=== PATIENT | male | born 1960 | race Caucasian/White ===

== ENCOUNTER 2023-12-24 13:41 | Emergency (ER) | payer OTHER, MEDICAID, SELFPAY ==
[2023-12-24 13:51] VITALS: BP 130/74
--- NOTE | 2023-12-24 15:46 | ED.GENMED ---
History of Present Illness
General
Chief Complaint: Head Injury
Time Seen by Provider: 12/24/23 14:41
Travel History
Have you had any contact with someone who has COVID-19?: No
Do you have any symptoms of coronavirus? Fever > 100 degrees, chills, cough, shortness of breath, sore throat, loss of taste or smell, muscle aches, or headache?: No
History of Present Illness
History of Present Illness:
63-year-old male with history of seizure disorder presents to the emergency department for evaluation of a minor head injury, states he bent forward to pick something up while at the grocery store today and fell backward striking his head on the
ground. Denies loss of conscious. Currently reports mild head pain but denies any other vision changes, neck pain, or extremity paresthesias. No nausea or vomiting.
Past History
Past History
ED Past Medical History: Seizures, Psychiatric (Depression), Other (gall stones, traumatic brain injury, migraine), Other (Hemorrhoids) and Other
ED Past Surgical History: None
Social History
Tobacco: Non-smoker
Alcohol: None
Drug: None
Personal: Single
Living: alone
Employment: Disabled
Family History
Family History: Other (Lost a brother and a sister to Alzheimer's.)
Review of Systems
Review of Systems
Allergies reviewed?: Yes
All Other Systems: ROS reviewed and negative except as documented in HPI and ROS
Phy Exam
Physical Exam
Physical Exam:
GEN: Well appearing, NAD, WDWN
HEENT: Oral mucosa moist, no scleral icterus, no nasal congestion
Cardiac: Regular rate
Lung: No respiratory distress, no tachypnea
MSK: No gross deformity or injuries
Skin: Good color, no pallor or jaundice, no rashes
Neuro: AO x3; CN II-XII grossly intact. BUE strength 5/5 in all young, sensation intact and symmetric. BLE strength 5/5 in all young, sensation intact and symmetric. Shuffling gait, baseline for the patient
Psych: Calm, cooperative
Course
Orders/Labs/Results
Orders:
Orders
12/24/23 15:07
CT Head W/o Iv Contrast Urgent
Comment:
Reason For Exam: fall, posterior head injury
Vital Signs
Initial and Last Documented VS:
Initial Vital Signs
Temp Pulse Resp BP Pulse Ox
98.3 F 77 16 130/74 98
12/24/23 13:51 12/24/23 13:51 12/24/23 13:51 12/24/23 13:51 12/24/23 13:51
Last Documented Vital Signs
Temp Pulse Resp BP Pulse Ox
98.3 F 77 16 130/74 98
12/24/23 13:51 12/24/23 13:51 12/24/23 13:51 12/24/23 13:51 12/24/23 13:51
MDM/Problems Addressed
MDM/Problems Addressed:
53-year-old male presents after minor fall. CT of the head is unremarkable for acute traumatic injury. Patient is at his neurologic baseline, discharged in stable condition
*Critical Care Note
Total Time (30-74mins, 75-104mins- exclusive of procedures): Not Applicable
ED Attending Note
-
Portions of this chart may have been created with voice recognition software.� Occasional wrong word or��sound alike� substitutions may have occurred due to the inherent limitations of voice recognition software.
Discharge Plan
Departure
Patient Disposition: Home (Routine Discharge)
Date of Disposition: 12/24/23
Time of Disposition: 16:11
Patient with high blood pressure during this ER visit?: No
Discharge Problem:
Closed head injury
Instructions: Head Injury in Adults (DC)
Prescriptions:
No Action
famotidine 20 MG tablet
20 mg PO DAILY
topiramate [Topamax] 200 MG tablet
300 mg PO BID
Patient Comments:
07/12/2022: TAKEN W/ 50MG = 250MG
Rx Instructions:
1 and a half tablets
folic acid 0.4 MG tablet
0.4 mg PO DAILY
pregabalin [Lyrica] 300 MG capsule
300 mg PO BID
Patient Comments:
07/12/2022: last filled 06/23/22, 56 tabs for 28 days from [place]
cyanocobalamin (vitamin B-12) 1,000 MCG tablet
1,000 mcg PO DAILY Qty: 0 0RF
levetiracetam 500 mg Tablet
500 mg PO BID
escitalopram oxalate 20 mg Tablet
20 mg PO DAILY
fexofenadine 180 mg Tablet
180 mg PO DAILY
meloxicam 7.5 mg Tablet
7.5 mg PO DAILY
cholecalciferol (vitamin D3) [Vitamin D3] 25 mcg (1,000 unit) Tablet
25 mcg PO DAILY
Aptiom 400 mg Tablet
1,200 mg PO DAILY
Referrals:
NONE,* [Active] -
Interventions
Interventions:
*Risk Screen - Suicide Last Done: 12/24/23 13:51
*General Assessment Last Done: 12/24/23 13:51
*Neglect/Abuse Screening Last Done: 12/24/23 13:51
*Nursing Disposition Last Done: 12/24/23 16:54
ED- Neurological Assessment Last Done: 12/24/23 14:21
ED-Skin Assessment Last Done: 12/24/23 14:21
Discharge Date and Time
Discharge Date/Time: 12/24/23 16:54
== END 2023-12-24 16:54 | disposition home or self-care (01) ==
LOC: EMR 13:41
PROVIDERS: EMERGENCY PHYSICIAN Emergency Medicine
DX: S09.90XA Unspecified injury of head, initial encounter (principal); W18.39XA Other fall on same level, initial encounter; G40.909 Epilepsy, unspecified, not intractable, without status epilepticus; F32.A Depression, unspecified; Z87.19 Personal history of other diseases of the digestive system
CPT/HCPCS: 99284; 70450

== ENCOUNTER 2023-12-31 18:28 | Emergency (ER) | payer OTHER, MEDICAID, SELFPAY ==
[2023-12-31] VITALS (8 sets, daily range): BP systolic 108–138; BP diastolic 58–107; BMI 28.7
[2023-12-31 18:51] LABS: % Basophils 1.5 % (0-2); % Eosinophils 3.3 % (0-6); % Immature Granulocytes 0.8 % (0-0.5); % Monocytes 7.5 % (1.7-9.3); % Neutrophils 72.9 % (42.2-75.2); Absolute Basophils 0.1 10^3/uL (0-0.2); Absolute Eosinophils 0.1 10^3/uL (0-0.7); Absolute Lymphocytes 0.6 10^3/uL (1.2-3.4); Absolute Monocytes 0.3 10^3/uL (0.1-0.6); Absolute Neutrophils 2.9 10^3/uL (1.4-6.5); Hematocrit 33.8 % (39.0-52.0); Hemoglobin 11.9 g/dL (13.0-18.0); Mean Corp Hgb Conc. 35.2 g/dL (33.0-37.0); Mean Corpuscular Hgb 28.8 pg (27.0-31.0); Mean Corpuscular Volume 81.8 fL (80.0-94.0); Nucleated Red Blood Cells % 0 % (-); Platelet Count 152 10^3/uL (130-400); Red Blood Cell Count 4.13 10^6/uL (4.70-6.10); Red Cell Dist. Width 14.6 % (11.5-14.5)
[2023-12-31 19:02] LABS: ALT (SGPT) < 10 U/L (0-50); AST (SGOT) 15 U/L (17-59); Albumin 3.6 g/dl (3.5-5.0); Alkaline Phosphatase 83 U/L (38-126); Blood Urea Nitrogen 20 mg/dl (9-20); Calcium 8.8 mg/dl (8.4-10.2); Carbon Dioxide 24 mmol/L (22-30); Chloride 99 mmol/L (98-107); Glucose 110 mg/dl (70-99); Potassium 3.7 mmol/L (3.5-5.1); Sodium 132 mmol/L (135-145); Total Bilirubin 0.7 mg/dl (0.2-1.3); Total Protein 6.7 g/dl (6.3-8.2); eGFR > 60.00
--- NOTE | 2023-12-31 19:24 | ED.GENMED ---
History of Present Illness
General
Chief Complaint: Seizure
Source: patient
Exam Limitations: none
Time Seen by Provider: 12/31/23 18:41
Nursing documentation reviewed up to this point in time: agreed with
Travel History
Have you had any contact with someone who has COVID-19?: No
Do you have any symptoms of coronavirus? Fever > 100 degrees, chills, cough, shortness of breath, sore throat, loss of taste or smell, muscle aches, or headache?: No
History of Present Illness
History of Present Illness:
Patient with history of seizure disorder, presents to ED secondary to witnessed seizure episode shortly prior to arrival. Upon arrival, patient is alert and awake, but confused. Patient unable to provide any further information at this time.
Past History
Past History
ED Past Medical History: Seizures, Psychiatric (Depression), Other (gall stones, traumatic brain injury, migraine), Other (Hemorrhoids) and Other
ED Past Surgical History: None
Social History
Tobacco: Non-smoker
Alcohol: None
Drug: None
Personal: Single
Living: alone
Employment: Disabled
Family History
Family History: Other (Lost a brother and a sister to Alzheimer's.)
Review of Systems
Review of Systems
Allergies reviewed?: Yes
Unable to obtain full review of systems at this time due to: due to acuity
All Other Systems: Not applicable
Phy Exam
Physical Exam
Physical Exam:
Physical Exam
General: no apparent distress, not acutely ill. afebrile
Head: nc/at. eomi
Neck: supple. normal range of motion.
Heart: s1/s2 regular rate and rhythm, no murmur. equal radial pulses.
Lungs: no acute respiratory distress. clear bilaterally
Abdomen: normal bowel sounds. not tender
Neuro: alert and awake, but confused. no focal neurological deficits
Skin: no rash
Extremities: no edema. no calf tenderness.
Course
Orders/Labs/Results
Orders:
Orders
12/31/23 18:36
EKG [Electrocardiogram (*1)] Urgent
Reason for Study: Syncope
EKG- Treatment ONCE
12/31/23 18:42
Complete Blood Count/With Diff Urgent
Comprehensive Metabolic Panel Urgent
Magnesium Urgent
12/31/23 19:10
CT Cervical Spine W/o Iv Contr Urgent
Comment:
Reason For Exam: seizure with trauma and neck pain
CT Head W/o Iv Contrast Urgent
Comment:
Reason For Exam: seizure
12/31/23 19:46
Add On- LAB Urgent
Tests Added?: magnesium
Abnormal Lab Results
12/31/23
18:42
WBC 4.0 L 10^3/uL
(4.8-10.8)
RBC 4.13 L 10^6/uL
(4.70-6.10)
Hgb 11.9 L g/dL
(13.0-18.0)
Hct 33.8 L %
(39.0-52.0)
RDW 14.6 H %
(11.5-14.5)
Absolute Lymphs (auto) 0.6 L 10^3/uL
(1.2-3.4)
Immature Gran % 0.8 H %
(0-0.5)
Lymphocytes % 14.0 L %
(20.5-51.1)
Sodium 132 L mmol/L
(135-145)
Glucose 110 H mg/dl
(70-99)
AST 15 L U/L
(17-59)
12/31/23 18:42
12/31/23 18:42
Vital Signs
Initial and Last Documented VS:
Initial Vital Signs
Temp Pulse Resp BP Pulse Ox
98.4 F 92 18 124/93 98
12/31/23 18:30 12/31/23 18:30 12/31/23 18:30 12/31/23 18:30 12/31/23 18:30
Last Documented Vital Signs
Temp Pulse Resp BP Pulse Ox
98.4 F 100 17 169/87 98
12/31/23 18:30 01/01/24 01:00 01/01/24 01:00 01/01/24 01:00 01/01/24 01:00
MDM/Problems Addressed
MDM/Problems Addressed:
CT head/C-spine: NAD.
Patient with latter-day of normal, baseline mental status during observation in ED. Patient states that he does not remember the names of medications that he takes for seizures, but states that he has been taking them and has them at home
currently. Advised patient to take his seizure medications upon arrival at home when discharge, along with neurology follow-up as an outpatient. Patient is alert, awake, and oriented, and expresses understanding at time of discharge.
*Critical Care Note
Total Time (30-74mins, 75-104mins- exclusive of procedures): Not Applicable
ED Attending Note
-
Portions of this chart may have been created with voice recognition software.� Occasional wrong word or��sound alike� substitutions may have occurred due to the inherent limitations of voice recognition software.
Discharge Plan
Departure
Patient Disposition: Home (Routine Discharge)
Date of Disposition: 12/31/23
Time of Disposition: 23:02
Patient with high blood pressure during this ER visit?: Yes
Condition: Good
Discharge Problem:
Seizure
Instructions: Seizures, Adult (DC)
Prescriptions:
No Action
famotidine 20 MG tablet
20 mg PO DAILY
topiramate [Topamax] 200 MG tablet
300 mg PO BID
Patient Comments:
07/12/2022: TAKEN W/ 50MG = 250MG
Rx Instructions:
1 and a half tablets
folic acid 0.4 MG tablet
0.4 mg PO DAILY
pregabalin [Lyrica] 300 MG capsule
300 mg PO BID
Patient Comments:
07/12/2022: last filled 06/23/22, 56 tabs for 28 days from [place]
cyanocobalamin (vitamin B-12) 1,000 MCG tablet
1,000 mcg PO DAILY Qty: 0 0RF
levetiracetam 500 mg Tablet
500 mg PO BID
escitalopram oxalate 20 mg Tablet
20 mg PO DAILY
fexofenadine 180 mg Tablet
180 mg PO DAILY
meloxicam 7.5 mg Tablet
7.5 mg PO DAILY
cholecalciferol (vitamin D3) [Vitamin D3] 25 mcg (1,000 unit) Tablet
25 mcg PO DAILY
Aptiom 400 mg Tablet
1,200 mg PO DAILY
Referrals:
UNKNOWN - PT DOES,NOT KNOW [Family Provider] -
Activity Restrictions/Additional Instructions:
As discussed, please continue to take your seizure medications as prescribed, along with close follow-up with your neurologist.
Interventions
Interventions:
*Risk Screen - Suicide Last Done: 12/31/23 18:30
*General Assessment Last Done: 12/31/23 18:30
*Neglect/Abuse Screening Last Done: 12/31/23 19:10
ED- Fall Risk Assessment Last Done: 12/31/23 23:09
*ED COVID-19 Vaccine History Last Done: 12/31/23 23:10
*Nursing Disposition Last Done: 01/01/24 01:00
ED- Cardiac Assessment Last Done: 12/31/23 19:44
ED- Neurological Assessment Last Done: 12/31/23 19:44
ED- Pulmonary Assessment Last Done: 12/31/23 19:44
Discharge Date and Time
Discharge Date/Time: 01/01/24 01:00
[2024-01-01] VITALS: BP 119/87
[2024-01-01 01:00] VITALS: BP 169/87
== END 2024-01-01 01:00 | disposition home or self-care (01) ==
LOC: EMR 18:28
PROVIDERS: EMERGENCY PHYSICIAN Emergency Medicine
DX: G40.909 Epilepsy, unspecified, not intractable, without status epilepticus (principal); R03.0 Elevated blood-pressure reading, without diagnosis of hypertension
CPT/HCPCS: 99285; 70450; 72125; 80053; 83735; 85025; 93005

== ENCOUNTER 2024-02-12 01:13 | Inpatient (IN) | payer OTHER, MEDICAID, SELFPAY ==
[2024-02-11 18:30] VITALS: BMI 26.5
[2024-02-11 18:37] VITALS: BP 103/70
[2024-02-11 18:40] VITALS: BP 103/70
[2024-02-11 19:00] VITALS: BP 106/69
[2024-02-11 20:00] VITALS: BP 113/72
[2024-02-11 20:10] LABS: % Basophils 0.7 % (0-2); % Eosinophils 0.6 % (0-6); % Immature Granulocytes 0.4 % (0-0.5); % Lymphocytes 4.5 % (20.5-51.1); % Monocytes 4.1 % (1.7-9.3); % Neutrophils 89.7 % (42.2-75.2); Absolute Basophils 0.1 10^3/uL (0-0.2); Absolute Lymphocytes 0.3 10^3/uL (1.2-3.4); Absolute Monocytes 0.3 10^3/uL (0.1-0.6); Absolute Neutrophils 6.4 10^3/uL (1.4-6.5); Hematocrit 33.3 % (39.0-52.0); Hemoglobin 11.6 g/dL (13.0-18.0); Mean Corp Hgb Conc. 34.8 g/dL (33.0-37.0); Mean Corpuscular Volume 80.4 fL (80.0-94.0); Mean Platelet Volume 9.8 fL (7.4-10.4); Nucleated Red Blood Cells % 0 % (-); Platelet Count 137 10^3/uL (130-400); Red Blood Cell Count 4.14 10^6/uL (4.70-6.10); Red Cell Dist. Width 14.7 % (11.5-14.5); White Blood Cell Count 7.1 10^3/uL (4.8-10.8)
[2024-02-11 20:21] LABS: Lactic Acid 1.2 mmol/L (0.7-2.0)
[2024-02-11 20:25] LABS: ALT (SGPT) < 10 U/L (0-50); AST (SGOT) 19 U/L (17-59); Albumin 3.7 g/dl (3.5-5.0); Alkaline Phosphatase 87 U/L (38-126); Blood Urea Nitrogen 27 mg/dl (9-20); Calcium 8.4 mg/dl (8.4-10.2); Carbon Dioxide 18 mmol/L (22-30); Chloride 106 mmol/L (98-107); Estimated Creatinine Clearance 66 ml/min; Glucose 109 mg/dl (70-99); Potassium 3.8 mmol/L (3.5-5.1); Sodium 130 mmol/L (135-145); Total Bilirubin 0.9 mg/dl (0.2-1.3); Total Protein 6.7 g/dl (6.3-8.2); eGFR > 60.00
[2024-02-11 20:26] LABS: COVID-19 Antigen Negative (Negative)
[2024-02-11 21:00] VITALS: BP 119/87
[2024-02-11 21:59] LABS: Urine Albumin Trace (Neg - Trace); Urine Bilirubin Negative (Negative); Urine Character Clear (Clear); Urine Color Yellow; Urine Glucose Negative (Negative); Urine Ketone Trace (Negative); Urine Leukocyte Trace (Negative); Urine Nitrite Negative (Negative); Urine Occult Blood Negative (Negative); Urine Specific Gravity 1.015 (<1.030); Urine Urobilinogen Negative (Neg - 1+)
[2024-02-11 22:04] LABS: Urine Bacteria Few (Negative); Urine Red Blood Cell 0-2 /HPF (0-2); Urine White Cell 0-2 /HPF (0-5)
--- NOTE | 2024-02-11 22:25 | ED.GENMED ---
History of Present Illness
General
Chief Complaint: Change in Mental Status
Source: patient
Exam Limitations: none
Time Seen by Provider: 02/11/24 18:33
Nursing documentation reviewed up to this point in time: agreed with
Travel History
Have you had any contact with someone who has COVID-19?: No
Do you have any symptoms of coronavirus? Fever > 100 degrees, chills, cough, shortness of breath, sore throat, loss of taste or smell, muscle aches, or headache?: Unable to Answer
History of Present Illness
History of Present Illness:
63-year-old male with a past medical history as documented presents to the emergency room from [facility] via EMS for evaluation after fall of bed. Patient says that he was trying out of bed and slid down onto his bottom. He says that he did not
hit his head and did not sustain any serious injuries. Apparently there was concern about a potential change in mental status after the fall and so he was sent to the emergency room. On arrival here patient is awake and alert slightly confused
about the year but answering questions and was able to recount the events of today. He says he has been feeling little bit weak. He denies any headache. Denies any neck pain. Denies any back pain. He denies any chest or abdominal pain. He says
he has had a runny nose but no sore throat. No cough. No shortness of breath. He has not had a subjective fever although he was found have a low-grade fever here. He denies any other complaints today. Review of his medication list shows no
blood thinners.
Past History
Past History
ED Past Medical History: Seizures, Psychiatric (Depression), Other (gall stones, traumatic brain injury, migraine), Other (Hemorrhoids) and Other
ED Past Surgical History: None
Social History
Tobacco: Non-smoker
Alcohol: None
Drug: None
Personal: Single
Living: alone
Employment: Disabled
Family History
Family History: Other (Lost a brother and a sister to Alzheimer's.)
Review of Systems
Review of Systems
All Other Systems: ROS reviewed and negative except as documented in HPI and ROS
Constitutional: Reports fever and fatigue; Denies chills
EENT: Reports runny nose; Denies sore throat
Respiratory: Denies cough or trouble breathing
Cardiac: Denies chest pain, diaphoresis, palpitations or syncope
ABD/GI: Denies abdominal pain, nausea, vomiting or diarrhea
: Denies flank pain
Musculoskeletal: Denies neck pain or back pain
Neurological: Denies dizzy, headache, weakness or numbness
Phy Exam
Physical Exam
Physical Exam:
General: Laying in bed awake and alert oriented to person and place was slightly confused about the year
Head: Normocephalic, atraumatic
Eyes: Conjunctiva normal, EOMI, pupils equal round and reactive to light bilateral
Throat: Airway intact, handling secretions
Neck: Trachea midline, supple without meningismus, no cervical spine tenderness
Back: No signs of trauma to the back or flank and no tenderness in the thoracic or lumbar spine
Lungs: Clear to auscultation bilaterally, no wheezing, rales, rhonchi
Heart: Tachycardia with regular rhythm, no murmurs, gallops, or rubs; no chest wall tenderness
Abd: Soft, non distended, nontender
Neuro: Cranial nerves intact 2 through 12, speech fluid, no motor or sensory deficits
Skin: no rash
Extremities: Atraumatic, no edema in extremities, equal pulses in all extremities
Scores
Heart Failure Risk
Heart Failure Risk Score: Not Applicable
Heart Score for Chest Pain Patients
STEMI patient?: Not applicable
Withdrawal Assessment of Alcohol
Withdrawal Assessment Completed?: Not applicable
Course
Orders/Labs/Results
Orders:
Orders
02/11/24 19:34
CT Head W/o Iv Contrast Urgent
Comment:
Reason For Exam: fall, ?head strike, confused
02/11/24 19:44
CR Chest Portable - 1 View Urgent
Comment:
Reason For Exam: fever
Reason Study Needs to be Portable: Unable to Transport
02/11/24 20:02
COVID-19 Antigen Urgent
Source: Nasal Swab
Complete Blood Count/With Diff Urgent
Comprehensive Metabolic Panel Urgent
Lactate Level [Lactic Acid] Urgent
Blood Culture Q30M
ROSANNA Source: Blood/Venous
Specimen Description:
Blood Culture Q30M
ROSANNA Source: Blood/Venous
Specimen Description:
Influenza A+B Rapid Molecular Urgent
ROSANNA Source: Nasal Swab
Specimen Description:
02/11/24 21:52
Urinalysis Reflex To Culture Urgent
Date Specimen was Collected: 02/11/24
Time Specimen was Collected: 21:52
Urine Microscopic Reflex Cult Urgent
02/11/24 22:39
Electrocardiogram (*1) Urgent
Reason for Study: Syncope
EKG- Treatment ONCE
02/11/24 22:54
Basic Metabolic Panel Urgent
Abnormal Lab Results
02/11/24 02/11/24 02/11/24
20:02 21:52 22:54
RBC 4.14 L 10^6/uL
(4.70-6.10)
Hgb 11.6 L g/dL
(13.0-18.0)
Hct 33.3 L %
(39.0-52.0)
RDW 14.7 H %
(11.5-14.5)
Absolute Lymphs (auto) 0.3 L 10^3/uL
(1.2-3.4)
Neutrophils % 89.7 H %
(42.2-75.2)
Lymphocytes % 4.5 L %
(20.5-51.1)
Sodium 130 L mmol/L 129 L mmol/L
(135-145) (135-145)
Carbon Dioxide 18 L mmol/L 20 L mmol/L
(22-30) (22-30)
BUN 27 H mg/dl 27 H mg/dl
(9-20) (9-20)
Glucose 109 H mg/dl 109 H mg/dl
(70-99) (70-99)
Calcium 8.2 L mg/dl
(8.4-10.2)
Urine Ketones Trace A
(Negative)
Leukocyte Esterase Rfl Trace A
(Negative)
Urine Bacteria (Reflex) Few A
(Negative)
02/11/24 20:02
02/11/24 22:54
Vital Signs
Initial and Last Documented VS:
Initial Vital Signs
Temp Pulse Resp BP Pulse Ox
38.0 C H 101 21 103/70 94
02/11/24 18:37 02/11/24 18:37 02/11/24 18:37 02/11/24 18:37 02/11/24 18:37
Last Documented Vital Signs
Temp Pulse Resp BP Pulse Ox
36.9 C 82 13 157/105 94
02/11/24 22:49 02/11/24 23:30 02/11/24 23:30 02/11/24 23:00 02/11/24 18:37
MDM/Problems Addressed
Differential Diagnosis Includes:
Fall: Must rule out intracranial hemorrhage given reported change in mentation; differential would also include concussion; consider seizure with postictal period as well which may have led to fall and confusion
Fever/confusion: Infection including URI, COVID, flu, pneumonia, UTI
MDM/Problems Addressed:
63-year-old male with history as documented presents for evaluation after a fall he says mechanical slide out of bed apparently was found confused. He arrived was tachycardic with a low-grade fever. Vital signs otherwise normal. Exam as above.
He is awake and alert here was slightly confused about the year�I called his sister and she says that this is baseline, apparently he has some good days and bad days as far as his mentation and what we are seeing here sounds like his baseline.
Fortunately does not appear to have serious injuries. Will plan to place an IV will check labs including a CBC and a CMP will check lactate and blood cultures. Will check urinalysis. Check a chest x-ray. Send viral swabs. Will send for CT head.
Will monitor closely reassess after the above.
Labs reviewed: CBC shows marginal anemia similar to prior. CMP shows mild metabolic acidosis with a CO2 of 18, mild hyponatremia with a sodium of 130. Creatinine is 1.3 which is baseline. Urinalysis negative for infection. Viral swabs negative.
Chest x-ray no clear pneumonia on my review. CT head no acute pathology chronic findings as above. With his mild metabolic acidosis and wonder if he may have had a seizure that led to postictal period and confusion. Reassessment here in ER heart
rate improved, fever improved with Tylenol. Repeat BMP pending.
Repeat BMP patient with improving acidosis, still has hyponatremia with a sodium of 129, doubt low enough to cause symptoms. Radiology report reviewed for chest x-ray�left lower lung opacity felt to favor pneumonia in the setting of fever. Will
plan to treat with antibiotics. CURB-65 score 3 puts patient in high risk category. Will admit for continued treatment. Discussed with hospitalist.
*Radiology
Radiology exam reviewed: preliminary read by ED provider and radiology read reviewed
*Pulse Oximetry
Patient hypoxic: no
*EKG
Interpreted by ED Provider?: Yes
Heart Rate: 79
Rate: normal
Rhythm: sinus
[place]: normal axis
Interval: first degree heart block
QRS Pattern: normal QRS
Ischemia: no ischemia
*Critical Care Note
Total Time (30-74mins, 75-104mins- exclusive of procedures): Not Applicable
Data Reviewed
Review of Other/Old Records Reveals: Labs and Records
Source: patient, records, family (Sister) and ambulance crew
Patient Management
Social determinants of health affecting care: Living situation and Strong social support
ED Attending Note
-
Portions of this chart may have been created with voice recognition software.� Occasional wrong word or��sound alike� substitutions may have occurred due to the inherent limitations of voice recognition software.
Discharge Plan
Departure
Patient Disposition: Admit
Date of Disposition: 02/11/24
Time of Disposition: 23:19
Admit to doctor: Marly
Presentation/result/management discussed w/ accepting MD/DO: Hospitalist
Patient with high blood pressure during this ER visit?: No
Discharge Problem:
Pneumonia, Hyponatremia
Prescriptions:
No Action
famotidine 20 MG tablet
20 mg PO DAILY
topiramate [Topamax] 200 MG tablet
300 mg PO BID
Patient Comments:
07/12/2022: TAKEN W/ 50MG = 250MG
Rx Instructions:
1 and a half tablets
folic acid 0.4 MG tablet
0.4 mg PO DAILY
pregabalin [Lyrica] 300 MG capsule
300 mg PO BID
Patient Comments:
07/12/2022: last filled 06/23/22, 56 tabs for 28 days from [place]
cyanocobalamin (vitamin B-12) 1,000 MCG tablet
1,000 mcg PO DAILY Qty: 0 0RF
escitalopram oxalate 20 mg Tablet
20 mg PO DAILY
fexofenadine 180 mg Tablet
180 mg PO DAILY
meloxicam 7.5 mg Tablet
7.5 mg PO DAILY
cholecalciferol (vitamin D3) [Vitamin D3] 25 mcg (1,000 unit) Tablet
25 mcg PO DAILY
Aptiom 400 mg Tablet
1,200 mg PO DAILY
levetiracetam 250 mg Tablet
250 mg PO BID@0800,1800
Referrals:
UNKNOWN - PT DOES,NOT KNOW [Family Provider] -
Interventions
Interventions:
*Risk Screen - Suicide Last Done: 02/11/24 21:19
*General Assessment Last Done: 02/11/24 21:19
*Neglect/Abuse Screening Last Done: 02/11/24 21:19
ED- Fall Risk Assessment Last Done: 02/11/24 19:03
*ED COVID-19 Vaccine History Last Done: 02/11/24 21:19
ED- Pulmonary Assessment Last Done: 02/11/24 19:03
ED- Neurological Assessment Last Done: 02/11/24 19:03
ED- Cardiac Assessment Last Done: 02/11/24 19:03
ED Swallowing Screen Last Done: 02/11/24 23:10
[2024-02-11 23:00] VITALS: BP 157/105
[2024-02-11 23:12] LABS: Blood Urea Nitrogen 27 mg/dl (9-20); Calcium 8.2 mg/dl (8.4-10.2); Carbon Dioxide 20 mmol/L (22-30); Chloride 106 mmol/L (98-107); Estimated Creatinine Clearance 71 ml/min; Glucose 109 mg/dl (70-99); Potassium 3.7 mmol/L (3.5-5.1); Sodium 129 mmol/L (135-145); eGFR > 60.00
[2024-02-12] VITALS (32 sets, daily range): BP systolic 77–128; BP diastolic 41–85; PULSE 70–71; O2SAT 98; BMI 26.5; BMI 26.7
--- NOTE | 2024-02-12 00:16 | HPS.HSE ---
Family Physician
-
Family Physician: NOT KNOW UNKNOWN - PT DOES
Chief Complaint
-
AMS, fall
History of Present Illness
63M Res of [facility], HX Sz, benign essential tremor, PNA BiB EMS for evalaution of fall. Denied head strike.
Per record at [facility] concern for AMS s/p fall then sent ER for eval.
@ ER T 100.4 otherwise HD stable.
Medical History
Past Medical History
Past Medical History: Reports Other
Additional Past Medical History:
Seizures
Depression
Traumatic brain injury
PTSD
Seizure disorder
Migraine headaches
Past Surgical History: Reports None
Social History
Tobacco: Non-smoker
Alcohol: None
Drug: None
Living: Jail
Family History
Family History: Not pertinent
Allergies / Home Medications
Allergies reflects when Allergies were last updated in [employer].
Home Medications with original date entered in [employer]
Allergy/Medication List:
Allergies
Allergy/AdvReac Type Severity Reaction Status Date / Time
iodine [Iodine] Allergy Rash Verified 02/11/24 18:46
valproic acid Allergy Unknown Verified 02/11/24 18:46
Home Medications
famotidine 20 mg tablet 20 mg PO DAILY Gastrointestinal issue 09/04/19
topiramate 200 mg tablet (Topamax) 300 mg PO BID Seizures 07/26/21
folic acid 400 mcg tablet 0.4 mg PO DAILY Supplement 02/10/22
pregabalin 300 mg capsule (Lyrica) 300 mg PO BID Pain 02/10/22
cyanocobalamin (vitamin B-12) 1,000 mcg tablet 1,000 mcg PO DAILY Supplement ##0 04/05/22
escitalopram oxalate 20 mg tablet 20 mg PO DAILY 07/12/22
cholecalciferol (vitamin D3) 25 mcg (1,000 unit) tablet (Vitamin D3) 25 mcg PO DAILY 09/11/23
eslicarbazepine 400 mg tablet (Aptiom) 1,200 mg PO DAILY 09/11/23
fexofenadine 180 mg tablet 180 mg PO DAILY 09/11/23
meloxicam 7.5 mg tablet 7.5 mg PO DAILY 09/11/23
levetiracetam 250 mg tablet 250 mg PO BID@0800,1800 02/11/24
Review of Systems
-
Constitutional: Reports Fever
EENT: Reports No Symptoms
Respiratory: Reports No Symptoms
Cardiac: Reports No Symptoms
Abdomen/GI: Reports No Symptoms
: Reports No Symptoms
Musculoskeletal: Reports No Symptoms
Skin: Reports No Symptoms
Neurological: Reports Other (confused )
Endocrine: Reports No Symptoms
Hematologic/Lymphatic: Reports No Symptoms
Psych: Reports No Symptoms
Physical Exam
Vital Signs
Vital Signs
Temp Pulse Resp BP Pulse Ox
98.5 F 82 13 157/105 94
02/11/24 22:49 02/11/24 23:30 02/11/24 23:30 02/11/24 23:00 02/11/24 18:37
Physical Exam
General: No Apparent Distress
HEENT: NormoCephalic and Atraumatic
Respiratory: Clear; No Wheezes, Rales or Rhonchi
Cardiac: S1/S2 and Regular Rhythm
Breast: Deferred by me
GI: Soft, Non Tender, Non Distended and Normal Bowel Sounds
Rectal: Deferred by Provider
Genito-urinary: Deferred by me
Musculoskeletal: No Edema
Skin: Warm
Neuro: Awake; No Oriented (confused with year )
Psych: Calm
Laboratory Results
-
02/11/24 20:02
02/11/24 22:54
Laboratory Results
Lactic Acid 1.2 mmol/L (0.7-2.0) 02/11/24 20:02
Total Bilirubin 0.9 mg/dl (0.2-1.3) 02/11/24 20:02
AST 19 U/L (17-59) 02/11/24 20:02
ALT < 10 U/L (0-50) 02/11/24 20:02
Alkaline Phosphatase 87 U/L (38-126) 02/11/24 20:02
Data Reviewed
-
Diagnostic Radiology: Report Reviewed by me
Lab Data: Labs Reviewed by me
Old Records: Reviewed
Impression/Plan
-
Reviewed VS: T 100.4 RR mid 10s POx low 90s HD stable
Data
WCC 7
Hgb 11.6
Na 129 - prior Na low 130s
CO2 20
Cr 1.2 eGFR > 60
Pending PCT
NEG Covid
BCx sent
EKG
SINUS RHYTHM WITH 1ST DEGREE A-V BLOCK
OTHERWISE NORMAL ECG
WHEN COMPARED WITH ECG OF 31-DEC-2023 18:37,
NO SIGNIFICANT CHANGE WAS FOUND
CXR:
1. Moderate asymmetric opacity in the left lower lobe suspicious for left lower lobe pneumonia in the setting of fever.
Mild subsegmental atelectasis or scarring is an alternative diagnostic possibility.
2. Mild amount of scarring in the right lower lobe.
3. Large bilateral pericardial fat pads.
HCT
1. No CT evidence for acute intracranial hemorrhage, calvarial fracture, or scalp soft tissue hematoma.
2. Mild diffuse cerebral volume loss.
3. Moderate cerebellar volume loss.
4. 7.9 cm arachnoid cyst in the posterior aspect of the posterior fossa causing mass effect on the posterior cerebellar vermis and left cerebellar hemisphere which appears unchanged.
Last hospitalist admission: 04/01/22- 04/05/22
DC DX: Klebsiella UTI, Seizure,
ASSESSMENT & PLAN
Fall without apparent injury
Improved AMS - infective vs unwitnessed sz
- fall precaution
- Observe MS
Fever likely due to LLL PNA - presumed HAP
Prior HX bibasilar PNA complicated by sepsis
- check PCT
- IV Zosyn in place of CFTZ/ Azithromycin
- f/u BCx
- f/u T and WCC
Euvolemic Hyponatremia ? due to SSRI , Topamax
Prior HX mild hyponatremia
- Pending Ur Na and Ur Osm
- Gentle NS 500 then FR 1.2
- Trend Na in AM
HX Sz stable on Topamax and Lyrica
HX benign essential tremor stable on propranolol
HX depression stable on Ecitalopram
DVT Px: LMWH
Code: Full code
IP MS
[2024-02-12] MEDS: ROCEPHIN 1000 MG IV (00:39)
[2024-02-12] MEDS: ZITHROMAX INFUSION 250 IV (00:40)
[2024-02-12] MEDS: NSS 500 IV ×2 (01:46→12:19)
[2024-02-12] MEDS: ZOSYN 50 IV ×4 (02:26→20:09)
[2024-02-12 02:39] LABS: Procalcitonin 0.71 ng/ml (0.0-0.25)
[2024-02-12 03:15] LABS: Osmolality Urine 667 mOsm/kg (300-900)
[2024-02-12 03:16] LABS: Urine Sodium 121 mmol/L (30-90)
--- NOTE | 2024-02-12 07:59 | W.PN.HOSP.TC ---
Today's Communication/Plan
-
see A/P
Assessment / Plan
Assessment / Plan
HPI: 63 M resident of [facility], [facility] Seizure, benign essential tremor, PNA; p/w fall. Denied head strike.
Per record at [place], there was concern for AMS which resulted in his fall.
He was noted to have fever in the ED.
CXR:
1. Moderate asymmetric opacity in the left lower lobe suspicious for left lower lobe pneumonia in the setting of fever. Mild subsegmental atelectasis or scarring is an alternative diagnostic possibility.
2. Mild amount of scarring in the right lower lobe.
3. Large bilateral pericardial fat pads.
HCT
1. � No CT evidence for acute intracranial hemorrhage, calvarial fracture, or scalp soft tissue hematoma.
2. � Mild diffuse cerebral volume loss.
3. � Moderate cerebellar volume loss.
4. � 7.9 cm arachnoid cyst in the posterior aspect of the posterior fossa causing mass effect on the posterior cerebellar vermis and left cerebellar hemisphere which appears unchanged.
A/P:
# acute metabolic encephalopathy with weakness/fall, likely due to sepsis POA from community-acquired pneumonia
Improved MS, he is AOX2, cont to monitor MS
PT OT eval for fall
CXR with LLL pneumonia, Procal elevated at 0.71
Flu/COVID negative, follow blood Cx, check MRSA screen
s/p ceftriaxone/azithromycin, was switched to Zosyn
Monitor temp /WBC
# Euvolemic acute on chronic Hyponatremia, likely SIADH related to CAP
cont fluid restriction 40 oz per day
follow sodium level
# h/o seizure disorder
cont [employer] Topamax and Lyrica
# benign essential tremor
stable on propranolol
# depression
mood stable on Escitalopram
DVT Px: LMWH
Code: Full code
Anticipated Discharge: 24 - 48 hours
Subjective/Interval History
-
Date of Service: February 12, 2024
Objective Data
-
Labs:
Laboratory Results
02/11/24 02/11/24
20:02 22:54
WBC 7.1
Hgb 11.6 L
Hct 33.3 L
Plt Count 137
Sodium 130 L 129 L
Potassium 3.8 3.7
Chloride 106 106
Carbon Dioxide 18 L 20 L
BUN 27 H 27 H
Creatinine 1.3 1.2
Glucose 109 H 109 H
Calcium 8.4 8.2 L
Total Bilirubin 0.9
AST 19
ALT < 10
Alkaline Phosphatase 87
Vital Signs:
Vital Signs
Temp Pulse Resp BP Pulse Ox
36.9 C 68 14 99/68 94
02/11/24 22:49 02/12/24 05:15 02/12/24 05:15 02/12/24 05:00 02/11/24 18:37
Review of Systems
-
All other systems: Reviewed and negative
Constitutional: Reports Fever
Respiratory: Denies Cough
Physical Exam
-
General: Well Developed, Well Nourished, No Apparent Distress, Comfortable and Conversant; Negative Respiratory Distress
HEENT: Normocephalic, Atraumatic, Nose Appears Normal and Ears Appear Normal; Negative Oxygen
Respiratory: Clear to Auscultation and Non Labored Respirations; Negative Accessory Resp Muscle Use
Cardiac: Regular Rhythm and S1/S2
GI: Soft, Nontender, Nondistended and Normal Bowel Sounds
Skin: Warm and Dry
Neuro: Awake and Alert
Psych: Calm
Data Reviewed
-
Diagnostic Radiology: Report Reviewed by me
Labs: Labs Reviewed by me
[2024-02-12] MEDS: MOBIC 7.5 MG PO (08:46)
[2024-02-12] MEDS: TOPAMAX 300 MG PO ×2 (08:46→20:09)
[2024-02-12] MEDS: KEPPRA 250 MG PO ×2 (08:47→20:09)
[2024-02-12] MEDS: LEXAPRO 20 MG PO (08:47)
[2024-02-12] MEDS: LYRICA 300 MG PO ×2 (08:47→20:10)
--- NOTE | 2024-02-12 12:54 | CM ---
CM met with patient in room. Patient was pleasant, but forgetful during IA. Patient confirmed that he participated in [email or web address] program . Patient stated that he has housekeeping assistance twice a week. He is followed by [facility] PCP and home RN. Patient uses a walker to get up in the morning and then uses a cane during the day. PT has evaluated and recommended no further needs.
CM will continue to follow as needed.
[2024-02-12] MEDS: LOVENOX 40 MG SC (18:48)
[2024-02-12] MEDS: NSS IV (20:19)
[2024-02-13] MEDS: ZOSYN 50 IV ×3 (02:42→13:24)
[2024-02-13] MEDS: NSS 1000 IV (05:15)
[2024-02-13 07:51] VITALS: BP 112/80
[2024-02-13] MEDS: LYRICA 300 MG PO (08:27)
[2024-02-13] MEDS: KEPPRA 250 MG PO (08:27)
[2024-02-13] MEDS: MOBIC 7.5 MG PO (08:28)
[2024-02-13] MEDS: LEXAPRO 20 MG PO (08:28)
[2024-02-13] MEDS: TOPAMAX 300 MG PO (08:28)
[2024-02-13 08:38] LABS: Hematocrit 32.1 % (39.0-52.0); Hemoglobin 10.8 g/dL (13.0-18.0); Mean Corp Hgb Conc. 33.6 g/dL (33.0-37.0); Mean Corpuscular Hgb 27.7 pg (27.0-31.0); Mean Corpuscular Volume 82.3 fL (80.0-94.0); Mean Platelet Volume 10.3 fL (7.4-10.4); Platelet Count 151 10^3/uL (130-400); Red Cell Dist. Width 15.1 % (11.5-14.5); White Blood Cell Count 3.9 10^3/uL (4.8-10.8)
[2024-02-13 09:01] LABS: Blood Urea Nitrogen 22 mg/dl (9-20); Calcium 8.4 mg/dl (8.4-10.2); Carbon Dioxide 20 mmol/L (22-30); Chloride 106 mmol/L (98-107); Estimated Creatinine Clearance 64 ml/min; Glucose 85 mg/dl (70-99); Magnesium 2.1 mg/dl (1.6-2.3); Sodium 136 mmol/L (135-145); eGFR > 60.00
[2024-02-13 09:08] LABS: Potassium 3.5 mmol/L (3.5-5.1)
[2024-02-13] MEDS: TYLENOL 650 MG PO (11:58)
--- NOTE | 2024-02-13 12:49 | W.PN.HOSP.TC ---
Addendum entered and electronically signed by Ashley Rosario MD 02/13/24 15:07:
total DC time 35 min
Original Note:
Today's Communication/Plan
-
DC today
Assessment / Plan
Assessment / Plan
HPI: 63 M resident of [facility], [facility] Seizure, benign essential tremor, PNA; p/w fall. Denied head strike.
Per record at [facility], there was concern for AMS which resulted in his fall.
He was noted to have fever in the ED.
CXR:
1. Moderate asymmetric opacity in the left lower lobe suspicious for left lower lobe pneumonia in the setting of fever. Mild subsegmental atelectasis or scarring is an alternative diagnostic possibility.
2. Mild amount of scarring in the right lower lobe.
3. Large bilateral pericardial fat pads.
HCT
1. � No CT evidence for acute intracranial hemorrhage, calvarial fracture, or scalp soft tissue hematoma.
2. � Mild diffuse cerebral volume loss.
3. � Moderate cerebellar volume loss.
4. � 7.9 cm arachnoid cyst in the posterior aspect of the posterior fossa causing mass effect on the posterior cerebellar vermis and left cerebellar hemisphere which appears unchanged.
A/P:
# acute metabolic encephalopathy with weakness/fall, likely due to sepsis POA from community-acquired pneumonia
Improved MS, he is AOX3
PT OT eval for fall: no skilled need
CXR with LLL pneumonia, Procal elevated at 0.71
Flu/COVID negative, blood Cx neg, pending MRSA screen
s/p ceftriaxone/azithromycin, was switched to Zosyn, can discharged with Ceftin/doxycycline for 5 more days
Monitor temp /WBC
# Euvolemic acute on chronic Hyponatremia, likely SIADH related to CAP
cont fluid restriction 40 oz per day
follow sodium level , today at 136
# h/o seizure disorder
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
# benign essential tremor
stable on propranolol
# depression
mood stable on Escitalopram
DVT Px: LMWH
Code: Full code
DW CM
Anticipated Discharge: Today
Subjective/Interval History
-
Date of Service: February 13, 2024
Objective Data
-
Labs:
Laboratory Results
02/13/24
06:38
WBC 3.9 L
Hgb 10.8 L
Hct 32.1 L
Plt Count 151
Sodium 136
Potassium 3.5
Chloride 106
Carbon Dioxide 20 L
BUN 22 H
Creatinine 1.3
Glucose 85
Calcium 8.4
Vital Signs:
Vital Signs
Temp Pulse Resp BP Pulse Ox
37.2 C 77 16 112/80 96
02/13/24 07:51 02/13/24 07:51 02/13/24 07:51 02/13/24 07:51 02/13/24 08:40
I&O
02/12/24 02/13/24 02/14/24
06:59 06:59 06:59
Intake Total 2560 / 2560
Output Total 0 / 0
Balance 2560 / 2560
Review of Systems
-
All other systems: Reviewed and negative
Physical Exam
-
General: Well Developed, Well Nourished, No Apparent Distress, Comfortable and Conversant; Negative Respiratory Distress
HEENT: Normocephalic, Atraumatic, Nose Appears Normal and Ears Appear Normal; Negative Oxygen
Respiratory: Clear to Auscultation and Non Labored Respirations; Negative Accessory Resp Muscle Use
Cardiac: Regular Rhythm and S1/S2
GI: Soft, Nontender, Nondistended and Normal Bowel Sounds
Skin: Warm and Dry
Neuro: Awake and Alert
Psych: Calm and Intact Judgement/Insight
Data Reviewed
-
Diagnostic Radiology: Report Reviewed by me
Labs: Labs Reviewed by me
[2024-02-13] MEDS: KCL 40 MEQ PO (13:24)
--- NOTE | 2024-02-13 14:17 | W.DCSUMMARY ---
Discharge Summary
Discharge Data
Date of Admission: 02/12/24
Date of Discharge: 02/13/24
-
Pending Results: No
Hospital Course
Principal Diagnosis:
Acute metabolic encephalopathy with weakness/fall, due to community-acquired pneumonia (CAP)
Euvolemic acute on chronic Hyponatremia, likely SIADH related to CAP
Chronic Diagnoses:�
Seizure disorder on Topamax and Lyrica
Benign essential tremor on propranolol
Depression, mood stable on Escitalopram
Consultations:�
None
Procedures:�
None
Clinical course:�
This is a 63 year old resident from [facility], with past medical history as stated above, who presented with fall due to weakness.
Problem 1:
Acute metabolic encephalopathy with weakness/fall, due to sepsis POA from community-acquired pneumonia.
His chest x-ray noted left lower lobe pneumonia, and his procalcitonin was elevated at 0.01.
He was treated with IV antibiotic Zosyn and was discharged with Ceftin/doxycycline for 5 more days.
His mental status improved, back to AOx3, on the day of discharge.
Of note, his Flu/COVID were negative, blood Cx was negative.
Problem 2:
Euvolemic acute on chronic hyponatremia, likely SIADH related to CAP.
Sodium level improved to 136.
As for the rest of his medical problems, they were stable during his hospital stay.
Discharge Plan
-
Patient Disposition: Home with Home Care
Discharge Diagnosis/Procedures: confusion with weakness/fall, due to community-acquired pneumonia; Hyponatremia (resolved) due to SIADH related to pneumonia; benign essential tremor
Condition: Fair
Diet: As tolerated
Activity: As tolerated
Driving Restrictions: Not until seen by your Dr
Referrals:
UNKNOWN - PT DOES,NOT KNOW [Family Provider] - in less than 1 week
Additional Discharge Medication Instructions: continue ceftin and doxycycline for 5 days.
Avoid milk/dairy product while on doxycycline. Avoid the sun while on doxycycline
Prescriptions:
New
cefuroxime axetil 250 mg tablet
500 mg PO BID 5 Days Qty: 20 0RF
doxycycline hyclate 100 mg capsule
100 mg PO BID 5 Days Qty: 10 0RF
Continued
famotidine 20 MG tablet
20 mg PO DAILY
topiramate [Topamax] 200 MG tablet
300 mg PO BID
Patient Comments:
07/12/2022: TAKEN W/ 50MG = 250MG
Rx Instructions:
1 and a half tablets
folic acid 0.4 MG tablet
0.4 mg PO DAILY
pregabalin [Lyrica] 300 MG capsule
300 mg PO BID
Patient Comments:
07/12/2022: last filled 06/23/22, 56 tabs for 28 days from [place]
cyanocobalamin (vitamin B-12) 1,000 MCG tablet
1,000 mcg PO DAILY Qty: 0 0RF
escitalopram oxalate 20 mg Tablet
20 mg PO DAILY
fexofenadine 180 mg Tablet
180 mg PO DAILY
meloxicam 7.5 mg Tablet
7.5 mg PO DAILY
cholecalciferol (vitamin D3) [Vitamin D3] 25 mcg (1,000 unit) Tablet
25 mcg PO DAILY
Aptiom 400 mg Tablet
1,200 mg PO DAILY
levetiracetam 250 mg Tablet
250 mg PO BID@0800,1800
Discharge Orders:
Discharge Patient (As Directed); Ordered 02/13/24
Ordered By: Ashley Rosario
[2024-02-13 15:45] VITALS: BP 88/58
== END 2024-02-13 16:59 | disposition home health service (06) | DRG 871 ==
LOC: 4 WEST ACU 01:13
PROVIDERS: ADMITTING PHYSICIAN Internal Medicine; ATTENDING PHYSICIAN Internal Medicine; EMERGENCY PHYSICIAN Emergency Medicine
DX: A41.9 Sepsis, unspecified organism (principal); G93.41 Metabolic encephalopathy; J18.9 Pneumonia, unspecified organism; E22.2 Syndrome of inappropriate secretion of antidiuretic hormone; E87.20 Acidosis, unspecified; J98.11 Atelectasis; W06.XXXA Fall from bed, initial encounter; Y93.9 Activity, unspecified; Y92.092 Bedroom in other non-institutional residence as the place of occurrence of the external cause; F32.A Depression, unspecified; I44.0 Atrioventricular block, first degree; F43.10 Post-traumatic stress disorder, unspecified; G25.0 Essential tremor; G43.909 Migraine, unspecified, not intractable, without status migrainosus; G40.909 Epilepsy, unspecified, not intractable, without status epilepticus; K64.8 Other hemorrhoids; Z87.820 Personal history of traumatic brain injury; Z82.0 Family history of epilepsy and other diseases of the nervous system; Z11.52 Encounter for screening for COVID-19; Z91.81 History of falling; Z88.8 Allergy status to other drugs, medicaments and biological substances; Z91.041 Radiographic dye allergy status
CPT/HCPCS: 70450; 71045; 80048; 80053; 81003; 81015; 83605; 83735; 83935; 84145; 84300; 85025; 85027; 87040; 87070; 87502; 87811; 93005; 97166; 99285

== ENCOUNTER 2024-06-26 10:16 | Emergency (ER) | payer OTHER, MEDICAID, SELFPAY ==
--- NOTE | 2024-06-26 10:23 | ED.GENMED ---
History of Present Illness
General
Chief Complaint: Seizure
Source: patient and ambulance crew
Time Seen by Provider: 06/26/24 10:22
History of Present Illness
History of Present Illness:
64yoM with a history of epilepsy presenting via EMS for evaluation after a seizure that occurred within the past hour. 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 The episode was described as a tonic clonic
movements that lasted for 1-2 minutes before self-resolving. He was in his seat during the episode and did not fall or have any head injuries. He was back to baseline upon EMS arrival. Patient has no complaints at this time and states he feels
normal. Last seizure was a few weeks ago which is typical for him. He reports compliance with his medications and is currently taking Keppra. He denies any headache, vomiting, fevers, recent illness.
Past History
Past History
ED Past Medical History: Seizures, Psychiatric (Depression), Other (gall stones, traumatic brain injury, migraine), Other (Hemorrhoids) and Other
ED Past Surgical History: None
Social History
Tobacco: Non-smoker
Alcohol: None
Drug: None
Personal: Single
Living: alone
Employment: Disabled
Family History
Family History: Other (Lost a brother and a sister to Alzheimer's.)
Phy Exam
General Physical Exam
General Presentation: well appearing and no apparent distress
General age: appears stated age
General Skin: warm and dry
General Habitus: normal
ENT Exam
Additional ENT: No meningismus
Eye Exam
Eye Exam: PERRL
Cardiovascular Exam
Cardiovascular Exam: regular rate/rhythm, no edema, no murmur and normal peripheral pulses (2+ DP pulses bilaterally)
Pulmonary Exam
Pulmonary Exam: lungs clear, no respiratory distress, no crackles and no wheezing
Neurological Exam
Neurological Exam: alert, oriented x3, no motor deficits and other (Oriented to person, place, and time. Follows commands in all extremities. No focal deficits appreciated. )
[place] Coma Scale
Eye Opening: Spontaneous
Verbal Response: Oriented
Motor Response: Obeys Commands
GCS Total Score: 15
Skin Exam
Skin Exam: normal color and warm/dry
Course
Orders/Labs/Results
Orders:
Orders
06/26/24 10:18
EKG [Electrocardiogram (*1)] Urgent
Reason for Study: Other
Other Reason for Exam: post seizure
06/26/24 10:19
EKG- Treatment ONCE
06/26/24 10:20
Complete Blood Count/With Diff Urgent
Comprehensive Metabolic Panel Urgent
06/26/24 10:47
Keppra (Levetiracetam) [S] Urgent
Abnormal Lab Results
06/26/24
10:20
RBC 3.75 L 10^6/uL
(4.70-6.10)
Hgb 10.3 L g/dL
(13.0-18.0)
Hct 30.0 L %
(39.0-52.0)
RDW 15.2 H %
(11.5-14.5)
Abs Immat Gran (auto) 0.1 H 10^3/uL
(0-0.05)
Absolute Lymphs (auto) 0.9 L 10^3/uL
(1.2-3.4)
Immature Gran % 1.4 H %
(0-0.5)
Lymphocytes % 19.2 L %
(20.5-51.1)
Monocytes % 9.9 H %
(1.7-9.3)
Sodium 132 L mmol/L
(135-145)
BUN 26 H mg/dl
(9-20)
AST 12 L U/L
(17-59)
Total Protein 6.0 L g/dl
(6.3-8.2)
Albumin 3.3 L g/dl
(3.5-5.0)
06/26/24 10:20
06/26/24 10:20
Vital Signs
Initial and Last Documented VS:
Initial Vital Signs
Pulse Resp Pulse Ox
67 12 99
06/26/24 10:23 06/26/24 10:23 06/26/24 10:23
Last Documented Vital Signs
Temp Pulse Resp BP Pulse Ox
98.8 F 56 12 109/77 97
06/26/24 11:07 06/26/24 11:15 06/26/24 11:15 06/26/24 11:07 06/26/24 11:15
MDM/Problems Addressed
Differential Diagnosis Includes:
64yoM here after a seizure. Known hx of epilepsy. Witnessed tonic clonic episode lasting 1-2 minutes that self-resolved. Currently back to baseline with no complaints. He was reportedly hypotensive on EMS arrival although he is normotensive on
arrival at 108/80. He received 500cc IV fluids prehospital. He is afebrile and hemodynamically stable. He is well appearing in no distress. He is A&O without any focal deficits appreciated. Differential diagnosis includes but is not limited to:
seizure, syncope, electrolyte disturbance, arrhythmia
Initial ED plan: Check CBC, CMP, Keppra level, and EKG.
*EKG
Interpreted by ED Provider?: Yes
EKG Intrepretation Date: 06/26/24
Heart Rate: 66
Rate: normal
Rhythm: sinus
[place]: normal axis
Interval: first degree heart block
QRS Pattern: normal QRS
Ischemia: T-wave inversion (Isolated T wave inversion in V3)
*Critical Care Note
Total Time (30-74mins, 75-104mins- exclusive of procedures): Not Applicable
Update Note
Update Note:
Labs overall unremarkable. Mild anemia and hyponatremia noted which is stable from prior labs. EKG shows NSR without ectopy or ischemic changes. Patient reassessment and he continues to be asymptomatic. Blood pressure remains normal. He was able to
eat lunch and ambulate independently during his ED stay. No indication for admission. 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 He was advised to continue taking his home seizure medications and f/u closely with his PCP and neurologist. ED return
precautions discussed. He was discharged in stable condition.
ED Attending Note
-
Portions of this chart may have been created with voice recognition software.� Occasional wrong word or��sound alike� substitutions may have occurred due to the inherent limitations of voice recognition software.
Discharge Plan
Departure
Patient Disposition: Home (Routine Discharge)
Date of Disposition: 06/26/24
Time of Disposition: 11:09
Patient with high blood pressure during this ER visit?: No
Discharge Problem:
Seizure
Instructions: Seizures, Adult (DC)
Prescriptions:
No Action
famotidine 20 MG tablet
20 mg PO DAILY
topiramate [Topamax] 200 MG tablet
300 mg PO BID
Patient Comments:
07/12/2022: TAKEN W/ 50MG = 250MG
Rx Instructions:
1 and a half tablets
folic acid 0.4 MG tablet
0.4 mg PO DAILY
pregabalin [Lyrica] 300 MG capsule
300 mg PO BID
Patient Comments:
07/12/2022: last filled 06/23/22, 56 tabs for 28 days from [place]
cyanocobalamin (vitamin B-12) 1,000 MCG tablet
1,000 mcg PO DAILY Qty: 0 0RF
escitalopram oxalate 20 mg Tablet
20 mg PO DAILY
fexofenadine 180 mg Tablet
180 mg PO DAILY
meloxicam 7.5 mg Tablet
7.5 mg PO DAILY
cholecalciferol (vitamin D3) [Vitamin D3] 25 mcg (1,000 unit) Tablet
25 mcg PO DAILY
Aptiom 400 mg Tablet
1,200 mg PO DAILY
levetiracetam 250 mg Tablet
250 mg PO BID@0800,1800
cefuroxime axetil 250 mg tablet
500 mg PO BID 5 Days Qty: 20 0RF
doxycycline hyclate 100 mg capsule
100 mg PO BID 5 Days Qty: 10 0RF
Referrals:
Jimmy Messina MD [Active] -
UNKNOWN - PT DOES,NOT KNOW [Family Provider] -
Activity Restrictions/Additional Instructions:
Continue taking your seizure medications and do not miss any doses.
Please follow-up with your family doctor and neurologist. Return to the ER with any worsening symptoms, recurrent seizures within 24 hours, or confusion.
Interventions
Interventions:
*Risk Screen - Suicide Last Done: 06/26/24 10:25
*General Assessment Last Done: 06/26/24 10:25
*Neglect/Abuse Screening Last Done: 06/26/24 10:25
ED- Fall Risk Assessment Last Done: 06/26/24 10:25
*ED COVID-19 Vaccine History Last Done: 06/26/24 10:25
*Nursing Disposition Last Done: 06/26/24 11:21
ED- Cardiac Assessment Last Done: 06/26/24 10:25
ED- Neurological Assessment Last Done: 06/26/24 10:25
ED- Pulmonary Assessment Last Done: 06/26/24 10:25
Discharge Date and Time
Discharge Date/Time: 06/26/24 11:53
Print Language: ETHIOPIAN
[2024-06-26 10:25] VITALS: BMI 28.0
[2024-06-26 10:28] LABS: % Basophils 1.4 % (0-2); % Eosinophils 4.5 % (0-6); % Immature Granulocytes 1.4 % (0-0.5); % Lymphocytes 19.2 % (20.5-51.1); % Monocytes 9.9 % (1.7-9.3); % Neutrophils 63.6 % (42.2-75.2); Absolute Basophils 0.1 10^3/uL (0-0.2); Absolute Eosinophils 0.2 10^3/uL (0-0.7); Absolute Immature Granulocytes 0.1 10^3/uL (0-0.05); Absolute Lymphocytes 0.9 10^3/uL (1.2-3.4); Absolute Monocytes 0.5 10^3/uL (0.1-0.6); Absolute Neutrophils 3.1 10^3/uL (1.4-6.5); Hemoglobin 10.3 g/dL (13.0-18.0); Mean Corp Hgb Conc. 34.3 g/dL (33.0-37.0); Mean Corpuscular Hgb 27.5 pg (27.0-31.0); Mean Platelet Volume 9.9 fL (7.4-10.4); Nucleated Red Blood Cells % 0 % (-); Platelet Count 140 10^3/uL (130-400); Red Blood Cell Count 3.75 10^6/uL (4.70-6.10); Red Cell Dist. Width 15.2 % (11.5-14.5); White Blood Cell Count 4.9 10^3/uL (4.8-10.8)
[2024-06-26 10:45] LABS: ALT (SGPT) < 10 U/L (0-50); AST (SGOT) 12 U/L (17-59); Albumin 3.3 g/dl (3.5-5.0); Alkaline Phosphatase 71 U/L (38-126); Blood Urea Nitrogen 26 mg/dl (9-20); Calcium 8.6 mg/dl (8.4-10.2); Carbon Dioxide 23 mmol/L (22-30); Chloride 104 mmol/L (98-107); Estimated Creatinine Clearance 68 ml/min; Glucose 82 mg/dl (70-99); Potassium 3.8 mmol/L (3.5-5.1); Sodium 132 mmol/L (135-145); Total Bilirubin 0.4 mg/dl (0.2-1.3); eGFR > 60.00
[2024-06-26 10:52] VITALS: BP 106/81
[2024-06-26 11:00] VITALS: BP 109/77
[2024-06-26 11:07] VITALS: BP 109/77
[2024-06-29 01:02] LABS: Keppra (Levetiracetam) 21 ug/mL (10-40)
== END 2024-06-26 11:53 | disposition home or self-care (01) ==
LOC: EMR 10:16
PROVIDERS: Physician Assistant; EMERGENCY PHYSICIAN Emergency Medicine
DX: G40.909 Epilepsy, unspecified, not intractable, without status epilepticus (principal)
CPT/HCPCS: 99284; 80053; 80177; 85025; 93005

== ENCOUNTER 2024-07-09 17:47 | Inpatient (IN) | payer OTHER, MEDICAID, SELFPAY ==
[2024-07-09] VITALS (9 sets, daily range): BP systolic 98–134; BP diastolic 70–83; BMI 27.6
[2024-07-09 13:54] LABS: % Basophils 0.8 % (0-2); % Eosinophils 1.7 % (0-6); % Immature Granulocytes 0.2 % (0-0.5); % Lymphocytes 5.5 % (20.5-51.1); % Neutrophils 88.8 % (42.2-75.2); Absolute Eosinophils 0.1 10^3/uL (0-0.7); Absolute Lymphocytes 0.3 10^3/uL (1.2-3.4); Absolute Monocytes 0.2 10^3/uL (0.1-0.6); Absolute Neutrophils 4.7 10^3/uL (1.4-6.5); Hematocrit 31.9 % (39.0-52.0); Hemoglobin 11.2 g/dL (13.0-18.0); Mean Corp Hgb Conc. 35.1 g/dL (33.0-37.0); Mean Corpuscular Hgb 27.6 pg (27.0-31.0); Mean Corpuscular Volume 78.6 fL (80.0-94.0); Nucleated Red Blood Cells % 0 % (-); Platelet Count 114 10^3/uL (130-400); Red Blood Cell Count 4.06 10^6/uL (4.70-6.10); Red Cell Dist. Width 15.4 % (11.5-14.5); White Blood Cell Count 5.3 10^3/uL (4.8-10.8)
[2024-07-09 14:07] LABS: ALT (SGPT) < 10 U/L (0-50); AST (SGOT) 16 U/L (17-59); Albumin 3.9 g/dl (3.5-5.0); Alkaline Phosphatase 75 U/L (38-126); Blood Urea Nitrogen 22 mg/dl (9-20); Calcium 8.9 mg/dl (8.4-10.2); Carbon Dioxide 20 mmol/L (22-30); Chloride 99 mmol/L (98-107); Estimated Creatinine Clearance 68 ml/min; Glucose 114 mg/dl (70-99); Potassium 3.6 mmol/L (3.5-5.1); Sodium 128 mmol/L (135-145); Total Bilirubin 0.6 mg/dl (0.2-1.3); Total Protein 6.5 g/dl (6.3-8.2); eGFR > 60.00
[2024-07-09 15:47] LABS: Urine Albumin Negative (Neg - Trace); Urine Bilirubin Negative (Negative); Urine Character Clear (Clear); Urine Color Yellow; Urine Glucose Negative (Negative); Urine Ketone Negative (Negative); Urine Leukocyte Negative (Negative); Urine Nitrite Negative (Negative); Urine Occult Blood Negative (Negative); Urine Urobilinogen Negative (Neg - 1+)
--- NOTE | 2024-07-09 15:59 | ED.GENMED ---
History of Present Illness
General
Chief Complaint: Change Level of Consciousness
Source: patient and records
Exam Limitations: none
Time Seen by Provider: 07/09/24 15:39
Nursing documentation reviewed up to this point in time: agreed with
History of Present Illness
History of Present Illness:
Patient is a 64-year-old male who presents after becoming dizzy and off balance while at [facility] today. Patient is unsure whether he had a seizure or not. He does not think so but people who were there thought he did. Patient denies diaphoresis,
visual or speech difficulties. Patient Nuys focal weakness. Patient does have significant tremors. Patient denies any GI or symptoms. Patient Nuys any fever chills or recent illnesses. Patient denies syncope. Patient did fall yesterday but
he said it was from feeling dizzy. Patient does have a history of hyponatremia.
Past History
Past History
ED Past Medical History: Seizures, Psychiatric (Depression), Other (gall stones, traumatic brain injury, migraine), Other (Hemorrhoids) and Other
ED Past Surgical History: None
Social History
Tobacco: Non-smoker
Alcohol: None
Drug: None
Personal: Single
Living: alone
Employment: Disabled
Family History
Family History: Other (Lost a brother and a sister to Alzheimer's.)
Review of Systems
Review of Systems
All Other Systems: ROS reviewed and negative except as documented in HPI and ROS
Constitutional: Reports fatigue; Denies fever or chills
EENT: Reports no symptoms
Respiratory: Reports no symptoms
Cardiac: Reports no symptoms
ABD/GI: Reports no symptoms
: Reports no symptoms
Musculoskeletal: Reports neck pain (That has resolved since yesterday); Denies back pain
Skin: Reports no symptoms
Neurological: Reports dizzy and other (Questionable seizure); Denies headache
Hematologic/Lymphatic: Reports no symptoms
Phy Exam
Physical Exam
Physical Exam:
Physical Exam
General: No apparent distress, alert and appropriate, well nourished, well hydrated
HENT: Normocephalic and atraumatic, supple with no lymphadenopathy, no thyromegaly
Eyes: Clear sclera, conjuctiva without injection
Heart: Regular rhythm and rate. No S3, S4. No murmur. No NVD
Lungs: No respiratory distress, no stridor, lung sounds clear and equal bilaterally, chest wall symmetrical and nontender
Abdomen: Soft, nontender, no organomegaly, no CVA tenderness, BS good
Neuro: Alert and oriented x 3, CN II - XII intact, no motor focality, no cerebellar dysfunction, significant resting tremor
Skin: no rash
Psychiatric: well kept. interactive and cooperative
Extremities: No edema, cyanosis, tenderness
Musculoskeletal: No cervical, thoracic or lumbar spine tenderness
Course
Orders/Labs/Results
Orders:
Orders
07/09/24 13:37
Complete Blood Count/With Diff Urgent
Comprehensive Metabolic Panel Urgent
07/09/24 15:36
Osmolality, Random Urine Urgent
Date Specimen was Collected: 07/09/24
Time Specimen was Collected: 15:32
Comment: ADD ON
Urinalysis Reflex To Culture Urgent
Date Specimen was Collected: 07/09/24
Time Specimen was Collected: 15:32
07/09/24 15:43
0.9% Sodium Chloride 1000 ml [Nss] 1,000 ml IV BOLUS
07/09/24 15:47
Add On- LAB Urgent
Comments:: sst and UA in lab
Tests Added?: serum osmolarity and urine osmolarity
Abnormal Lab Results
07/09/24
13:37
RBC 4.06 L 10^6/uL
(4.70-6.10)
Hgb 11.2 L g/dL
(13.0-18.0)
Hct 31.9 L %
(39.0-52.0)
MCV 78.6 L fL
(80.0-94.0)
RDW 15.4 H %
(11.5-14.5)
Plt Count 114 L 10^3/uL
(130-400)
Absolute Lymphs (auto) 0.3 L 10^3/uL
(1.2-3.4)
Neutrophils % 88.8 H %
(42.2-75.2)
Lymphocytes % 5.5 L %
(20.5-51.1)
Sodium 128 L mmol/L
(135-145)
Carbon Dioxide 20 L mmol/L
(22-30)
BUN 22 H mg/dl
(9-20)
Glucose 114 H mg/dl
(70-99)
AST 16 L U/L
(17-59)
07/09/24 13:37
07/09/24 13:37
Vital Signs
Initial and Last Documented VS:
Initial Vital Signs
Temp Pulse Resp BP Pulse Ox
98.3 F 97 16 98/70 96
07/09/24 13:29 07/09/24 13:29 07/09/24 13:29 07/09/24 13:29 07/09/24 13:29
Last Documented Vital Signs
Temp Pulse Resp BP Pulse Ox
98.3 F 90 15 111/76 96
07/09/24 13:29 07/09/24 15:00 07/09/24 15:00 07/09/24 15:00 07/09/24 15:00
*Radiology
Radiology exam reviewed: other (N/A)
*Pulse Oximetry
Patient hypoxic: no
*EKG
Interpreted by ED Provider?: NA
*Critical Care Note
Total Time (30-74mins, 75-104mins- exclusive of procedures): Not Applicable
ED Attending Note
-
Portions of this chart may have been created with voice recognition software.� Occasional wrong word or��sound alike� substitutions may have occurred due to the inherent limitations of voice recognition software.
Discharge Plan
Departure
Patient Disposition: Admit
Date of Disposition: 07/09/24
Time of Disposition: 16:06
Admit to: Telemetry
Admit to doctor: Hospitalist
Presentation/result/management discussed w/ accepting MD/DO: Hospitalist
Patient with high blood pressure during this ER visit?: No
Condition: Fair
Covid-19: Not Applicable
Discharge Problem:
Hyponatremia, Seizures
Prescriptions:
No Action
famotidine 20 MG tablet
20 mg PO DAILY
topiramate [Topamax] 200 MG tablet
300 mg PO BID
Patient Comments:
07/12/2022: TAKEN W/ 50MG = 250MG
Rx Instructions:
1 and a half tablets
folic acid 0.4 MG tablet
0.4 mg PO DAILY
pregabalin [Lyrica] 300 MG capsule
300 mg PO BID
Patient Comments:
07/12/2022: last filled 06/23/22, 56 tabs for 28 days from [place]
cyanocobalamin (vitamin B-12) 1,000 MCG tablet
1,000 mcg PO DAILY Qty: 0 0RF
escitalopram oxalate 20 mg Tablet
20 mg PO DAILY
fexofenadine 180 mg Tablet
180 mg PO DAILY
meloxicam 7.5 mg Tablet
7.5 mg PO DAILY
cholecalciferol (vitamin D3) [Vitamin D3] 25 mcg (1,000 unit) Tablet
25 mcg PO DAILY
Aptiom 400 mg Tablet
1,200 mg PO DAILY
levetiracetam 250 mg Tablet
250 mg PO BID@0800,1800
cefuroxime axetil 250 mg tablet
500 mg PO BID 5 Days Qty: 20 0RF
doxycycline hyclate 100 mg capsule
100 mg PO BID 5 Days Qty: 10 0RF
Referrals:
UNKNOWN - PT DOES,NOT KNOW [Family Provider] -
Interventions
Interventions:
*Risk Screen - Suicide Last Done: 07/09/24 13:34
*General Assessment Last Done: 07/09/24 13:34
*Neglect/Abuse Screening Last Done: 07/09/24 13:34
ED- Cardiac Assessment Last Done: 07/09/24 13:40
ED- Neurological Assessment Last Done: 07/09/24 13:40
ED-Psychological Assessment Last Done: 07/09/24 13:40
ED- Pulmonary Assessment Last Done: 07/09/24 13:40
Discharge Date and Time
Print Language: TRINIDADIAN
[2024-07-09] MEDS: NSS 1000 IV (16:01)
[2024-07-09 16:09] LABS: Osmolality Urine 396 mOsm/kg (300-900)
[2024-07-09 16:15] LABS: Osmolality Serum 272 mOsm/kg (275-300)
--- NOTE | 2024-07-09 17:49 | HPS.HSE ---
Addendum entered and electronically signed by Jose Dominique MD 07/10/24 11:35:
seen and examined on 07/09/24
convulsive syncope vs seizure vs orthostasis vs hyponatremia
-poor po intake, did not drink much fluid, was 85 degrees yesterday
-neuro did not believe another eeg was needed
-neuro consut
-check orthostatic
-monitor on tele
-correct Na even though chronically hyponatremic
acute on chronic hyponatremia
-likely siadh from likely psych meds
-fluid restrict
-improving already
seizure disorder
-continue keppra
-seizure precautions
-avoid agens that lower threshold
-seizure precautions
Original Note:
Family Physician
-
Family Physician: NOT KNOW UNKNOWN - PT DOES
Chief Complaint
-
Acute Seizure/Scope episode with history of seizures
History of Present Illness
Patient is a 64 year old male with a history of seizures, and depression presents to the ED after an acute seizure event. Patient describes that he was feeling light headed and off balance while shopping at [employer] today. He does not remember having
a seizure episode but there were people around him who told him he was. They described that the patient was hunching over his cart and looked like he was having a seizure. Patient denies any diaphoresis, visual, or speech difficulties. Patient also
denied any focal weakness but wears sunglasses due to light sensitivity. Patient does complain of significant tremors in bilateral hands, more prominent in his left, that started a few months ago. He says nothing makes the tremor better or worse and
that it is constant. Patient also remembers having a fall yesterday which he describes as being from feeling dizzy and lightheaded. Patient has a history of chronic hyponatremia but he does not take any medication for it. Patient also complains of
having visual hallucinations, seeing bright lights during his episodes of light headedness.
Medical History
Past Medical History
Past Medical History: Reports Seizures, Psychiatric (Depression) and Other (Chronic Hyponatremia, gall stones, traumatic brain injury, migraine, Hemorrhoids)
Past Surgical History: Reports None
Social History
Tobacco: Non-smoker
Alcohol: None
Drug: None
Personal: Single
Living: Alone
Employment: Disabled
Family History
Family History: Other (Lost a brother and sister to Alzheimer's)
Allergies / Home Medications
Allergies reflects when Allergies were last updated in [employer].
Home Medications with original date entered in [employer]
Allergy/Medication List:
Allergies
Allergy/AdvReac Type Severity Reaction Status Date / Time
iodine [Iodine] Allergy Rash Verified 07/09/24 13:33
valproic acid Allergy Unknown Verified 07/09/24 13:33
Home Medications
famotidine 20 mg tablet 20 mg PO DAILY Gastrointestinal issue 09/04/19
topiramate 200 mg tablet (Topamax) 300 mg PO BID Seizures 07/26/21
folic acid 400 mcg tablet 0.4 mg PO DAILY Supplement 02/10/22
pregabalin 300 mg capsule (Lyrica) 300 mg PO BID Pain 02/10/22
cyanocobalamin (vitamin B-12) 1,000 mcg tablet 1,000 mcg PO DAILY Supplement ##0 04/05/22
escitalopram oxalate 20 mg tablet 20 mg PO DAILY depression 07/12/22
cholecalciferol (vitamin D3) 25 mcg (1,000 unit) tablet (Vitamin D3) 25 mcg PO DAILY Supplement 09/11/23
eslicarbazepine 400 mg tablet (Aptiom) 1,200 mg PO DAILY seizures 09/11/23
fexofenadine 180 mg tablet 180 mg PO DAILY Allergies 09/11/23
meloxicam 7.5 mg tablet 7.5 mg PO DAILY pain 09/11/23
levetiracetam 500 mg tablet 500 mg PO BID 07/09/24
levothyroxine 50 mcg tablet 50 mcg PO DAILY 07/09/24
polyethylene glycol 3350 17 gram oral powder packet (Miralax) 17 g PO DAILY 07/09/24
psyllium husk 3.4 gram/5.4 gram oral powder (Metamucil) 1 tbsp PO DAILY 07/09/24
Review of Systems
-
History Source: Patient
A 12 point ROS was completed and negative except as noted: Yes
Constitutional: Denies Fever, Fatigue or Chills
Respiratory: Denies Cough or Trouble Breathing
Cardiac: Reports Syncope; Denies Chest Pain, Diaphoresis or Palpitations
Abdomen/GI: Denies Abdominal Pain, Nausea or Vomiting
: Denies Incontinence or Difficulty Voiding
Neurological: Reports Dizzy; Denies Headache, Weakness or Numbness
Psych: Reports Calm
Physical Exam
Vital Signs
Vital Signs
Temp Pulse Resp BP Pulse Ox
98.3 F 91 16 107/70 96
07/09/24 13:29 07/09/24 16:57 07/09/24 16:57 07/09/24 16:57 07/09/24 15:15
Physical Exam
General: Well Developed, Well Nourished, No Apparent Distress, Comfortable and Conversant
Respiratory: Clear and Non Labored Respirations
Cardiac: S1/S2 and Regular Rhythm
GI: Soft and Non Tender
Musculoskeletal: No Clubbing, No Cyanosis, Edema, Left Lower Extremity and Edema, Right Lower Extremity
Skin: Warm and Dry
Neuro: Awake, Alert, Oriented, AO x 3, No Motor Deficits and Tremors
Psych: Calm
Laboratory Results
-
07/09/24 13:37
07/09/24 13:37
Laboratory Results
Total Bilirubin 0.6 mg/dl (0.2-1.3) 07/09/24 13:37
AST 16 U/L (17-59) L 07/09/24 13:37
ALT < 10 U/L (0-50) 07/09/24 13:37
Alkaline Phosphatase 75 U/L (38-126) 07/09/24 13:37
Data Reviewed
-
Lab Data: Labs Reviewed by me, Discussed with Physician and Discussed with Patient
Impression/Plan
-
Assessment: 64 year old male comes to the ED with an acute seizure/syncope event. Patient has a history of seizures and states that he is compliant with his medications. Patient also has a chronic hyponatremia for which he does not take any
medication.
PLAN:
Acute seizure/syncope event in patient with history of seizures
-Continue current medications for treatment of seizures
-Consult Neurology- input appreciated
-EEG not needed according to Neuro
-Seen at [facility]-
CT Head 12/25/2022- no hemorrhage or mass effect
EEG 04/04/2023- abnormal EEG-> mild diffuse encephalophathy
Parkinsonian tremor thought- 09/25/2023 DaTscan negative
Patient was to obtain skin biopsy to rule out Parkinson's disease
Not given propanolol due to hypotension. Not given primidone due to on sedating medication.
Chronic Hyponatremia
-Fluid Restrictions
-Monitor I/Os
-Likely due to volume overload, monitor sodium levels
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
Migraines
-Continue current medications
-Avoid bright lights
GERD
-Continue current medication
Hypothyroidism
-Continue current medication
Depression
-Continue current medications
DVT Prophylaxis- Lovenox
Code- Full Code
[2024-07-09] MEDS: KEPPRA 500 MG PO (20:23)
[2024-07-09] MEDS: TOPAMAX 300 MG PO (20:23)
[2024-07-09] MEDS: LOVENOX 40 MG SC (20:23)
[2024-07-09] MEDS: LYRICA 300 MG PO (20:23)
[2024-07-10 03:20] VITALS: BP 121/74
[2024-07-10] MEDS: SYNTHROID 50 MCG PO (05:55)
[2024-07-10 06:31] LABS: Hematocrit 30.8 % (39.0-52.0); Hemoglobin 10.9 g/dL (13.0-18.0); Mean Corp Hgb Conc. 35.4 g/dL (33.0-37.0); Mean Corpuscular Hgb 27.7 pg (27.0-31.0); Mean Corpuscular Volume 78.4 fL (80.0-94.0); Mean Platelet Volume 9.5 fL (7.4-10.4); Platelet Count 110 10^3/uL (130-400); Red Blood Cell Count 3.93 10^6/uL (4.70-6.10); Red Cell Dist. Width 14.9 % (11.5-14.5); White Blood Cell Count 3.8 10^3/uL (4.8-10.8)
--- NOTE | 2024-07-10 07:01 | W.PN.HOSP.TC ---
Addendum entered and electronically signed by Jose Dominique MD 07/10/24 11:42:
seen and examined on 07/09/24
convulsive syncope vs seizure vs orthostasis vs hyponatremia
-poor po intake, did not drink much fluid, was 85 degrees yesterday
-neuro did not believe another eeg was needed
-neuro consut has no signed off
-check orthostatic
-monitor on tele
-need outpt neuro follow up
acute on chronic hyponatremia
-likely siadh from likely psych meds
-fluid restrict 1200
-improving already
seizure disorder
-continue keppra
-seizure precautions
-avoid agents that lower threshold
-seizure precautions
Original Note:
Today's Communication/Plan
-
Monitor patient, can discharge him if Neurologist clears
Assessment / Plan
Assessment / Plan
Assessment: 64 year old male comes to the ED with an acute seizure/syncope event. Patient has a history of seizures and states that he is compliant with his medications. Patient also has a chronic hyponatremia for which he does not take any
medication.
PLAN:
Acute seizure/syncope event in patient with history of seizures
-Continue current medications for treatment of seizures
-Consult Neurology- input appreciated
-EEG not needed according to Neuro
-Seen at [facility] records-
CT Head 12/25/2022- no hemorrhage or mass effect
EEG 04/04/2023- abnormal EEG-> mild diffuse encephalophathy
Parkinsonian tremor thought- 09/25/2023 DaTscan negative
Patient was to obtain skin biopsy to rule out Parkinson's disease
Not given propanolol due to hypotension. Not given primidone due to on sedating medication.
-EKG Sinus Rhythm through the night
Chronic Hyponatremia
-Fluid Restrictions
-Monitor I/Os
-Likely due to volume overload, monitor sodium levels
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
-Pending CMP results
Migraines
-Continue current medications
-Avoid bright lights
-Patient says he hasn't had migraines in a long time
GERD
-Continue current medication
-Patient says he has not had any occurrence of heart burn recently
Hypothyroidism
-Continue current medication
-Patient not aware which medications he is taking. He just takes whatever he gets from the pharmacy
Depression
-Continue current medications
DVT Prophylaxis- Lovenox
Code- Full Code
Anticipated Discharge: Today
Subjective/Interval History
-
Date of Service: July 10, 2024
Patient says that he did not have any seizures/light headedness since he has been at the hospital. Says he had been seeing a doctor at [facility] for his seizures after stopping seeing the neurologist at [facility]. He did note that he had a lot of
trouble sleeping last night which he attributes to being at the hospital.
Objective Data
-
Labs:
Laboratory Results
07/10/24
06:16
WBC 3.8 L
Hgb 10.9 L
Hct 30.8 L
Plt Count 110 L
Sodium Pending
Potassium Pending
Chloride Pending
Carbon Dioxide Pending
BUN Pending
Creatinine Pending
Glucose Pending
Calcium Pending
Total Bilirubin Pending
AST Pending
ALT Pending
Alkaline Phosphatase Pending
Vital Signs:
Vital Signs
Temp Pulse Resp BP Pulse Ox
97.6 F 73 18 121/74 100
07/10/24 03:20 07/10/24 03:20 07/10/24 03:20 07/10/24 03:20 07/10/24 03:20
I&O
07/09/24 07/10/24 07/11/24
06:59 06:59 06:59
Intake Total 240 / 240
Output Total 600 / 600
Balance -360 / -360
Review of Systems
-
History Source: Patient
Constitutional: Reports Sleep Disturbance; Denies Fever, No Appetite or Fatigue
Respiratory: Denies Cough, Trouble Breathing or Wheezing
Cardiac: Denies Chest Pain, Diaphoresis, Palpitations or Syncope
Abdomen/GI: Denies Abdominal Pain, Nausea or Vomiting
Musculoskeletal: Reports Joint Pain; Denies Muscle Stiffness, Edema or Myalgias
Neuro: Reports Tremors; Denies Dizzy
Physical Exam
-
General: Well Developed, Well Nourished, No Apparent Distress and Comfortable
Respiratory: Clear to Auscultation and Non Labored Respirations
Cardiac: Regular Rhythm and S1/S2
Musculoskeletal: No Clubbing, No Cyanosis and No Edema
Skin: Warm and Dry
Neuro: Awake, Alert, Oriented, AO x 3, No Motor Deficits and Tremors
Psych: Calm
Data Reviewed
-
Labs: Labs Reviewed by me, Discussed with Physician and Discussed with Patient
[2024-07-10 07:19] LABS: ALT (SGPT) < 10 U/L (0-50); AST (SGOT) 15 U/L (17-59); Albumin 3.5 g/dl (3.5-5.0); Alkaline Phosphatase 73 U/L (38-126); Blood Urea Nitrogen 17 mg/dl (9-20); Calcium 8.9 mg/dl (8.4-10.2); Carbon Dioxide 20 mmol/L (22-30); Chloride 103 mmol/L (98-107); Estimated Creatinine Clearance 75 ml/min; Glucose 82 mg/dl (70-99); Potassium 3.4 mmol/L (3.5-5.1); Sodium 129 mmol/L (135-145); Total Bilirubin 0.5 mg/dl (0.2-1.3); Total Protein 6.2 g/dl (6.3-8.2); eGFR > 60.00
[2024-07-10 07:36] VITALS: BP 117/78
[2024-07-10] MEDS: VITAMIN D3 (cholecalciferol) 25 MCG PO (08:48)
[2024-07-10] MEDS: MIRALAX 17 GRAMS PO (08:48)
[2024-07-10] MEDS: KEPPRA 500 MG PO (08:48)
[2024-07-10] MEDS: KCL 40 MEQ PO (08:48)
[2024-07-10] MEDS: METAMUCIL, KONSYL 1 PACKET PO (08:48)
[2024-07-10] MEDS: MOBIC 7.5 MG PO (08:48)
[2024-07-10] MEDS: FOLVITE 0.4 MG PO (08:49)
[2024-07-10] MEDS: CLARITIN 10 MG PO (08:49)
[2024-07-10] MEDS: VITAMIN B-12 1000 MCG PO (08:49)
[2024-07-10] MEDS: PEPCID 20 MG PO (08:49)
[2024-07-10] MEDS: TOPAMAX 300 MG PO (08:49)
[2024-07-10] MEDS: LYRICA 300 MG PO (08:49)
[2024-07-10] MEDS: LEXAPRO 20 MG PO (08:49)
[2024-07-10 09:06] LABS: % Basophils 1.1 % (0-2); % Eosinophils 4.7 % (0-6); % Immature Granulocytes 0.3 % (0-0.5); % Lymphocytes 22.2 % (20.5-51.1); % Monocytes 8.7 % (1.7-9.3); Absolute Eosinophils 0.2 10^3/uL (0-0.7); Absolute Lymphocytes 0.8 10^3/uL (1.2-3.4); Absolute Monocytes 0.3 10^3/uL (0.1-0.6); Absolute Neutrophils 2.4 10^3/uL (1.4-6.5); Nucleated Red Blood Cells % 0 % (-)
--- NOTE | 2024-07-10 09:14 | CON.NEURO4 ---
Consultation - Neurology 4
-
CONSULTING PHYSICIAN: Roman
REFERRING PHYSICIAN: Aristides
DICTATED BY: Roman
DATE/TIME OF REQUEST: 07/09/24 in the evening
DATE/TIME OF CONSULTATION: 07/10/24 at 1000
Reason for Consultation: seizure
History of Present Illness:
64-year-old male with a past medical history of epilepsy, depression and TBI as well as PTSD who has been seen at [facility] in the past for seizures brought in after an episode of dizziness and feeling off balance yesterday while at
[facility]. Bystanders described this as him 'hunching over his cart and looked like he was having a seizure.' Further details unavaiable. He denies any associated loss of consciousness or loss of awareness. He does not think he had a seizure. No
missed medications. No new medications. No recent illness or sick contacts. He states that the day before yesterday he did 'slide off the toilet' after feeling dizzy but did not have clear loss of consciousness with that episode either. He
lives alone in an apartment complex. He states that he previously followed with 'a different neurologist [facility]' (records indicate this was Dr. João Roland at the [facility]) but has since stopped seeing that provider and now
follows with a neurologist at [facility]. He cannot say the last time he was seen. He says that 'Parkinson's now.'
Per records:
'CT Head 12/25/2022- no hemorrhage or mass effect
EEG 04/04/2023- abnormal EEG-> consistent with a mild diffuse encephalophathy
Parkinsonian tremor thought- 09/25/2023 DaTscan negative
Not given propanolol due to hypotension. Not given primidone due to on sedating medication. '
Last seen at in March [address] Messina. He has never seen our providers as an outpatient. At that point he was on Topamax 250mg BID and Aptiom 1200mg qhs for his epilepsy. Now also on Keppra and Lyrica. He is a vague historian and could not
provide details regarding his interval history.
Past Medical History
Past Medical History: epilepsy, depression, Chronic Hyponatremia, gall stones, traumatic brain injury, migraine, Hemorrhoids, tremor
Past Surgical History: None
Social History
Tobacco: Non-smoker
Alcohol: None
Drug: None
Personal: Single
Living: Alone
Employment: Disabled
Family History
Family History: Lost a brother and sister to Alzheimer's
Allergies / Home Medications
Home Medications
�Medication �Instructions �Recorded
famotidine 20 mg tablet 20 mg PO DAILY Gastrointestinal 09/04/19
issue
topiramate 200 mg tablet (Topamax) 300 mg PO BID Seizures 07/26/21
folic acid 400 mcg tablet 0.4 mg PO DAILY Supplement 02/10/22
pregabalin 300 mg capsule (Lyrica) 300 mg PO BID Pain 02/10/22
cyanocobalamin (vitamin B-12) 1,000 mcg PO DAILY Supplement ##0 04/05/22
1,000 mcg tablet
escitalopram oxalate 20 mg tablet 20 mg PO DAILY depression 07/12/22
cholecalciferol (vitamin D3) 25 25 mcg PO DAILY Supplement 09/11/23
mcg (1,000 unit) tablet (Vitamin
D3)
eslicarbazepine 400 mg tablet 1,200 mg PO DAILY seizures 09/11/23
(Aptiom)
fexofenadine 180 mg tablet 180 mg PO DAILY Allergies 09/11/23
meloxicam 7.5 mg tablet 7.5 mg PO DAILY pain 09/11/23
levetiracetam 500 mg tablet 500 mg PO BID 07/09/24
levothyroxine 50 mcg tablet 50 mcg PO DAILY 07/09/24
polyethylene glycol 3350 17 gram 17 g PO DAILY 07/09/24
oral powder packet (Miralax)
psyllium husk 3.4 gram/5.4 gram 1 tbsp PO DAILY 07/09/24
oral powder (Metamucil)
Allergies
iodine [Iodine] Allergy (Verified 07/09/24 13:33)
Rash
valproic acid Allergy (Verified 07/09/24 13:33)
Unknown
Review of Symptoms:
Patient denies any fever, headache, chest pain, shortness of breath, GI or symptoms.
�Per the HPI.�All systems are reviewed negative except above.
Vital Signs
Temp Pulse Resp BP Pulse Ox
98.3 F 80 16 117/78 97
07/10/24 07:36 07/10/24 07:36 07/10/24 07:36 07/10/24 07:36 07/10/24 07:36
Lab Results
07/10/24 06:16
07/10/24 06:16
Sodium 129 mmol/L (135-145) L 07/10/24 06:16
Potassium 3.4 mmol/L (3.5-5.1) L 07/10/24 06:16
BUN 17 mg/dl (9-20) 07/10/24 06:16
Glucose 82 mg/dl (70-99) 07/10/24 06:16
Calcium 8.9 mg/dl (8.4-10.2) 07/10/24 06:16
Physical Exam:
The patient is afebrile, heart sounds S1 and S2 are regular and chest is clear to auscultation bilaterally.
Neurologic Examination:
The patient is awake, alert but a vague historian; knew year, month, unable to state name of president but says that's his baseline; followed basic and complex commands. He answered questions appropriately. There is no clear aphasia or dysarthria.
On cranial nerve assessment, pupils are 3 mm bilateral, round and reactive to light and accommodation. Visual yuong are full. Extraocular movements are intact. Facial sensations are intact and bilaterally symmetrical, there is no facial asymmetry.
Hearing is intact bilaterally to normal conversation volume. Tongue palate and uvula are midline. Sternocleidomastoid strengths are full bilaterally. Motor strengths are 5/5 bilateral upper and lower extremities on medical research [place] scale.
There is no drift or involuntary movement noted. Deep tendon reflexes are 1+ bilateral upper and lower extremities and Babinski is absent bilaterally. Sensations of touch, temperature are intact and bilaterally symmetrical. There was no extinction
noted on double simultaneous stimulation. Coordination is intact by finger to nose bilaterally.
Neuro Imaging: none
Impression:
LEONIDES TORRES is a 64 year old M with a history of epilepsy, migraine and TBI who had an episode of dizziness and feeling off balance witnessed yesterday at [facility].
Differentials for the patient's presentation include:
1. presyncope/syncope
2. not clearly seizure although details regarding the event are scarce
Recommendations:
1. in absence of more clear evidence that this was a seizure, would not change his antiseizure regimen
2. if it can be confirmed that this is his baseline, he is cleared for discharge from my standpoint
3. needs outpatient f/u over the next month with his established neurologist
Management of hyponatremia, possible syncope per primary team.
Reviewed with resident, hospitalist.
Discussed patient care with: patient, Dr. Conti, resident, hospitalist.
--- NOTE | 2024-07-10 11:11 | W.DCSUMMARY ---
Documented by User: Joanna Irving MD, Resident 07/10/24 16:52
Discharge Summary
Discharge Data
Date of Admission: 07/09/24
Date of Discharge: 07/10/24
-
Pending Results: No
Hospital Course
Admission diagnosis- Acute Seizure Episode with a history of Seizures
Conditions [facility]-
Seizures
Depression
Chronic Hyponatremia
gall stones
Traumatic brain injury
Migraine
Hemorrhoids
Hospital Course-
Patient is a 64 year old male with a history of seizures, and depression who presented to the ED on 07/10 after an acute seizure event. Patient described that he was feeling light headed and off balance while shopping at [employer]. He did not remember
having a seizure episode but there were people around him who told him he was. They described that the patient was hunching over his cart and looked like he was having a seizure. Patient denied any diaphoresis, visual, or speech difficulties.
Patient also denied any focal weakness but wears sunglasses due to light sensitivity. Patient did complain of significant tremors in bilateral hands, more prominent in his left, that started a few months ago. He says nothing makes the tremor better
or worse and that it is constant. Patient also remembers having a fall the day before which he describes as being from feeling dizzy and lightheaded. Patient has a history of chronic hyponatremia but he does not take any medication for it. Patient
also complains of having visual hallucinations, seeing bright lights during his episodes of light headedness.
During the hospital stay, patient had lab work done and got an EKG. Labs showed he was hyponatremic and there were no pertinent findings on his EKG. Patient was admitted to the hospital to monitor him on telemetry. Neuro was consulted who stated
that an eeg was not needed. 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 Patient was placed on fluid restrictions and his sodium levels improved. Patient's orthostatic vitals were checked as well which showed some
tachycardia as he stood up from a sitting position.
Patient was monitored overnight and had no adverse events. He was monitored on telemetry and he was in sinus rhythm the whole night. Patient had no seizure or syncopic events throughout the night. Patient was much improved in the morning and was
discharged with instructions to follow up with his neurologist at [facility].
Patient was continued to be treated with his home seizure medications while admitted. Neuro consulted who believe the patient should stay on the current therapy while awaiting his appointment with his neurologist.
Discharge Plan
-
Patient Disposition: Home (Routine Discharge)
Discharge Diagnosis/Procedures: Acute Seizure Event
Diet: Regular
Activity: No restrictions
Driving Restrictions: As prior to admission
Bathing Restrictions: None
Instructions: Syncope (Fainting) (DC)
Referrals:
UNKNOWN - PT DOES,NOT KNOW [Family Provider] -
Additional Discharge Medication Instructions: Follow up with Neurologist at [facility]
Prescriptions:
Continued
famotidine 20 MG tablet
20 mg PO DAILY
topiramate [Topamax] 200 MG tablet
300 mg PO BID
Patient Comments:
07/12/2022: TAKEN W/ 50MG = 250MG
Rx Instructions:
1 and a half tablets
folic acid 0.4 MG tablet
0.4 mg PO DAILY
pregabalin [Lyrica] 300 MG capsule
300 mg PO BID
Patient Comments:
07/12/2022: last filled 06/23/22, 56 tabs for 28 days from [facility]
cyanocobalamin (vitamin B-12) 1,000 MCG tablet
1,000 mcg PO DAILY Qty: 0 0RF
escitalopram oxalate 20 mg Tablet
20 mg PO DAILY
fexofenadine 180 mg Tablet
180 mg PO DAILY
meloxicam 7.5 mg Tablet
7.5 mg PO DAILY
cholecalciferol (vitamin D3) [Vitamin D3] 25 mcg (1,000 unit) Tablet
25 mcg PO DAILY
Aptiom 400 mg Tablet
1,200 mg PO DAILY
polyethylene glycol 3350 [Miralax] 17 gram Powder In Packet
17 g PO DAILY
levetiracetam 500 mg Tablet
500 mg PO BID
levothyroxine 50 mcg Tablet
50 mcg PO DAILY
Metamucil 3.4 gram/5.4 gram Powder
1 tbsp PO DAILY
Discharge Orders:
Discharge Patient (As Directed); Ordered 07/10/24
Ordered By: Joanna Irving
Discharge Date and Time
Discharge Date/Time: 07/10/24 14:49
Print Language: ALBANIAN

Documented by User: Jose Dominique MD 07/11/24 16:36
Discharge Summary
Discharge Data
Date of Admission: 07/09/24
Date of Discharge: 07/11/24
Discharge Plan
-
Patient Disposition: Home (Routine Discharge)
Discharge Diagnosis/Procedures: Acute Seizure Event
Diet: Regular
Activity: No restrictions
Driving Restrictions: As prior to admission
Bathing Restrictions: None
Instructions: Syncope (Fainting) (DC)
Referrals:
UNKNOWN - PT DOES,NOT KNOW [Family Provider] -
Additional Discharge Medication Instructions: Follow up with Neurologist at [facility]
Prescriptions:
Continued
famotidine 20 MG tablet
20 mg PO DAILY
topiramate [Topamax] 200 MG tablet
300 mg PO BID
Patient Comments:
07/12/2022: TAKEN W/ 50MG = 250MG
Rx Instructions:
1 and a half tablets
folic acid 0.4 MG tablet
0.4 mg PO DAILY
pregabalin [Lyrica] 300 MG capsule
300 mg PO BID
Patient Comments:
07/12/2022: last filled 06/23/22, 56 tabs for 28 days from [facility]
cyanocobalamin (vitamin B-12) 1,000 MCG tablet
1,000 mcg PO DAILY Qty: 0 0RF
escitalopram oxalate 20 mg Tablet
20 mg PO DAILY
fexofenadine 180 mg Tablet
180 mg PO DAILY
meloxicam 7.5 mg Tablet
7.5 mg PO DAILY
cholecalciferol (vitamin D3) [Vitamin D3] 25 mcg (1,000 unit) Tablet
25 mcg PO DAILY
Aptiom 400 mg Tablet
1,200 mg PO DAILY
polyethylene glycol 3350 [Miralax] 17 gram Powder In Packet
17 g PO DAILY
levetiracetam 500 mg Tablet
500 mg PO BID
levothyroxine 50 mcg Tablet
50 mcg PO DAILY
Metamucil 3.4 gram/5.4 gram Powder
1 tbsp PO DAILY
Discharge Orders:
Discharge Patient (As Directed); Ordered 07/10/24
Ordered By: Joanna Irving
Discharge Date and Time
Discharge Date/Time: 07/10/24 14:49
Print Language: ALBANIAN
[2024-07-10 11:39] VITALS: BP 106/70; BP 112/76; BP 113/79; PULSE 71; PULSE 76; PULSE 98
[2024-07-10 11:45] VITALS: BP 106/70
--- NOTE | 2024-07-10 13:26 | CM ---
Reviewed chart, met with patient to obtain information for assessment. Patient stated that he lives alone in [place] on the third floor. There is elevator access and no steps to enter. Patient reported that he has been independent with his ADLs,
personal care, dressing and bathing. He ambulates with a cane and a walker to assist with transfers.
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
He does not drive and therefore he uses [facility] to get to all of his appointments and do his shopping.
Patient denied any DME besides his cane and walker. He has had VN services in the past through [facility].
He has been to a SNF but does not remember which one.
Patient has a prescription plan and uses, [facility] on [address] for all of his medications.
Patient's PCP is not listed.
Patient stated that he feels that he is at baseline and wants to return home. His Sister can pick him up. He provided her information. [facility] [phone]. Placed a call to Gal[facility] and she stated that she can come pick him up. RN updated.
Plan: Case management will continue to follow and assist with discharge planning. Home no needs.
== END 2024-07-10 14:49 | disposition home or self-care (01) | DRG 645 ==
LOC: 3 WEST ACU 17:47
PROVIDERS: ADMITTING PHYSICIAN Hospitalist; EMERGENCY PHYSICIAN Emergency Medicine; OTHER PHYSICIAN Psychiatry & Neurology Neurology
DX: E22.2 Syndrome of inappropriate secretion of antidiuretic hormone (principal); G40.909 Epilepsy, unspecified, not intractable, without status epilepticus; E87.70 Fluid overload, unspecified; E03.9 Hypothyroidism, unspecified; G43.909 Migraine, unspecified, not intractable, without status migrainosus; F32.A Depression, unspecified; F43.10 Post-traumatic stress disorder, unspecified; K21.9 Gastro-esophageal reflux disease without esophagitis; R44.1 Visual hallucinations; T43.95XA Adverse effect of unspecified psychotropic drug, initial encounter; Z82.0 Family history of epilepsy and other diseases of the nervous system; Z87.820 Personal history of traumatic brain injury
CPT/HCPCS: 80053; 81003; 83930; 83935; 85025; 93005; 96360; 99285

== ENCOUNTER 2024-08-21 09:42 | Emergency (ER) | payer OTHER, MEDICAID, SELFPAY ==
[2024-08-21] VITALS (9 sets, daily range): BP systolic 77–168; BP diastolic 51–125; BMI 27.0
--- NOTE | 2024-08-21 09:56 | ED.GENMED ---
History of Present Illness
<Cameron Conrad PA-C - Last Filed: 08/21/24 16:48>
General
Chief Complaint: Fainting/Passed Out
Source: patient
Exam Limitations: none
Time Seen by Provider: 08/21/24 09:43
History of Present Illness
History of Present Illness:
64-year-old male presents via EMS after EMS was called from local transit. Patient was noticed potentially have a seizure on the bus. He has a seizure disorder. Bystanders stated that he zoned out for about 3 minutes. He was alert and oriented
upon EMS arrival. He remembers EMS getting there. He states he can usually feel his seizures coming on but he did not feel that today. He denies chest pain shortness of breath. He denies any abdominal pain nausea or vomiting. He denies headache
or vision change. Patient lives by himself. He was here a month ago for acute seizure and hyponatremia.
Past History
<Cameron Conrad PA-C - Last Filed: 08/21/24 16:48>
Past History
ED Past Medical History: Seizures, Psychiatric (Depression), Other (gall stones, traumatic brain injury, migraine), Other (Hemorrhoids) and Other
ED Past Surgical History: None
Social History
Tobacco: Non-smoker
Alcohol: None
Drug: None
Personal: Single
Living: alone
Employment: Disabled
Family History
Family History: Other (Lost a brother and a sister to Alzheimer's.)
Phy Exam
<Cameron Conrad PA-C - Last Filed: 08/21/24 16:48>
Physical Exam
Physical Exam:
General: Well-appearing male no acute respiratory distress
HEENT: Normocephalic atraumatic no bite shay on tongue neck is supple
Heart: Regular rate and rhythm
Lungs: Clear no wheeze
Abdomen is soft nontender nondistended
Neurologic exam: Alert and oriented x 3 no facial asymmetry no drift on exam tremor noted to bilateral upper extremities
Extremities: No cyanosis or edema
Skin: Warm no rash
Course
<Cameron Conrad PA-C - Last Filed: 08/21/24 16:48>
Orders/Labs/Results
Orders:
Orders
08/21/24 09:55
Electrocardiogram (*1) Urgent
Reason for Study: Syncope
EKG- Treatment ONCE
0.9% Sodium Chloride 1000 ml [Nss] 1,000 ml IV BOLUS
08/21/24 10:00
Complete Blood Count/With Diff Urgent
Comprehensive Metabolic Panel Urgent
08/21/24 13:37
Acetaminophen [Tylenol] 1,000 mg .ROUTE .STK-MED ONE
08/21/24 13:38
CR Chest - 2 Views Urgent
Comment:
Reason For Exam: fever
08/21/24 13:42
Acetaminophen [Tylenol] 1,000 mg PO NOW STA
08/21/24 13:46
COVID-19 Antigen Urgent
Source: Nasal Swab
Lactic Acid Urgent
Blood Culture Routine
ROSANNA Source: Blood/Venous
Specimen Description:
Blood Culture Urgent
ROSANNA Source: Blood/Venous
Specimen Description:
08/21/24 15:03
CT Head W/o Iv Contrast Urgent
Comment:
Reason For Exam: confusion
08/21/24 15:36
0.9% Sodium Chloride 1000 ml [Nss] 1,000 ml IV BOLUS
08/21/24 16:07
Urinalysis Reflex To Culture Urgent
Date Specimen was Collected: 08/21/24
Time Specimen was Collected: 16:07
Abnormal Lab Results
08/21/24
10:00
WBC 4.6 L 10^3/uL
(4.8-10.8)
RBC 4.07 L 10^6/uL
(4.70-6.10)
Hgb 10.9 L g/dL
(13.0-18.0)
Hct 32.3 L %
(39.0-52.0)
MCV 79.4 L fL
(80.0-94.0)
MCH 26.8 L pg
(27.0-31.0)
RDW 16.0 H %
(11.5-14.5)
Absolute Lymphs (auto) 0.5 L 10^3/uL
(1.2-3.4)
Immature Gran % 0.6 H %
(0-0.5)
Neutrophils % 79.2 H %
(42.2-75.2)
Lymphocytes % 11.6 L %
(20.5-51.1)
BUN 21 H mg/dl
(9-20)
08/21/24 10:00
08/21/24 10:00
Vital Signs
Initial and Last Documented VS:
Initial Vital Signs
Pulse Resp BP Pulse Ox
77 18 94/60 98
08/21/24 09:48 08/21/24 09:48 08/21/24 09:48 08/21/24 09:48
Last Documented Vital Signs
Temp Pulse Resp BP Pulse Ox
98.3 F 109 16 105/61 97
08/21/24 15:51 08/21/24 15:45 08/21/24 15:45 08/21/24 15:06 08/21/24 18:15
<Nelly Bundy DO - Last Filed: 08/21/24 16:02>
Orders/Labs/Results
Orders:
Orders
08/21/24 09:55
Electrocardiogram (*1) Urgent
Reason for Study: Syncope
EKG- Treatment ONCE
0.9% Sodium Chloride 1000 ml [Nss] 1,000 ml IV BOLUS
08/21/24 10:00
Complete Blood Count/With Diff Urgent
Comprehensive Metabolic Panel Urgent
08/21/24 13:37
Acetaminophen [Tylenol] 1,000 mg .ROUTE .STK-MED ONE
08/21/24 13:38
CR Chest - 2 Views Urgent
Comment:
Reason For Exam: fever
08/21/24 13:42
Acetaminophen [Tylenol] 1,000 mg PO NOW STA
08/21/24 13:46
COVID-19 Antigen Urgent
Source: Nasal Swab
Lactic Acid Urgent
Blood Culture Routine
ROSANNA Source: Blood/Venous
Specimen Description:
Blood Culture Urgent
ROSANNA Source: Blood/Venous
Specimen Description:
08/21/24 15:03
CT Head W/o Iv Contrast Urgent
Comment:
Reason For Exam: confusion
08/21/24 15:36
0.9% Sodium Chloride 1000 ml [Nss] 1,000 ml IV BOLUS
08/21/24 16:07
Urinalysis Reflex To Culture Urgent
Date Specimen was Collected: 08/21/24
Time Specimen was Collected: 16:07
Abnormal Lab Results
08/21/24
10:00
WBC 4.6 L 10^3/uL
(4.8-10.8)
RBC 4.07 L 10^6/uL
(4.70-6.10)
Hgb 10.9 L g/dL
(13.0-18.0)
Hct 32.3 L %
(39.0-52.0)
MCV 79.4 L fL
(80.0-94.0)
MCH 26.8 L pg
(27.0-31.0)
RDW 16.0 H %
(11.5-14.5)
Absolute Lymphs (auto) 0.5 L 10^3/uL
(1.2-3.4)
Immature Gran % 0.6 H %
(0-0.5)
Neutrophils % 79.2 H %
(42.2-75.2)
Lymphocytes % 11.6 L %
(20.5-51.1)
BUN 21 H mg/dl
(9-20)
08/21/24 10:00
08/21/24 10:00
Vital Signs
Initial and Last Documented VS:
Initial Vital Signs
Pulse Resp BP Pulse Ox
77 18 94/60 98
08/21/24 09:48 08/21/24 09:48 08/21/24 09:48 08/21/24 09:48
Last Documented Vital Signs
Temp Pulse Resp BP Pulse Ox
98.3 F 109 16 105/61 97
08/21/24 15:51 08/21/24 15:45 08/21/24 15:45 08/21/24 15:06 08/21/24 18:15
<QUINTIN Carrera - Last Filed: 08/24/24 15:00>
Orders/Labs/Results
Orders:
Orders
08/21/24 09:55
Electrocardiogram (*1) Urgent
Reason for Study: Syncope
EKG- Treatment ONCE
0.9% Sodium Chloride 1000 ml [Nss] 1,000 ml IV BOLUS
08/21/24 10:00
Complete Blood Count/With Diff Urgent
Comprehensive Metabolic Panel Urgent
08/21/24 13:37
Acetaminophen [Tylenol] 1,000 mg .ROUTE .STK-MED ONE
08/21/24 13:38
CR Chest - 2 Views Urgent
Comment:
Reason For Exam: fever
08/21/24 13:42
Acetaminophen [Tylenol] 1,000 mg PO NOW STA
08/21/24 13:46
COVID-19 Antigen Urgent
Source: Nasal Swab
Lactic Acid Urgent
Blood Culture Routine
ROSANNA Source: Blood/Venous
Specimen Description:
Blood Culture Urgent
ROSANNA Source: Blood/Venous
Specimen Description:
08/21/24 15:03
CT Head W/o Iv Contrast Urgent
Comment:
Reason For Exam: confusion
08/21/24 15:36
0.9% Sodium Chloride 1000 ml [Nss] 1,000 ml IV BOLUS
08/21/24 16:07
Urinalysis Reflex To Culture Urgent
Date Specimen was Collected: 08/21/24
Time Specimen was Collected: 16:07
Abnormal Lab Results
08/21/24
10:00
WBC 4.6 L 10^3/uL
(4.8-10.8)
RBC 4.07 L 10^6/uL
(4.70-6.10)
Hgb 10.9 L g/dL
(13.0-18.0)
Hct 32.3 L %
(39.0-52.0)
MCV 79.4 L fL
(80.0-94.0)
MCH 26.8 L pg
(27.0-31.0)
RDW 16.0 H %
(11.5-14.5)
Absolute Lymphs (auto) 0.5 L 10^3/uL
(1.2-3.4)
Immature Gran % 0.6 H %
(0-0.5)
Neutrophils % 79.2 H %
(42.2-75.2)
Lymphocytes % 11.6 L %
(20.5-51.1)
BUN 21 H mg/dl
(9-20)
08/21/24 10:00
08/21/24 10:00
Vital Signs
Initial and Last Documented VS:
Initial Vital Signs
Pulse Resp BP Pulse Ox
77 18 94/60 98
08/21/24 09:48 08/21/24 09:48 08/21/24 09:48 08/21/24 09:48
Last Documented Vital Signs
Temp Pulse Resp BP Pulse Ox
98.3 F 109 16 105/61 97
08/21/24 15:51 08/21/24 15:45 08/21/24 15:45 08/21/24 15:06 08/21/24 18:15
<Cameron Conrad PA-C - Last Filed: 08/21/24 16:48>
MDM/Problems Addressed
Differential Diagnosis Includes:
Syncope versus seizure. Patient is not postictal he recalls immediately after the episode. This is more likely potential syncope. Will check for arrhythmia electrolyte abnormality or anemia. Labs pending EKG pending. Will give fluid as initial
blood pressure was slightly low
<QUINTIN Carrera - Last Filed: 08/24/24 15:00>
MDM/Problems Addressed
MDM/Problems Addressed:
Update note from August 24, 2024 blood cultures came back for diphtheroids likely contaminant. Call was initially placed to phone number listed for patient's cell phone however no answer. Beings that patient lives at [facility] and
there have been no answer local police were called and did a wellness check. I spoke to the officer in charge ) who does note that patient appears to be doing well and feels well. He did give me a new number listed for
patient�[phone]. I did call this number and speak with Mr. Olivas. He feels much better he has no complaints he denies any fevers and he is planning on follow-up with his family doctor this week
<Cameron Conrad PA-C - Last Filed: 08/21/24 16:48>
*Critical Care Note
Total Time (30-74mins, 75-104mins- exclusive of procedures): Not Applicable
<Cameron Conrad PA-C - Last Filed: 08/21/24 16:48>
Update Note
Update Note:
Patient reevaluated multiple times throughout his stay. He did develop a fever of 102.4. Prior to the fever he did to have rigors and a period of some confusion. This prompted more of a workup including COVID test which was negative. CT of head
which was negative urinalysis also which was negative. Of note, patient had influenza vaccine yesterday fever today may be related to an immune response to the flu vaccine. Patient is now back to baseline after hydration and Tylenol and he feels
normal. He has been ambulatory and alert. Discussed with emergency room attending who saw the patient as well. No indication for admission. Stable for discharge
ED Attending Note
<Cameron Conrad PA-C - Last Filed: 08/21/24 16:48>
-
Portions of this chart may have been created with voice recognition software.� Occasional wrong word or��sound alike� substitutions may have occurred due to the inherent limitations of voice recognition software.
<Nelly Bundy DO - Last Filed: 08/21/24 16:02>
ED Attending Note
Patient seen and examined by attending physician: Yes
I performed the substantive portion of visit, reviewed & personally made and approve the management plan that is documented in note by myself or DAHIANA.: Yes
I performed a history and physical exam of patient and discussed management with resident, I reviewed resident's note and agree with documented findings and plan of care.: Yes
ED Attending Note:
64-year-old male with history of seizure disorder presenting to the emergency department for potential seizure. Patient was allegedly on the bus and supposedly had a witnessed seizure on the bus. Patient arrives to the hospital, awake, alert,
oriented, known seizure disorder. No report of any head trauma. Patient reports that he was immediately alert after the episode, no alleged postictal period. Vital signs on arrival significant retention.
On arrival, patient is in no acute distress, awake, alert, oriented. Patient initially evaluated by physician application assistant, suspected syncope versus breakthrough seizure no known seizure patient. No signs of trauma, benign cardiac and pulmonary exam.
Nonischemic EKG, no arrhythmia. Patient with history of hyponatremia, so initial plan for screening laboratory analysis and monitoring. Workup grossly unremarkable and patient remained hemodynamically stable, improvement in blood pressure.
Initial plan for discharge, however in discharge planning and repeat vital signs, patient spiked a fever.
On my assessment after knowledge of fever, patient without specific infectious symptoms. Called by nursing staff for shaking episode. Patient awake and alert during the episode, answering some questions, however not all. Patient reports that he
is usually completely out for his seizures. Suspect possible rigors. In the setting of presenting hypotension and no fever, sepsis is a consideration. Lactic acid sent, within normal limits. No leukocytosis. Blood pressure has stabilized. No
sign of severe sepsis or septic shock. Unclear source at this time. Mental status remains intact. Pending urinalysis and CT brain
Discharge Plan
Departure
Patient Disposition: Home (Routine Discharge)
Date of Disposition: 08/21/24
Time of Disposition: 16:48
Patient with high blood pressure during this ER visit?: No
Discharge Problem:
Fever
Instructions: Weakness
Prescriptions:
No Action
famotidine 20 MG tablet
20 mg PO DAILY
topiramate [Topamax] 200 MG tablet
300 mg PO BID
Patient Comments:
07/12/2022: TAKEN W/ 50MG = 250MG
Rx Instructions:
1 and a half tablets
folic acid 0.4 MG tablet
0.4 mg PO DAILY
pregabalin [Lyrica] 300 MG capsule
300 mg PO BID
Patient Comments:
07/12/2022: last filled 06/23/22, 56 tabs for 28 days from [facility]
cyanocobalamin (vitamin B-12) 1,000 MCG tablet
1,000 mcg PO DAILY Qty: 0 0RF
escitalopram oxalate 20 mg Tablet
20 mg PO DAILY
fexofenadine 180 mg Tablet
180 mg PO DAILY
meloxicam 7.5 mg Tablet
7.5 mg PO DAILY
cholecalciferol (vitamin D3) [Vitamin D3] 25 mcg (1,000 unit) Tablet
25 mcg PO DAILY
Aptiom 400 mg Tablet
1,200 mg PO DAILY
polyethylene glycol 3350 [Miralax] 17 gram Powder In Packet
17 g PO DAILY
levetiracetam 500 mg Tablet
500 mg PO BID
levothyroxine 50 mcg Tablet
50 mcg PO DAILY
Metamucil 3.4 gram/5.4 gram Powder
1 tbsp PO DAILY
Referrals:
UNKNOWN - PT DOES,NOT KNOW [Family Provider] -
Activity Restrictions/Additional Instructions:
Rest. Stay hydrated. You may use Tylenol or ibuprofen if needed for fever. Return if worse otherwise follow-up with your treating doctors
Interventions
Interventions:
*Risk Screen - Suicide Last Done: 08/21/24 09:57
*General Assessment Last Done: 08/21/24 09:56
*Neglect/Abuse Screening Last Done: 08/21/24 09:56
*ED COVID-19 Vaccine History Last Done: 08/21/24 09:57
*Nursing Disposition Last Done: 08/21/24 18:52
ED- Cardiac Assessment Last Done: 08/21/24 09:53
ED- Neurological Assessment Last Done: 08/21/24 09:53
Discharge Date and Time
Discharge Date/Time: 08/21/24 18:52
Print Language: HEBREW
[2024-08-21] MEDS: NSS 1000 IV ×2 (09:59→15:41)
[2024-08-21 10:09] LABS: % Basophils 1.3 % (0-2); % Eosinophils 3.9 % (0-6); % Immature Granulocytes 0.6 % (0-0.5); % Lymphocytes 11.6 % (20.5-51.1); % Monocytes 3.4 % (1.7-9.3); % Neutrophils 79.2 % (42.2-75.2); Absolute Basophils 0.1 10^3/uL (0-0.2); Absolute Eosinophils 0.2 10^3/uL (0-0.7); Absolute Lymphocytes 0.5 10^3/uL (1.2-3.4); Absolute Monocytes 0.2 10^3/uL (0.1-0.6); Absolute Neutrophils 3.7 10^3/uL (1.4-6.5); Hematocrit 32.3 % (39.0-52.0); Hemoglobin 10.9 g/dL (13.0-18.0); Mean Corp Hgb Conc. 33.7 g/dL (33.0-37.0); Mean Corpuscular Hgb 26.8 pg (27.0-31.0); Mean Corpuscular Volume 79.4 fL (80.0-94.0); Mean Platelet Volume 9.5 fL (7.4-10.4); Nucleated Red Blood Cells % 0 % (-); Platelet Count 147 10^3/uL (130-400); Red Blood Cell Count 4.07 10^6/uL (4.70-6.10); White Blood Cell Count 4.6 10^3/uL (4.8-10.8)
[2024-08-21 10:20] LABS: ALT (SGPT) 10 U/L (0-50); AST (SGOT) 20 U/L (17-59); Albumin 3.8 g/dl (3.5-5.0); Alkaline Phosphatase 74 U/L (38-126); Blood Urea Nitrogen 21 mg/dl (9-20); Calcium 9.1 mg/dl (8.4-10.2); Carbon Dioxide 25 mmol/L (22-30); Chloride 103 mmol/L (98-107); Estimated Creatinine Clearance 70 ml/min; Glucose 80 mg/dl (70-99); Potassium 3.8 mmol/L (3.5-5.1); Sodium 135 mmol/L (135-145); Total Bilirubin 0.5 mg/dl (0.2-1.3); Total Protein 6.3 g/dl (6.3-8.2); eGFR > 60.00
[2024-08-21] MEDS: TYLENOL 1000 MG PO (13:42)
[2024-08-21 14:24] LABS: Lactic Acid 1.8 mmol/L (0.7-2.0)
[2024-08-21 14:54] LABS: COVID-19 Antigen Negative (Negative)
[2024-08-21 16:33] LABS: Urine Albumin Negative (Neg - Trace); Urine Bilirubin Negative (Negative); Urine Character Clear (Clear); Urine Color Yellow; Urine Glucose Negative (Negative); Urine Ketone Negative (Negative); Urine Leukocyte Negative (Negative); Urine Nitrite Negative (Negative); Urine Occult Blood Negative (Negative); Urine Urobilinogen Negative (Neg - 1+)
== END 2024-08-21 18:52 | disposition home or self-care (01) ==
LOC: EMR 09:42
PROVIDERS: Physician Assistant; EMERGENCY PHYSICIAN Student in an Organized Health Care Education/Training Program
DX: R50.9 Fever, unspecified (principal); Z87.820 Personal history of traumatic brain injury; F32.A Depression, unspecified
CPT/HCPCS: 99284; 96360; 96361; 70450; 71046; 80053; 81003; 83605; 85025; 87040; 87205; 87811; 93005

== ENCOUNTER 2025-02-28 18:45 | Emergency (ER) | payer OTHER, MEDICAID, SELFPAY ==
[2025-02-28 18:50] VITALS: BP 121/84
[2025-02-28 18:55] VITALS: BMI 26.4
[2025-02-28 19:00] VITALS: BP 106/58
--- NOTE | 2025-02-28 19:15 | ED.GENMED ---
History of Present Illness
General
Chief Complaint: Seizure
Source: patient
Exam Limitations: none
Time Seen by Provider: 02/28/25 19:04
History of Present Illness
History of Present Illness:
Patient apparently had a grand mal seizure lasting a few minutes while eating dinner. He feels fine at this time. History of seizures. Last she is here in July. He is on Keppra. Faithful with medications. He is on a new medication for
tremor these been on 2 months. This was just prescribed by his neurologist. He is unsure of the medication name however
Past History
Past History
ED Past Medical History: Seizures, Psychiatric (Depression), Other (gall stones, traumatic brain injury, migraine), Other (Hemorrhoids) and Other
ED Past Surgical History: None
Social History
Tobacco: Non-smoker
Alcohol: None
Drug: None
Personal: Single
Living: alone
Employment: Disabled
Family History
Family History: Other (Lost a brother and a sister to Alzheimer's.)
Review of Systems
Review of Systems
All Other Systems: Not applicable
Respiratory: Reports no symptoms
Cardiac: Reports no symptoms
ABD/GI: Reports no symptoms
Phy Exam
Physical Exam
Physical Exam:
GENERAL: Alert and oriented in no apparent distress
EYE: Orbits normal.
NECK: Collar in place.
ENT: Pharynx without erythema. Abrasion to the left proximal nasal area. No significant deformity. No other facial trauma
CARDIAC: Regular rate and rhythm without any obvious murmurs.
LUNGS: Clear breath sounds,normal
ABDOMEN: Soft, without focal tenderness or distention
NEUROLOGICAL: Alert and oriented , grossly non-focal. Resting tremor of both arms
SKIN: Warm and dry, no rash or lesion, no discoloration, skin intact.
MUSCULOSKELETAL: No edema,no deformity.Good color
PSYCH: Normal and appropriate interaction.
Course
Orders/Labs/Results
Orders:
Orders
02/28/25 19:04
CT Cervical Spine W/o Iv Contr Urgent
Comment:
Reason For Exam: Trauma
CT Facial Bones W/o Iv Contras Urgent
Comment:
Reason For Exam: Trauma
CT Head W/o Iv Contrast Urgent
Comment:
Reason For Exam: Trauma
Cardiac Monitoring- Treatment ONCE
02/28/25 19:05
Electrocardiogram (*1) Stat
Reason for Study: Other
Other Reason for Exam: neuro symptoms
Cardiac Monitoring- Treatment ONCE
EKG- Treatment ONCE
IV Insert/Care/Rem.- Treatment PRN
02/28/25 19:06
Basic Metabolic Panel Urgent
Complete Blood Count/With Diff Urgent
02/28/25 19:14
Add On- LAB Urgent
Tests Added?: keppra level
02/28/25 19:38
Keppra (Levetiracetam) [S] Routine
03/01/25 00:08
Levetiracetam [Keppra] 500 mg .ROUTE .STK-MED ONE
03/01/25 01:24
Levetiracetam [Keppra] 500 mg PO NOW STA
03/01/25 01:26
Topiramate [Topamax] 300 mg PO NOW STA
Abnormal Lab Results
02/28/25
19:06
RBC 4.00 L 10^6/uL
(4.70-6.10)
Hgb 11.4 L g/dL
(13.0-18.0)
Hct 33.3 L %
(39.0-52.0)
RDW 15.9 H %
(11.5-14.5)
Plt Count 92 L 10^3/uL
(130-400)
Absolute Lymphs (auto) 0.3 L 10^3/uL
(1.2-3.4)
Neutrophils % 88.2 H %
(42.2-75.2)
Lymphocytes % 5.3 L %
(20.5-51.1)
BUN 25 H mg/dl
(9-20)
Glucose 117 H mg/dl
(70-99)
02/28/25 19:06
02/28/25 19:06
Vital Signs
Initial and Last Documented VS:
Initial Vital Signs
Temp Pulse Resp BP Pulse Ox
98.7 F 112 18 121/84 96
02/28/25 18:50 02/28/25 18:50 02/28/25 18:50 02/28/25 18:50 02/28/25 18:50
Last Documented Vital Signs
Temp Pulse Resp BP Pulse Ox
98.5 F 68 16 118/83 96
02/28/25 19:02 03/01/25 10:08 03/01/25 10:00 03/01/25 10:08 03/01/25 10:08
*Radiology
Radiology exam reviewed: radiology read reviewed (Head facial cervical spine)
*Pulse Oximetry
Patient hypoxic: no
*EKG
Interpreted by ED Provider?: Yes
Interpretation: normal
Comparison EKG: no changes
Heart Rate: 97
Rate: normal
Rhythm: sinus
[place]: normal axis
Interval: first degree heart block
QRS Pattern: normal QRS
Ischemia: other (Artifact from tremor)
*Wrapper Stemmer Hand Interpretation
Rate: normal
Interpretation: normal
Heart Rate: 80
Rhythm: sinus
*Critical Care Note
Total Time (30-74mins, 75-104mins- exclusive of procedures): Not Applicable
Update Note
Update Note:
Patient is remained stable. No further seizures. Ambulated well. Will observe overnight in the ER because he lives alone. Assuming all remains stable overnight he will be discharged in the morning
ED Attending Note
-
Portions of this chart may have been created with voice recognition software.� Occasional wrong word or��sound alike� substitutions may have occurred due to the inherent limitations of voice recognition software.
Discharge Plan
Departure
Patient Disposition: Home (Routine Discharge)
Date of Disposition: 02/28/25
Time of Disposition: 22:59
Patient with high blood pressure during this ER visit?: No
Discharge Problem:
Seizure/history of seizures, Nasal abrasion, Underlying tremor, Mild thrombocytopenia
Instructions: Seizures, Adult (DC)
Prescriptions:
No Action
famotidine 20 MG tablet
20 mg PO DAILY
topiramate [Topamax] 200 MG tablet
300 mg PO BID
Patient Comments:
07/12/2022: TAKEN W/ 50MG = 250MG
Rx Instructions:
1 and a half tablets
folic acid 0.4 MG tablet
0.4 mg PO DAILY
pregabalin [Lyrica] 300 MG capsule
300 mg PO BID
Patient Comments:
07/12/2022: last filled 06/23/22, 56 tabs for 28 days from [place]
cyanocobalamin (vitamin B-12) 1,000 MCG tablet
1,000 mcg PO DAILY Qty: 0 0RF
escitalopram oxalate 20 mg Tablet
20 mg PO DAILY
fexofenadine 180 mg Tablet
180 mg PO DAILY
meloxicam 7.5 mg Tablet
7.5 mg PO DAILY
cholecalciferol (vitamin D3) [Vitamin D3] 25 mcg (1,000 unit) Tablet
25 mcg PO DAILY
Aptiom 400 mg Tablet
1,200 mg PO DAILY
polyethylene glycol 3350 [Miralax] 17 gram Powder In Packet
17 g PO DAILY
levetiracetam 500 mg Tablet
500 mg PO BID
levothyroxine 50 mcg Tablet
50 mcg PO DAILY
Metamucil 3.4 gram/5.4 gram Powder
1 tbsp PO DAILY
Referrals:
NONE,* [Family Provider] -
Activity Restrictions/Additional Instructions:
Call your neurologist Sunday for close follow-up. Also follow-up with your primary physician
Get a repeat blood count done in 1 to 2 weeks to recheck your platelet count
Interventions
Interventions:
*Risk Screen - Suicide Last Done: 02/28/25 18:55
*General Assessment Last Done: 02/28/25 18:55
*Neglect/Abuse Screening Last Done: 02/28/25 18:55
*ED- Fall Risk Assessment Last Done: 02/28/25 18:55
*ED COVID-19 Vaccine History Last Done: 02/28/25 18:55
*Nursing Disposition Last Done: 03/01/25 10:15
ED- Cardiac Assessment Last Done: 02/28/25 18:55
ED- Neurological Assessment Last Done: 02/28/25 18:55
ED- Pulmonary Assessment Last Done: 02/28/25 18:55
Discharge Date and Time
Discharge Date/Time: 03/01/25 10:15
Print Language: [place]
[2025-02-28 19:17] LABS: % Basophils 0.6 % (0-2); % Eosinophils 1.9 % (0-6); % Immature Granulocytes 0.3 % (0-0.5); % Lymphocytes 5.3 % (20.5-51.1); % Monocytes 3.7 % (1.7-9.3); % Neutrophils 88.2 % (42.2-75.2); Absolute Eosinophils 0.1 10^3/uL (0-0.7); Absolute Lymphocytes 0.3 10^3/uL (1.2-3.4); Absolute Monocytes 0.2 10^3/uL (0.1-0.6); Absolute Neutrophils 5.5 10^3/uL (1.4-6.5); Hematocrit 33.3 % (39.0-52.0); Hemoglobin 11.4 g/dL (13.0-18.0); Mean Corp Hgb Conc. 34.2 g/dL (33.0-37.0); Mean Corpuscular Hgb 28.5 pg (27.0-31.0); Mean Corpuscular Volume 83.3 fL (80.0-94.0); Nucleated Red Blood Cells % 0 % (-); Red Cell Dist. Width 15.9 % (11.5-14.5); White Blood Cell Count 6.3 10^3/uL (4.8-10.8)
[2025-02-28 19:27] LABS: Blood Urea Nitrogen 25 mg/dl (9-20); Calcium 8.4 mg/dl (8.4-10.2); Carbon Dioxide 23 mmol/L (22-30); Chloride 105 mmol/L (98-107); Estimated Creatinine Clearance 74 ml/min; Glucose 117 mg/dl (70-99); Potassium 3.6 mmol/L (3.5-5.1); Sodium 135 mmol/L (135-145); eGFR > 60.00
[2025-02-28 19:35] LABS: Platelet Count 92 10^3/uL (130-400)
[2025-02-28 19:36] LABS: Mean Platelet Volume 8.9 fL (7.4-10.4)
[2025-02-28 21:00] VITALS: BP 105/72
[2025-02-28 22:00] VITALS: BP 101/67
[2025-03-01] MEDS: TOPAMAX 300 MG PO (01:58)
[2025-03-01] MEDS: KEPPRA 500 MG PO (02:03)
[2025-03-01 04:26] VITALS: BP 114/78
[2025-03-01 05:00] VITALS: BP 106/75
[2025-03-01 06:00] VITALS: BP 123/76
[2025-03-01 07:00] VITALS: BP 101/79
[2025-03-01 10:08] VITALS: BP 118/83
[2025-03-02 23:03] LABS: Keppra (Levetiracetam) 11 ug/mL (10-40)
== END 2025-03-01 10:15 | disposition home or self-care (01) ==
LOC: EMR 18:45
PROVIDERS: EMERGENCY PHYSICIAN Emergency Medicine
DX: G40.409 Other generalized epilepsy and epileptic syndromes, not intractable, without status epilepticus (principal); S00.31XA Abrasion of nose, initial encounter; X58.XXXA Exposure to other specified factors, initial encounter; R25.1 Tremor, unspecified; Z79.899 Other long term (current) drug therapy; D69.6 Thrombocytopenia, unspecified; Z87.820 Personal history of traumatic brain injury
CPT/HCPCS: 99284; 70450; 70486; 72125; 80048; 80177; 85025; 93005

== ENCOUNTER 2025-03-24 23:36 | Observation (INO) | payer OTHER, MEDICAID, SELFPAY ==
[2025-03-24 19:43] VITALS: BP 112/82
[2025-03-24 19:44] VITALS: BMI 26.1
[2025-03-24 20:00] VITALS: BP 113/84
--- NOTE | 2025-03-24 20:07 | ED.GENMED ---
History of Present Illness
General
Chief Complaint: Seizure
Time Seen by Provider: 03/24/25 19:52
History of Present Illness
History of Present Illness:
Patient is a 65-year-old male with history of seizures presenting to the emergency department after a fall. Patient states that he was walking to the kitchen when he woke up on the ground. He has a life alert that he clicked. He does state that
he was confused afterwards. He sometimes knows when he is about to have a seizure but did not have a feeling this time. He does state that he has been lightheaded all day today. He was not lightheaded when he was walking to the kitchen though.
He does state that he is passed out as well and does wake up confused. No tongue biting. No urinary incontinence. He does state that his allergies have been flaring up. He does state that his seizures are triggered by stress. No fevers chills.
He has been having increased urinary frequency. His neurologist is at [facility]. He is on Keppra 500 twice daily and Topamax 300 twice daily. He has not missed any doses.
Past History
Past History
ED Past Medical History: Seizures, Psychiatric (Depression), Other (gall stones, traumatic brain injury, migraine), Other (Hemorrhoids) and Other
ED Past Surgical History: None
Social History
Tobacco: Non-smoker
Alcohol: None
Drug: None
Personal: Single
Living: alone
Employment: Disabled
Family History
Family History: Other (Lost a brother and a sister to Alzheimer's.)
Phy Exam
Physical Exam
Physical Exam:
GENERAL: in no acute distress
HEENT: Small 3 cm laceration to the posterior head, extraocular movements intact, moist oral mucosa
NECK: normal inspection, no cervical spine tenderness, cervical collar in place
RESPIRATORY: no respiratory distress, clear to auscultation bilaterally
CARDIOVASCULAR: regular rate and rhythm
ABDOMEN/: soft, non-distended, non-tender to palpation, no rebound or guarding
EXTREMITIES: non-tender, no edema/swelling
NEUROLOGIC: awake and alert, moves all extremities
SKIN: warm
Course
Orders/Labs/Results
Orders:
Orders
03/24/25 19:47
Electrocardiogram (*1) Urgent
Reason for Study: Other
Other Reason for Exam: seizure
EKG- Treatment ONCE
03/24/25 19:53
Complete Blood Count/With Diff Urgent
Comprehensive Metabolic Panel Urgent
03/24/25 19:55
Urinalysis Reflex To Culture Urgent
Date Specimen was Collected: 03/24/25
Time Specimen was Collected: 20:52
CR Chest - 2 Views Urgent
Comment:
Reason For Exam: seizure
03/24/25 19:59
Keppra (Levetiracetam) [S] Urgent
03/24/25 20:03
CT Cervical Spine W/o Iv Contr Urgent
Comment:
Reason For Exam: fall
CT Head W/o Iv Contrast Urgent
Comment:
Reason For Exam: fall
Tetanus/Diphth/Acelpertussis [Adacel] 0.5 ml IM .ONCE ONE
Abnormal Lab Results
03/24/25
19:53
WBC 3.9 L 10^3/uL
(4.8-10.8)
RBC 4.00 L 10^6/uL
(4.70-6.10)
Hgb 11.7 L g/dL
(13.0-18.0)
Hct 34.0 L %
(39.0-52.0)
RDW 15.4 H %
(11.5-14.5)
Absolute Lymphs (auto) 0.8 L 10^3/uL
(1.2-3.4)
Lymphocytes % 19.4 L %
(20.5-51.1)
Eosinophils % 8.3 H %
(0-6)
BUN 30 H mg/dl
(9-20)
AST 14 L U/L
(17-59)
03/24/25 19:53
03/24/25 19:53
Vital Signs
Initial and Last Documented VS:
Initial Vital Signs
BP
112/82
03/24/25 19:43
Last Documented Vital Signs
Temp Pulse Resp BP Pulse Ox
98.5 F 70 14 117/91 99
03/24/25 19:44 03/24/25 21:34 03/24/25 21:34 03/24/25 21:00 03/24/25 21:34
Procedures
Laceration Closure
Posterior Scalp:
Status of Wound: clean
Size of Wound in cm: 4
Description of Wound Edges: sharp
Preparation: cleaned with saline
Revision/Debridement: routine- no revision
Type of Closure: single layer closure
Skin Closure Material: skin dino (6)
MDM/Problems Addressed
Differential Diagnosis Includes:
Patient is a 65-year-old male with history of seizures presenting to the emergency department with a fall and possible syncope versus seizure. Vitals are unremarkable and exam does show a laceration to the posterior head. Concern for traumatic
intracranial injuries given that he did have a fall from standing with loss of consciousness. Unclear if this was a seizure or syncope. He is compliant with his medications. Will check blood work as well as EKG. Also obtain chest x-ray and
urinalysis.
Patient's laceration was cleansed. He does have 1 larger 3 cm laceration with a small 1 cm laceration just to the right of it. Wound cleansed with saline. After shared decision making we will proceed with dino. Please see procedure note above.
*Critical Care Note
Total Time (30-74mins, 75-104mins- exclusive of procedures): Not Applicable
Update Note
Update Note:
Blood work does show a normal bicarb which does make me more concerned about syncope. After shared decision making patient is amenable to admission for observation. Discussed with hospitalist who accepted. Chest x-ray per my interpretation with
no obvious opacity and small pleural effusion to the right side. CT head and neck pending at the time of admission.
ED Attending Note
-
Portions of this chart may have been created with voice recognition software.� Occasional wrong word or��sound alike� substitutions may have occurred due to the inherent limitations of voice recognition software.
Discharge Plan
Departure
Patient Disposition: Admit
Date of Disposition: 03/24/25
Time of Disposition: 22:27
Presentation/result/management discussed w/ accepting MD/DO: Hospitalist
Discharge Problem:
Fall
Prescriptions:
No Action
famotidine 20 MG tablet
20 mg PO DAILY
topiramate [Topamax] 200 MG tablet
300 mg PO BID
Patient Comments:
07/12/2022: TAKEN W/ 50MG = 250MG
Rx Instructions:
1 and a half tablets
folic acid 0.4 MG tablet
0.4 mg PO DAILY
pregabalin [Lyrica] 300 MG capsule
300 mg PO BID
Patient Comments:
07/12/2022: last filled 06/23/22, 56 tabs for 28 days from [place]
cyanocobalamin (vitamin B-12) 1,000 MCG tablet
1,000 mcg PO DAILY Qty: 0 0RF
escitalopram oxalate 20 mg Tablet
20 mg PO DAILY
fexofenadine 180 mg Tablet
180 mg PO DAILY
meloxicam 7.5 mg Tablet
7.5 mg PO DAILY
cholecalciferol (vitamin D3) [Vitamin D3] 25 mcg (1,000 unit) Tablet
25 mcg PO DAILY
Aptiom 400 mg Tablet
1,200 mg PO DAILY
polyethylene glycol 3350 [Miralax] 17 gram Powder In Packet
17 g PO DAILY
levetiracetam 500 mg Tablet
500 mg PO BID
levothyroxine 50 mcg Tablet
50 mcg PO DAILY
Metamucil 3.4 gram/5.4 gram Powder
1 tbsp PO DAILY
Referrals:
UNKNOWN - PT DOES,NOT KNOW [Family Provider] -
Interventions
Interventions:
*Risk Screen - Suicide Last Done: 03/24/25 19:48
*General Assessment Last Done: 03/24/25 19:44
*Neglect/Abuse Screening Last Done: 03/24/25 19:48
*ED- Fall Risk Assessment Last Done: 03/24/25 19:48
*ED COVID-19 Vaccine History Last Done: 03/24/25 19:48
ED- Cardiac Assessment Last Done: 03/24/25 19:48
ED- Neurological Assessment Last Done: 03/24/25 19:48
ED- Pulmonary Assessment Last Done: 03/24/25 19:48
Discharge Date and Time
Print Language: [place]
[2025-03-24 20:14] LABS: % Basophils 1.6 % (0-2); % Eosinophils 8.3 % (0-6); % Immature Granulocytes 0.5 % (0-0.5); % Lymphocytes 19.4 % (20.5-51.1); % Monocytes 6.2 % (1.7-9.3); Absolute Basophils 0.1 10^3/uL (0-0.2); Absolute Eosinophils 0.3 10^3/uL (0-0.7); Absolute Lymphocytes 0.8 10^3/uL (1.2-3.4); Absolute Monocytes 0.2 10^3/uL (0.1-0.6); Absolute Neutrophils 2.5 10^3/uL (1.4-6.5); Hemoglobin 11.7 g/dL (13.0-18.0); Mean Corp Hgb Conc. 34.4 g/dL (33.0-37.0); Mean Corpuscular Hgb 29.3 pg (27.0-31.0); Mean Platelet Volume 9.7 fL (7.4-10.4); Nucleated Red Blood Cells % 0 % (-); Platelet Count 130 10^3/uL (130-400); Red Cell Dist. Width 15.4 % (11.5-14.5); White Blood Cell Count 3.9 10^3/uL (4.8-10.8)
[2025-03-24] MEDS: ADACEL 0.5 ML IM (20:17)
[2025-03-24 20:24] LABS: ALT (SGPT) < 10 U/L (0-50); AST (SGOT) 14 U/L (17-59); Albumin 3.9 g/dl (3.5-5.0); Alkaline Phosphatase 85 U/L (38-126); Blood Urea Nitrogen 30 mg/dl (9-20); Calcium 8.7 mg/dl (8.4-10.2); Carbon Dioxide 25 mmol/L (22-30); Chloride 105 mmol/L (98-107); Estimated Creatinine Clearance 68 ml/min; Glucose 93 mg/dl (70-99); Potassium 4.1 mmol/L (3.5-5.1); Sodium 138 mmol/L (135-145); Total Bilirubin 0.7 mg/dl (0.2-1.3); Total Protein 6.6 g/dl (6.3-8.2); eGFR > 60.00
[2025-03-24 21:00] VITALS: BP 117/91
--- NOTE | 2025-03-24 23:01 | HPS.HSE ---
Family Physician
-
Family Physician: NOT KNOW UNKNOWN - PT DOES
Chief Complaint
-
Fall
History of Present Illness
This is a 65-year-old with past medical history significant for Parkinson's disease, seizure disorder since childhood, depression, nephrolithiasis, GERD presenting to the emergency department following a fall at home in his kitchen.
Patient reported arrives in usual state of health. He said he felt slight dizziness but it resolved after continuing his daily activities. He got up and down several times without feeling lightheaded or dizzy. He went for a walk. He had
normally. He denied having any palpitations or chest pain. He denies any dyspnea or shortness of breath. Denies any cough fevers or chills.
He reported that he had dinner and then walked back into his kitchen when all of a sudden he found himself on the floor with a pool of blood around his head. He had throbbing pain. He called his life alert when EMS came to get him. He was placed
in neck brace and brought to the emergency department.
When EMS arrived apparently patient was alert and oriented and did not appear to have any postictal state. Did not see any tongue biting.
Patient reported that he had a seizure last in our February 28 possibly precipitated by stress. Prior to that his last seizure was in July 2024. He is otherwise unable to tell me the frequency of his seizures. He denies that he has been any
medication changes to his seizure regimen.
He denies any recent history of stroke. He denies any recent change in any other medications except for iron supplementation. He denies nausea vomiting or diarrhea. He denies any urinary symptoms. He has no sick contacts or recent travels.
In the emergency department he was afebrile, blood pressure was 117/90 with a pulse of 70 and satting 98% on room air. His CBC was completely normal. Electrolytes BUN and creatinine were stable and unremarkable. LFTs normal. ECG without
arrhythmia or ischemia.
CT of the head shows no acute bleed by my read however official read is pending. Similarly CT of the cervical spine official read is still pending. Chest x-ray is clear.
Medical History
Past Medical History
Past Medical History: Reports Seizures, Psychiatric (Depression) and Other (Chronic Hyponatremia, gall stones, traumatic brain injury, migraine, Hemorrhoids)
Past Surgical History: Reports None
Social History
Tobacco: Non-smoker
Alcohol: None
Drug: None
Personal: Single
Living: Alone
Employment: Disabled
Family History
Family History: Other (Lost a brother and sister to Alzheimer's)
Allergies / Home Medications
Allergies reflects when Allergies were last updated in [facility].
Home Medications with original date entered in [facility]
Allergy/Medication List:
Allergies
Allergy/AdvReac Type Severity Reaction Status Date / Time
iodine [Iodine] Allergy Rash Verified 08/21/24 09:55
valproic acid Allergy Unknown Verified 08/21/24 09:55
Home Medications
famotidine 20 mg tablet 20 mg PO DAILY Gastrointestinal issue 09/04/19
topiramate 200 mg tablet (Topamax) 300 mg PO BID Seizures 07/26/21
folic acid 400 mcg tablet 0.4 mg PO DAILY Supplement 02/10/22
pregabalin 300 mg capsule (Lyrica) 300 mg PO BID Pain 02/10/22
cyanocobalamin (vitamin B-12) 1,000 mcg tablet 1,000 mcg PO DAILY Supplement ##0 04/05/22
escitalopram oxalate 20 mg tablet 20 mg PO DAILY depression 07/12/22
cholecalciferol (vitamin D3) 25 mcg (1,000 unit) tablet (Vitamin D3) 25 mcg PO DAILY Supplement 09/11/23
eslicarbazepine 400 mg tablet (Aptiom) 1,200 mg PO DAILY seizures 09/11/23
fexofenadine 180 mg tablet 180 mg PO DAILY Allergies 09/11/23
meloxicam 7.5 mg tablet 7.5 mg PO DAILY pain 09/11/23
levetiracetam 500 mg tablet 500 mg PO BID Seizures 07/09/24
levothyroxine 50 mcg tablet 50 mcg PO DAILY Thyroid 07/09/24
polyethylene glycol 3350 17 gram oral powder packet (Miralax) 17 g PO DAILY Constipation 07/09/24
psyllium husk 3.4 gram/5.4 gram oral powder (Metamucil) 1 tbsp PO DAILY Constipation 07/09/24
Review of Systems
-
History Source: Patient
Constitutional: Reports No Symptoms
EENT: Reports No Symptoms
Respiratory: Reports No Symptoms
Cardiac: Reports No Symptoms
Abdomen/GI: Reports No Symptoms
: Reports No Symptoms
Musculoskeletal: Reports No Symptoms
Skin: Reports No Symptoms
Neurological: Reports No Symptoms
Endocrine: Reports No Symptoms
Hematologic/Lymphatic: Reports No Symptoms
Psych: Reports No Symptoms
Physical Exam
Vital Signs
Vital Signs
Temp Pulse Resp BP Pulse Ox
98.5 F 70 14 117/91 99
03/24/25 19:44 03/24/25 21:34 03/24/25 21:34 03/24/25 21:00 03/24/25 21:34
Physical Exam
General: Well Developed, Well Nourished and Conversant
HEENT: NormoCephalic, Anicteric, Moist mucous membranes and Atraumatic
Respiratory: Clear
Cardiac: S1/S2 and Regular Rhythm
Breast: Deferred by me
GI: Soft, Non Tender, Non Distended and Normal Bowel Sounds
Rectal: Deferred by Provider
Genito-urinary: Clear Urine
Musculoskeletal: No Clubbing, No Cyanosis and No Edema
Skin: Warm
Neuro: AO x 3 and Nonfocal/grossly intact
Hematologic/Lymphatic: No Lymphadenopathy
Psych: Calm
Laboratory Results
-
03/24/25 19:53
03/24/25 19:53
Laboratory Results
Total Bilirubin 0.7 mg/dl (0.2-1.3) 03/24/25 19:53
AST 14 U/L (17-59) L 03/24/25 19:53
ALT < 10 U/L (0-50) 03/24/25 19:53
Alkaline Phosphatase 85 U/L (38-126) 03/24/25 19:53
Data Reviewed
-
Diagnostic Radiology: Image Personally Visualized and interpreted
CT Scan: Report Reviewed by me
Medical Tests (Nuc Med, Echo, EKG etc): Image Personally Visualized and interpreted
Lab Data: Labs Reviewed by me
Old Records: Reviewed
Impression/Plan
-
IMPRESSION:
65-year-old with history of seizures, Parkinson disease, presents to the emergency department following a fall from standing height apparently at his kitchen. He does not remember the episode and he arose on the floor with a pool of blood around
his head. He required multiple stitches in the emergency department. No acute intracranial bleed. ECG is nonacute. Labs are stable. CT of the head shows no acute intracranial process. Awaiting clearance for C-spine injury. Patient is awake
oriented x 3 and in no acute distress at this time. When EMS arrived he was found to be in usual state of health as he was the one that actually called EMS. Patient had a last seizure episode in February 28 and prior to that July 2024.
PLAN:
Syncopal -presumed syncopal episode as patient does not remember event. Possibly seizure given history. No known cardiac history and low normal likely syncope from a cardiac event but cannot rule it out.
- admit to telemetry
- rule out C-spine injury with CT
- check echo in am
- iv fluids and orthostatics
- continue Keppra, topiramate and eslicarbazepine
- keppra level pending
- chest xray clear, u/a pending,
- IV lorazepam if recurrent seizure
Parkinson
- continue sinamet
DVT PPX - heparin sq
Code status - Full code
[2025-03-24 23:51] VITALS: BP 121/83
[2025-03-25] VITALS: BP 111/80
[2025-03-25 00:30] VITALS: BP 114/82; BMI 24.9
[2025-03-25] MEDS: HEPARIN 5000 UNITS SC ×3 (02:10→16:11)
[2025-03-25] MEDS: SYNTHROID 50 MCG PO (05:51)
[2025-03-25 06:58] LABS: Hematocrit 32.9 % (39.0-52.0); Hemoglobin 11.2 g/dL (13.0-18.0); Mean Corpuscular Hgb 28.7 pg (27.0-31.0); Mean Corpuscular Volume 84.4 fL (80.0-94.0); Mean Platelet Volume 9.6 fL (7.4-10.4); Platelet Count 125 10^3/uL (130-400); Red Cell Dist. Width 15.3 % (11.5-14.5); White Blood Cell Count 3.9 10^3/uL (4.8-10.8)
[2025-03-25 07:27] LABS: Blood Urea Nitrogen 30 mg/dl (9-20); Calcium 8.8 mg/dl (8.4-10.2); Carbon Dioxide 27 mmol/L (22-30); Chloride 105 mmol/L (98-107); Estimated Creatinine Clearance 68 ml/min; Glucose 89 mg/dl (70-99); Potassium 4.1 mmol/L (3.5-5.1); Sodium 136 mmol/L (135-145); eGFR > 60.00
[2025-03-25 08:05] VITALS: BP 118/89; BP 119/81; BP 120/83; PULSE 65; PULSE 66; PULSE 69
[2025-03-25 08:27] LABS: TSH 4.47 uIU/ml (0.47-4.68)
[2025-03-25] MEDS: CLARITIN 10 MG PO (08:39)
[2025-03-25] MEDS: TOPAMAX 300 MG PO (08:39)
[2025-03-25] MEDS: KEPPRA 500 MG PO (08:40)
[2025-03-25] MEDS: LYRICA 300 MG PO (08:40)
[2025-03-25] MEDS: FOLVITE 0.4 MG PO (08:40)
[2025-03-25] MEDS: PEPCID 20 MG PO (08:40)
[2025-03-25] MEDS: MOBIC 7.5 MG PO (08:40)
--- NOTE | 2025-03-25 09:14 | W.PN.HOSP.TC ---
Today's Communication/Plan
-
echo, neuro consult, possible D/C
Assessment / Plan
Assessment / Plan
65yo M with PMHx of seizure d/o, hypothyroidism, anxiety, Parkinson brought after having episode of LOC at home. Patient usually has this sudden onset of seizures without prodrome and is considered to be hard to control epilepsy. His neurologist in
[facility] and he saw them last time 2 months ago in spite of that he was in ED with grand mal presentation in the beginning of the February. Patient had no postictal state and similar presentation last Summer, so admitted with concern for syncope.
telemetry without arrhythmia. Arranged outpatient Charge Weigher with office of for cardiac monitoring. ALso recommended to schedule follow up appt with his esrtabnlished neurologist AUBREE- patient has no contact info with him, but will call
from home
A/P:
#LOC 2/2 syncope vs breakthrough seizures
#occipital skin laceration 2/[address] head and neck without acute findings
seizaure precautions
cont AED
Ativan PRN
telemetry
Echo
Outpatient cardiac moniotr
Ortho VS neg
#Mild recurrent leukopenia and thrombocytopenia
follow with PCP as outpatient
at least since 2008
#Hypothyroidism
#Anxiety
#Parkinson
cont home meds
DVT ppx on SCDs
Full code
I have spent at least 59min reviewing chart, test results, communication with consultants and providing direct patient care
Anticipated Discharge: Within 24 hours
Subjective/Interval History
-
Date of Service: March 25, 2025
Objective Data
-
Labs:
Laboratory Results
03/25/25
06:22
WBC 3.9 L
Hgb 11.2 L
Hct 32.9 L
Plt Count 125 L
Sodium 136
Potassium 4.1
Chloride 105
Carbon Dioxide 27
BUN 30 H
Creatinine 1.2
Glucose 89
Calcium 8.8
Vital Signs:
Vital Signs
Temp Pulse Resp BP Pulse Ox
98 F 78 18 114/82 96
03/25/25 08:05 03/25/25 00:30 03/25/25 08:05 03/25/25 00:30 03/25/25 08:05
I&O
03/24/25 03/25/25 03/26/25
06:59 06:59 06:59
Intake Total 480 / 480
Balance 480 / 480
Review of Systems
-
History Source: Patient
All other systems: Reviewed and negative
Physical Exam
-
General: No Apparent Distress
HEENT: Normocephalic
Respiratory: Clear to Auscultation
Cardiac: Regular Rhythm
GI: Soft, Nontender and Nondistended
Neuro: Awake, Alert, Oriented, AO x 3 and Tremors
Psych: Calm
--- NOTE | 2025-03-25 09:48 | CON.NEURO ---
Addendum entered and electronically signed by Donovan Conti MD 03/25/25 11:34:
Studies reviewed.
I have personally examined the patient. I reviewed and agree with the AIRPLANE PILOT's Note.
My addenda:
Awake, alert, interactive. No acute distress. Poor recall for known medical history.
Speech intact.
Bilateral hand tremor at rest and with action of medium to high amplitude, nearly continuous
Extra-ocular movements grossly intact.
Facial movements full and symmetric. Hearing intact to normal conversational volume.
Neck: full ROM.
Chest: no dyspnea
Heart: no JVD
Ext: (-) Clubbing, (-) Cyanosis, (-) Edema
IMPRESSIONS/RECOMMENDATIONS:
Abrupt onset of recurrent fall with change in mental status most likely due to intractable epilepsy
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
Increase levetiracetam from prior dosing of 500 mg twice a day to dosing of 1000 mg twice a day
Obtain prior old records
Fall precautions
Outpatient genetic testing for possible disorder mimicking combination of parkinsonism and epilepsy
Will continue to follow as needed.
Original Note:
Documented by User: Nelly Wyman NP 03/25/25 10:51
Neuro Assessment/Plan
Assessment
65-year-old male with a past medical history of intractable epilepsy, depression and TBI as well as PTSD presented to [facility] on 03/24/2025 in the setting of breakthrough seizure.
CT Head W/o Iv Contrast: No acute intracranial hemorrhage or extra-axial collection. No skull fracture. Posterior midline scalp soft tissue swelling/contusion with superficial skin closure dino.
CT Cervical Spine W/o Iv Contrast: No acute fracture. No prevertebral soft tissue swelling. No anterior or posterior listhesis. No significant change compared to prior examination of 24 days ago.
Keppra level from 02/28/2025 11, current level pending
Plan
Impression
1. Breakthrough seizure in the setting of intractable epilepsy
-Last Levetiracetam level low at 11, increase to 1,000 mg twice daily
-Would not recommend increasing Aptiom given his history of hyponatremia
-No need for EEG at this time given known intractable epilepsy
-Seizure precautions
-Continue to follow with [facility] and [facility] outpatient
-Recommend consult at [facility] to discuss surgical options given seizures not well controlled and intractable epilepsy
-All questions encouraged and answered, plan reviewed with patient
Consultation
Order
Date of Consultation: 03/25/25
Requesting Provider: Mao Flannery MD
Reason for Consult: breakthrough seizure
Subjective/Objective
Subjective Data
Date of Service: March 25, 2025
History of Present Illness:
Taken from previous neurologist's HPI on 02/28/2025 Dr. Nelida Owens:
'Patient has a past medical history significant intractable epilepsy, tremor, depression and TBI as well as PTSD who has been seen at [facility] in the past for seizures brought in after an episode of dizziness and feeling off balance
yesterday while at [facility]. Bystanders described this as him 'hunching over his cart and looked like he was having a seizure.' Further details unavaiable. He denies any associated loss of consciousness or loss of awareness. He does not think he
had a seizure. No missed medications. No new medications. No recent illness or sick contacts. He states that the day before yesterday he did 'slide off the toilet' after feeling dizzy but did not have clear loss of consciousness with that
episode either. He lives alone in an apartment complex. He states that he previously followed with 'a different neurologist [facility]' (records indicate this was Dr. João Roland at the [place] [facility]) but has since stopped seeing that
provider and now follows with a neurologist at [facility]. He cannot say the last time he was seen.'
Patient has had 36 head CTs since 2009. He states that his seizures have never been well controlled and has been hospitalized multiple times for breakthrough seizures. He states his last seizure occurred on 02/28/2025 possibly precipitated by
stress, and to his knowledge no changes were made. For antiepileptic medications. He is currently taking Aptiom 1200 mg daily, Levetiracetam 500 mg BID, Pregabalin 300 mg BID and Topiramate 300 mg BID. He is currently followed by [facility] as
well as [facility]. He was last seen by [facility] 2 months ago.
Patient reported prior to seizure, was in usual state of health. He said he felt slight dizziness but it resolved after continuing his daily activities. He got up and down several times without feeling lightheaded or dizzy. He went for a walk. He
denied having any palpitations or chest pain. He denies any dyspnea or shortness of breath. Denies any cough fevers or chills. He reported that he had dinner and then went for a walk in the parking lot. He then found himself on ground with a pool
of blood around his head. He called his life alert when EMS came to get him. He was placed in neck brace and brought to the emergency department.
When EMS arrived patient was alert and oriented and did not appear to have any postictal state. Denies tongue/cheek biting or bowel/bladder incontinence. He denies any recent illness or infection, denies recent medication changes, remains compliant
with medications and denies issues with sleep.
In the emergency department he was afebrile, blood pressure was 117/90 with a pulse of 70 and sats 98% on room air. His CBC was completely normal. Electrolytes BUN and creatinine were stable and unremarkable. LFTs normal. ECG without arrhythmia
or ischemia. CT of the head shows no acute bleed, CT of the cervical spine without fracture or abnormalities. Chest x-ray is clear.
Attempted to call [facility] as well as [facility] but unfortunately no answer, will try again later.
Objective Data
Vital Signs
Temp Pulse Resp BP Pulse Ox
98 F 78 18 114/82 96
03/25/25 08:05 03/25/25 00:30 03/25/25 08:05 03/25/25 00:30 03/25/25 08:05
Lab Results
03/25/25 06:22
03/25/25 06:22
Sodium 136 mmol/L (135-145) 03/25/25 06:22
Potassium 4.1 mmol/L (3.5-5.1) 03/25/25 06:22
BUN 30 mg/dl (9-20) H 03/25/25 06:22
Glucose 89 mg/dl (70-99) 03/25/25 06:22
Calcium 8.8 mg/dl (8.4-10.2) 03/25/25 06:22
Patient Allergies
iodine [Iodine] Allergy (Verified 08/21/24 09:55)
Rash
valproic acid Allergy (Verified 08/21/24 09:55)
Unknown
Review of Systems
-
Unable to obtain full review of systems at this time due to: Other (poor historian)
History Source: Patient
Constitutional: No Symptoms
EENT: No Symptoms Reported
Respiratory: No Symptoms
Cardiac: No Symptoms
Abdomen/GI: No Symptoms
Genitourinary: No Symptoms
Musculoskeletal: No Symptoms
Neuro: No Symptoms
Physical Exam
-
General: Comfortable
HEENT: Normocephalic and Atraumatic
Neck: Full Range of Motion
Cardiac: No JVD
Extremities: No Cyanosis, No Edema and Other (swan neck deformity to all digits)
Extended Neurological Exam
Attention Span & Concentration: Awake, Alert and No Difficulty with 2 Step Request
Memory: Reduced, Vague and Incomplete Historian
Tremor: Continuous, At Rest and With Action
Cranial Nerve II: Left Eye: Visual Chung Grossly Intact
Cranial Nerve II: Right Eye: Visual Chung Grossly Intact
Cranial Nerves III, IV, : Extraocular Movement: Extraocular Movement Full in all Directions
Cranial Nerve VIII: Hearing: Unremarkable Hearing to Normal Conversational Volume
Muscle Strength, Overall: Full Throughout
Muscle Bulk & Tone: Bulk Unremarkable
Pronator Drift: No Drift in Upper Extremities and No Drift in Lower Extremities
Coordination: [id number] Testing Unremarkable
Gait & Station: Other (gait deferred)
Medications
-
Active Medications
Generic Name Dose Route Start Last Admin
Trade Name Freq PRN Reason Stop Dose Admin
Acetaminophen 650 mg 03/25/25 00:54
Acetaminophen 325 Mg Tablet PO 04/22/25 00:53
Q4HPRN PRN
mild pain/WAYNE/temp> 100.4F
Bisacodyl 10 mg 03/25/25 00:54
Bisacodyl 10 Mg Rectal Suppository RECTAL 04/22/25 00:53
[id number] PRN
constipation
Famotidine 20 mg 03/25/25 08:00 03/25/25 08:40
Famotidine 20 Mg Tablet PO 04/22/25 07:59 20 mg
DAILY JOSE Administration
Folic Acid 0.4 mg 03/25/25 08:00 03/25/25 08:40
Folic Acid 0.4 Mg Tablet PO 04/22/25 07:59 0.4 mg
DAILY JOSE Administration
Heparin Sodium 5,000 units 03/25/25 00:54 03/25/25 08:42
Heparin 5,000 Units/Ml 1 Ml Vial SC 04/22/25 00:53 5,000 units
Q8 JOSE Administration
Levetiracetam 500 mg 03/25/25 08:00 03/25/25 08:40
Levetiracetam 500 Mg Regular Release Tablet PO 04/22/25 07:59 500 mg
BID JOSE Administration
Levothyroxine Sodium 50 mcg 03/25/25 06:00 03/25/25 05:51
Levothyroxine 50 Mcg Tablet PO 04/22/25 05:59 50 mcg
DAILY @ 0600 JOSE Administration
Loratadine 10 mg 03/25/25 08:00 03/25/25 08:39
Loratadine 10 Mg Tablet PO 04/22/25 07:59 10 mg
DAILY JOSE Administration
Lorazepam 2 mg 03/25/25 00:54
Lorazepam 2 Mg/Ml Vial IV 04/22/25 00:53
DAILY PRN
Seizure
Meloxicam 7.5 mg 03/25/25 08:00 03/25/25 08:40
Meloxicam (Mobic) 7.5 Mg Tablet PO 04/22/25 07:59 7.5 mg
DAILY JOSE Administration
Eslicarbazepine [ 0 mg 03/25/25 08:00
Aptiom] 400 Mg PO 04/22/25 07:59
Tablet Take 3 DAILY JOSE
Tablets (1200 Mg) Po
Daily
Ondansetron HCl 4 mg 03/25/25 00:54
Ondansetron 4 Mg/2 Ml Vial IV 04/22/25 00:53
Q6HPRN PRN
nausea and vomiting
Oxycodone HCl 5 mg 03/25/25 00:54
Oxycodone 5 Mg Regular Release Tablet PO 04/08/25 00:53
Q4HPRN PRN
moderate pain
Polyethylene Glycol 17 grams 03/25/25 00:54
Polyethylene Glycol Powder 17 Grams Packet PO 04/22/25 00:53
DAILYPRN PRN
constipation
Pregabalin 300 mg 03/25/25 08:00 03/25/25 08:40
Pregabalin 100 Mg Capsule PO 04/22/25 07:59 300 mg
BID JOSE Administration
Senna/Docusate Sodium 1 tablet 03/25/25 00:54
Docusate W/Senna (Amaya-Colace) Tablet PO 04/22/25 00:53
BIDPRN PRN
constipation
Sodium Chloride 0 flush 03/24/25 23:00
Sodium Chloride 0.9% (Flush) Syringe IV 04/21/25 22:59
PER PROTOCOL JOSE
Sodium Chloride 1 ml 03/25/25 01:03
Nss (Pf) 10 Ml Vial For Ativan 2 Mg Dose IV 04/22/25 01:02
DAILYPRN PRN
IV LORAZEPAM DILUTION
Topiramate 300 mg 03/25/25 08:00 03/25/25 08:39
Topiramate 100 Mg Tablet PO 04/22/25 07:59 300 mg
BID JOSE Administration
Home Medications
�Medication �Instructions �Recorded
famotidine 20 mg tablet 20 mg PO DAILY Gastrointestinal 09/04/19
issue
topiramate 200 mg tablet (Topamax) 300 mg PO BID Seizures 07/26/21
folic acid 400 mcg tablet 0.4 mg PO DAILY Supplement 02/10/22
pregabalin 300 mg capsule (Lyrica) 300 mg PO BID Pain 02/10/22
cyanocobalamin (vitamin B-12) 1,000 mcg PO DAILY Supplement ##0 04/05/22
1,000 mcg tablet
escitalopram oxalate 20 mg tablet 20 mg PO DAILY depression 07/12/22
cholecalciferol (vitamin D3) 25 25 mcg PO DAILY Supplement 09/11/23
mcg (1,000 unit) tablet (Vitamin
D3)
eslicarbazepine 400 mg tablet 1,200 mg PO DAILY seizures 09/11/23
(Aptiom)
fexofenadine 180 mg tablet 180 mg PO DAILY Allergies 09/11/23
meloxicam 7.5 mg tablet 7.5 mg PO DAILY pain 09/11/23
levetiracetam 500 mg tablet 500 mg PO BID Seizures 07/09/24
levothyroxine 50 mcg tablet 50 mcg PO DAILY Thyroid 07/09/24
polyethylene glycol 3350 17 gram 17 g PO DAILY Constipation 07/09/24
oral powder packet (Miralax)
psyllium husk 3.4 gram/5.4 gram 1 tbsp PO DAILY Constipation 07/09/24
oral powder (Metamucil)
Past History
Past History
ED Past Medical History: Seizures (intractable epilepsy), Psychiatric (Depression), Other (gall stones, traumatic brain injury, migraine), Other (Hemorrhoids) and Other
ED Past Surgical History: None
Family/Social History
Tobacco: Non-smoker
Alcohol: None
Drug: None
Personal: Single
Living: alone
Employment: Disabled
Family History: Other (Lost a brother and a sister to Alzheimer's.)

Documented by User: Donovan Conti MD 03/25/25 11:08
Neuro Assessment/Plan
Plan
Impression
1. Breakthrough seizure in the setting of intractable epilepsy
-Last Levetiracetam level low at 11, increase to 1,000 mg twice daily
-Would not recommend increasing Aptiom given his history of hyponatremia
-No need for EEG at this time given known intractable epilepsy
-Seizure precautions
-Continue to follow with [facility] and [facility] outpatient
-Recommend consult at [facility] to discuss surgical options given seizures not well controlled and intractable epilepsy
Attempted to call [facility] as well as [facility] but unfortunately no answer, will try again later.
-All questions encouraged and answered, plan reviewed with patient
Subjective/Objective
Subjective Data
Date of Service: March 25, 2025
History of Present Illness:
Taken from previous neurologist's HPI on 02/28/2025 Dr. Nelida Owens:
'Patient has a past medical history significant intractable epilepsy, tremor, depression and TBI as well as PTSD who has been seen at [facility] in the past for seizures brought in after an episode of dizziness and feeling off balance
yesterday while at [facility]. Bystanders described this as him 'hunching over his cart and looked like he was having a seizure.' Further details unavaiable. He denies any associated loss of consciousness or loss of awareness. He does not think he
had a seizure. No missed medications. No new medications. No recent illness or sick contacts. He states that the day before yesterday he did 'slide off the toilet' after feeling dizzy but did not have clear loss of consciousness with that
episode either. He lives alone in an apartment complex. He states that he previously followed with 'a different neurologist [facility]' (records indicate this was Dr. João Roland at the [place] [facility]) but has since stopped seeing that
provider and now follows with a neurologist at [facility]. He cannot say the last time he was seen.'
Patient has had 36 head CTs since 2009. He states that his seizures have never been well controlled and has been hospitalized multiple times for breakthrough seizures. He states his last seizure occurred on 02/28/2025 possibly precipitated by
stress, and to his knowledge no changes were made. For antiepileptic medications. He is currently taking Aptiom 1200 mg daily, Levetiracetam 500 mg BID, Pregabalin 300 mg BID and Topiramate 300 mg BID. He is currently followed by [facility] as
well as [facility]. He was last seen by [facility] 2 months ago.
Patient reported prior to seizure, was in usual state of health. He said he felt slight dizziness but it resolved after continuing his daily activities. He got up and down several times without feeling lightheaded or dizzy.
He reported that he had dinner and then went for a walk in the parking lot. He then found himself on ground with a pool of blood around his head. He called his life alert when EMS came to get him. He was placed in neck brace and brought to the
emergency department.
Denies tongue/cheek biting or bowel/bladder incontinence. He denies any recent illness or infection, denies recent medication changes, remains compliant with medications and denies issues with sleep. He denied having any palpitations or chest pain.
He denies any dyspnea or shortness of breath. Denies any cough fevers or chills.
When EMS arrived patient was alert and oriented and did not appear to have any postictal state.
In the emergency department he was afebrile, blood pressure was 117/90 with a pulse of 70 and sats 98% on room air. His CBC was completely normal. Electrolytes BUN and creatinine were stable and unremarkable. LFTs normal. ECG without arrhythmia
or ischemia. CT of the head shows no acute bleed, CT of the cervical spine without fracture or abnormalities. Chest x-ray is clear.
Data Reviewed
-
CT Head: Report Reviewed
Labs: Report Reviewed
Reviewed with: Physician and Patient
Old Records: Summarized
[2025-03-25 10:40] VITALS: BP 119/79; PULSE 82
[2025-03-25 11:39] VITALS: BP 118/80
--- NOTE | 2025-03-25 12:13 | W.DCSUMMARY ---
Discharge Summary
Discharge Data
Date of Admission: 03/24/25
Date of Discharge: 03/25/25
-
Pending Results: No
Hospital Course
65yo M with PMHx of seizure d/o, hypothyroidism, anxiety, Parkinson brought after having episode of LOC at home. Patient usually has this sudden onset of seizures without prodrome and is considered to be hard to control epilepsy. [place] and he saw them last time 2 months ago in spite of that he was in ED with grand mal presentation in the beginning of the February. Patient had no postictal state and similar presentation last Summer, so admitted with concern for syncope.
telemetry without arrhythmia. Arranged outpatient [place] [facility] with office of for cardiac monitoring. ALso recommended to schedule follow up appt with his esrtabnlished neurologist AUBREE- patient has no contact info with him, but will call
from home. Neurologist recommended increase Keppra to 1g BID and evaluation in [facility] for possible surgical intervention for seizure control. Echo without significant changes. No urinary symptoms noticed, so UA result will not change mgmt as
asymptomatic bacteriuria does not need treatment. Medically stable for d/c home
I have spent at least 59min reviewing chart, test results, communication with consultants and providing direct patient care
Patient was managed for:
#LOC 2/2 syncope vs breakthrough seizures
#occipital skin laceration 2/2 fall
#Mild recurrent leukopenia and thrombocytopenia
#Hypothyroidism
#Anxiety
#Parkinson
Discharge Plan
-
Patient Disposition: Home (Routine Discharge)
Discharge Diagnosis/Procedures: Breakthrough seizures
Activity Restrictions/Additional Instructions:
consult at [facility] to discuss surgical options given seizures - discuss with existent neurologist AUBREE
Referrals:
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
UNKNOWN - PT DOES,NOT KNOW [Family Provider] -
Prescriptions:
New
levetiracetam 1,000 mg tablet
1,000 mg PO BID Qty: 60 0RF
Continued
famotidine 20 MG tablet
20 mg PO DAILY
topiramate [Topamax] 200 MG tablet
300 mg PO BID
Patient Comments:
07/12/2022: TAKEN W/ 50MG = 250MG
Rx Instructions:
1 and a half tablets
folic acid 0.4 MG tablet
0.4 mg PO DAILY
pregabalin [Lyrica] 300 MG capsule
300 mg PO BID
Patient Comments:
07/12/2022: last filled 06/23/22, 56 tabs for 28 days from [facility]
cyanocobalamin (vitamin B-12) 1,000 MCG tablet
1,000 mcg PO DAILY Qty: 0 0RF
escitalopram oxalate 20 mg Tablet
20 mg PO DAILY
fexofenadine 180 mg Tablet
180 mg PO DAILY
meloxicam 7.5 mg Tablet
7.5 mg PO DAILY
cholecalciferol (vitamin D3) [Vitamin D3] 25 mcg (1,000 unit) Tablet
25 mcg PO DAILY
Aptiom 400 mg Tablet
1,200 mg PO DAILY
polyethylene glycol 3350 [Miralax] 17 gram Powder In Packet
17 g PO DAILY
levothyroxine 50 mcg Tablet
50 mcg PO DAILY
Metamucil 3.4 gram/5.4 gram Powder
1 tbsp PO DAILY
Discontinued
levetiracetam 500 mg Tablet
500 mg PO BID
Discharge Orders:
Discharge Patient (As Directed); Ordered 03/25/25
Ordered By: Mao Flannery
Discharge Date and Time
Print Language: MALAWIAN
[2025-03-25 14:07] LABS: Urine Albumin 2+ (Neg - Trace); Urine Bilirubin Negative (Negative); Urine Character Clear (Clear); Urine Color Yellow; Urine Glucose Negative (Negative); Urine Ketone Negative (Negative); Urine Leukocyte Negative (Negative); Urine Nitrite Negative (Negative); Urine Occult Blood Negative (Negative); Urine Urobilinogen 2+ (Neg - 1+)
[2025-03-25 14:17] LABS: Urine Amorphous Seen; Urine Squamous Cell 0-2 /LPF (Few)
[2025-03-25 14:18] LABS: Urine Red Blood Cell 0-2 /HPF (0-2); Urine White Cell 0-2 /HPF (0-5)
[2025-03-25 15:00] VITALS: BP 118/80
--- NOTE | 2025-03-25 16:14 | CM ---
Met with patient to obtain information for assessment. Patient stated that he lives at [facility] on the third floor with elevator access. He described himself as independent with his ADLs, personal care, dressing and bathing. He can do household
chores, cook, clean and do laundry. He does not drive but he takes [employer] to complete his errands. He uses a cane and a walker to assist with his ambulation. He has not had VN services or been to a SNF in the past.
Patient has a prescription plan and uses, [facility] in [place] for all of his medications.
His PCP is, not listed.
Patient stated that he is hopeful that he will be able to return right home when he is stable medically. Will watch for needs.
Plan: Case management will continue to follow and assist with discharge planning. Will watch for therapy needs.
[2025-03-25] MEDS: ROXICODONE 5 MG PO (17:17)
[2025-03-26 20:54] LABS: Keppra (Levetiracetam) 12 ug/mL (10-40)
== END 2025-03-25 20:25 | disposition home or self-care (01) ==
LOC: 4 EAST ACU 23:36
PROVIDERS: ADMITTING PHYSICIAN Internal Medicine; ATTENDING PHYSICIAN Internal Medicine; CONSULT PHYSICIAN Psychiatry & Neurology Neurology; EMERGENCY PHYSICIAN Student in an Organized Health Care Education/Training Program
DX: G40.919 Epilepsy, unspecified, intractable, without status epilepticus (principal); S01.01XA Laceration without foreign body of scalp, initial encounter; R42 Dizziness and giddiness; W18.39XA Other fall on same level, initial encounter; Y93.01 Activity, walking, marching and hiking; Y92.000 Kitchen of unspecified non-institutional (private) residence as the place of occurrence of the external cause; G20.A1 Parkinson's disease without dyskinesia, without mention of fluctuations; K21.9 Gastro-esophageal reflux disease without esophagitis; R35.0 Frequency of micturition; R29.6 Repeated falls; E03.9 Hypothyroidism, unspecified; D72.819 Decreased white blood cell count, unspecified; D69.6 Thrombocytopenia, unspecified; F41.9 Anxiety disorder, unspecified; R55 Syncope and collapse; F32.A Depression, unspecified; Z87.19 Personal history of other diseases of the digestive system; Z87.820 Personal history of traumatic brain injury; Z23 Encounter for immunization; Z79.890 Hormone replacement therapy; Z87.442 Personal history of urinary calculi; Z91.041 Radiographic dye allergy status; Z88.8 Allergy status to other drugs, medicaments and biological substances; Z79.1 Long term (current) use of non-steroidal anti-inflammatories (NSAID); Z79.899 Other long term (current) drug therapy; Z60.2 Problems related to living alone
CPT/HCPCS: 12002; 70450; 71046; 72125; 80048; 80053; 80177; 81003; 81015; 83735; 84443; 85025; 85027; 90471; 90715; 93005; 93306; 97163; 99285; G0378

== ENCOUNTER 2025-06-09 04:24 | Inpatient (IN) | payer OTHER, MEDICAID, SELFPAY ==
[2025-06-08 22:25] VITALS: BP 138/111
--- NOTE | 2025-06-08 22:40 | EDRN ---
family arrived at bedside, they usually get a call from the pt at 1900 Q nightly, last night 06/07/25 pt was not himself and he only spoke for a few minutes before the line was quite. Sister thought that maybe he had gone to the bathroom. This
evening when they didnt hear from him at 1900, they called police for a well check, they hadnt heard from back from them so the family decided to go to the house where they found the pt to be 'unresponsive' and thought he was having a seizure, EMS
informed the family that he was not. The pt normal has left sided shaking but it seems worse tonight to family. Family is unsure of his medical history or his medications in detail.
[2025-06-08 22:47] VITALS: BP 137/87
--- NOTE | 2025-06-08 22:57 | ED.GENMED ---
History of Present Illness
General
Chief Complaint: Seizure
Time Seen by Provider: 06/08/25 22:44
History of Present Illness
History of Present Illness:
TIME OF INITIAL EVALUATION
- 11 PM
REVIEW OF OLD RECORDS
- The patient has history of seizures/TBI. The patient was admitted this past February. Notes from that time indicate the patient also has a history of Parkinson's and at that time Keppra was increased to 1 g twice daily.
Note:
CHIEF COMPLAINT(S)
Possible seizure activity.
HISTORY OF PRESENT ILLNESS
The patient is a 65-year-old male with a reported history of seizure disorder and Parkinsons disease, presenting with possible seizure activity. Family members reported that the patient was found around 9 PM exhibiting shaking while seated in a
chair. There were no witnessed falls or trauma. The family is unsure if he received his medication, levodopa, earlier in the day. The patient was observed to have stopped speaking last night. The patients usual routine includes speaking around 7 PM,
but he ceased to communicate, prompting concern. A medication record reviewed from home indicated levodopa, but it is unclear if he received his full dosing regimen, including his antiepileptic medication, levetiracetam (Keppra). A dose of 1.5 grams
of intravenous levetiracetam has been administered in the emergency department for seizure prophylaxis.
ADDITIONAL HISTORY OBTAINED FROM SOURCES OTHER THAN THE PATIENT
Per the patients family members, who include a sister and a daughter, the patient was not seen by them until 9 PM when they found him shaking in a chair. They reported uncertainty about his medication adherence and the timing of any prior seizure
events. The patient resides independently at [facility], and family interaction is reported to have occurred last night without any unusual symptoms noted at that time.
CHRONIC MEDICAL CONDITIONS SIGNIFICANTLY AFFECTING CARE
The patient has a history of seizure disorder and Parkinsons disease, which may influence his current presentation and treatment management in the emergency setting.
PHYSICAL EXAM
-General: The patient is ill-appearing, I witnessed generalized tonic-clonic activity as I walked in the room, he is febrile
-HEENT: Moist oral mucosa, no meningismus
-Cardiovascular: Borderline tachycardic rate with normal rhythm
-Pulmonary: No respiratory distress, abnormal breathing pattern initially, equal and clear breath sounds
-Abdomen: Soft and nontender with no peritoneal signs
-Neurologic: The patient has primarily kept his eyes closed and does not participate with examination
-Extremities: Moves all extremities equally, no tenderness, no edema
-Psychiatric: Minimally verbal, poor insight and judgment
PROBLEM LIST
Acute:
- Seizure activity
- Fever
Chronic:
- Seizure disorder
- Parkinsons disease
PLAN
- Evaluate the patients seizure threshold and management plan with a focus on medication adherence.
- Order further medications as necessary for seizure control.
- Obtain neuroimaging to assess the patients current cerebral status, given the recent seizure-like activity.
- Monitor the patient in the emergency department and re-evaluate as necessary.
DIFFERENTIAL DIAGNOSIS
The Differential Diagnosis includes, in no particular order and is not limited to:
- Epileptic seizure
- Parkinsonian tremor
- Medication non-compliance or withdrawal
- Cerebrovascular event
- Metabolic derangement
- Infection
- Syncope
- Cardiac arrhythmia
- Neurological disorder progression
- Psychogenic non-epileptic seizures
CARE-UPDATE
06/08/25 - 23:26
A septic workup has been initiated, including blood cultures and a chest X-ray. There is also consideration for a surgical procedure. The patient will be given retrochonalol as part of the management plan.
Disposition:
SUMMARY OF ENCOUNTER
The patient, a 65-year-old male with a history of seizure disorder and Parkinsons disease, presented to the emergency department with possible seizure activity. He was found by family members shaking while seated in a chair, raising concerns about a
possible seizure. It was unclear if the patient had taken his medication, levodopa, and he had stopped speaking the previous night. In the emergency department, a dose of 1.5 grams of intravenous levetiracetam was administered for seizure
prophylaxis. A CT scan was performed and reviewed independently, showing no definitive signs of brain abnormality, bleeding, or other acute issues. Laboratory results showed a minimally elevated white blood cell count, without clear indication of a
urinary tract infection or pneumonia. The hospitalist has been consulted for hospital admission due to ongoing concerns about the patients condition and to observe his progress.
DISPOSITION
Admit
ASSESSMENT
The patient presents with possible seizure activity, with differential considerations including epileptic seizure, Parkinsonian tremor, medication non-compliance or withdrawal, and other possible underlying conditions. The absence of definitive CT
findings and the minimal elevation of white count suggest the need for further observation.
EMERGENCY TREATMENTS ADMINISTERED
- Intravenous levetiracetam 1.5 grams for seizure prophylaxis
- Intravenous fluids for lactic acid elevation management
PLAN
The patient will be admitted to the hospital for further observation and management of his seizures and any potential complications. Continued monitoring will assess response to treatment and further evaluate any underlying conditions that may have
prompted the seizure activity.
INDEPENDENT REVIEW OF LABS AND INTERPRETATION OF TESTS
My independent review of the CT scan indicates no definitive signs of brain abnormality, such as bleeding. My independent interpretation of the chest X-ray shows no clear signs of pneumonia.
MEDICAL DECISION MAKING
- Number and Complexity of Problems Addressed: Chronic conditions affecting care include seizure disorder and Parkinsons disease. Differential diagnosis includes epileptic seizure, Parkinsonian tremor, medication non-compliance or withdrawal,
cerebrovascular event, metabolic derangement, infection, syncope, cardiac arrhythmia, neurological disorder progression, and psychogenic non-epileptic seizures.
- Data:
Category 1
Non-emergency department records reviewed, including home medication records indicating levodopa and levetiracetam.
Clinical information was obtained from the patients family as independent historians.
Category 2
My independent interpretation of the CT scan shows no definitive signs of brain abnormality, and the chest X-ray reveals no clear sign of pneumonia.
Category 3
Discussion of management with the hospitalist was performed. The patient is deemed to require admission for further monitoring and management.
-Risk:
Prescription medication was administered to manage seizures. Hospital admission was determined necessary due to the complexity and risk associated with potential seizure activity and the patients underlying conditions.
DIAGNOSIS
- Possible seizure activity, ICD-10 G40.909
- Seizure disorder, ICD-10 G40.909
- Parkinsons disease, ICD-10 G20
RADIOLOGY
- CT head obtained which shows chronic disease but no acute abnormality
EKG
-
LABS
- White count 11.8, hemoglobin 14.4
UPDATE
- Although patient is febrile with a seizure, the seizures are not new. Seizures likely related to medication noncompliance over the last several days. Lactic is high likely due to seizure while in the emergency department and likely seizures
earlier in the day. Patient remains somewhat ill in appearance. Will keep in the hospital for further evaluation. I did notify Dr. Conti of the patient's initial presentation. We did give the patient Keppra 1.5 g and Tylenol, fluids, and Ativan.
Past History
Past History
ED Past Medical History: Seizures (intractable epilepsy), Psychiatric (Depression), Other (gall stones, traumatic brain injury, migraine), Other (Hemorrhoids) and Other
ED Past Surgical History: None
Social History
Tobacco: Non-smoker
Alcohol: None
Drug: None
Personal: Single
Living: alone
Employment: Disabled
Family History
Family History: Other (Lost a brother and a sister to Alzheimer's.)
Phy Exam
Physical Exam
Physical Exam:
See HPI
Course
Orders/Labs/Results
Orders:
Orders
06/08/25 22:27
EKG [Electrocardiogram (*1)] Urgent
Reason for Study: Syncope
EKG- Treatment ONCE
06/08/25 23:06
Lorazepam [Ativan] 2 mg .ROUTE .STK-MED ONE
06/08/25 23:09
Complete Blood Count/With Diff Urgent
Comprehensive Metabolic Panel Urgent
Troponin I Urgent
Levetiracetam Injectable [Keppra] 1,500 mg IV NOW STA
Lorazepam [Ativan] 2 mg IV NOW STA
06/08/25 23:27
Urine Microscopic Reflex Cult Urgent
Urine Reflex Culture from [facility]A [Urinalysis Reflex To Culture] Urgent
Date Specimen was Collected: 06/08/25
Time Specimen was Collected: 23:24
0.9% Sodium Chloride 1000 ml [Nss] 1,000 ml IV BOLUS
Acetaminophen [Tylenol/Feverall] 650 mg RECTAL NOW STA
06/08/25 23:28
Acetaminophen [Tylenol/Feverall] 650 mg .ROUTE .STK-MED ONE
CR Chest Portable - 1 View Urgent
Comment:
Reason For Exam: fever seizure
Reason Study Needs to be Portable: Patient Unstable
06/08/25 23:38
Lactic Acid Q4H
Comment: CANCEL 2nd LACTIC ACID IF 1st LACTIC ACID IS LESS THAN 2
06/08/25 23:41
Blood Culture Q30M
ROSANNA Source: Blood/Venous
Specimen Description:
06/09/25
CT Head W/o Iv Contrast Urgent
Reason For Exam: recurrent seizure activity
06/09/25 00:14
Blood Culture Q30M
ROSANNA Source: Blood/Venous
Specimen Description:
06/09/25 03:30
Lactic Acid Q4H
Comment: CANCEL 2nd LACTIC ACID IF 1st LACTIC ACID IS LESS THAN 2
Abnormal Lab Results
06/08/25 06/08/25 06/08/25
23:09 23:27 23:38
WBC 11.8 H 10^3/uL
(4.8-10.8)
RDW 14.7 H %
(11.5-14.5)
Absolute Neuts (auto) 10.4 H 10^3/uL
(1.4-6.5)
Absolute Lymphs (auto) 0.7 L 10^3/uL
(1.2-3.4)
Neutrophils % 87.9 H %
(42.2-75.2)
Lymphocytes % 6.3 L %
(20.5-51.1)
Carbon Dioxide 19 L mmol/L
(22-30)
BUN 36 H mg/dl
(9-20)
Glucose 129 H mg/dl
(70-99)
Lactic Acid 4.5 H* mmol/L
(0.7-2.0)
Total Protein 8.3 H g/dl
(6.3-8.2)
Ur Occult Blood Reflex 2+ A
(Negative)
Urine Bacteria (Reflex) Few A
(Negative)
Urine Albumin (Reflex) 3+ A
(Neg - Trace)
06/08/25 23:09
06/08/25 23:09
Vital Signs
Initial and Last Documented VS:
Initial Vital Signs
Pulse Resp BP Pulse Ox
104 20 138/111 97
06/08/25 22:25 06/08/25 22:25 06/08/25 22:25 06/08/25 22:25
Last Documented Vital Signs
Temp Pulse Resp BP Pulse Ox
37.2 C 95 15 128/92 98
06/08/25 22:47 06/09/25 01:15 06/09/25 01:15 06/09/25 01:00 06/09/25 01:15
*Pulse Oximetry
SaO2: 95
Oxygen Mode of Delivery: Room air
Patient hypoxic: no
*Critical Care Note
Total Time (30-74mins, 75-104mins- exclusive of procedures): 40min
comment:
The patient had a seizure while in the Emergency Department. This was emergently managed by placing a nasal airway and we also started him on supplemental oxygen as he desatted down to 60%. Frequent reassessments while in the emergency department.
ED Attending Note
-
Portions of this chart may have been created with voice recognition software.� Occasional wrong word or��sound alike� substitutions may have occurred due to the inherent limitations of voice recognition software.
Discharge Plan
Departure
Patient Disposition: Admit
Date of Disposition: 06/09/25
Time of Disposition: 01:19
Presentation/result/management discussed w/ accepting MD/DO: Hospitalist
Discharge Problem:
Breakthrough seizure
Prescriptions:
No Action
famotidine 20 MG tablet
20 mg PO DAILY
topiramate [Topamax] 200 MG tablet
300 mg PO BID
Patient Comments:
07/12/2022: TAKEN W/ 50MG = 250MG
Rx Instructions:
1 and a half tablets
folic acid 0.4 MG tablet
0.4 mg PO DAILY
pregabalin [Lyrica] 300 MG capsule
300 mg PO BID
Patient Comments:
07/12/2022: last filled 06/23/22, 56 tabs for 28 days from [facility]
cyanocobalamin (vitamin B-12) 1,000 MCG tablet
1,000 mcg PO DAILY Qty: 0 0RF
escitalopram oxalate 20 mg Tablet
20 mg PO DAILY
fexofenadine 180 mg Tablet
180 mg PO DAILY
meloxicam 7.5 mg Tablet
7.5 mg PO DAILY
polyethylene glycol 3350 [Miralax] 17 gram Powder In Packet
17 g PO DAILY
levothyroxine 50 mcg Tablet
50 mcg PO DAILY
levetiracetam 1,000 mg tablet
1,000 mg PO BID Qty: 60 0RF
acetaminophen 650 mg Tablet Extended Release
650 mg PO Q12H PRN (Reason: Cytokine Release Syndrome)
topiramate 200 mg Tablet
300 mg PO BID
carbidopa-levodopa 25-100 mg Tablet
1 tab PO TID
sodium chloride 1,000 mg Tablet,Soluble
1,000 mg PO DAILY
eslicarbazepine 400 mg Tablet
1,200 mg PO DAILY
Referrals:
Kevin Overton, DO [Family Provider, Family Practice]
Interventions
Interventions:
*Risk Screen - Suicide Last Done: 06/08/25 23:47
*General Assessment Last Done: 06/08/25 22:25
*Neglect/Abuse Screening Last Done: 06/08/25 23:47
*ED- Fall Risk Assessment Last Done: 06/08/25 23:47
*ED COVID-19 Vaccine History Last Done: 06/08/25 23:47
ED- Cardiac Assessment Last Done: 06/08/25 23:47
ED- Neurological Assessment Last Done: 06/08/25 23:47
ED- Pulmonary Assessment Last Done: 06/08/25 23:47
Discharge Date and Time
Print Language: BENGALI
[2025-06-08 23:00] VITALS: BP 142/102
[2025-06-08 23:11] VITALS: BP 141/108
[2025-06-08 23:15] VITALS: BP 150/104
[2025-06-08] MEDS: KEPPRA 1500 MG IV (23:18)
[2025-06-08 23:21] LABS: Hematocrit 40.8 % (39.0-52.0); Hemoglobin 14.4 g/dL (13.0-18.0); Mean Corp Hgb Conc. 35.3 g/dL (33.0-37.0); Mean Corpuscular Volume 83.3 fL (80.0-94.0); Nucleated Red Blood Cells % 0 % (-); Platelet Count 174 10^3/uL (130-400); Red Cell Dist. Width 14.7 % (11.5-14.5)
[2025-06-08] MEDS: ATIVAN 2 MG IV (23:25)
[2025-06-08] MEDS: TYLENOL/FEVERALL 650 MG RECTAL (23:31)
[2025-06-08] MEDS: NSS 1000 IV (23:32)
[2025-06-08 23:34] LABS: ALT (SGPT) 14 U/L (0-50); AST (SGOT) 19 U/L (17-59); Albumin 4.9 g/dl (3.5-5.0); Alkaline Phosphatase 88 U/L (38-126); Blood Urea Nitrogen 36 mg/dl (9-20); Calcium 9.5 mg/dl (8.4-10.2); Carbon Dioxide 19 mmol/L (22-30); Chloride 104 mmol/L (98-107); Estimated Creatinine Clearance 68 ml/min; Glucose 129 mg/dl (70-99); Potassium 3.7 mmol/L (3.5-5.1); Sodium 138 mmol/L (135-145); Total Protein 8.3 g/dl (6.3-8.2); eGFR > 60.00
[2025-06-08 23:35] LABS: Urine Character Clear (Clear)
[2025-06-08 23:41] LABS: Urine Red Blood Cell 0-2 /HPF (0-2); Urine Squamous Cell 0-2 /LPF (Few)
[2025-06-08 23:45] LABS: Troponin I < 0.012 ng/ml
[2025-06-08 23:51] VITALS: BMI 24.3
[2025-06-08 23:56] VITALS: BP 137/95
[2025-06-09] VITALS (17 sets, daily range): BP systolic 113–148; BP diastolic 74–100; BMI 24.0
[2025-06-09] MEDS: NSS 1000 IV (01:31)
--- NOTE | 2025-06-09 04:16 | HPS.HSE ---
Family Physician
-
Family Physician: Kevin Overton
Chief Complaint
-
Seizure activity
History of Present Illness
Patient is a 65y M with PMH significant for seizure disorder, tremor and prior TBI who presents to ED for evaluation of suspected seizure activity. History is obtained entirely from ED staff. Family indicated that they went to see patient this
evening around 9PM and found him 'shaking in his chair'. EMS was called and he was brought to the ED for further evaluation. Upon further investigation, family noted that patient had not removed meds from his PillPack since 06/06.
In the ED, patient received 2mg IV Ativan.
At the time of my examination, he is mildly / diffusely tremulous. He opens eyes briefly to voice but does nt answer questions or follow commands.
Patient was last admitted February 2025 for breakthrough seizure activity.
Medical History
Past Medical History
Past Medical History: Reports Other
Additional Past Medical History:
Epilepsy / Seizure Disorder
History of TBI
PTSD
Tremor
Hypothyroidism
Past Surgical History: Reports Other
Additional Past Surgical History:
None Known
Social History
Unable to obtain full social history at this time due to: Patient Non-verbal
Family History
Family History: Unable to Obtain
Allergies / Home Medications
Allergies reflects when Allergies were last updated in [employer].
Home Medications with original date entered in [employer]
Allergy/Medication List:
Allergies
Allergy/AdvReac Type Severity Reaction Status Date / Time
iodine (Iodine) Allergy Rash Verified 08/21/24 09:55
valproic acid Allergy Unknown Verified 08/21/24 09:55
Home Medications
famotidine 20 mg tablet 20 mg PO DAILY Gastrointestinal issue 09/04/19
topiramate 200 mg tablet (Topamax) 300 mg PO BID Seizures 07/26/21
folic acid 400 mcg tablet 0.4 mg PO DAILY Supplement 02/10/22
pregabalin 300 mg capsule (Lyrica) 300 mg PO BID Pain 02/10/22
cyanocobalamin (vitamin B-12) 1,000 mcg tablet 1,000 mcg PO DAILY Supplement ##0 04/05/22
escitalopram oxalate 20 mg tablet 20 mg PO DAILY depression 07/12/22
fexofenadine 180 mg tablet 180 mg PO DAILY Allergies 09/11/23
meloxicam 7.5 mg tablet 7.5 mg PO DAILY pain 09/11/23
levothyroxine 50 mcg tablet 50 mcg PO DAILY Thyroid 07/09/24
polyethylene glycol 3350 17 gram oral powder packet (Miralax) 17 g PO DAILY Constipation 07/09/24
levetiracetam 1,000 mg tablet 1,000 mg PO BID #60 tabs 03/25/25
acetaminophen 650 mg tablet,extended release 650 mg PO Q12H PRN Cytokine Release Syndrome 06/09/25
carbidopa 25 mg-levodopa 100 mg tablet 1 tab PO TID 06/09/25
eslicarbazepine 400 mg tablet 1,200 mg PO DAILY 06/09/25
sodium chloride 1,000 mg soluble tablet 1,000 mg PO DAILY 06/09/25
topiramate 200 mg tablet 300 mg PO BID 06/09/25
Review of Systems
-
Unable to obtain full review of systems at this time due to: Patient Non-verbal
Physical Exam
Vital Signs
Vital Signs
Temp Pulse Resp BP Pulse Ox
99 F 112 23 131/96 94
06/08/25 22:47 06/09/25 03:30 06/09/25 03:30 06/09/25 03:30 06/09/25 03:36
Physical Exam
General: Other (65y M mildly tremulous. Does not answer questions or follow commands.)
HEENT: Moist mucous membranes and Other (Nasal trumpet in L nostril.)
Respiratory: Clear; No Wheezes, Rales or Rhonchi
Cardiac: S1/S2 and Regular Rhythm; No Murmur
GI: Soft, Non Tender, Non Distended and Normal Bowel Sounds
Musculoskeletal: No Clubbing, No Cyanosis and No Edema
Neuro: Tremors
Laboratory Results
-
06/08/25 23:09
06/08/25 23:09
Laboratory Results
Lactic Acid 0.7 mmol/L (0.7-2.0) 06/09/25 03:32
Total Bilirubin 1.1 mg/dl (0.2-1.3) 06/08/25 23:09
AST 19 U/L (17-59) 06/08/25 23:
ALT 14 U/L (0-50) 06/08/25 23:
Alkaline Phosphatase 88 U/L (38-126) 06/08/25 23:09
Troponin I < 0.012 ng/ml 06/08/25 23:
Impression/Plan
-
A/P: Patient is a 65y M with PMH significant for intractable epilepsy, PTSD and prior TBI who presents to ED for evaluation of suspected seizure activity.
Epilepsy with Breakthrough Seizures
- Admit for further evaluation and treatment.
- Described symptoms sound c/w seizure and patient with lactic acidosis on arrival, post-ictal lethargy, etc.
- Seems likely that episode was triggered by noncompliance with meds as no meds taken for the past 2 days.
- Keppra loaded in the ED - continue with 1000mg BID.
- Continue other AEDs without changes for now.
- IV Ativan as needed for breakthrough seizure activity.
- Neurology evaluation for additional recommendations.
- Patient lives currently at [facility]. ? benefit to supervised level of care given med compliance issues, recurrent seizures, etc.
PTSD
History of TBI
- Continue current anxiolytic / mood med regimen.
- Continue current Sinemet dosing without changes for now.
- Prior EMILY scan which was reportedly unremarkable.
Lactic Acidosis
- Likely secondary to seizure activity.
- IVF support and follow for rapid correction.
Hypothyroidism
- Continue usual T4 supplementation.
DVT Prophylaxis: SCDs
Code Status: Full
[2025-06-09 05:15] LABS: Hematocrit 35.6 % (39.0-52.0); Hemoglobin 12.9 g/dL (13.0-18.0); Mean Corp Hgb Conc. 36.2 g/dL (33.0-37.0); Mean Corpuscular Volume 82.2 fL (80.0-94.0); Platelet Count 149 10^3/uL (130-400); Red Cell Dist. Width 14.8 % (11.5-14.5)
[2025-06-09] MEDS: SYNTHROID PO (05:43)
[2025-06-09] MEDS: LR 1000 IV (05:43)
[2025-06-09 05:45] LABS: Blood Urea Nitrogen 36 mg/dl (9-20); Calcium 8.7 mg/dl (8.4-10.2); Carbon Dioxide 17 mmol/L (22-30); Chloride 112 mmol/L (98-107); Estimated Creatinine Clearance 76 ml/min; Glucose 117 mg/dl (70-99); Potassium 3.4 mmol/L (3.5-5.1); Sodium 138 mmol/L (135-145); eGFR > 60.00
--- NOTE | 2025-06-09 06:33 | TRANSFER ---
Received pt at 0515 from ED dx seizure d/o. Pt obtunded, eyes open to verbal but unable to make needs known. IVF administered as ordered. VS WNL. Bed padded per seizure precautions. Call valdez within reach, bed in lowest position. Care ongoing.
--- NOTE | 2025-06-09 11:02 | CON.NEURO ---
Addendum entered and electronically signed by Donovan Conti MD 06/09/25 15:12:
Studies reviewed.
I have personally examined the patient. I reviewed and agree with the RECORD SEARCHER's Note.
My addenda:
Awake, not alert, minimally interactive. No acute distress.
Speech dysarthric, markedly reduced output.
Does not follow requests. No tremor.
Extra-ocular movements grossly intact.
Facial movements full and symmetric. Hearing intact to normal conversational volume.
Normal UE movements bilaterally.
Neck: full ROM.
Chest: no dyspnea
Heart: no JVD
Ext: (-) Clubbing, (-) Cyanosis, (-) Edema
IMPRESSIONS/RECOMMENDATIONS:
Abrupt onset of change in mental status in patient with prior traumatic brain injury and longstanding history of intractable epilepsy
Check EEG to determine if the patient is experiencing status epilepticus
Continue current medications
Continue levetiracetam 1000 mg twice a day, topiramate, pregabalin, eslicarbazepine
Unclear if the patient would benefit from continued use of carbidopa levodopa
Consider provision of immunoglobulin
Will continue to follow as needed.
Original Note:
Documented by User: Nelly Wyman NP 06/09/25 14:49
Neuro Assessment/Plan
Assessment
Patient is a 65y M with [facility] significant for seizure disorder, tremor and prior TBI who presented to [facility] on 06/09/2025 for evaluation of suspected seizure activity.
EEG 06/09/2025: diffuse cortical dysfunction without focal abnormality. No seizures were recorded.
EEG 07/27/2021: diffuse slowing to delta-range frequencies; at times no clear PDR was seen. Diffuse excess beta activity was seen throughout the recording, which can be due to drug effect. The study is consistent with moderate to severe diffuse
cerebral dysfunction, nonspecific in etiology; no clear seizure activity was noted..
CT Head W/o Iv Contrast 06/09/2025:
1. No acute intracranial abnormalities appreciated.
2. Mild atrophy and mild chronic small vessel change.
3. No significant change compared to prior study.
CT Head W/o Iv Contrast 03/24/2025: No acute intracranial hemorrhage or extra-axial collection. No skull fracture. Posterior midline scalp soft tissue swelling/contusion with superficial skin closure dino.
CT Cervical Spine W/o Iv Contrast 03/24/2025: No acute fracture. No prevertebral soft tissue swelling. No anterior or posterior listhesis. No significant change compared to prior examination of 24 days ago.
Keppra level from 03/24/2025 12
Carbamazepine level 06/09/2025 <3
Plan
Impression:
I. breakthrough seizure in the setting of intractable epilepsy and medication noncompliance
II. 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
-obtain EEG
-seizure precautions
-continue current seizure medications with levetiracetam, eslicarbazepine, topiramate and load with phenobarbital
-consider starting another antiepileptic medication such as Lacosamide
-PT/OT/ST evaluations
-DVT prophylaxis
-consider transferring to [place]
Consultation
Order
Date of Consultation: 06/09/25
Requesting Provider: hospitalist
Reason for Consult: breakthrough seizure
Subjective/Objective
Subjective Data
Date of Service: June 09, 2025
Patient currently minimally responsive and unable to provide any meaningful history, all information obtained from his chart. Patient presented to [facility] on 06/09/2025 after family found patient this evening around 9PM 'shaking in his chair'.
Currently is living at [facility]. EMS was called and he was brought to the ED for further evaluation. Family noted that patient had not removed medications from his PillPack since 06/06. He is currently not following commands. In the ED, patient
received 2mg IV Ativan. His head CT showed no acute intracranial abnormalities. He currently opens eyes briefly but is non verbal. He was admitted recently in February for breakthrough seizure.
Taken from my note from February 2025:
'Date of Service: March 25, 2025
History of Present Illness:
Taken from previous neurologist's HPI on 02/28/2025 Dr. Nelida Owens:
'Patient has a past medical history significant intractable epilepsy, tremor, depression and TBI as well as PTSD who has been seen at [facility] in the past for seizures brought in after an episode of dizziness and feeling off balance
yesterday while at [facility]. Bystanders described this as him 'hunching over his cart and looked like he was having a seizure.' Further details unavaiable. He denies any associated loss of consciousness or loss of awareness. He does not think he
had a seizure. No missed medications. No new medications. No recent illness or sick contacts. He states that the day before yesterday he did 'slide off the toilet' after feeling dizzy but did not have clear loss of consciousness with that
episode either. He lives alone in an apartment complex. He states that [facility] (records indicate this was Dr. João Roland at the [facility]) but has since stopped seeing that
provider and now follows with a neurologist at [facility]. He cannot say the last time he was seen.'
Patient has had 36 head CTs since 2009. He states that his seizures have never been well controlled and has been hospitalized multiple times for breakthrough seizures. He states his last seizure occurred on 02/28/2025 possibly precipitated by
stress, and to his knowledge no changes were made. For antiepileptic medications. He is currently taking Aptiom 1200 mg daily, Levetiracetam 500 mg BID, Pregabalin 300 mg BID and Topiramate 300 mg BID. He is currently followed by [facility] as
well as [facility]. He was last seen by [facility] in December of 2024.
Patient reported prior to seizure, was in usual state of health. He said he felt slight dizziness but it resolved after continuing his daily activities. He got up and down several times without feeling lightheaded or dizzy. He went for a walk. He
denied having any palpitations or chest pain. He denies any dyspnea or shortness of breath. Denies any cough fevers or chills. He reported that he had dinner and then went for a walk in the parking lot. He then found himself on ground with a pool
of blood around his head. He called his life alert when EMS came to get him. He was placed in neck brace and brought to the emergency department.
When EMS arrived patient was alert and oriented and did not appear to have any postictal state. Denies tongue/cheek biting or bowel/bladder incontinence. He denies any recent illness or infection, denies recent medication changes, remains compliant
with medications and denies issues with sleep.
In the emergency department he was afebrile, blood pressure was 117/90 with a pulse of 70 and sats 98% on room air. His CBC was completely normal. Electrolytes BUN and creatinine were stable and unremarkable. LFTs normal. ECG without arrhythmia
or ischemia. CT of the head shows no acute bleed, CT of the cervical spine without fracture or abnormalities. Chest x-ray is clear.'
Objective Data
Vital Signs
Temp Pulse Resp BP Pulse Ox
98.7 F 95 18 121/90 100
06/09/25 08:05 06/09/25 08:05 06/09/25 08:05 06/09/25 08:05 06/09/25 08:05
Lab Results
06/09/25 05:09
06/09/25 05:09
Sodium 138 mmol/L (135-145) 06/09/25 05:09
Potassium 3.4 mmol/L (3.5-5.1) L 06/09/25 05:09
BUN 36 mg/dl (9-20) H 06/09/25 05:09
Glucose 117 mg/dl (70-99) H 06/09/25 05:09
Calcium 8.7 mg/dl (8.4-10.2) 06/09/25 05:09
Patient Allergies
iodine (Iodine) Allergy (Verified 08/21/24 09:55)
Rash
valproic acid Allergy (Verified 08/21/24 09:55)
Unknown
Review of Systems
-
Unable to obtain full review of systems at this time due to: Acuity
Data Reviewed
-
CT Head: Report Reviewed and Image Reviewed
EEG: Ordered
Labs: Report Reviewed
Reviewed with: Physician
Old Records: Summarized
Medications
-
Active Medications
Generic Name Dose Route Start Last Admin
Trade Name Freq PRN Reason Stop Dose Admin
Acetaminophen 650 mg 06/09/25 05:22
Acetaminophen 325 Mg Tablet PO 07/07/25 05:21
Q4HPRN PRN
Mild Pain / Temp > 101
Carbidopa/Levodopa 1 tablet 06/09/25 08:00
Carbidopa (25 Mg)/Levodopa (100 Mg) Regular Release Tablet PO 07/07/25 07:59
TID JOSE
Escitalopram Oxalate 20 mg 06/09/25 08:00
Escitalopram 20 Mg Tablet PO 07/07/25 07:59
DAILY JOSE
Famotidine 20 mg 06/09/25 08:00
Famotidine 20 Mg Tablet PO 07/07/25 07:59
DAILY JOSE
Folic Acid 0.4 mg 06/09/25 08:00
Folic Acid 0.4 Mg Tablet PO 07/07/25 07:59
DAILY JOSE
Levetiracetam 1,000 mg 06/09/25 08:00
Levetiracetam (100 Mg/Ml) 500 Mg/5 Ml Vial IV 07/07/25 07:59
Q12 JOSE
Levothyroxine Sodium 50 mcg 06/09/25 06:00 06/09/25 05:43
Levothyroxine 50 Mcg Tablet PO 07/07/25 05:59 Not Given
DAILY @ 0600 JOSE
Lorazepam 2 mg 06/09/25 05:22
Lorazepam 2 Mg/Ml Vial IV 07/07/25 05:21
Q4HPRN PRN
Seizure activity
Eslicarbazepine 400 0 mg 06/09/25 08:00
Mg Tablet Take 3 PO 07/07/25 07:59
Tablets (1,200 Mg) DAILY JOSE
Po Daily
Pregabalin 300 mg 06/09/25 08:00
Pregabalin 75 Mg Capsule PO 07/07/25 07:59
BID JOSE
Sodium Chloride 1 gram 06/09/25 08:00
Sodium Chloride 1 Gram Tablet PO 07/07/25 07:59
DAILY JOSE
Sodium Chloride 0 flush 06/09/25 06:00
Sodium Chloride 0.9% (Flush) Syringe IV 07/07/25 05:59
PER PROTOCOL JOSE
Sodium Chloride 1 ml 06/09/25 05:44
Nss (Pf) 10 Ml Vial For Ativan 2 Mg Dose IV 07/07/25 05:43
Q4HPRN PRN
IV LORAZEPAM DILUTION
Topiramate 300 mg 06/09/25 08:00
Topiramate 100 Mg Tablet PO 07/07/25 07:59
BID JOSE
Home Medications
�Medication �Instructions �Recorded
famotidine 20 mg tablet 20 mg PO DAILY Gastrointestinal 09/04/19
issue
topiramate 200 mg tablet (Topamax) 300 mg PO BID Seizures 07/26/21
folic acid 400 mcg tablet 0.4 mg PO DAILY Supplement 02/10/22
pregabalin 300 mg capsule (Lyrica) 300 mg PO BID Pain 02/10/22
cyanocobalamin (vitamin B-12) 1,000 mcg PO DAILY Supplement ##0 04/05/22
1,000 mcg tablet
escitalopram oxalate 20 mg tablet 20 mg PO DAILY depression 07/12/22
fexofenadine 180 mg tablet 180 mg PO DAILY Allergies 09/11/23
meloxicam 7.5 mg tablet 7.5 mg PO DAILY pain 09/11/23
levothyroxine 50 mcg tablet 50 mcg PO DAILY Thyroid 07/09/24
polyethylene glycol 3350 17 gram 17 g PO DAILY Constipation 07/09/24
oral powder packet (Miralax)
levetiracetam 1,000 mg tablet 1,000 mg PO BID #60 tabs 03/25/25
acetaminophen 650 mg 650 mg PO Q12H PRN Cytokine 06/09/25
tablet,extended release Release Syndrome
carbidopa 25 mg-levodopa 100 mg 1 tab PO TID 06/09/25
tablet
eslicarbazepine 400 mg tablet 1,200 mg PO DAILY 06/09/25
sodium chloride 1,000 mg soluble 1,000 mg PO DAILY 06/09/25
tablet
topiramate 200 mg tablet 300 mg PO BID 06/09/25

Documented by User: Donovan Conti MD 06/09/25 15:05
Neuro Assessment/Plan
Assessment
Patient is a 65y M with [facility] significant for seizure disorder, tremor and prior TBI who presented to [facility] on 06/09/2025 for evaluation of suspected seizure activity.
EEG 06/09/2025: diffuse cortical dysfunction without focal abnormality. No seizures were recorded.
EEG 07/27/2021: diffuse slowing to delta-range frequencies; at times no clear PDR was seen. Diffuse excess beta activity was seen throughout the recording, which can be due to drug effect. The study is consistent with moderate to severe diffuse
cerebral dysfunction, nonspecific in etiology; no clear seizure activity was noted..
CT Head W/o Iv Contrast 06/09/2025:
1. No acute intracranial abnormalities appreciated.
2. Mild atrophy and mild chronic small vessel change.
3. No significant change compared to prior study.
CT Head W/o Iv Contrast 03/24/2025: No acute intracranial hemorrhage or extra-axial collection. No skull fracture. Posterior midline scalp soft tissue swelling/contusion with superficial skin closure dino.
CT Cervical Spine W/o Iv Contrast 03/24/2025: No acute fracture. No prevertebral soft tissue swelling. No anterior or posterior listhesis. No significant change compared to prior examination of 24 days ago.
Keppra level from 03/24/2025 12
Carbamazepine level 06/09/2025 <3
Impression:
I. breakthrough seizure in the setting of intractable epilepsy and medication noncompliance
II. 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
Plan
-obtain EEG
-seizure precautions
-continue current seizure medications with levetiracetam, eslicarbazepine, topiramate and load with phenobarbital
-consider starting another antiepileptic medication such as Lacosamide
-PT/OT/ST evaluations
-DVT prophylaxis
-consider transferring to [place]
--- NOTE | 2025-06-09 11:42 | W.PN.UPDATE ---
Update Note
Progress Note Update
Admitted with breakthrough seizure in setting of missed meds, patient with history of intractable epilepsy per Neurology
remains lethargy, with tremors
EEG being setup
Assessment:
Epilepsy with Breakthrough Seizures
- Described symptoms sound c/w seizure and patient with lactic acidosis on arrival, post-ictal lethargy, etc.
- Seems likely that episode was triggered by noncompliance with meds as no meds taken for the past 2 days.
- Keppra loaded in the ED - continue with 1000mg BID.
- Continue other AEDs without changes for now. check Carbamazepine level
- IV phenobarbital added by Neurology 06/09
- IV Ativan as needed for breakthrough seizure activity.
- follow Neurology recs
- may need OP referral for neurostimulator
- Patient lives currently at [facility]. ? benefit to supervised level of care given med compliance issues, recurrent seizures, etc.
- eventual PT/OT/ST when able
PTSD
History of TBI
- Continue current anxiolytic/mood med regimen.
- Continue current Sinemet dosing without changes for now.
- Prior EMILY scan which was reportedly unremarkable.
Lactic Acidosis
- Likely secondary to seizure activity.
- corrected with IVF
Hypothyroidism
- Continue usual T4 supplementation.
DVT Prophylaxis: SCDs
Code Status: Full
[2025-06-09] MEDS: KEPPRA 1000 MG IV ×2 (11:56→21:29)
[2025-06-09] MEDS: PHENOBARBITAL 65 MG IV (11:56)
[2025-06-09] MEDS: KCL 270 MEQ IV (12:20)
[2025-06-09] MEDS: LYRICA 300 MG PO ×2 (13:42→21:31)
[2025-06-09] MEDS: SINEMET 25-100 1 TABLET PO ×2 (13:43→21:32)
[2025-06-09] MEDS: TOPAMAX 300 MG PO ×2 (13:43→21:31)
[2025-06-09] MEDS: PEPCID 20 MG PO (13:44)
[2025-06-09] MEDS: LEXAPRO 20 MG PO (13:44)
[2025-06-09] MEDS: FOLVITE 0.4 MG PO (13:44)
[2025-06-09] MEDS: SODIUM CHLORIDE 1 GRAM PO (13:44)
--- NOTE | 2025-06-09 13:57 | EEG.RPT ---
Electroencephalogram Report
Recording
Date of EE06/09/25
Type of EEG: Routine
Length of EEG recordin minutes
Done with Video Recording: Yes
Patient Status: Inpatient
Recording Conditions: Awake and Drowsy
Hyperventilation Performed: No
Photic Stimulation Performed: Yes
Report
LESS THAN 1 HOUR EEG REPORT
LESS THAN 1 HOUR EEG INTERPRETATION:
Moderately abnormal EEG for age due to diffuse bihemispheric slowing
CLINICAL CORRELATION:
This study was suggestive of diffuse cortical dysfunction without focal abnormality. No seizures were recorded.
In comparison with
Clinical correlation is advised.
METHODS:
A 21 channel digitized electroencephalogram (EEG) was performed at the bedside. The 10/20 international system of electrode placement was used with ECG and lateral/vertical eye movements recorded. Persyst QEEG monitoring was performed.
QUALITY OF STUDY:
Fair�poor due to excessive beta activity
ELECTROENCEPHALOGRAPHER IMPRESSION(S):
Background
There was a low amplitude unorganized anterior-posterior voltage gradient of delta frequency
There were no significant asymmetries of background activity noted.
Sleep
Drowsiness present
Photic Stimulation
Failed to activate the record.
ECG
Normal sinus rhythm
--- NOTE | 2025-06-09 14:49 | CM ---
CM following re: discharge planning.
Reviewed pt's chart, met with pt.
Pt is a 65 year old male, admitted with primary dx of seizure.
Patient is not a great historian, did not say a single word. Pt is a participated in [facility] . CM spoke to [facility] PILI Falk [phone] and she confirmed that pt lives alone at [facility]
independent apartment, ambulates with a walker, Patient has care assistance twice a week. He is followed by [facility] PCP and home RN and pt goes to [facility] center on Fridays.
[facility] PILI requested pt's clinical be sent to [phone] for coordination of next level of care. Per PILI Falk, if pt needs SNF level of care they will coordinate it.
Pt's clinical faxed to [facility].
PCP and pharmacy: [facility].
PT and OT will evaluate the pt to determine a level of care at discharge.
D/C plan: uncertain at this time and will depend on pt's progress and discharge plan is coordinating with [facility].
CM will follow with discharge plan updates as hospitalization progresses
--- NOTE | 2025-06-09 15:11 | PTOTSP ---
Addendum entered and electronically signed by ST Elder 06/09/25 15:43:
* Can trial essential meds crushed in puree if fully awake, alert, accepting, otherwise, non-oral
Original Note:
Speech Therapy Evaluation:
Pt with acute on chronic risk factors of dysphagia including seizures, TBI, Parkinson's vs spinocerebellar ataxia (noted both in chart), and altered mental status. Pt non-verbal and unable to follow commands. When offered PO, pt with no attempts at
oral opening despite max verbal cues and direct models. CXR without PNA, pt on room air, and WBC WNL, however pt's mentation not supportive of oral diet at this time.
Recommend:
1. Temporary NPO
2. Meds non-oral
3. Oral care 3x/daily
4. DRAFTER PLUMBING to follow to assess candidacy for diet initiation, ARHP, and to determine if pt would benefit from instrumental assessment
[2025-06-09] MEDS: PHENOBARBITAL 97.5 MG IV ×2 (15:59→21:30)
--- NOTE | 2025-06-09 17:27 | PHA.VAN.IN ---
Assessment
- Assessment
Renal Function: Appears similar to baseline
Concomitant Antimicrobials: NONE
- Previous Dosing Experience
Previous Regimen: NONE
AUC Dosing Plan
- Dosing Variables
Dosing Weight (kg): 84.8
Dosing CrCl (ml/min): 76
Vd coefficient (L/kg): 0.7
- Empiric Dosing
Initial / Loading Dose: 2GM
Maintenance Regimen: 1GM IV Q12H
Estimated AUC (mcg*h/mL): 516
Estimated Peak (mcg*h/mL): 30.3
Estimated Trough (mcg/ml): 14.4
Estimated Half Life (H): 10.3
Pharmacokinetics Vancomycin I
- -
Patient Age: 65
Patient Sex: Male
Vancomycin Day #: 1
Indication: Bacteremia
Requesting Provider: ROLO
Height / Weight:
Height 6 ft 2 in
Actual Weight 84.822 kg
- Vital Signs / Lab Results
Temp Pulse Resp BP Pulse Ox
98.9 F 92 18 147/86 98
06/09/25 15:00 06/09/25 15:00 06/09/25 15:00 06/09/25 15:00 06/09/25 15:00
Lab Results - Hematology
06/08/25 06/09/25
23:09 05:09
WBC 11.8 H 9.0
Lab Results - Chemistry
06/08/25 06/09/25
23:09 05:09
BUN 36 H 36 H
Creatinine 1.2 1.1
Estimated Creat Clear 68 76
Albumin 4.9
06/08/25 06/09/25
23:38 03:32
Lactic Acid 4.5 H* 0.7
Lab Results - Urine
06/08/25
23:27
Urine Nitrite (Reflex) Negative
Leukocyte Esterase Rfl Negative
Urine WBC (Reflex) 6-10
Ur Squamous Epith Cells 0-2
Urine Bacteria (Reflex) Few A
Microbiology Results
06/09/25 00:14 Blood Culture - Preliminary
Blood/Venous Positive culture in progress
Gram Stain - Preliminary
[2025-06-09] MEDS: VANCOCIN 540 MG IV (18:36)
[2025-06-09] MEDS: SINEMET 25-100 PO (18:37)
--- NOTE | 2025-06-09 20:00 | PTCARENOTE ---
Resumed care of pt laying in bed, pt arousable to voice, able to state name, nods head yes and verbalizes yes to questions, but no other verbal responses at this time. Pt able to take PO medication without difficulty with sips of water. Pt follows
commands. Face flushed, skin warm. No fever noted at this time. HR in the 70's in NSR on the monitor. Lungs dec/ shallow. POX 97% on RA. + bowel, round obese abd. Pt inc Bowel/ bladder. Pt inc of loose black stool. Amaya care provided. Barrier cream
applied. Balpable peripheral pulses present. Heels elevated on pillows. Left wrist int capped. Bed alarm in place. Pt repositioned. Oral care provided. Will continue to monitor.
[2025-06-10] VITALS (9 sets, daily range): BP systolic 120–138; BP diastolic 76–97; PULSE 73–103
[2025-06-10] MEDS: VANCOCIN 200 IV (05:20)
[2025-06-10] MEDS: SYNTHROID 50 MCG PO (05:20)
[2025-06-10 06:05] LABS: Hematocrit 38.6 % (39.0-52.0); Hemoglobin 13.2 g/dL (13.0-18.0); Mean Corp Hgb Conc. 34.2 g/dL (33.0-37.0); Mean Corpuscular Volume 85.8 fL (80.0-94.0); Platelet Count 148 10^3/uL (130-400); Red Cell Dist. Width 15.3 % (11.5-14.5)
[2025-06-10 06:36] LABS: Blood Urea Nitrogen 37 mg/dl (9-20); Calcium 9.3 mg/dl (8.4-10.2); Carbon Dioxide 22 mmol/L (22-30); Chloride 111 mmol/L (98-107); Estimated Creatinine Clearance 64 ml/min; Glucose 84 mg/dl (70-99); Potassium 3.5 mmol/L (3.5-5.1); Sodium 139 mmol/L (135-145); eGFR > 60.00
--- NOTE | 2025-06-10 06:41 | PTCARENOTE ---
Pt with dark black loose stools overnight. Heme test neg x2. Pt inc of urine. Upon further assessment this am, abd noted to be distended. Pt denied complaints of abd pain initially, then stated his abd did hurt. Bladder scan performed, 2050ml
scanned. 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 Bladder drained 2100ml leslie colored urine. Pt no longer dist, abd soft. PT denies complaints. Pt remains drowsy, lethargic, but easily arousable, pt now able to state name and name of ""hospital. Continues to answer yes no appropriately. vital signs stable. Will continue to monitor.
[2025-06-10] MEDS: PHENOBARBITAL 97.5 MG IV ×3 (08:32→21:18)
[2025-06-10] MEDS: KEPPRA 1000 MG IV ×2 (08:32→21:18)
[2025-06-10] MEDS: SINEMET 25-100 1 TABLET PO ×3 (08:33→21:20)
[2025-06-10] MEDS: PEPCID 20 MG PO (08:33)
[2025-06-10] MEDS: LEXAPRO 20 MG PO (08:33)
[2025-06-10] MEDS: LYRICA 300 MG PO ×2 (08:33→21:17)
[2025-06-10] MEDS: SODIUM CHLORIDE 1 GRAM PO (08:33)
[2025-06-10] MEDS: TOPAMAX 300 MG PO ×2 (08:33→21:18)
[2025-06-10] MEDS: FOLVITE 0.4 MG PO (08:33)
--- NOTE | 2025-06-10 10:45 | W.PN.NEURO.1 ---
Today's Communication / Plan
-
-obtain EEG, repeat
-seizure precautions
-continue current seizure medications with levetiracetam, eslicarbazepine, topiramate and continue phenobarbital
Neuro Assessment/Plan
Assessment
Patient is a 65y M with PMH significant for seizure disorder, tremor and prior TBI who presented to [facility] on 06/09/2025 for evaluation of suspected seizure activity.
EEG 06/09-: diffuse cortical dysfunction without focal abnormality. No seizures were recorded.
EEG 07/27/2021: diffuse slowing to delta-range frequencies; at times no clear PDR was seen. Diffuse excess beta activity was seen throughout the recording, which can be due to drug effect. The study is consistent with moderate to severe diffuse
cerebral dysfunction, nonspecific in etiology; no clear seizure activity was noted..
CT Head W/o Iv Contrast 06/09/2025:
1. No acute intracranial abnormalities appreciated.
2. Mild atrophy and mild chronic small vessel change.
3. No significant change compared to prior study.
CT Head W/o Iv Contrast 03/24/2025: No acute intracranial hemorrhage or extra-axial collection. No skull fracture. Posterior midline scalp soft tissue swelling/contusion with superficial skin closure dino.
CT Cervical Spine W/o Iv Contrast 03/24/2025: No acute fracture. No prevertebral soft tissue swelling. No anterior or posterior listhesis. No significant change compared to prior examination of 24 days ago.
Keppra level from 03/24/2025 12
Carbamazepine level 06/09/2025 <3
Impression:
I. breakthrough seizure in the setting of intractable epilepsy and medication noncompliance, most likely patient is experiencing prolonged time to recovery from prior seizure as repeated EEGs do not demonstrate epileptiform activity
II. 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
Plan
-obtain EEG, repeat
-seizure precautions
-continue current seizure medications with levetiracetam, eslicarbazepine, topiramate and continue phenobarbital
-consider starting another antiepileptic medication such as Lacosamide
-PT/OT/ST evaluations
Will follow
Subjective/Objective
Subjective Data
Date of Service: June 10, 2025
Patient unable to fight his own medical history
Objective Data
Vital Signs
Temp Pulse Resp BP Pulse Ox
37.1 C 68 16 120/79 98
06/10/25 07:00 06/10/25 07:00 06/10/25 07:00 06/10/25 07:00 06/10/25 08:00
Lab Results
06/10/25 05:28
06/10/25 05:28
Sodium 139 mmol/L (135-145) 06/10/25 05:28
Potassium 3.5 mmol/L (3.5-5.1) 06/10/25 05:28
BUN 37 mg/dl (9-20) H 06/10/25 05:28
Glucose 84 mg/dl (70-99) 06/10/25 05:28
Calcium 9.3 mg/dl (8.4-10.2) 06/10/25 05:28
Patient Allergies
iodine (Iodine) Allergy (Verified 08/21/24 09:55)
Rash
valproic acid Allergy (Verified 08/21/24 09:55)
Unknown
Review of Systems
-
Unable to obtain full review of systems at this time due to: Aphasia
History Source: Patient
All other systems: Reviewed and negative
Physical Exam
-
General: No Apparent Distress and Appears Stated Age
Eyes: Round OU, Olinda Conjunctivae and No Ptosis; Negative Able to visualize OU
HEENT: Anicteric and Moist Mucous Membranes
Neck: Full Range of Motion
Respiratory: No Dyspnea
Cardiac: No JVD
GI: Non-distended
Skin: Unremarkable
Extremities: No Clubbing, No Cyanosis and No Edema
Psych: Unable to Assess
Extended Neurological Exam
Mood & Affect: Unable to Assess
Attention Span & Concentration: Awake, Unable to Perform 2 Step Request and Other (Unable to perform single step requests); Negative Alert or Interactive
Memory: Unable to Assess
Tremor: Hand Tremor Absent and Head Tremor Absent
Involuntary Movement: None
Speech: Severely Reduced Output and Dysarthric
Cranial Nerve II: Left Eye: Pupillary Reactivity Unremarkable, Pupillary Size Unremarkable and Unable to Assess Visual Chung
Cranial Nerve II: Right Eye: Pupillary Reactivity Unremarkable, Pupillary Size Unremarkable and Unable to Assess Visual Chung
Cranial Nerves III, IV, : Extraocular Movement: Extraocular Movement Full in all Directions
Cranial Nerve VII: Facial Symmetry: Normal Facial Symmetry
Cranial Nerve VIII: Hearing: Unremarkable Hearing to Normal Conversational Volume
Cranial Nerves IX, X: Palate Movement: Palate Elevation Symmetric
Cranial Nerve XI: Shoulder Shrug: Unable to Assess
Cranial Nerve XII: Tongue Protusion: Unable to Assess
Muscle Strength, Overall: Spontaneously Moves (All extremities)
Muscle Bulk & Tone: Bulk Unremarkable and Tone Unremarkable
Pronator Drift: Unable to Assess
Deep Tendon Reflexes: Absent Throughout
Cold Sensation: Unable to Assess
Vibration Sensation: Unable to Assess
Touch Sensation: Withdrawal to Pain
Coordination: Unable to Assess
Babinski Sign: Absent Bilaterally
Gait & Station: Unable to Assess
Past History
Past History
ED Past Medical History: Seizures (intractable epilepsy), Psychiatric (Depression), Other (gall stones, traumatic brain injury, migraine), Other (Hemorrhoids) and Other
ED Past Surgical History: None
Social History
Tobacco: Non-smoker
Alcohol: None
Drug: None
Personal: Single
Living: alone
Employment: Disabled
Family History
Family History: Other (Lost a brother and a sister to Alzheimer's.)
Medications
-
Medications:
Generic Name Dose Route Start Last Admin
Trade Name Freq PRN Reason Stop Dose Admin
Acetaminophen 650 mg 06/09/25 05:22
Acetaminophen 325 Mg Tablet PO 07/07/25 05:21
Q4HPRN PRN
Mild Pain / Temp > 101
Carbidopa/Levodopa 1 tablet 06/09/25 08:00 06/10/25 08:33
Carbidopa (25 Mg)/Levodopa (100 Mg) Regular Release Tablet PO 07/07/25 07:59 1 tablet
TID JOSE Administration
Escitalopram Oxalate 20 mg 06/09/25 08:00 06/10/25 08:33
Escitalopram 20 Mg Tablet PO 07/07/25 07:59 20 mg
DAILY JOSE Administration
Famotidine 20 mg 06/09/25 08:00 06/10/25 08:33
Famotidine 20 Mg Tablet PO 07/07/25 07:59 20 mg
DAILY JOSE Administration
Folic Acid 0.4 mg 06/09/25 08:00 06/10/25 08:33
Folic Acid 0.4 Mg Tablet PO 07/07/25 07:59 0.4 mg
DAILY JOSE Administration
Vancomycin HCl 1 gram in 200 mls @ 200 mls/hr 06/10/25 06:00 06/10/25 05:20
Vancocin IV 200 mls
Q12H JOSE Administration
Protocol
Levetiracetam 1,000 mg 06/09/25 08:00 06/10/25 08:32
Levetiracetam (100 Mg/Ml) 500 Mg/5 Ml Vial IV 07/07/25 07:59 1,000 mg
Q12 JOSE Administration
Levothyroxine Sodium 50 mcg 06/09/25 06:00 06/10/25 05:20
Levothyroxine 50 Mcg Tablet PO 07/07/25 05:59 50 mcg
DAILY @ 0600 JOSE Administration
Lorazepam 2 mg 06/09/25 05:22
Lorazepam 2 Mg/Ml Vial IV 07/07/25 05:21
Q4HPRN PRN
Seizure activity
Eslicarbazepine 400 0 mg 06/09/25 08:00
Mg Tablet Take 3 PO 07/07/25 07:59
Tablets (1,200 Mg) DAILY JOSE
Po Daily
Phenobarbital Sodium 97.5 mg 06/09/25 16:00 06/10/25 08:32
Phenobarbital (65 Mg/Ml) 1 Ml Vial IV 06/11/25 08:01 97.5 mg
TID JOSE Administration
Pregabalin 300 mg 06/09/25 08:00 06/10/25 08:33
Pregabalin 75 Mg Capsule PO 07/07/25 07:59 300 mg
BID JOSE Administration
Sodium Chloride 1 gram 06/09/25 08:00 06/10/25 08:33
Sodium Chloride 1 Gram Tablet PO 07/07/25 07:59 1 gram
DAILY JOSE Administration
Sodium Chloride 0 flush 06/09/25 06:00
Sodium Chloride 0.9% (Flush) Syringe IV 07/07/25 05:59
PER PROTOCOL JOSE
Sodium Chloride 1 ml 06/09/25 05:44
Nss (Pf) 10 Ml Vial For Ativan 2 Mg Dose IV 07/07/25 05:43
Q4HPRN PRN
IV LORAZEPAM DILUTION
Topiramate 300 mg 06/09/25 08:00 06/10/25 08:33
Topiramate 100 Mg Tablet PO 07/07/25 07:59 300 mg
BID JOSE Administration
--- NOTE | 2025-06-10 11:20 | W.PN.HOSP.TC ---
Addendum entered and electronically signed by Xi Lemus MD 06/10/25 11:23:
ConS bacteremia in 1/2 bottles, suspect contaminant. DC Vanco. repeat cultures pending (from prior to Vanco dosing)
Original Note:
Today's Communication/Plan
-
continue current seizure meds per Neuro. repeat EEG
DC planning to SNF
Assessment / Plan
Assessment / Plan
Assessment:
Epilepsy with Breakthrough Seizures
- Described symptoms sound c/w seizure and patient with lactic acidosis on arrival, post-ictal lethargy, etc.
- Seems likely that episode was triggered by noncompliance with meds as no meds taken for the past 2 days.
- continue Keppra and other AEDs without changes for now. check Carbamazepine level
- IV phenobarbital added by Neurology 06/09
- IV Ativan as needed for breakthrough seizure activity.
- follow Neurology recs
- EEG repeat today. EEG 06/09 without evidence of status epilepticus
- may need OP referral for neurostimulator
- Patient lives currently at [facility]. will benefit to supervised level of care given med compliance issues, recurrent seizures, etc.
- PT/OT/ST - SNF recommended. d.w CM.
PTSD
History of TBI
- Continue current anxiolytic/mood med regimen.
- Continue current Sinemet dosing without changes for now.
- Prior EMILY scan which was reportedly unremarkable.
Lactic Acidosis
- Likely secondary to seizure activity.
- corrected with IVF
Hypothyroidism
- Continue usual T4 supplementation.
DVT Prophylaxis: SCDs
Code Status: Full
Anticipated Discharge: > 48 hours
Subjective/Interval History
-
Date of Service: June 10, 2025
more alert, oriented to himself, less confused. tolerating puree diet
Objective Data
-
Labs:
Laboratory Results
06/10/25
05:28
WBC 8.1
Hgb 13.2
Hct 38.6 L
Plt Count 148
Sodium 139
Potassium 3.5
Chloride 111 H
Carbon Dioxide 22
BUN 37 H
Creatinine 1.3
Glucose 84
Calcium 9.3
Vital Signs:
Vital Signs
Temp Pulse Resp BP Pulse Ox
98.8 F 68 16 120/79 98
06/10/25 07:00 06/10/25 07:00 06/10/25 07:00 06/10/25 07:00 06/10/25 08:00
I&O
06/09/25 06/10/25 06/11/25
06:59 06:59 06:59
Intake Total 1680 / 1680
Output Total 2100 / 2100
Balance -420 / -420
Physical Exam
-
General: No Apparent Distress
HEENT: Normocephalic
Respiratory: Clear to Auscultation; Negative Wheezes
Cardiac: Regular Rhythm and S1/S2
GI: Soft
Neuro: AO x 3
Psych: Calm
Data Reviewed
-
Total Time Spent with Patient (in minutes): 41
Labs: Labs Reviewed by me
[2025-06-10] MEDS: DESENEX/MITRAZOL/ZEASORB 1 APPLIC TOPICAL ×2 (12:04→21:19)
--- NOTE | 2025-06-10 12:06 | CM ---
CM following re: discharge planning.
Reviewed pt's chart, met with pt and spoke to [facility] PILI Falk [phone] to update on discharge plan progress.
PT and OT evaluations noted - SNF level of care recommended.
CM faxed updated pt's clinical with PT/OT evaluations to [facility] [phone], spoke to PILI Falk and she confirmed that [facility] medical team will review pt's clinical and if they decide that pt needs SNF level of care their
preferred SNF provider is [facility].
Awaiting for [facility] team decision regarding next level of care.
D/C plan: probably [facility]. CM continues coordinating pt's discharge plan with [facility].
CM will follow with discharge plan updates as hospitalization progresses
--- NOTE | 2025-06-10 13:20 | EEG.RPT ---
Electroencephalogram Report
Recording
Date of EE06/10/25
Type of EEG: Routine
Length of EEG recordin minutes
Done with Video Recording: Yes
Patient Status: Inpatient
Recording Conditions: Awake and Drowsy
Hyperventilation Performed: No
Photic Stimulation Performed: Yes
Report
GREATER THAN 1 HOUR EEG REPORT
EEG INTERPRETATION:
Moderately abnormal EEG for age due to diffuse bihemispheric slowing
CLINICAL CORRELATION:
This study was suggestive of diffuse cortical dysfunction without focal abnormality. No seizures were recorded.
In comparison with this study performed 1 day ago, there is no difference.
Clinical correlation is advised.
METHODS:
A 21 channel digitized electroencephalogram (EEG) was performed at the bedside. The 10/20 international system of electrode placement was used with ECG and lateral/vertical eye movements recorded. Persyst QEEG monitoring was performed.
QUALITY OF STUDY:
Good despite due to excessive beta activity
ELECTROENCEPHALOGRAPHER IMPRESSION(S):
Background
There was a low amplitude unorganized anterior-posterior voltage gradient of delta frequency
There were no significant asymmetries of background activity noted.
Sleep
Drowsiness present
Photic Stimulation
Failed to activate the record.
ECG
Normal sinus rhythm
--- NOTE | 2025-06-10 14:51 | PTCARENOTE ---
received pt in transfer from 2 S via stretcher, accompanied by volunteer. Pt awake and alert; oriented to self/place; gives repetitive answers to questions. Has tremors of arms. Able to transfer to bed with assist x1/walker; weak/unsteady w/OOB
activity. Placed on telemetry:NSR. On room air- pulse ox 99%, no SOB noted. Abd large, soft, pt on IDDI 4 dit. Pt DTV; urinal at bedside. Resting in bed at present. Will continue to monitor.
[2025-06-10] MEDS: FLUSH (NSS) 1 FLUSH IV (16:01)
--- NOTE | 2025-06-10 16:20 | PTCARENOTE ---
Pt awake and alert; screaming and cursing. offers no c/o. Explained to pt that he is in a hospital/2 bed room; have other pts that are disturbed by his screaming. Pt responded 'NO'. Currently waiting for private room for pt.
--- NOTE | 2025-06-10 18:24 | PTCARENOTE ---
Pt c/o 'I have to pee'; urinal placed, pt unable to void. pt bladder scanned for >675 ml; straight cathed for 550 ml clear lt yellow urine. Will continue to monitor.
--- NOTE | 2025-06-10 19:33 | PTCARENOTE ---
Pt for transfer to [facility]. Report given to Andrew RESENDIZ. Pt transferred via with all belongings/bag of home meds to room 429. Condition stable at time of transfer, pt without c/o.
[2025-06-11] MEDS: FLOMAX 0.4 MG PO ×2 (00:16→09:10)
[2025-06-11 03:00] VITALS: BP 109/81
[2025-06-11] MEDS: SYNTHROID 50 MCG PO (05:42)
[2025-06-11 05:43] VITALS: BMI 24.2
[2025-06-11 06:54] LABS: Hematocrit 34.4 % (39.0-52.0); Hemoglobin 11.9 g/dL (13.0-18.0); Mean Corp Hgb Conc. 34.6 g/dL (33.0-37.0); Mean Corpuscular Volume 84.9 fL (80.0-94.0); Platelet Count 145 10^3/uL (130-400); Red Cell Dist. Width 14.9 % (11.5-14.5)
[2025-06-11 07:17] LABS: Blood Urea Nitrogen 29 mg/dl (9-20); Calcium 8.8 mg/dl (8.4-10.2); Carbon Dioxide 22 mmol/L (22-30); Chloride 108 mmol/L (98-107); Estimated Creatinine Clearance 76 ml/min; Glucose 90 mg/dl (70-99); Potassium 3.3 mmol/L (3.5-5.1); Sodium 137 mmol/L (135-145); eGFR > 60.00
[2025-06-11 07:35] VITALS: BP 110/74
[2025-06-11] MEDS: LYRICA 300 MG PO ×2 (09:09→21:05)
[2025-06-11] MEDS: DESENEX/MITRAZOL/ZEASORB 1 APPLIC TOPICAL ×2 (09:09→21:06)
[2025-06-11] MEDS: SODIUM CHLORIDE 1 GRAM PO (09:10)
[2025-06-11] MEDS: TOPAMAX 300 MG PO ×2 (09:10→21:05)
[2025-06-11] MEDS: LEXAPRO 20 MG PO (09:10)
[2025-06-11] MEDS: FOLVITE 0.4 MG PO (09:10)
[2025-06-11] MEDS: PEPCID 20 MG PO (09:10)
[2025-06-11] MEDS: PHENOBARBITAL 97.5 MG IV (09:11)
[2025-06-11] MEDS: SINEMET 25-100 1 TABLET PO ×3 (09:11→21:07)
[2025-06-11] MEDS: KLOR-CON 40 MEQ PO (09:13)
[2025-06-11] MEDS: KEPPRA 1000 MG IV ×2 (10:06→21:05)
--- NOTE | 2025-06-11 10:18 | W.PN.HOSP.TC ---
Addendum entered and electronically signed by Xi Lemus MD 06/11/25 12:13:
Urinary retention
- bladder/renal US
- Urology consulted
Addendum entered and electronically signed by Xi Lemus MD 06/11/25 10:25:
Hypokalemia - replete prn
Original Note:
Today's Communication/Plan
-
MRI brain
follow Neuro recs re: anti-epileptic treatments
d/w Neurology
Assessment / Plan
Assessment / Plan
Assessment:
Epilepsy with Breakthrough Seizures
- Described symptoms sound c/w seizure and patient with lactic acidosis on arrival, post-ictal lethargy, etc.
- Seems likely that episode was triggered by possible noncompliance with meds as no meds taken for the past 2 days.
- continue Keppra and other AEDs without changes for now. Carbamazepine level <3
- IV phenobarbital added by Neurology 06/09; continue
- IV Ativan as needed for breakthrough seizure activity.
- follow Neurology recs
- serial EEG with out evidence of status epilepticus or active seizure
- obtain MRI brain
- may need OP referral for neurostimulator
- Patient lives currently at [facility]. will benefit to supervised level of care given med compliance issues, recurrent seizures, etc.
- PT/OT/ST - SNF recommended. d.w CM.
PTSD
History of TBI
- Continue current anxiolytic/mood med regimen.
- Continue current Sinemet dosing without changes for now.
- Prior EMILY scan which was reportedly unremarkable.
Lactic Acidosis
- Likely secondary to seizure activity.
- corrected with IVF
Hypothyroidism
- Continue usual T4 supplementation.
DVT Prophylaxis: SCDs
Code Status: Full
Anticipated Discharge: > 48 hours
Subjective/Interval History
-
Date of Service: June 11, 2025
yesterday evening Cheema placed for ongoing urinary retention.
more alert and talkative although remains confused in post-ictal state
Objective Data
-
Labs:
Laboratory Results
06/11/25
06:16
WBC 6.2
Hgb 11.9 L
Hct 34.4 L
Plt Count 145
Sodium 137
Potassium 3.3 L
Chloride 108 H
Carbon Dioxide 22
BUN 29 H
Creatinine 1.1
Glucose 90
Calcium 8.8
Vital Signs:
Vital Signs
Temp Pulse Resp BP Pulse Ox
98.6 F 94 16 110/74 94
06/11/25 07:35 06/11/25 07:35 06/11/25 07:35 06/11/25 07:35 06/11/25 07:35
I&O
06/10/25 06/11/25 06/12/25
06:59 06:59 06:59
Intake Total 1680 / 1680 360 / 360
Output Total 2100 / 2100 1800 / 1800
Balance -420 / -420 -1440 / -1440
Physical Exam
-
General: No Apparent Distress
HEENT: Normocephalic and Atraumatic
Respiratory: Negative Wheezes
Cardiac: Regular Rhythm and S1/S2
GI: Soft
Neuro: AO x 3
Psych: Calm
Data Reviewed
-
Total Time Spent with Patient (in minutes): 42
Labs: Labs Reviewed by me
[2025-06-11 11:35] VITALS: BP 93/63
--- NOTE | 2025-06-11 12:35 | CM ---
Chart reviewed and case folder spoke with Mai Falk [facility]'s passementerie worker and per Deya they need to review patient's physical therapy evaluation to see if they approve physical therapy recommendations. The preferred skilled facilities are
[place] and [place].
Plan; Waiting on Deya [phone] to review PT notes to see if they approve skilled placement for patient.
--- NOTE | 2025-06-11 13:29 | W.PN.NEURO.1 ---
Today's Communication / Plan
-
continue current seizure medications with levetiracetam, eslicarbazepine, topiramate and continue low-dose phenobarbital
Check correct level for eslicarbazepine
Neuro Assessment/Plan
Assessment
Patient is a 65y M with PMH significant for seizure disorder, tremor and prior TBI who presented to [facility] on 06/09/2025 for evaluation of suspected seizure activity.
EEG 06/09-: diffuse cortical dysfunction without focal abnormality. No seizures were recorded.
EEG 07/27/2021: diffuse slowing to delta-range frequencies; at times no clear PDR was seen. Diffuse excess beta activity was seen throughout the recording, which can be due to drug effect. The study is consistent with moderate to severe diffuse
cerebral dysfunction, nonspecific in etiology; no clear seizure activity was noted..
CT Head W/o Iv Contrast 06/09/2025:
1. No acute intracranial abnormalities appreciated.
2. Mild atrophy and mild chronic small vessel change.
3. No significant change compared to prior study.
CT Head W/o Iv Contrast 03/24/2025: No acute intracranial hemorrhage or extra-axial collection. No skull fracture. Posterior midline scalp soft tissue swelling/contusion with superficial skin closure dino.
CT Cervical Spine W/o Iv Contrast 03/24/2025: No acute fracture. No prevertebral soft tissue swelling. No anterior or posterior listhesis. No significant change compared to prior examination of 24 days ago.
Keppra level from 03/24/2025 12
Carbamazepine level 06/09/2025 <3
Impression:
I. breakthrough seizure in the setting of intractable epilepsy and medication noncompliance, most likely patient is experiencing prolonged time to recovery from prior seizure as repeated EEGs do not demonstrate epileptiform activity
II. 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
Plan
continue current seizure medications with levetiracetam, eslicarbazepine, topiramate and continue low-dose phenobarbital
Check correct level for eslicarbazepine
Will follow
Subjective/Objective
Subjective Data
Date of Service: June 11, 2025
Patient reports no current issues
Objective Data
Vital Signs
Temp Pulse Resp BP Pulse Ox
36.7 C 99 16 93/63 95
06/11/25 11:35 06/11/25 11:35 06/11/25 11:35 06/11/25 11:35 06/11/25 11:35
Lab Results
06/11/25 06:16
06/11/25 06:16
Sodium 137 mmol/L (135-145) 06/11/25 06:16
Potassium 3.3 mmol/L (3.5-5.1) L 06/11/25 06:16
BUN 29 mg/dl (9-20) H 06/11/25 06:16
Glucose 90 mg/dl (70-99) 06/11/25 06:16
Calcium 8.8 mg/dl (8.4-10.2) 06/11/25 06:16
Patient Allergies
iodine (Iodine) Allergy (Verified 08/21/24 09:55)
Rash
valproic acid Allergy (Verified 08/21/24 09:55)
Unknown
Physical Exam
-
General: No Apparent Distress
Eyes: Round OU, No Ptosis and PERRLA
HEENT: Normocephalic and Atraumatic
Neck: Full Range of Motion
GI: Non-distended
Extended Neurological Exam
Mood & Affect: Mood Unremarkable and Affect Unremarkable
Attention Span & Concentration: Awake, Alert and Interactive
Memory: Reduced (Confused, reporting that he lives at [facility])
Tremor: Hand Tremor Absent and Head Tremor Absent
Involuntary Movement: None
Speech: Quality Unremarkable and Expressive Aphasia (perseverating)
Cranial Nerve II: Left Eye: Pupillary Reactivity Unremarkable, Pupillary Size Unremarkable and Visual Chung Grossly Intact
Cranial Nerve II: Right Eye: Pupillary Reactivity Unremarkable, Pupillary Size Unremarkable and Visual Chung Grossly Intact
Cranial Nerves III, IV, : Extraocular Movement: Extraocular Movement Full in all Directions
Cranial Nerve VII: Facial Symmetry: Normal Facial Symmetry
Cranial Nerve VIII: Hearing: Unremarkable Hearing to Normal Conversational Volume
Cranial Nerve XI: Shoulder Shrug: Unremarkable
Muscle Strength, Overall: Spontaneously Moves
Gait & Station: Unable to Assess
Data Reviewed
-
EEG: Report Reviewed
Labs: Report Reviewed
Reviewed with: Physician, Nurse Practioner and Patient
Old Records: Summarized
--- NOTE | 2025-06-11 13:57 | CON.MD ---
Consultation - Medical
-
see dictated note
pt currently can provide no sig hx
was seen by me in 2019 for gross hematuria- cysto and ct rec- pt did not f/u
also ? prior retention
admitted with breakthrough sz
developed AUR- [facility] placed
prior images- last 2021- no gu abnl
admit ua negative for hematuria
reviewed with hospitalist
flomax 0.8mg
continue [facility]
discharge with [facility]- rehab to call for outpt instructions/ f-u
Consultation
-
Date/Time Consultation Requested: 06/11/25 at 7:30am
Date/Time Consultation Performed: 06/11/25 at 12:30 pm
Requesting Provider: unknown
Performing Provider: dr guzman
Reason for Consultation: retention
--- NOTE | 2025-06-11 14:15 | W.PN.NEURO.1 ---
Today's Communication / Plan
-
.
Neuro Assessment/Plan
Assessment
Patient is a 65y M with H significant for seizure disorder, tremor and prior TBI who presented to [facility] on 06/09/2025 for evaluation of suspected seizure activity.
EEG 06/09-: Moderately abnormal EEG for age due to diffuse bihemispheric slowing, diffuse cortical dysfunction without focal abnormality. No seizures were recorded.
CT Head W/o Iv Contrast 06/09/2025: No acute intracranial abnormalities appreciated. Mild atrophy and mild chronic small vessel change. No significant change compared to prior study.
Keppra level from 03/24/2025 12
Carbamazepine level 06/09/2025 <3, confirmed with the lab that this test does not accurately demonstrate eslicarbazepine levels though.
I. breakthrough seizure in the setting of intractable epilepsy and medication noncompliance, most likely patient is experiencing prolonged time to recovery from prior seizure as repeated EEGs do not demonstrate epileptiform activity
II. 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
Plan
-MRI brain noncontrast pending.
-Eslicarbazepine level pending.
-seizure precautions
-continue current seizure medications with levetiracetam, eslicarbazepine, topiramate. Phenobarbital discontinued.
-considering starting another antiepileptic medication such as Lacosamide
-PT/OT/ST evaluations
Will follow
Subjective/Objective
Subjective Data
Date of Service: June 11, 2025
Patient still not back to baseline today, mildly improved but still with significant perseveration. Reports that he feels lousy, unable to elaborate further.
Objective Data
Vital Signs
Temp Pulse Resp BP Pulse Ox
98.1 F 99 16 93/63 95
06/11/25 11:35 06/11/25 11:35 06/11/25 11:35 06/11/25 11:35 06/11/25 11:35
Lab Results
06/11/25 06:16
06/11/25 06:16
Sodium 137 mmol/L (135-145) 06/11/25 06:16
Potassium 3.3 mmol/L (3.5-5.1) L 06/11/25 06:16
BUN 29 mg/dl (9-20) H 06/11/25 06:16
Glucose 90 mg/dl (70-99) 06/11/25 06:16
Calcium 8.8 mg/dl (8.4-10.2) 06/11/25 06:16
Patient Allergies
iodine (Iodine) Allergy (Verified 08/21/24 09:55)
Rash
valproic acid Allergy (Verified 08/21/24 09:55)
Unknown
Review of Systems
-
Unable to obtain full review of systems at this time due to: Aphasia
Physical Exam
-
General: No Apparent Distress
Eyes: No Ptosis and PERRLA
HEENT: Normocephalic and Atraumatic
Neck: Full Range of Motion
GI: Non-distended
Extended Neurological Exam
Mood & Affect: Mood Unremarkable and Affect Unremarkable
Attention Span & Concentration: Awake, Alert and Interactive
Memory: Reduced (Confused conversation, reporting that he lives at [facility])
Tremor: Hand Tremor Absent and Head Tremor Absent
Involuntary Movement: None
Speech: Quality Unremarkable and Expressive Aphasia (perseverating)
Cranial Nerve II: Left Eye: Pupillary Reactivity Unremarkable, Pupillary Size Unremarkable and Visual Chung Grossly Intact
Cranial Nerve II: Right Eye: Pupillary Reactivity Unremarkable, Pupillary Size Unremarkable and Visual Chung Grossly Intact
Cranial Nerves III, IV, : Extraocular Movement: Extraocular Movement Full in all Directions
Cranial Nerve VII: Facial Symmetry: Normal Facial Symmetry
Cranial Nerve VIII: Hearing: Unremarkable Hearing to Normal Conversational Volume
Cranial Nerves IX, X: Palate Movement: Palate Elevation Symmetric
Cranial Nerve XI: Shoulder Shrug: Unremarkable
Cranial Nerve XII: Tongue Protusion: Midline
Muscle Strength, Overall: Full Throughout
Data Reviewed
-
CT Head: Report Reviewed and Image Reviewed
MRI Head: Pending
EEG: Report Reviewed
Labs: Report Reviewed
Reviewed with: Physician and Patient
Medications
-
Active Medications
Generic Name Dose Route Start Last Admin
Trade Name Freq PRN Reason Stop Dose Admin
Acetaminophen 650 mg 06/09/25 05:22
Acetaminophen 325 Mg Tablet PO 07/07/25 05:21
Q4HPRN PRN
Mild Pain / Temp > 101
Carbidopa/Levodopa 1 tablet 06/09/25 08:00 06/11/25 09:11
Carbidopa (25 Mg)/Levodopa (100 Mg) Regular Release Tablet PO 07/07/25 07:59 1 tablet
TID JOSE Administration
Escitalopram Oxalate 20 mg 06/09/25 08:00 06/11/25 09:10
Escitalopram 20 Mg Tablet PO 07/07/25 07:59 20 mg
DAILY JOSE Administration
Famotidine 20 mg 06/09/25 08:00 06/11/25 09:10
Famotidine 20 Mg Tablet PO 07/07/25 07:59 20 mg
DAILY JOSE Administration
Folic Acid 0.4 mg 06/09/25 08:00 06/11/25 09:10
Folic Acid 0.4 Mg Tablet PO 07/07/25 07:59 0.4 mg
DAILY JOSE Administration
Levetiracetam 1,000 mg 06/09/25 08:00 06/11/25 10:06
Levetiracetam (100 Mg/Ml) 500 Mg/5 Ml Vial IV 07/07/25 07:59 1,000 mg
Q12 JOSE Administration
Levothyroxine Sodium 50 mcg 06/09/25 06:00 06/11/25 05:42
Levothyroxine 50 Mcg Tablet PO 07/07/25 05:59 50 mcg
DAILY @ 0600 JOSE Administration
Lorazepam 2 mg 06/09/25 05:22
Lorazepam 2 Mg/Ml Vial IV 07/07/25 05:21
Q4HPRN PRN
Seizure activity
Miconazole Nitrate 0 applic 06/10/25 12:00 06/11/25 09:09
Miconazole Powder Bottle TOPICAL 07/08/25 11:59 1 applic
BID JOSE Administration
Eslicarbazepine 400 0 mg 06/09/25 08:00
Mg Tablet Take 3 PO 07/07/25 07:59
Tablets (1,200 Mg) DAILY JOSE
Po Daily
Pregabalin 300 mg 06/09/25 08:00 06/11/25 09:09
Pregabalin 75 Mg Capsule PO 07/07/25 07:59 300 mg
BID JOSE Administration
Sodium Chloride 1 gram 06/09/25 08:00 06/11/25 09:10
Sodium Chloride 1 Gram Tablet PO 07/07/25 07:59 1 gram
DAILY JOSE Administration
Sodium Chloride 0 flush 06/09/25 06:00 06/10/25 16:01
Sodium Chloride 0.9% (Flush) Syringe IV 07/07/25 05:59 1 flush
PER PROTOCOL JOSE Administration
Sodium Chloride 1 ml 06/09/25 05:44
Nss (Pf) 10 Ml Vial For Ativan 2 Mg Dose IV 07/07/25 05:43
Q4HPRN PRN
IV LORAZEPAM DILUTION
Tamsulosin HCl 0.8 mg 06/12/25 08:00
Tamsulosin 0.4 Mg Capsule PO 07/10/25 07:59
DAILY JOSE
Topiramate 300 mg 06/09/25 08:00 06/11/25 09:10
Topiramate 100 Mg Tablet PO 07/07/25 07:59 300 mg
BID JOSE Administration
Home Medications
�Medication �Instructions �Recorded
famotidine 20 mg tablet 20 mg PO DAILY Gastrointestinal 09/04/19
issue
topiramate 200 mg tablet (Topamax) 300 mg PO BID Seizures 07/26/21
folic acid 400 mcg tablet 0.4 mg PO DAILY Supplement 02/10/22
pregabalin 300 mg capsule (Lyrica) 300 mg PO BID Pain 02/10/22
cyanocobalamin (vitamin B-12) 1,000 mcg PO DAILY Supplement ##0 04/05/22
1,000 mcg tablet
escitalopram oxalate 20 mg tablet 20 mg PO DAILY depression 07/12/22
fexofenadine 180 mg tablet 180 mg PO DAILY Allergies 09/11/23
meloxicam 7.5 mg tablet 7.5 mg PO DAILY pain 09/11/23
levothyroxine 50 mcg tablet 50 mcg PO DAILY Thyroid 07/09/24
polyethylene glycol 3350 17 gram 17 g PO DAILY Constipation 07/09/24
oral powder packet (Miralax)
levetiracetam 1,000 mg tablet 1,000 mg PO BID #60 tabs 03/25/25
acetaminophen 650 mg 650 mg PO Q12H PRN Cytokine 06/09/25
tablet,extended release Release Syndrome
carbidopa 25 mg-levodopa 100 mg 1 tab PO TID Tremor 06/09/25
tablet
eslicarbazepine 400 mg tablet 1,200 mg PO DAILY Seizures 06/09/25
sodium chloride 1,000 mg soluble 1,000 mg PO DAILY 06/09/25
tablet
topiramate 200 mg tablet 300 mg PO BID 06/09/25
[2025-06-11 15:45] VITALS: BP 96/61
[2025-06-11] MEDS: LUMINAL 32.4 MG PO ×2 (16:07→21:06)
--- NOTE | 2025-06-11 16:26 | PTOTSP ---
Speech Language Pathology
Pt seen for dysphagia tx. Sleeping upon arrival, but easily roused. Verbalized throughout session with repetition at times. Seen with P.O. trials of puree, regular solids, and thin liquids. Adequate mastication, bolus formation, and A-P transit
noted. Trace diffuse oral residue, which cleared with a liquid wash. No overt signs of aspiration.
Recommend:
(1) Upgrade to regular solids/thin liquids
(2) Aspiration precautions: full supervision with assist as needed, slow rate, sit upright, ensure oral cavity clear post P.O. intake
(3) Meds as tolerated
(4) CLOTH WEIGHER to continue to follow
[2025-06-11 20:13] VITALS: BP 102/64
[2025-06-11 23:50] VITALS: BP 87/60
[2025-06-12] VITALS (11 sets, daily range): BP systolic 83–111; BP diastolic 57–71; PULSE 73; BMI 24.7
[2025-06-12] MEDS: SYNTHROID 50 MCG PO (06:18)
--- NOTE | 2025-06-12 08:11 | W.PN.UPDATE ---
Update Note
Progress Note Update
pt more responsive this am
does not remember any prev gu eval- but thinks he remembers having a mcleod
continue mcleod
flomax 0.8mg
discharge with cath and call dr guzman to arrange outpt f/u
[2025-06-12 09:02] LABS: Hematocrit 34.4 % (39.0-52.0); Hemoglobin 11.7 g/dL (13.0-18.0); Mean Corp Hgb Conc. 34.0 g/dL (33.0-37.0); Mean Corpuscular Volume 86.4 fL (80.0-94.0); Platelet Count 126 10^3/uL (130-400); Red Cell Dist. Width 15.0 % (11.5-14.5)
[2025-06-12 09:29] LABS: Blood Urea Nitrogen 36 mg/dl (9-20); Calcium 8.9 mg/dl (8.4-10.2); Carbon Dioxide 25 mmol/L (22-30); Chloride 110 mmol/L (98-107); Estimated Creatinine Clearance 69 ml/min; Glucose 93 mg/dl (70-99); Potassium 3.6 mmol/L (3.5-5.1); Sodium 137 mmol/L (135-145); eGFR > 60.00
[2025-06-12] MEDS: LYRICA 300 MG PO ×2 (10:49→19:43)
[2025-06-12] MEDS: FOLVITE 0.4 MG PO (10:49)
[2025-06-12] MEDS: LEXAPRO 20 MG PO (10:50)
[2025-06-12] MEDS: SINEMET 25-100 1 TABLET PO ×3 (10:50→21:22)
[2025-06-12] MEDS: FLOMAX 0.8 MG PO (10:51)
[2025-06-12] MEDS: SODIUM CHLORIDE 1 GRAM PO (10:51)
[2025-06-12] MEDS: PEPCID 20 MG PO (10:51)
[2025-06-12] MEDS: TOPAMAX 300 MG PO ×2 (10:52→19:44)
[2025-06-12] MEDS: KEPPRA 1000 MG IV ×2 (10:53→19:44)
[2025-06-12] MEDS: LUMINAL 32.4 MG PO ×3 (10:53→21:23)
[2025-06-12] MEDS: DESENEX/MITRAZOL/ZEASORB 1 APPLIC TOPICAL ×2 (10:54→19:43)
--- NOTE | 2025-06-12 16:48 | W.PN.HOSP.TC ---
Addendum entered and electronically signed by Xi Lemus MD 06/13/25 11:03:
CoNS bacteremia - contaminant. repeat cultures were negative
Original Note:
Today's Communication/Plan
-
await SNF placement
Assessment / Plan
Assessment / Plan
Assessment:
Epilepsy with Breakthrough Seizures
- Described symptoms sound c/w seizure and patient with lactic acidosis on arrival, post-ictal lethargy, etc.
- Seems likely that episode was triggered by possible noncompliance with meds as no meds taken for the past 2 days.
- continue Keppra and other AEDs
- s/p phenobarbital - now stopped due to lethargy
- IV Ativan as needed for breakthrough seizure activity.
- follow Neurology recs
- serial EEG with out evidence of status epilepticus or active seizure
- MRI brain without acute abnormalities
- may need OP referral for neurostimulator
- Patient lives currently at [facility]. will benefit to supervised level of care given med compliance issues, recurrent seizures, etc.
- PT/OT/ST - SNF recommended. d.w CM.
Urinary retention
- bladder/renal US
- continue Cheema
- continue Flomax
- Urology following
PTSD
History of TBI
- Continue current anxiolytic/mood med regimen.
- Continue current Sinemet dosing without changes for now.
- Prior EMILY scan which was reportedly unremarkable.
Lactic Acidosis
- Likely secondary to seizure activity.
- corrected with IVF
Hypothyroidism
- Continue usual T4 supplementation.
DVT Prophylaxis: SCDs
Code Status: Full
Anticipated Discharge: Within 24 hours
Subjective/Interval History
-
Date of Service: June 12, 2025
no complaints
Objective Data
-
Labs:
Laboratory Results
06/12/25
08:22
WBC 6.3
Hgb 11.7 L
Hct 34.4 L
Plt Count 126 L
Sodium 137
Potassium 3.6
Chloride 110 H
Carbon Dioxide 25
BUN 36 H
Creatinine 1.2
Glucose 93
Calcium 8.9
Vital Signs:
Vital Signs
Temp Pulse Resp BP Pulse Ox
97.3 F 73 14 100/64 92
06/12/25 11:25 06/12/25 15:00 06/12/25 11:25 06/12/25 15:00 06/12/25 11:25
I&O
06/11/25 06/12/25 06/13/25
06:59 06:59 06:59
Intake Total 360 / 360 880 / 880
Output Total 2600 / 2600 350 / 350
Balance -2240 / -2240 530 / 530
Physical Exam
-
General: No Apparent Distress
HEENT: Normocephalic and Atraumatic
Respiratory: Negative Wheezes
Cardiac: Regular Rhythm and S1/S2
GI: Soft
Genito-urinary: No Costovertebral Tender
Neuro: AO x 3
Psych: Calm
Data Reviewed
-
Total Time Spent with Patient (in minutes): 42
Labs: Labs Reviewed by me
--- NOTE | 2025-06-12 18:21 | PTCARENOTE ---
Assumed care of pt from previous nurse. pt denies pain. Pt still repeating self. Cheema draining dark yellow/leslie urine. Pt call valdez is within reach, pt rings eduardo. will cont to monitor. No seizure precautions noted.
[2025-06-13] VITALS (7 sets, daily range): BP systolic 100–115; BP diastolic 67–79; BMI 24.8
[2025-06-13] MEDS: SYNTHROID 50 MCG PO (05:13)
[2025-06-13 07:23] LABS: Hematocrit 34.1 % (39.0-52.0); Hemoglobin 11.4 g/dL (13.0-18.0); Mean Corp Hgb Conc. 33.4 g/dL (33.0-37.0); Mean Corpuscular Volume 86.3 fL (80.0-94.0); Platelet Count 108 10^3/uL (130-400); Red Cell Dist. Width 14.8 % (11.5-14.5)
[2025-06-13 07:41] LABS: Blood Urea Nitrogen 24 mg/dl (9-20); Calcium 8.8 mg/dl (8.4-10.2); Carbon Dioxide 25 mmol/L (22-30); Chloride 108 mmol/L (98-107); Estimated Creatinine Clearance 83 ml/min; Glucose 91 mg/dl (70-99); Potassium 3.5 mmol/L (3.5-5.1); Sodium 137 mmol/L (135-145); eGFR > 60.00
[2025-06-13] MEDS: SODIUM CHLORIDE 1 GRAM PO (07:58)
[2025-06-13] MEDS: LUMINAL 32.4 MG PO (07:59)
[2025-06-13] MEDS: FLOMAX 0.8 MG PO (07:59)
[2025-06-13] MEDS: TOPAMAX 300 MG PO ×2 (07:59→19:32)
[2025-06-13] MEDS: LEXAPRO 20 MG PO (07:59)
[2025-06-13] MEDS: LYRICA 300 MG PO ×2 (07:59→19:31)
[2025-06-13] MEDS: FOLVITE 0.4 MG PO (07:59)
[2025-06-13] MEDS: PEPCID 20 MG PO (07:59)
[2025-06-13] MEDS: SINEMET 25-100 1 TABLET PO ×3 (07:59→21:53)
[2025-06-13] MEDS: KEPPRA 1000 MG IV ×2 (08:00→19:30)
[2025-06-13] MEDS: DESENEX/MITRAZOL/ZEASORB 1 APPLIC TOPICAL ×2 (08:00→19:30)
--- NOTE | 2025-06-13 10:59 | W.PN.HOSP.TC ---
Today's Communication/Plan
-
dc planning
Assessment / Plan
Assessment / Plan
Assessment:
Epilepsy with Breakthrough Seizures
- Described symptoms sound c/w seizure and patient with lactic acidosis on arrival, post-ictal lethargy, etc.
- Seems likely that episode was triggered by possible noncompliance with meds as no meds taken for the past 2 days.
- continue Keppra and other AEDs
- s/p phenobarbital - now stopped due to lethargy
- IV Ativan as needed for breakthrough seizure activity.
- follow Neurology recs
- serial EEG with out evidence of status epilepticus or active seizure
- MRI brain without acute abnormalities
- may need OP referral for neurostimulator
- [facility] will benefit to supervised level of care given med compliance issues, recurrent seizures, etc.
- PT/OT/ST - SNF recommended. jose e CASE who will liason with patients outpatient service, [facility].
Urinary retention
- bladder/renal US: No sonographic evidence for hydronephrosis in either kidney.
- continue Cheema; outpatient trial of void
- continue Flomax
- Urology follow up OP
PTSD
History of TBI
- Continue current anxiolytic/mood med regimen.
- Continue current Sinemet dosing without changes for now.
- Prior EMILY scan which was reportedly unremarkable.
Lactic Acidosis
- Likely secondary to seizure activity.
- corrected with IVF
Hypothyroidism
- Continue usual T4 supplementation.
DVT Prophylaxis: SCDs
Code Status: Full
Anticipated Discharge: Within 24 hours
Subjective/Interval History
-
Date of Service: June 13, 2025
reports some neck discomfort from position in bed
no other complaints
Objective Data
-
Labs:
Laboratory Results
06/13/25
07:02
WBC 4.9
Hgb 11.4 L
Hct 34.1 L
Plt Count 108 L
Sodium 137
Potassium 3.5
Chloride 108 H
Carbon Dioxide 25
BUN 24 H
Creatinine 1.0
Glucose 91
Calcium 8.8
Vital Signs:
Vital Signs
Temp Pulse Resp BP Pulse Ox
97.8 F 77 18 107/73 97
06/13/25 09:02 06/13/25 09:02 06/13/25 09:02 06/13/25 09:02 06/13/25 09:02
I&O
06/12/25 06/13/25 06/14/25
06:59 06:59 06:59
Intake Total 880 / 880 1160 / 1160
Output Total 350 / 350 2202 / 2202
Balance 530 / 530 -1042 / -1042
Physical Exam
-
General: No Apparent Distress
HEENT: Normocephalic and Atraumatic
Respiratory: Negative Wheezes
Cardiac: Regular Rhythm and S1/S2
GI: Soft
Musculoskeletal: No Edema
Neuro: AO x 3
Psych: Calm
Data Reviewed
-
Total Time Spent with Patient (in minutes): 42
Labs: Labs Reviewed by me
--- NOTE | 2025-06-13 11:05 | CM ---
gardening manager spoke with patient's physician who is looking to discharge patient, call placed to patient's neonatal social worker Deya Laswon [phone] and message left, recommendation is for skilled placement per physical therapy, [facility] need to make
final decision.
Plan; Waiting on [facility] to make a decision on skilled placement for patient.
[2025-06-14 03:24] VITALS: BP 124/69
[2025-06-14] MEDS: SYNTHROID 50 MCG PO (05:42)
[2025-06-14 06:00] VITALS: BMI 24.5
[2025-06-14] MEDS: DESENEX/MITRAZOL/ZEASORB 1 APPLIC TOPICAL ×2 (07:55→19:05)
[2025-06-14] MEDS: SINEMET 25-100 1 TABLET PO ×3 (07:55→21:55)
[2025-06-14] MEDS: FLOMAX 0.8 MG PO (07:55)
[2025-06-14] MEDS: LYRICA 300 MG PO ×2 (07:55→19:07)
[2025-06-14] MEDS: PEPCID 20 MG PO (07:56)
[2025-06-14] MEDS: FOLVITE 0.4 MG PO (07:56)
[2025-06-14] MEDS: LEXAPRO 20 MG PO (07:56)
[2025-06-14] MEDS: SODIUM CHLORIDE 1 GRAM PO (07:56)
[2025-06-14] MEDS: TOPAMAX 300 MG PO ×2 (07:56→19:08)
[2025-06-14] MEDS: KEPPRA 1000 MG IV ×2 (07:56→19:06)
[2025-06-14 08:00] VITALS: BP 112/79
--- NOTE | 2025-06-14 10:40 | W.PN.HOSP.TC ---
Today's Communication/Plan
-
medically stable for discharge, pending disposition, CM aware.
Assessment / Plan
Assessment / Plan
Assessment:
Epilepsy with Breakthrough Seizures
- Described symptoms sound c/w seizure and patient with lactic acidosis on arrival, post-ictal lethargy, etc.
- Seems likely that episode was triggered by possible noncompliance with meds as no meds taken for the past 2 days.
- continue Keppra and other home AEDs
- s/p phenobarbital - now stopped due to lethargy
- IV Ativan as needed for breakthrough seizure activity.
- follow Neurology recs
- serial EEG with out evidence of status epilepticus or active seizure
- MRI brain without acute abnormalities
- may need OP referral for neurostimulator
- Patient lives currently at [facility]. will benefit to supervised level of care given med compliance issues, recurrent seizures, etc.
- PT/OT/ST - SNF recommended. d.w CM who will liaison with patients outpatient service, [facility].
Urinary retention
- bladder/renal US: No sonographic evidence for hydronephrosis in either kidney.
- continue Cheema; outpatient trial of void
- continue Flomax
- Urology follow up OP
PTSD
History of TBI
- Continue current anxiolytic/mood med regimen.
- Continue current Sinemet dosing without changes for now.
- Prior EMILY scan which was reportedly unremarkable.
Lactic Acidosis
- Likely secondary to seizure activity.
- corrected with IVF
Hypothyroidism
- Continue usual T4 supplementation.
DVT Prophylaxis: SCDs
Code Status: Full
Anticipated Discharge: 24 - 48 hours
Subjective/Interval History
-
Date of Service: June 14, 2025
resting comfortably, no complaints
Objective Data
-
Vital Signs:
Vital Signs
Temp Pulse Resp BP Pulse Ox
98.3 F 82 17 112/79 97
06/14/25 08:00 06/14/25 08:00 06/14/25 08:00 06/14/25 08:00 06/14/25 08:00
I&O
06/13/25 06/14/25 06/15/25
06:59 06:59 06:59
Intake Total 1160 / 1160 1440 / 1440
Output Total 2202 / 2202 4750 / 4750
Balance -1042 / -1042 -3310 / -3310
Physical Exam
-
General: No Apparent Distress
HEENT: Normocephalic and Atraumatic
Respiratory: Negative Wheezes
Cardiac: Regular Rhythm and S1/S2
GI: Soft
Neuro: AO x 3
Psych: Calm
Data Reviewed
-
Total Time Spent with Patient (in minutes): 41
Labs: Labs Reviewed by me
[2025-06-14 15:00] VITALS: BP 101/63
[2025-06-14 23:00] VITALS: BP 107/63
[2025-06-15] MEDS: SYNTHROID 50 MCG PO (04:59)
[2025-06-15 06:00] VITALS: BMI 24.5
[2025-06-15 08:11] VITALS: BP 106/68
[2025-06-15 08:12] LABS: Hematocrit 35.0 % (39.0-52.0); Hemoglobin 12.0 g/dL (13.0-18.0); Mean Corp Hgb Conc. 34.3 g/dL (33.0-37.0); Mean Corpuscular Volume 85.8 fL (80.0-94.0); Platelet Count 146 10^3/uL (130-400); Red Cell Dist. Width 14.6 % (11.5-14.5)
[2025-06-15] MEDS: KEPPRA 1000 MG IV (08:20)
[2025-06-15] MEDS: LYRICA 300 MG PO (08:20)
[2025-06-15] MEDS: SODIUM CHLORIDE 1 GRAM PO (08:21)
[2025-06-15] MEDS: TYLENOL 650 MG PO (08:21)
[2025-06-15] MEDS: LEXAPRO 20 MG PO (08:21)
[2025-06-15] MEDS: FLOMAX 0.8 MG PO (08:22)
[2025-06-15] MEDS: DESENEX/MITRAZOL/ZEASORB 1 APPLIC TOPICAL (08:22)
[2025-06-15] MEDS: FOLVITE 0.4 MG PO (08:22)
[2025-06-15] MEDS: PEPCID 20 MG PO (08:22)
[2025-06-15] MEDS: TOPAMAX 300 MG PO (08:22)
[2025-06-15] MEDS: SINEMET 25-100 1 TABLET PO ×2 (08:22→15:15)
[2025-06-15 08:47] LABS: Blood Urea Nitrogen 19 mg/dl (9-20); Calcium 8.9 mg/dl (8.4-10.2); Carbon Dioxide 22 mmol/L (22-30); Chloride 107 mmol/L (98-107); Estimated Creatinine Clearance 76 ml/min; Glucose 97 mg/dl (70-99); Potassium 3.6 mmol/L (3.5-5.1); Sodium 135 mmol/L (135-145); eGFR > 60.00
--- NOTE | 2025-06-15 11:14 | CM ---
Addendum entered by Saba Olmos 06/15/25 15:12:
[facility] today7:30pm diamond picker by ambulance, spoke with Deya [facility].
Report [phone]

Original Note:
Chart reviewed and case management social worker along with physician met with patient today, and reviewed discharge plan, patient's physician would like patient to go to a skilled facility, patient is managed by [facility], and patient is agreeable to
[facility] who are in network with patient's insurance. environmental health and safety manager reached out to [facility] today and admissions person is off and Jimmy Rosado is covering, message left for Jimmy.
Plan; Skilled placement at [facility] message left with Deya social media executive at [facility] [phone].
--- NOTE | 2025-06-15 11:40 | W.PN.HOSP.TC ---
Addendum entered and electronically signed by Kevin Mares MD 06/15/25 15:56:
Just notified by EVIE Walter that pt can go to [facility]. Will dc
see dictated note
Original Note:
Today's Communication/Plan
-
continue current AED medication
continue mcleod
Pt is suppose to be on Eslicarbazepine, has not been receiving due to not available in hospital formulary. Placed call to pharmacy, they ([facility]) will reach out to family to see if family can bring in.
Assessment / Plan
Assessment / Plan
Assessment:
Epilepsy with Breakthrough Seizures
- Described symptoms sound c/w seizure and patient with lactic acidosis on arrival, post-ictal lethargy, etc.
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
- continue Keppra and other home AEDs
- s/p phenobarbital - now stopped due to lethargy
- IV Ativan as needed for breakthrough seizure activity.
- follow Neurology recs
- serial EEG with out evidence of status epilepticus or active seizure
- MRI brain without acute abnormalities
- may need OP referral for neurostimulator
- Patient lives currently at [facility]. will benefit to supervised level of care given med compliance issues, recurrent seizures, etc.
- PT/OT/ST - SNF recommended. jose e CASE who will liaison with patients outpatient service, [facility]. Discussed with Saba and pt in his room, he is willing to go to a short term SNF initially. Saba will start the dispo process
Urinary retention
- bladder/renal US: No sonographic evidence for hydronephrosis in either kidney.
- continue Mcleod; outpatient trial of void. Urology prefers dc to SNF with mcleod and voiding trials there. As pt accepting planned dc to SNF, this will be a viable option
- continue Flomax
- Urology follow up OP
PTSD
History of TBI
- Continue current anxiolytic/mood med regimen.
- Continue current Sinemet dosing without changes for now.
- Prior EMILY scan which was reportedly unremarkable.
Lactic Acidosis
- Likely secondary to seizure activity. Resolved 4.5-->0.7
- corrected with IVF
Hypothyroidism
- Continue usual T4 supplementation.
DVT Prophylaxis: SCDs
Code Status: Full
Anticipated Discharge: 24 - 48 hours
Subjective/Interval History
-
Date of Service: June 15, 2025
No further seizures
Objective Data
-
Labs:
Laboratory Results
06/15/25
07:56
WBC 8.8
Hgb 12.0 L
Hct 35.0 L
Plt Count 146 D
Sodium 135
Potassium 3.6
Chloride 107
Carbon Dioxide 22
BUN 19
Creatinine 1.1
Glucose 97
Calcium 8.9
Vital Signs:
Vital Signs
Temp Pulse Resp BP Pulse Ox
97.9 F 87 15 106/68 96
06/15/25 08:11 06/15/25 08:11 06/15/25 08:11 06/15/25 08:11 06/15/25 08:11
I&O
06/14/25 06/15/25 06/16/25
06:59 06:59 06:59
Intake Total 1440 / 1440 1440 / 1440
Output Total 4750 / 4750 2600 / 2600
Balance -3310 / -3310 -1160 / -1160
Review of Systems
-
Unable to obtain full review of systems at this time due to: Acuity
History Source: Patient and Coordinated Provider (MARTÍN Hanna)
Constitutional: Denies Fever
EENT: Reports No Symptoms Reported
Respiratory: Reports No Symptoms
Cardiac: Reports No Symptoms
Abdomen/GI: Reports No Symptoms
Genitourinary: Reports No Symptoms
Musculoskeletal: Reports No Symptoms
Neuro: Denies Seizures (have stopped)
Physical Exam
-
General: Well Developed, Well Nourished and No Apparent Distress
HEENT: Normocephalic, Atraumatic and Moist Mucous Membranes
Respiratory: Clear to Auscultation; Negative Wheezes, Rales or Rhonchi
Cardiac: Regular Rhythm and S1/S2
GI: Soft, Nontender and Nondistended
Neuro: Awake, Alert and Oriented (cognitive fxn appears reduced, unclear what baseline)
Psych: Calm
[2025-06-15] MEDS: NON-FORMULARY ITEM 1200 MG PO (12:50)
[2025-06-15 15:43] VITALS: BP 99/67
--- NOTE | 2025-06-15 18:34 | W.DS.TRANS ---
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
-
Discharge Instructions:
Discharge Diagnosis/Procedures breakthrough seizures, history of epilepsy
Diet Regular
Activity As tolerated
Driving Restrictions No driving
Bathing Restrictions None
Blood Work CBC, CMP in 1 week
Instructions:
Stand-Alone Forms:
Changes to Home Medications: Yes
Discharge Medications:
DC Medications w/original date entered in [employer]
famotidine 20 mg tablet 20 mg PO DAILY Gastrointestinal issue 09/04/19
folic acid 400 mcg tablet 0.4 mg PO DAILY Supplement 02/10/22
pregabalin 300 mg capsule (Lyrica) 300 mg PO BID Pain 02/10/22
cyanocobalamin (vitamin B-12) 1,000 mcg tablet 1,000 mcg PO DAILY Supplement ##0 04/05/22
escitalopram oxalate 20 mg tablet 20 mg PO DAILY depression 07/12/22
fexofenadine 180 mg tablet 180 mg PO DAILY Allergies 09/11/23
meloxicam 7.5 mg tablet 7.5 mg PO DAILY pain 09/11/23
levothyroxine 50 mcg tablet 50 mcg PO DAILY Thyroid 07/09/24
polyethylene glycol 3350 17 gram oral powder packet (Miralax) 17 g PO DAILY Constipation 07/09/24
levetiracetam 1,000 mg tablet 1,000 mg PO BID #60 tabs 03/25/25
acetaminophen 650 mg tablet,extended release 650 mg PO Q12H PRN Cytokine Release Syndrome 06/09/25
carbidopa 25 mg-levodopa 100 mg tablet 1 tab PO TID Tremor 06/09/25
eslicarbazepine 400 mg tablet 1,200 mg PO DAILY Seizures 06/09/25
sodium chloride 1,000 mg soluble tablet 1,000 mg PO DAILY 06/09/25
topiramate 200 mg tablet 300 mg PO BID 06/09/25
tamsulosin 0.4 mg capsule 0.8 mg (2 x 0.4 mg) PO DAILY #60 caps 06/15/25
Home Medication Changes
Flomax added
Pending Results: No
Additional Pending Results:
Will need voiding trial
== END 2025-06-15 19:03 | DRG 101 ==
LOC: 4 WEST ACU 04:24
PROVIDERS: Internal Medicine; ADMITTING PHYSICIAN Hospitalist; ATTENDING PHYSICIAN Internal Medicine; CONSULT PHYSICIAN Psychiatry & Neurology Neurology; CONSULT PHYSICIAN Specialist; EMERGENCY PHYSICIAN Emergency Medicine; FAMILY PHYSICIAN Family Medicine
DX: G40.919 Epilepsy, unspecified, intractable, without status epilepticus (principal); F02.83 Dementia in other diseases classified elsewhere, unspecified severity, with mood disturbance; E87.20 Acidosis, unspecified; R47.01 Aphasia; G20.A1 Parkinson's disease without dyskinesia, without mention of fluctuations; D72.829 Elevated white blood cell count, unspecified; E03.9 Hypothyroidism, unspecified; F43.10 Post-traumatic stress disorder, unspecified; F32.A Depression, unspecified; G43.909 Migraine, unspecified, not intractable, without status migrainosus; G93.89 Other specified disorders of brain; M19.90 Unspecified osteoarthritis, unspecified site; R31.0 Gross hematuria; R33.9 Retention of urine, unspecified; N32.0 Bladder-neck obstruction; E87.6 Hypokalemia; K64.8 Other hemorrhoids; Z60.2 Problems related to living alone; Z87.820 Personal history of traumatic brain injury; Z91.148 Patient's other noncompliance with medication regimen for other reason; Z82.0 Family history of epilepsy and other diseases of the nervous system; Z79.890 Hormone replacement therapy; Z88.8 Allergy status to other drugs, medicaments and biological substances; Z91.041 Radiographic dye allergy status
CPT/HCPCS: 70450; 70551; 71045; 76770; 80048; 80053; 80156; 80183; 81003; 81015; 83605; 84484; 85025; 85027; 87040; 87150; 87205; 92526; 92610; 93005; 95813; 95816; 96360; 97163; 97167; 97530; 97535; 99291

== ENCOUNTER 2025-09-16 18:49 | Observation (INO) | payer OTHER, MEDICAID, SELFPAY ==
[2025-09-16] VITALS (11 sets, daily range): BP systolic 86–121; BP diastolic 64–79; PULSE 69–77; BMI 25.0
--- NOTE | 2025-09-16 15:00 | ED.GENMED ---
History of Present Illness
<QUINTIN Carrera - Last Filed: 09/16/25 23:16>
General
Chief Complaint: Musculo-Skeletal Complaint
Source: patient
Exam Limitations: none
Time Seen by Provider: 09/16/25 14:34
Nursing documentation reviewed up to this point in time: agreed with
History of Present Illness
History of Present Illness:
Patient is a 65-year-old male with past medical history of chronic seizure disorder TBI chronic tremor presents to the ER for evaluation of fall. Patient lives alone. Patient reports he was walking in his apartment to get his phone and got
lightheaded and then fell. He complains of right ankle pain. He denies hitting his head. He called the [facility] alert and EMS came. His only complaint is right ankle pain. He does present with low blood pressure but reports that this chronic for
him. He denies any chest pain or shortness of breath prior to fall.
Past History
<QUINTIN Carrera - Last Filed: 09/16/25 23:16>
Past History
ED Past Medical History: Seizures (intractable epilepsy), Psychiatric (Depression), Other (gall stones, traumatic brain injury, migraine), Other (Hemorrhoids) and Other
ED Past Surgical History: None
Social History
Tobacco: Non-smoker
Alcohol: None
Drug: None
Personal: Single
Living: alone
Employment: Disabled
Family History
Family History: Other (Lost a brother and a sister to Alzheimer's.)
Phy Exam
<QUINTIN Carrera - Last Filed: 09/16/25 23:16>
General Physical Exam
General Presentation: no apparent distress
General age: appears stated age
General Skin: warm and dry
General Habitus: normal
General Mental: alert
General Hydration: dry mucous membranes
Cardiovascular Exam
Cardiovascular Exam: regular rate/rhythm, no murmur and normal peripheral pulses
Pulmonary Exam
Pulmonary Exam: lungs clear and no respiratory distress
Neurological Exam
Neurological Exam: alert and oriented x3
Musculoskeletal Exam
Musculoskeletal Exam: other (Right extremity strong pulses no obvious ankle swelling tender to right lateral malleolus no proximal tib-fib tenderness)
Skin Exam
Skin Exam: normal color and warm/dry
Psychiatric Exam
Psychiatric Exam: normal mood/affect
Course
<QUINTIN Carrera - Last Filed: 09/16/25 23:16>
Orders/Labs/Results
Orders:
Orders
09/16/25 14:24
Electrocardiogram (*1) Urgent
Reason for Study: Fatigue / Weakness
EKG- Treatment ONCE
Ankle, Right 3 view CR [CR Ankle - Right Min 3 Views *] Urgent
Comment:
Reason For Exam: pain injury
09/16/25 14:44
Case Management Consult ONCE
Case Management Consult: Discharge Planning
Comment: patient lives alone and has parkinsons with increasing difficulty handling adls
09/16/25 Dinner
Regular
At Your Request: Full Participation
09/16/25 15:19
0.9% Sodium Chloride 1000 ml [Nss] 1,000 ml IV BOLUS
09/16/25 15:22
CMP [Comprehensive Metabolic Panel] Urgent
Complete Blood Count/With Diff Urgent
09/16/25 17:33
Daniel Wrap Right-Treatment ONCE
09/16/25 17:42
Daniel Wrap Right-Treatment ONCE
09/16/25 18:31
Admit/Transfer Patient As Directed
Co-Sign Provider:
Level of Care: Observation services
Assign to:: Medical/Surgical
Physician / Group: Odalys Seo
Diagnosis: right ankle sprain/ ambulatory dysfunction
Reason for Hospitalization: right ankle sprain/ ambulatory dysfunction
PRN Pain Medication Management As Directed
May give lesser potent ordered pain med per pt: Yes
preference::
Protocol:: Medication orders for pain may be administered in a
manner that supports deferring to patient preference
when the pt is:
- Requesting an ordered lesser potent pain medication.
Least to most potent pain medications are defined
as: acetaminophen < NSAID < tramadol < opioids
(morphine, oxycodone, hydromorphone).
- Requesting a lesser dose of the same medication IF
ORDERED.
- Requesting a less intrusive route of administration
if both routes are prescribed by the provider (PO <
IV).
09/16/25 18:32
Code Status As Directed
Resuscitation Status: Full Code
09/16/25 21:23
Potassium Chloride [KCl] 20 meq PO NOW ONE
09/16/25 21:23
Activity As Directed
Activity Level: As Tolerated
Ice Application [Cold Application] As Directed
Location: right ankle
Frequency: Intermittent q2h
Duration of Application: No longer than 20 minutes
Method of Delivery: Ice packs
Vital Signs As Directed
Frequency: Per unit guidelines
OT Consult [Ot Eval And Treat] Routine
Physical Therapy Consult [Pt Eval And Treat] Routine
Activity Level: As Tolerated
DX Deep Vein Thrombosis Video Routine
09/16/25 22:00
Acetaminophen [Tylenol] 1,000 mg PO TID
Carbidopa/Levodopa [Sinemet 25-100] 1 tablet PO TID
09/17/25 06:00
Basic Metabolic Panel IN AM
Magnesium IN AM
Levothyroxine [Synthroid] 50 mcg PO DAILY @ 0600
09/17/25 08:00
Cyanocobalamin [Vitamin B-12] 1,000 mcg PO DAILY
Escitalopram Oxalate [Lexapro] 20 mg PO DAILY
FOLic ACID [Folvite] 0.5 mg PO DAILY
Famotidine [Pepcid] 20 mg PO DAILY
Levetiracetam [Keppra] 1,000 mg PO BID
Loratadine [Claritin] 10 mg PO DAILY
Pregabalin [Lyrica] 300 mg PO BID
Sodium Chloride 1 gram PO DAILY
Tamsulosin [Flomax] 0.8 mg PO DAILY
Topiramate [Topamax] 300 mg PO BID
eslicarbazepine 1,200 mg PO DAILY
09/17/25 18:00
Enoxaparin Sodium [Lovenox] 40 mg SC QPM
Abnormal Lab Results
09/16/25
15:22
RBC 3.71 L 10^6/uL
(4.70-6.10)
Hgb 10.7 L g/dL
(13.0-18.0)
Hct 32.6 L %
(39.0-52.0)
MCHC 32.8 L g/dL
(33.0-37.0)
RDW 14.9 H %
(11.5-14.5)
Plt Count 126 L 10^3/uL
(130-400)
Absolute Lymphs (auto) 0.6 L 10^3/uL
(1.2-3.4)
Immature Gran % 0.7 H %
(0-0.5)
Neutrophils % 78.3 H %
(42.2-75.2)
Lymphocytes % 9.4 L %
(20.5-51.1)
Monocytes % 9.4 H %
(1.7-9.3)
Sodium 131 L mmol/L
(135-145)
Potassium 3.4 L mmol/L
(3.5-5.1)
BUN 24 H mg/dl
(9-20)
Calcium 8.3 L mg/dl
(8.4-10.2)
AST 12 L U/L
(17-59)
Total Protein 6.0 L g/dl
(6.3-8.2)
Albumin 3.2 L g/dl
(3.5-5.0)
09/16/25 15:22
09/16/25 15:22
Vital Signs
Initial and Last Documented VS:
Initial Vital Signs
BP
86/64
09/16/25 14:23
Last Documented Vital Signs
Temp Pulse Resp BP Pulse Ox
97.7 F 68 18 111/79 100
09/16/25 23:00 09/16/25 23:00 09/16/25 23:00 09/16/25 23:00 09/16/25 23:00
<Mikhail Ray, DO - Last Filed: 09/16/25 17:56>
Orders/Labs/Results
Orders:
Orders
09/16/25 14:24
Electrocardiogram (*1) Urgent
Reason for Study: Fatigue / Weakness
EKG- Treatment ONCE
Ankle, Right 3 view CR [CR Ankle - Right Min 3 Views *] Urgent
Comment:
Reason For Exam: pain injury
09/16/25 14:44
Case Management Consult ONCE
Case Management Consult: Discharge Planning
Comment: patient lives alone and has parkinsons with increasing difficulty handling adls
09/16/25 Dinner
Regular
At Your Request: Full Participation
09/16/25 15:19
0.9% Sodium Chloride 1000 ml [Nss] 1,000 ml IV BOLUS
09/16/25 15:22
CMP [Comprehensive Metabolic Panel] Urgent
Complete Blood Count/With Diff Urgent
09/16/25 17:33
Daniel Wrap Right-Treatment ONCE
09/16/25 17:42
Daniel Wrap Right-Treatment ONCE
09/16/25 18:31
Admit/Transfer Patient As Directed
Co-Sign Provider:
Level of Care: Observation services
Assign to:: Medical/Surgical
Physician / Group: Odalys Seo
Diagnosis: right ankle sprain/ ambulatory dysfunction
Reason for Hospitalization: right ankle sprain/ ambulatory dysfunction
PRN Pain Medication Management As Directed
May give lesser potent ordered pain med per pt: Yes
preference::
Protocol:: Medication orders for pain may be administered in a
manner that supports deferring to patient preference
when the pt is:
- Requesting an ordered lesser potent pain medication.
Least to most potent pain medications are defined
as: acetaminophen < NSAID < tramadol < opioids
(morphine, oxycodone, hydromorphone).
- Requesting a lesser dose of the same medication IF
ORDERED.
- Requesting a less intrusive route of administration
if both routes are prescribed by the provider (PO <
IV).
09/16/25 18:32
Code Status As Directed
Resuscitation Status: Full Code
09/16/25 21:23
Potassium Chloride [KCl] 20 meq PO NOW ONE
09/16/25 21:23
Activity As Directed
Activity Level: As Tolerated
Ice Application [Cold Application] As Directed
Location: right ankle
Frequency: Intermittent q2h
Duration of Application: No longer than 20 minutes
Method of Delivery: Ice packs
Vital Signs As Directed
Frequency: Per unit guidelines
OT Consult [Ot Eval And Treat] Routine
Physical Therapy Consult [Pt Eval And Treat] Routine
Activity Level: As Tolerated
DX Deep Vein Thrombosis Video Routine
09/16/25 22:00
Acetaminophen [Tylenol] 1,000 mg PO TID
Carbidopa/Levodopa [Sinemet 25-100] 1 tablet PO TID
09/17/25 06:00
Basic Metabolic Panel IN AM
Magnesium IN AM
Levothyroxine [Synthroid] 50 mcg PO DAILY @ 0600
09/17/25 08:00
Cyanocobalamin [Vitamin B-12] 1,000 mcg PO DAILY
Escitalopram Oxalate [Lexapro] 20 mg PO DAILY
FOLic ACID [Folvite] 0.5 mg PO DAILY
Famotidine [Pepcid] 20 mg PO DAILY
Levetiracetam [Keppra] 1,000 mg PO BID
Loratadine [Claritin] 10 mg PO DAILY
Pregabalin [Lyrica] 300 mg PO BID
Sodium Chloride 1 gram PO DAILY
Tamsulosin [Flomax] 0.8 mg PO DAILY
Topiramate [Topamax] 300 mg PO BID
eslicarbazepine 1,200 mg PO DAILY
09/17/25 18:00
Enoxaparin Sodium [Lovenox] 40 mg SC QPM
Abnormal Lab Results
09/16/25
15:22
RBC 3.71 L 10^6/uL
(4.70-6.10)
Hgb 10.7 L g/dL
(13.0-18.0)
Hct 32.6 L %
(39.0-52.0)
MCHC 32.8 L g/dL
(33.0-37.0)
RDW 14.9 H %
(11.5-14.5)
Plt Count 126 L 10^3/uL
(130-400)
Absolute Lymphs (auto) 0.6 L 10^3/uL
(1.2-3.4)
Immature Gran % 0.7 H %
(0-0.5)
Neutrophils % 78.3 H %
(42.2-75.2)
Lymphocytes % 9.4 L %
(20.5-51.1)
Monocytes % 9.4 H %
(1.7-9.3)
Sodium 131 L mmol/L
(135-145)
Potassium 3.4 L mmol/L
(3.5-5.1)
BUN 24 H mg/dl
(9-20)
Calcium 8.3 L mg/dl
(8.4-10.2)
AST 12 L U/L
(17-59)
Total Protein 6.0 L g/dl
(6.3-8.2)
Albumin 3.2 L g/dl
(3.5-5.0)
09/16/25 15:22
09/16/25 15:22
Vital Signs
Initial and Last Documented VS:
Initial Vital Signs
BP
86/64
09/16/25 14:23
Last Documented Vital Signs
Temp Pulse Resp BP Pulse Ox
97.7 F 68 18 111/79 100
09/16/25 23:00 09/16/25 23:00 09/16/25 23:00 09/16/25 23:00 09/16/25 23:00
<QUINTIN Carrera - Last Filed: 09/16/25 23:16>
MDM/Problems Addressed
Differential Diagnosis Includes:
Not limited to ankle sprain strain dehydration
MDM/Problems Addressed:
Patient is a 65-year-old male with past medical history of seizures Parkinson's traumatic brain injury who fell at home. He reports he felt lightheaded. He does report history of having low blood pressure blood pressure at baseline and he did
present with blood pressure in the 80s upon arrival. He felt lightheaded which is symptom fall. He denies hitting his head he twisted his right ankle.
He denies any headache. He denies hitting his head denies any neck pain. He is not on blood thinners.
He does complain of right ankle pain. There is no obvious swelling x-rays are negative. He is awake alert he is following commands he has no acute distress. He denies any chest pain shortness breath prior to fall. He is afebrile with a normal
white count. His hemoglobin is 10.7 which is decreased from 12.0 in May . Patient is dry on exam and does have an elevated BUN of 24 sodium very minimally low at 131 with a minimally low potassium at 3.4.
With patient living on his own history of Parkinson's and lightheadedness in light of recent fall would recommend rehab. Case management speak with patient and will need to be placed however that cannot be done at this time. Will admit for
dehydration with case management involvement.
Chronic conditions affecting care:
Parkinson's
<QUINTIN Carrera - Last Filed: 09/16/25 23:16>
*Pulse Oximetry
SaO2: 95
Oxygen Mode of Delivery: Room air
Patient hypoxic: no
*Critical Care Note
Total Time (30-74mins, 75-104mins- exclusive of procedures): Not Applicable
ED Attending Note
<QUINTIN Carrera - Last Filed: 09/16/25 23:16>
-
Portions of this chart may have been created with voice recognition software.� Occasional wrong word or��sound alike� substitutions may have occurred due to the inherent limitations of voice recognition software.
<Mikhail Ray DO - Last Filed: 09/16/25 17:56>
ED Attending Note
Patient seen and examined by attending physician: Yes
I performed the substantive portion of visit, reviewed & personally made and approve the management plan that is documented in note by myself or DAHIANA.: Yes
ED Attending Note:
I have seen and evaluated the patient with a [id number] encounter. I have spoken to the advance practicer provider and involved in the medical history, the physical exam, medical decision making.
Evaluation and management service: agree unless noted differently below.
Results interpretation: agree unless noted differently below.
Focused HPI: 65-year-old male with a prior history of a TBI presenting with generalized weakness and frequent falls. Patient claims he is having trouble caring for himself
Physical exam: Sitting bed comfortably. Mild tenderness to right mid ankle. Extremity otherwise neurovascular intact. Abdomen soft nontender
Medical Decision Making: Ankle x-ray negative. Blood work without significant abnormalities will have to admit given the fall risk and inability to care for self
Discharge Plan
Departure
Patient Disposition: Admit
Date of Disposition: 09/16/25
Time of Disposition: 17:41
Admit to: Med/Surg
Admit to doctor: hospitalist
Presentation/result/management discussed w/ accepting MD/DO: Hospitalist
Patient with high blood pressure during this ER visit?: No
Condition: Fair
Covid-19: Not Applicable
Discharge Problem:
Fall, Acute dehydration, Acute hyponatremia
Interventions
Interventions:
*Risk Screen - Suicide Last Done: 09/16/25 14:25
*General Assessment Last Done: 09/16/25 14:25
*Neglect/Abuse Screening Last Done: 09/16/25 14:25
*ED- Fall Risk Assessment Last Done: 09/16/25 20:16
*ED COVID-19 Vaccine History Last Done: 09/16/25 22:26
*ED Influenza Vaccine History Last Done: 09/16/25 17:08
*Nursing Disposition Last Done: 09/16/25 20:16
ED-Musculoskeletal Assessment Last Done: 09/16/25 17:08
Discharge Date and Time
Discharge Date/Time: 09/16/25 21:14
--- NOTE | 2025-09-16 15:09 | CM ---
CM consulted for discharge planning and reviewed chart
Spoke with patient in ED bedside and he reported that he lived in [facility] 3 [address] floor with elevator
He is working with [facility] for his care needs.
Confirms that his SW is Deya. He receives care assist 2 a week
Spoke with nurse Justina about [facility] program and Cm to follow up with [facility] for dcp needs and more in-home assistance
Justina and ED team still in evaluation to discuss next step
OB call to [facility] at [phone] and confirmed that his SW is Deya [phone]
Left a message for Deya to call CM back
I let nurse and his ED team made aware
Will continue to follow up for dcp needs
[2025-09-16 15:35] LABS: Hematocrit 32.6 % (39.0-52.0); Hemoglobin 10.7 g/dL (13.0-18.0); Mean Corp Hgb Conc. 32.8 g/dL (33.0-37.0); Mean Corpuscular Volume 87.9 fL (80.0-94.0); Nucleated Red Blood Cells % 0 % (-); Platelet Count 126 10^3/uL (130-400); Red Cell Dist. Width 14.9 % (11.5-14.5)
[2025-09-16] MEDS: NSS 1000 IV (15:51)
[2025-09-16 15:56] LABS: ALT (SGPT) < 10 U/L (0-50); AST (SGOT) 12 U/L (17-59); Albumin 3.2 g/dl (3.5-5.0); Alkaline Phosphatase 88 U/L (38-126); Blood Urea Nitrogen 24 mg/dl (9-20); Calcium 8.3 mg/dl (8.4-10.2); Carbon Dioxide 23 mmol/L (22-30); Chloride 106 mmol/L (98-107); Glucose 94 mg/dl (70-99); Potassium 3.4 mmol/L (3.5-5.1); Sodium 131 mmol/L (135-145); Total Protein 6.0 g/dl (6.3-8.2); eGFR > 60.00
--- NOTE | 2025-09-16 18:07 | HPS.HSE ---
Family Physician
-
Family Physician: NOT KNOW UNKNOWN - PT DOES
Chief Complaint
-
fall and right ankle pain
History of Present Illness
Mr. Ernie Olivas is a 65 yo man, resident of [facility], with hx chronic seizure disorder, hx TBI, chronic tremor (evaluated by Neurology when admitted 06/19 felt not to be Parkinson's) presents to the ER after evaluation of a fall resulting in
right ankle pain.
Patient states that when he was in his apartment earlier today he was going to get his phone but tripped over his walker. He had right ankle pain and was worried it was fractured to he came to the ER.
No fevers/chills. No chest pain or shortness of breath. No abdominal pain. No nausea/vomiting/diarrhea.
Patient was evaluated by PT in the ER who recommend SNF.
He states his medications haven't changed since he was here in May.
Medical History
Past Medical History
Past Medical History: Reports Other
Additional Past Medical History:
Epilepsy / Seizure Disorder
History of TBI
PTSD
Tremor
Hypothyroidism
Past Surgical History: Reports Other
Additional Past Surgical History:
None Known
Social History
Tobacco: Non-smoker
Alcohol: None
Family History
Family History: Not pertinent
Allergies / Home Medications
Allergies reflects when Allergies were last updated in [facility].
Home Medications with original date entered in [facility]
Allergy/Medication List:
Allergies
Allergy/AdvReac Type Severity Reaction Status Date / Time
iodine (Iodine) Allergy Rash Verified 08/21/24 09:55
valproic acid Allergy Unknown Verified 08/21/24 09:55
Home Medications
famotidine 20 mg tablet 20 mg PO DAILY Gastrointestinal issue 09/04/19
folic acid 400 mcg tablet 0.4 mg PO DAILY Supplement 02/10/22
pregabalin 300 mg capsule (Lyrica) 300 mg PO BID Pain 02/10/22
cyanocobalamin (vitamin B-12) 1,000 mcg tablet 1,000 mcg PO DAILY Supplement ##0 04/05/22
escitalopram oxalate 20 mg tablet 20 mg PO DAILY depression 07/12/22
fexofenadine 180 mg tablet 180 mg PO DAILY Allergies 09/11/23
meloxicam 7.5 mg tablet 7.5 mg PO DAILY pain 09/11/23
levothyroxine 50 mcg tablet 50 mcg PO DAILY Thyroid 07/09/24
polyethylene glycol 3350 17 gram oral powder packet (Miralax) 17 g PO DAILY Constipation 07/09/24
levetiracetam 1,000 mg tablet 1,000 mg PO BID #60 tabs 03/25/25
acetaminophen 650 mg tablet,extended release 650 mg PO Q12H PRN Cytokine Release Syndrome 06/09/25
carbidopa 25 mg-levodopa 100 mg tablet 1 tab PO TID Tremor 06/09/25
eslicarbazepine 400 mg tablet 1,200 mg PO DAILY Seizures 06/09/25
sodium chloride 1,000 mg soluble tablet 1,000 mg PO DAILY 06/09/25
topiramate 200 mg tablet 300 mg PO BID 06/09/25
tamsulosin 0.4 mg capsule 0.8 mg (2 x 0.4 mg) PO DAILY #60 caps 06/15/25
Med rec not complete
Review of Systems
-
History Source: Patient
A 12 point ROS was completed and negative except as noted: Yes
Physical Exam
Vital Signs
Vital Signs
Temp Pulse Resp BP Pulse Ox
98.0 F 63 11 97/65 100
09/16/25 14:25 09/16/25 17:00 09/16/25 17:00 09/16/25 17:00 09/16/25 15:45
Physical Exam
General: No Apparent Distress and Appears Chronically Ill
HEENT: PERRLA
Respiratory: Clear; No Wheezes
Cardiac: S1/S2 and Regular Rhythm
GI: Soft and Non Tender
Musculoskeletal: No Edema and Other (right ankle wrapped; can flex ankle )
Skin: Warm and Dry; No Rash
Neuro: AO x 3
Psych: Calm
Laboratory Results
-
09/16/25 15:22
09/16/25 15:22
Laboratory Results
Total Bilirubin 0.6 mg/dl (0.2-1.3) 09/16/25 15:22
AST 12 U/L (17-59) L 09/16/25 15:22
ALT < 10 U/L (0-50) 09/16/25 15:22
Alkaline Phosphatase 88 U/L (38-126) 09/16/25 15:22
Data Reviewed
-
Diagnostic Radiology: Report Reviewed by me
Lab Data: Labs Reviewed by me
Impression/Plan
-
Mr. Ernie Olivas is a 65 yo man, resident of [facility], with hx chronic seizure disorder, hx TBI, chronic tremor (evaluated by Neurology when admitted 06/19 felt not to be Parkinson's) presents to the ER after evaluation of a fall resulting in
right ankle pain.
Triage VS: T 98, P 63, BP 86/64 up to 97/65, SpO2 100%
LABS: WBC 6, Hg 10.7, PLT 126, Na 131, K+ 3.4, Cr 1.2, Ca 8.3, T. Bili 0.6, AST 12, ALT < 10, Alk Phos 88
Ankle X-Ray
IMPRESSION:
No acute osseous abnormality.
Fall
Right ankle sprain
-x-ray without fracture
-admit to observation
-PT/OT; PT in ER recommending SNF
-standing Tylenol and ice for pain control
Hypotension and Dehydration
-BP responded to IVF in the ER
-monitor BP's and give additional fluids if needed
-no e/o underlying ifnection
Tremors SUPERCHARGER MECHANIC Sinemet
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
Chronic Seizure Disorder
-unable to complete med rdc, patient does not know his medications but states he has had no medication changes since May.
-continue SUPERCHARGER MECHANIC regimen noted in May:
Levetiracetam 1000mg BID
Topiramate 300mg PO BID
Eslicarbaepine 1200mg PO QD
GERD - SUPERCHARGER MECHANIC pepcid
Hypokalemia - replete
Hypothyroidism - SUPERCHARGER MECHANIC Synthroid
Depression - SUPERCHARGER MECHANIC Lexapro
BPH - SUPERCHARGER MECHANIC Flomax
-if remains with orthostatic hypotension may consider lowering dose to 0.4mg PO QD
DVT PPx Lovenox subQ
FULL CODE
--- NOTE | 2025-09-16 21:15 | PTCARENOTE ---
Patient received from ED via stretcher. Patient was pulled over and reported right foot pain. Vitals stable, call valdez within reach, and oriented to room.
[2025-09-16] MEDS: KCL 20 MEQ PO (21:54)
[2025-09-16] MEDS: SINEMET 25-100 1 TABLET PO (21:54)
[2025-09-16] MEDS: TYLENOL 1000 MG PO (22:00)
[2025-09-17] MEDS: SYNTHROID 50 MCG PO (05:25)
[2025-09-17 07:49] VITALS: BP 128/81
[2025-09-17] MEDS: TOPAMAX 300 MG PO ×2 (07:56→19:36)
[2025-09-17] MEDS: KEPPRA 1000 MG PO ×2 (07:57→19:36)
[2025-09-17] MEDS: FOLVITE 0.5 MG PO (07:57)
[2025-09-17] MEDS: SINEMET 25-100 1 TABLET PO ×3 (07:57→21:31)
[2025-09-17] MEDS: LYRICA 300 MG PO ×2 (07:57→19:36)
[2025-09-17] MEDS: FLOMAX 0.8 MG PO (07:57)
[2025-09-17] MEDS: CLARITIN 10 MG PO (07:57)
[2025-09-17] MEDS: VITAMIN B-12 1000 MCG PO (07:58)
[2025-09-17] MEDS: SODIUM CHLORIDE 1 GRAM PO (07:58)
[2025-09-17] MEDS: LEXAPRO 20 MG PO (07:58)
[2025-09-17] MEDS: PEPCID 20 MG PO (07:58)
[2025-09-17] MEDS: TYLENOL 1000 MG PO ×3 (07:58→21:31)
[2025-09-17 09:22] VITALS: BP 116/77; BP 124/80; BP 128/78; PULSE 105; PULSE 78; PULSE 88
[2025-09-17 09:24] LABS: Blood Urea Nitrogen 19 mg/dl (9-20); Calcium 8.5 mg/dl (8.4-10.2); Carbon Dioxide 22 mmol/L (22-30); Chloride 107 mmol/L (98-107); Estimated Creatinine Clearance 90 ml/min; Glucose 82 mg/dl (70-99); Magnesium 2.0 mg/dl (1.6-2.3); Potassium 3.7 mmol/L (3.5-5.1); Sodium 132 mmol/L (135-145); eGFR > 60.00
--- NOTE | 2025-09-17 12:21 | CM ---
Call placed to [facility], provided PT recommendations for skilled placement. Message left with Deya Hot Stick Worker for patient to review skilled options. manager english will need to make referrals.
Plan; Skilled placement.
--- NOTE | 2025-09-17 13:45 | W.PN.HOSP.TC ---
Today's Communication/Plan
-
disposition efforts
Assessment / Plan
Assessment / Plan
Physical Exam
General: No Apparent Distress and Appears Chronically Ill
HEENT: PERRLA
Respiratory: Clear; No Wheezes
Cardiac: S1/S2 and Regular Rhythm
GI: Soft and Non Tender
Musculoskeletal: No Edema and Other (right ankle wrapped; can flex ankle )
Skin: Warm and Dry; No Rash
Neuro: AO x 3
Psych: Calm
Mr. Ernie Olivas is a 65 yo man, resident of [facility], with hx chronic seizure disorder, hx TBI, chronic tremor (evaluated by Neurology when admitted 06/19 felt not to be Parkinson's) presents to the ER after evaluation of a fall resulting in
right ankle pain.
Fall
Right ankle sprain
-x-ray without fracture
-admit to observation
-PT/OT; PT in ER recommending SNF
-standing Tylenol and ice for pain control
Hypotension and Dehydration, resolved
-BP responded to IVF in the ER
-monitor BP's and give additional fluids if needed
-no e/o underlying ifnection
Tremors CONSULTING SYSTEMS ENGINEER Sinemet
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
Chronic Seizure Disorder
-unable to complete med rdc, patient does not know his medications but states he has had no medication changes since May.
-continue CONSULTING SYSTEMS ENGINEER regimen noted in May:
Levetiracetam 1000mg BID
Topiramate 300mg PO BID
Eslicarbaepine 1200mg PO QD
GERD - CONSULTING SYSTEMS ENGINEER pepcid
Hypokalemia - replete
Hypothyroidism - CONSULTING SYSTEMS ENGINEER Synthroid
Depression - CONSULTING SYSTEMS ENGINEER Lexapro
BPH - CONSULTING SYSTEMS ENGINEER Flomax
-if remains with orthostatic hypotension may consider lowering dose to 0.4mg PO QD
DVT PPx Lovenox subQ
FULL CODE
Anticipated Discharge: Within 24 hours
Subjective/Interval History
-
Date of Service: September 17, 2025
no acute events
Objective Data
-
Labs:
Laboratory Results
09/17/25
06:48
Sodium 132 L
Potassium 3.7
Chloride 107
Carbon Dioxide 22
BUN 19
Creatinine 0.9
Glucose 82
Calcium 8.5
Vital Signs:
Vital Signs
Temp Pulse Resp BP Pulse Ox
98.4 F 71 14 128/81 95
09/17/25 07:49 09/17/25 07:49 09/17/25 07:49 09/17/25 07:49 09/17/25 07:49
I&O
09/16/25 09/17/25 09/18/25
06:59 06:59 06:59
Output Total 425 / 425
Balance -425 / -425
Review of Systems
-
Unable to obtain full review of systems at this time due to: Acuity
History Source: Patient and Coordinated Provider (MARTÍN Hanna)
Constitutional: Denies Fever
EENT: Reports No Symptoms Reported
Respiratory: Reports No Symptoms
Cardiac: Reports No Symptoms
Abdomen/GI: Reports No Symptoms
Genitourinary: Reports No Symptoms
Musculoskeletal: Reports No Symptoms
Neuro: Denies Seizures (have stopped)
Data Reviewed
-
Total Time Spent with Patient (in minutes): 41
Labs: Labs Reviewed by me
[2025-09-17 14:20] VITALS: BP 95/69
[2025-09-17] MEDS: LOVENOX 40 MG SC (17:29)
[2025-09-17 19:26] LABS: Hepatitis C Antibody Negative (Negative)
[2025-09-17 23:16] VITALS: BP 121/75
[2025-09-18] MEDS: SYNTHROID 50 MCG PO (05:37)
[2025-09-18 07:20] VITALS: BP 113/81
[2025-09-18] MEDS: KEPPRA 1000 MG PO (07:44)
[2025-09-18] MEDS: CLARITIN 10 MG PO (07:44)
[2025-09-18] MEDS: SODIUM CHLORIDE 1 GRAM PO (07:44)
[2025-09-18] MEDS: TYLENOL 1000 MG PO (07:44)
[2025-09-18] MEDS: FLOMAX 0.8 MG PO (07:44)
[2025-09-18] MEDS: TYLENOL PO (07:44)
[2025-09-18] MEDS: SINEMET 25-100 1 TABLET PO ×2 (07:44→15:34)
[2025-09-18] MEDS: FOLVITE 0.5 MG PO (07:45)
[2025-09-18] MEDS: LEXAPRO 20 MG PO (07:45)
[2025-09-18] MEDS: TOPAMAX 300 MG PO (07:45)
[2025-09-18] MEDS: VITAMIN B-12 1000 MCG PO (07:45)
[2025-09-18] MEDS: PEPCID 20 MG PO (07:45)
[2025-09-18] MEDS: LYRICA 300 MG PO (07:49)
[2025-09-18 08:52] LABS: Hematocrit 33.9 % (39.0-52.0); Hemoglobin 11.6 g/dL (13.0-18.0); Mean Corp Hgb Conc. 34.2 g/dL (33.0-37.0); Mean Corpuscular Volume 85.2 fL (80.0-94.0); Platelet Count 142 10^3/uL (130-400); Red Cell Dist. Width 14.6 % (11.5-14.5)
[2025-09-18 08:58] LABS: Blood Urea Nitrogen 18 mg/dl (9-20); Calcium 9.0 mg/dl (8.4-10.2); Carbon Dioxide 22 mmol/L (22-30); Chloride 108 mmol/L (98-107); Estimated Creatinine Clearance 81 ml/min; Glucose 82 mg/dl (70-99); Potassium 3.7 mmol/L (3.5-5.1); Sodium 137 mmol/L (135-145); eGFR > 60.00
--- NOTE | 2025-09-18 09:07 | CM ---
Addendum entered by Saba Olmos 09/18/25 13:12:
Per physical therapy patient does not require skilled placement plan is back to his apartment, with [facility], patient's sister to pick patient up at 3pm.
Plan; Patient to return to his apartment with [facility] visiting nurses.

Original Note:
Physical therapy recommended skilled rehab, options reviewed and referral sent to [facility], business case analyst left several messages for patient's insurance yesterday, another message left with Deya this morning no answer, call placed to Judith at
[facility] and request for Auth submitted to insurance for skilled placement.
Plan; Waiting on determination from patient's insurance to see if they will approved skilled placement.
[2025-09-18 09:38] VITALS: BP 121/80; PULSE 84
--- NOTE | 2025-09-18 12:53 | W.PN.HOSP.TC ---
Addendum entered and electronically signed by Anjum Tierney MD 09/19/25 14:50:
[id number]
Original Note:
Today's Communication/Plan
-
f/u neurology outpt
f/u labs within 1 week
Assessment / Plan
Assessment / Plan
Physical Exam
General: No Apparent Distress and Appears Chronically Ill
HEENT: PERRLA
Respiratory: Clear; No Wheezes
Cardiac: S1/S2 and Regular Rhythm
GI: Soft and Non Tender
Musculoskeletal: No Edema and Other (right ankle wrapped; can flex ankle )
Skin: Warm and Dry; No Rash
Neuro: AO x 3
Psych: Calm
Mr. Ernie Olivas is a 65 yo man, resident of [facility], with hx chronic seizure disorder, hx TBI, chronic tremor (evaluated by Neurology when admitted 06/19 felt not to be Parkinson's) presents to the ER after evaluation of a fall resulting in
right ankle pain.
Fall
Right ankle sprain
-x-ray without fracture
-admit to observation
-PT/OT;
-standing Tylenol and ice for pain control
Hypotension and Dehydration, resolved
-BP responded to IVF in the ER, orthostatic negative
-monitor BP's and give additional fluids if needed
-no e/o underlying infection
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
�Has appointment next week
Chronic Seizure Disorder
-unable to complete med rdc, patient does not know his medications but states he has had no medication changes since May.
-continue GLUING MACHINE OPERATOR ELECTRONIC regimen noted in May:
Levetiracetam 1000mg BID
Topiramate 300mg PO BID
Eslicarbaepine 1200mg PO QD
GERD - GLUING MACHINE OPERATOR ELECTRONIC pepcid
Hypokalemia - replete
Hypothyroidism - GLUING MACHINE OPERATOR ELECTRONIC Synthroid
Depression - GLUING MACHINE OPERATOR ELECTRONIC Lexapro
BPH - GLUING MACHINE OPERATOR ELECTRONIC Flomax
DVT PPx Lovenox subQ
FULL CODE
More than 30 minutes spent in discharge including
Final examination of the patient
Summarizing hospital stay
Instructions for continuing care to all relevant caregivers
Preparation of discharge records, prescriptions, and referral forms
Total time spent (in minutes): 36
Anticipated Discharge: Today
Subjective/Interval History
-
Date of Service: September 18, 2025
No acute events overnight
Objective Data
-
Labs:
Laboratory Results
09/18/25
07:04
WBC 5.1
Hgb 11.6 L
Hct 33.9 L
Plt Count 142
Sodium 137
Potassium 3.7
Chloride 108 H
Carbon Dioxide 22
BUN 18
Creatinine 1.0
Glucose 82
Calcium 9.0
Vital Signs:
Vital Signs
Temp Pulse Resp BP Pulse Ox
97.6 F 73 18 113/81 99
09/18/25 07:20 09/18/25 07:20 09/18/25 07:20 09/18/25 07:20 09/18/25 07:45
I&O
09/17/25 09/18/25 09/19/25
06:59 06:59 06:59
Output Total 425 / 425 450 / 450
Balance -425 / -425 -450 / -450
Data Reviewed
-
Total Time Spent with Patient (in minutes): 41
Diagnostic Radiology: Report Reviewed by me
Labs: Labs Reviewed by me
[2025-09-18 14:57] VITALS: BP 115/76
[2025-09-18] MEDS: LOVENOX SC (15:34)
== END 2025-09-18 15:55 | disposition home health service (06) ==
LOC: 4 WEST ACU 18:49
PROVIDERS: ADMITTING PHYSICIAN Student in an Organized Health Care Education/Training Program; ATTENDING PHYSICIAN Internal Medicine; EMERGENCY PHYSICIAN Student in an Organized Health Care Education/Training Program
DX: S93.401A Sprain of unspecified ligament of right ankle, initial encounter (principal); E86.0 Dehydration; I95.9 Hypotension, unspecified; W19.XXXA Unspecified fall, initial encounter; E87.1 Hypo-osmolality and hyponatremia; E03.9 Hypothyroidism, unspecified; E87.6 Hypokalemia; F32.A Depression, unspecified; G20.A1 Parkinson's disease without dyskinesia, without mention of fluctuations; I10 Essential (primary) hypertension; Z79.899 Other long term (current) drug therapy; Z87.820 Personal history of traumatic brain injury; K21.9 Gastro-esophageal reflux disease without esophagitis; N40.0 Benign prostatic hyperplasia without lower urinary tract symptoms; G40.919 Epilepsy, unspecified, intractable, without status epilepticus
CPT/HCPCS: 73610; 80048; 80053; 83735; 85025; 85027; 86803; 93005; 96360; 97110; 97116; 97530; 99285; G0378

== ENCOUNTER 2025-10-09 18:44 | Inpatient (IN) | payer OTHER, MEDICAID, SELFPAY ==
[2025-10-09] VITALS (14 sets, daily range): BP systolic 82–125; BP diastolic 48–81; PULSE 62–115; BMI 23.6
[2025-10-09 12:21] LABS: Hematocrit 36.8 % (39.0-52.0); Hemoglobin 11.8 g/dL (13.0-18.0); Mean Corp Hgb Conc. 32.1 g/dL (33.0-37.0); Mean Corpuscular Volume 86.2 fL (80.0-94.0); Nucleated Red Blood Cells % 0 % (-); Platelet Count 134 10^3/uL (130-400); Red Cell Dist. Width 15.0 % (11.5-14.5)
[2025-10-09 12:36] LABS: ALT (SGPT) < 10 U/L (0-50); AST (SGOT) 28 U/L (17-59); Albumin 3.7 g/dl (3.5-5.0); Alkaline Phosphatase 98 U/L (38-126); Blood Urea Nitrogen 35 mg/dl (9-20); Calcium 8.9 mg/dl (8.4-10.2); Carbon Dioxide 27 mmol/L (22-30); Chloride 105 mmol/L (98-107); Glucose 79 mg/dl (70-99); Potassium 3.6 mmol/L (3.5-5.1); Sodium 136 mmol/L (135-145); Total Protein 6.8 g/dl (6.3-8.2); eGFR 50.71
--- NOTE | 2025-10-09 15:37 | ED.GENMED ---
History of Present Illness
<Neema Hernandez WET CROWN BLOCKING OPERATOR - Last Filed: 10/09/25 23:32>
General
Chief Complaint: Fall
Source: patient
Exam Limitations: none and other
Time Seen by Provider: 10/09/25 15:25
Nursing documentation reviewed up to this point in time: agreed with
History of Present Illness
History of Present Illness:
Patient to the emergency department for evaluation after fall. He states he walked to the door to let his friend in, and when he turned around he lost his balance and fell. He states this is his third fall this week. He reports feeling dizzy at
times, but is unsure if he had dizziness before he fell today. He denies hitting his head. He denies headache. He denies feeling dizzy currently. He denies any injuries. He was brought to the emergency department by EMS for evaluation. BP on
exam 88/42. 1 L NSS initiated. He reports a history of low blood pressure. He is currently asymptomatic of this.
Past History
<Neema Hernandez WET CROWN BLOCKING OPERATOR - Last Filed: 10/09/25 23:32>
Past History
ED Past Medical History: Seizures (intractable epilepsy), Psychiatric (Depression), Other (gall stones, traumatic brain injury, migraine), Other (Hemorrhoids) and Other
ED Past Surgical History: None
Social History
Tobacco: Non-smoker
Alcohol: None
Drug: None
Personal: Single
Living: alone
Employment: Disabled
Family History
Family History: Other (Lost a brother and a sister to Alzheimer's.)
Review of Systems
<Neema Hernandez WET CROWN BLOCKING OPERATOR - Last Filed: 10/09/25 23:32>
Review of Systems
Allergies reviewed?: Yes
All Other Systems: ROS reviewed and negative except as documented in HPI and ROS
Constitutional: Reports fatigue
EENT: Reports no symptoms
Respiratory: Reports no symptoms
Cardiac: Reports no symptoms
ABD/GI: Reports no symptoms
: Reports no symptoms
Musculoskeletal: Reports no symptoms
Skin: Reports no symptoms
Neurological: Reports weakness
Psychiatric: Reports no symptoms
Phy Exam
<Neema Hernandez NP - Last Filed: 10/09/25 23:32>
General Physical Exam
General Presentation: mild distress
General age: appears older than age
General Skin: warm and dry
General Habitus: elderly and frail
General Mental: alert
General Hydration: dry mucous membranes
Cardiovascular Exam
Cardiovascular Exam: regular rate/rhythm and no edema
Pulmonary Exam
Pulmonary Exam: lungs clear and no respiratory distress
Gastrointestinal Exam
Gastrointestinal Exam: normal bowel sounds, non tender, soft, no organomegaly, non distended and no cva tenderness
Stool: brown
Guaiac Status: negative
Neurological Exam
Neurological Exam: alert, oriented x3, CN II-XII intact, no motor deficits, no sensory deficits and speech normal
Musculoskeletal Exam
Musculoskeletal Exam: full ROM and neuro vasc intact
Skin Exam
Skin Exam: normal color and warm/dry
Psychiatric Exam
Psychiatric Exam: normal mood/affect
Course
<Neema Hernandez WET CROWN BLOCKING OPERATOR - Last Filed: 10/09/25 23:32>
Orders/Labs/Results
Orders:
Orders
10/09/25 11:29
Electrocardiogram (*1) Urgent
Reason for Study: Vertigo / Dizzy
10/09/25 11:54
Complete Blood Count/With Diff Urgent
Comprehensive Metabolic Panel Urgent
10/09/25 Dinner
Regular
At Your Request: Full Participation
10/09/25 15:[address] [CT Head W/o Iv Contrast] Urgent
Comment:
Reason For Exam: fall
0.9% Sodium Chloride 1000 ml [Nss] 1,000 ml IV BOLUS
10/09/25 17:34
Orthostatic VS- Treatment ONCE
10/09/25 18:31
Admit/Transfer Patient As Directed
Co-Sign Provider:
Level of Care: Inpatient admission
Assign to:: Telemetry
Physician / Group: napoleon
Diagnosis: hypotension/parkinsons
Reason for Telemetry: Arrhythmia
Date to Stop Telemetry: 10/12/25
Time to Stop Telemetry: 11:00
Reason for Hospitalization: hypotension/parkinsons
Expected length of stay greater than two midnights?: Yes
ELOS- Estimated Length of Stay in days: 2
I certify the patient meets the requirements for IP care: Yes
PRN Pain Medication Management As Directed
May give lesser potent ordered pain med per pt: Yes
preference::
Protocol:: Medication orders for pain may be administered in a
manner that supports deferring to patient preference
when the pt is:
- Requesting an ordered lesser potent pain medication.
Least to most potent pain medications are defined
as: acetaminophen < NSAID < tramadol < opioids
(morphine, oxycodone, hydromorphone).
- Requesting a lesser dose of the same medication IF
ORDERED.
- Requesting a less intrusive route of administration
if both routes are prescribed by the provider (PO <
IV).
10/09/25 18:32
Code Status As Directed
Resuscitation Status: Do not resuscitate
Reached after discussion with pt or family/Healthcare POA: Yes
DNR Bracelet Application ONCE
10/09/25 20:57
0.9% Sodium Chloride 1000 ml [Nss] 1,000 ml IV 100 mls/hr
Acetaminophen [Tylenol] 650 mg PO Q4HPRN PRN
Ferrous Sulfate [Feosol] 325 mg PO BID
Heparin 5,000 units SC Q12
10/09/25 20:57
Activity As Directed
Activity Level: As Tolerated
Orthostatic Vital Signs As Directed
Orthostatic VS Frequency: Daily
Vital Signs As Directed
Frequency: Per unit guidelines
Ot Eval And Treat Routine
Pt Eval And Treat Routine
Activity Level: As Tolerated
DX Deep Vein Thrombosis Video Routine
10/09/25 21:30
Pregabalin [Lyrica] 300 mg PO BID
10/09/25 22:00
Carbidopa/Levodopa [Sinemet 25-100] 1 tablet PO TID
Levetiracetam [Keppra] 1,000 mg PO BID
Topiramate [Topamax] 300 mg PO BID
10/10/25 06:00
Complete Blood Count/With Diff IN AM
Comprehensive Metabolic Panel IN AM
Levothyroxine [Synthroid] 50 mcg PO DAILY@0600
10/10/25 08:00
Cyanocobalamin [Vitamin B-12] 1,000 mcg PO DAILY
Escitalopram Oxalate [Lexapro] 20 mg PO DAILY
FOLic ACID [Folvite] 0.5 mg PO DAILY
Famotidine [Pepcid] 20 mg PO DAILY
Loratadine [Claritin] 10 mg PO DAILY
Meloxicam [Mobic] 7.5 mg PO DAILY
Sodium Chloride 1 gram PO DAILY
eslicarbazepine 1,200 mg PO DAILY
10/10/25 18:00
Tamsulosin [Flomax] 0.8 mg PO QPM
10/12/25 11:00
DC Protocol for Telemetry ONCE
Abnormal Lab Results
10/09/25
11:54
RBC 4.27 L 10^6/uL
(4.70-6.10)
Hgb 11.8 L g/dL
(13.0-18.0)
Hct 36.8 L %
(39.0-52.0)
MCHC 32.1 L g/dL
(33.0-37.0)
RDW 15.0 H %
(11.5-14.5)
Absolute Lymphs (auto) 1.0 L 10^3/uL
(1.2-3.4)
Lymphocytes % 14.1 L %
(20.5-51.1)
BUN 35 H mg/dl
(9-20)
Creatinine 1.5 H mg/dL
(0.7-1.3)
10/09/25 11:54
10/09/25 11:54
Vital Signs
Initial and Last Documented VS:
Initial Vital Signs
Temp Pulse Resp BP Pulse Ox
98 F 86 16 98/55 95
10/09/25 11:25 10/09/25 11:25 10/09/25 11:25 10/09/25 11:25 10/09/25 11:25
Last Documented Vital Signs
Temp Pulse Resp BP Pulse Ox
98.0 F 70 18 115/63 93
10/09/25 23:02 10/09/25 21:18 10/09/25 23:02 10/09/25 21:18 10/09/25 23:02
<Nelly Bundy, DO - Last Filed: 10/09/25 19:14>
Orders/Labs/Results
Orders:
Orders
10/09/25 11:29
Electrocardiogram (*1) Urgent
Reason for Study: Vertigo / Dizzy
10/09/25 11:54
Complete Blood Count/With Diff Urgent
Comprehensive Metabolic Panel Urgent
10/09/25 Dinner
Regular
At Your Request: Full Participation
10/09/25 15:[address] [CT Head W/o Iv Contrast] Urgent
Comment:
Reason For Exam: fall
0.9% Sodium Chloride 1000 ml [Nss] 1,000 ml IV BOLUS
10/09/25 17:34
Orthostatic VS- Treatment ONCE
10/09/25 18:31
Admit/Transfer Patient As Directed
Co-Sign Provider:
Level of Care: Inpatient admission
Assign to:: Telemetry
Physician / Group: napoleon
Diagnosis: hypotension/parkinsons
Reason for Telemetry: Arrhythmia
Date to Stop Telemetry: 10/12/25
Time to Stop Telemetry: 11:00
Reason for Hospitalization: hypotension/parkinsons
Expected length of stay greater than two midnights?: Yes
ELOS- Estimated Length of Stay in days: 2
I certify the patient meets the requirements for IP care: Yes
PRN Pain Medication Management As Directed
May give lesser potent ordered pain med per pt: Yes
preference::
Protocol:: Medication orders for pain may be administered in a
manner that supports deferring to patient preference
when the pt is:
- Requesting an ordered lesser potent pain medication.
Least to most potent pain medications are defined
as: acetaminophen < NSAID < tramadol < opioids
(morphine, oxycodone, hydromorphone).
- Requesting a lesser dose of the same medication IF
ORDERED.
- Requesting a less intrusive route of administration
if both routes are prescribed by the provider (PO <
IV).
10/09/25 18:32
Code Status As Directed
Resuscitation Status: Do not resuscitate
Reached after discussion with pt or family/Healthcare POA: Yes
DNR Bracelet Application ONCE
10/09/25 20:57
0.9% Sodium Chloride 1000 ml [Nss] 1,000 ml IV 100 mls/hr
Acetaminophen [Tylenol] 650 mg PO Q4HPRN PRN
Ferrous Sulfate [Feosol] 325 mg PO BID
Heparin 5,000 units SC Q12
10/09/25 20:57
Activity As Directed
Activity Level: As Tolerated
Orthostatic Vital Signs As Directed
Orthostatic VS Frequency: Daily
Vital Signs As Directed
Frequency: Per unit guidelines
Ot Eval And Treat Routine
Pt Eval And Treat Routine
Activity Level: As Tolerated
DX Deep Vein Thrombosis Video Routine
10/09/25 21:30
Pregabalin [Lyrica] 300 mg PO BID
10/09/25 22:00
Carbidopa/Levodopa [Sinemet 25-100] 1 tablet PO TID
Levetiracetam [Keppra] 1,000 mg PO BID
Topiramate [Topamax] 300 mg PO BID
10/10/25 06:00
Complete Blood Count/With Diff IN AM
Comprehensive Metabolic Panel IN AM
Levothyroxine [Synthroid] 50 mcg PO DAILY@0600
10/10/25 08:00
Cyanocobalamin [Vitamin B-12] 1,000 mcg PO DAILY
Escitalopram Oxalate [Lexapro] 20 mg PO DAILY
FOLic ACID [Folvite] 0.5 mg PO DAILY
Famotidine [Pepcid] 20 mg PO DAILY
Loratadine [Claritin] 10 mg PO DAILY
Meloxicam [Mobic] 7.5 mg PO DAILY
Sodium Chloride 1 gram PO DAILY
eslicarbazepine 1,200 mg PO DAILY
10/10/25 18:00
Tamsulosin [Flomax] 0.8 mg PO QPM
10/12/25 11:00
DC Protocol for Telemetry ONCE
Abnormal Lab Results
10/09/25
11:54
RBC 4.27 L 10^6/uL
(4.70-6.10)
Hgb 11.8 L g/dL
(13.0-18.0)
Hct 36.8 L %
(39.0-52.0)
MCHC 32.1 L g/dL
(33.0-37.0)
RDW 15.0 H %
(11.5-14.5)
Absolute Lymphs (auto) 1.0 L 10^3/uL
(1.2-3.4)
Lymphocytes % 14.1 L %
(20.5-51.1)
BUN 35 H mg/dl
(9-20)
Creatinine 1.5 H mg/dL
(0.7-1.3)
10/09/25 11:54
10/09/25 11:54
Vital Signs
Initial and Last Documented VS:
Initial Vital Signs
Temp Pulse Resp BP Pulse Ox
98 F 86 16 98/55 95
10/09/25 11:25 10/09/25 11:25 10/09/25 11:25 10/09/25 11:25 10/09/25 11:25
Last Documented Vital Signs
Temp Pulse Resp BP Pulse Ox
98.0 F 70 18 115/63 93
10/09/25 23:02 10/09/25 21:18 10/09/25 23:02 10/09/25 21:18 10/09/25 23:02
<Neema Hernandez NP - Last Filed: 10/09/25 23:32>
*Pulse Oximetry
SaO2: 95
Oxygen Mode of Delivery: Room air
Patient hypoxic: no
*Critical Care Note
Total Time (30-74mins, 75-104mins- exclusive of procedures): Not Applicable
<Neema Hernandez NP - Last Filed: 10/09/25 23:32>
Update Note
Update Note:
Patient to the emergency department for evaluation after a fall at home. He states he was at the door letting his friend in, turned around and became dizzy and fell. He denies hitting his head. He reports this is the third fall this week.
Reports feeling intermittently dizzy all week. He denies his fever or chills. Labs reviewed. WBC is normal. Hgb 11.8 HCT 36.8, this is stable for him. Stool is heme-negative no evidence of bleeding. BUN is 35 creat 1.5. BUN 35 creat 1.5. He
reports that he has been limiting his fluid intake. States he was told to only drink 3 glasses/day. He is unsure if to told him that. BP on arrival to ER80's/40's. He was given 1 L of normal saline with some improvement in his blood pressure.
Last reading of 112/60. CT of his head completed, no acute findings . He continues to complain of weakness and does not feel that he is safe to be at home alone. Will admit to the hospitalist for hypotension, dehydration, weakness.
ED Attending Note
<Neema Hernandez NP - Last Filed: 10/09/25 23:32>
-
Portions of this chart may have been created with voice recognition software.� Occasional wrong word or��sound alike� substitutions may have occurred due to the inherent limitations of voice recognition software.
<Nelly Bundy DO - Last Filed: 10/09/25 19:14>
ED Attending Note
Patient seen and examined by attending physician: Yes
I performed the substantive portion of visit, reviewed & personally made and approve the management plan that is documented in note by myself or DAHIANA.: Yes
I performed a history and physical exam of patient and discussed management with resident, I reviewed resident's note and agree with documented findings and plan of care.: Yes
ED Attending Note:
65-year-old male with history of Parkinson's presenting to the emergency department for increased falls. Patient notes 3 falls in the past week. Denies any significant dizziness. Reports that he believes that he lost his balance. Denies head
injury. Patient arrives hypotensive to the emergency department.
On exam, patient appears dry with dry mucous membranes, hypotensive. No physical signs of acute trauma. Patient mentating appropriately. Concern for orthostatic hypotension, possible volume depletion and dehydration as etiology of falls.
Unremarkable cardiac and pulmonary exam. Obvious resting tremor, consistent with known Parkinson's. Workup thus far shows DHAVAL. CT brain negative. Blood pressure responded appropriately to IV fluids. Patient remains a fall risk, unsafe
disposition home. Plan for admission for PT/OT, IV hydration, likely case management
Discharge Plan
Departure
Patient Disposition: Admit
Date of Disposition: 10/09/25
Time of Disposition: 18:10
Presentation/result/management discussed w/ accepting MD/DO: Hospitalist
Patient with high blood pressure during this ER visit?: No
Condition: Fair
Covid-19: Not Applicable
Discharge Problem:
Acute hypotension, Dehydration, Weakness
Interventions
Interventions:
*Risk Screen - Suicide Last Done: 10/09/25 11:28
*General Assessment Last Done: 10/09/25 15:55
*Neglect/Abuse Screening Last Done: 10/09/25 11:28
*ED COVID-19 Vaccine History Last Done: 10/09/25 15:55
*ED Influenza Vaccine History Last Done: 10/09/25 15:55
*Nursing Disposition Last Done: 10/09/25 21:12
ED-Musculoskeletal Assessment Last Done: 10/09/25 15:55
ED- Neurological Assessment Last Done: 10/09/25 15:55
ED-Skin Assessment Last Done: 10/09/25 15:55
Discharge Date and Time
Discharge Date/Time: 10/09/25 21:13
[2025-10-09] MEDS: NSS 1000 IV ×2 (15:40→21:41)
--- NOTE | 2025-10-09 18:36 | HPS.HSE ---
Family Physician
-
Family Physician: Kevin Overton
Chief Complaint
-
falls
History of Present Illness
65-year-old male past medical history of hypotension, chronic seizure disorder, history of TBI, chronic tremor,, GERD, hypothyroidism, depression, BPH, presenting for evaluation after a fall. He walked to the door to let his friend and when he
turned around he lost his balance and fell. This is his third fall in the week. Falls are associated dizziness.. Denies hitting his head. Denies headache. Denies dizziness.
He states that he was recently diagnosed with Parkinson disease by his neurologist at [facility]. He recently started carbidopa levodopa this past week and has been having worsening tremor since then. He also started another medication this past
week but he does not member what he takes it for.
Patient was recently admitted from 09/16-09/18 for fall and right ankle sprain. He was also hypotensive at that time which improved with IV fluids. He was seen by neurology during her prior admission for tremors and thought not to have Parkinson
disease.
Denies nausea or vomiting or fevers or chills or cough or urinary symptoms or any other symptoms of infection.
He denies smoking or alcohol use or drugs.
Medical History
Past Medical History
Past Medical History: Reports Other (hypotension, chronic seizure disorder, history of TBI, chronic tremor,, GERD, hypothyroidism, depression, BPH)
Past Surgical History: Reports None
Social History
Tobacco: Non-smoker
Alcohol: None
Drug: None
Family History
Family History: Not pertinent
Allergies / Home Medications
Allergies reflects when Allergies were last updated in [facility].
Home Medications with original date entered in [facility]
Allergy/Medication List:
Allergies
Allergy/AdvReac Type Severity Reaction Status Date / Time
iodine (Iodine) Allergy Rash Verified 08/21/24 09:55
valproic acid Allergy Unknown Verified 08/21/24 09:55
Home Medications
famotidine 20 mg tablet 20 mg PO DAILY Gastrointestinal issue 09/04/19
folic acid 400 mcg tablet 0.4 mg PO DAILY Supplement 02/10/22
pregabalin 300 mg capsule (Lyrica) 300 mg PO BID Pain 02/10/22
cyanocobalamin (vitamin B-12) 1,000 mcg tablet 1,000 mcg PO DAILY Supplement ##0 04/05/22
escitalopram oxalate 20 mg tablet 20 mg PO DAILY depression 07/12/22
fexofenadine 180 mg tablet 180 mg PO DAILY Allergies 09/11/23
meloxicam 7.5 mg tablet 7.5 mg PO DAILY pain 09/11/23
levothyroxine 50 mcg tablet 50 mcg PO DAILY Thyroid 07/09/24
carbidopa 25 mg-levodopa 100 mg tablet 1 tab PO TID Tremor 06/09/25
eslicarbazepine 400 mg tablet 1,200 mg PO DAILY Seizures 06/09/25
sodium chloride 1,000 mg soluble tablet 1,000 mg PO DAILY Supplement 06/09/25
topiramate 200 mg tablet 300 mg PO BID Neurological Condition 06/09/25
ferrous sulfate 325 mg (65 mg iron) tablet 325 mg PO BID Supplement 10/09/25
levetiracetam 1,000 mg tablet 1,000 mg PO BID Seizures 10/09/25
tamsulosin 0.4 mg capsule 0.8 mg PO QPM Urinary Issue 10/09/25
Review of Systems
-
History Source: Patient
A 12 point ROS was completed and negative except as noted: Yes
Constitutional: Reports No Symptoms
EENT: Reports No Symptoms
Respiratory: Reports No Symptoms
Cardiac: Reports No Symptoms
Abdomen/GI: Reports No Symptoms
: Reports No Symptoms
Musculoskeletal: Reports No Symptoms
Skin: Reports No Symptoms
Neurological: Reports No Symptoms
Endocrine: Reports No Symptoms
Hematologic/Lymphatic: Reports No Symptoms
Psych: Reports No Symptoms
Physical Exam
Vital Signs
Vital Signs
Temp Pulse Resp BP Pulse Ox
98 F 56 12 103/68 100
10/09/25 11:25 10/09/25 17:00 10/09/25 17:00 10/09/25 17:00 10/09/25 17:00
Physical Exam
General: Well Developed, Well Nourished and No Apparent Distress
HEENT: NormoCephalic, Moist mucous membranes and Atraumatic
Respiratory: Clear
Cardiac: S1/S2 and Regular Rhythm; No Murmur or Rub
GI: Soft, Non Tender, Non Distended and Normal Bowel Sounds; No Organomegaly
Rectal: Deferred by Provider
Musculoskeletal: No Clubbing, No Cyanosis and No Edema
Skin: No Rash
Neuro: Nonfocal/grossly intact
Laboratory Results
-
10/09/25 11:54
10/09/25 11:54
Laboratory Results
Total Bilirubin 0.4 mg/dl (0.2-1.3) 10/09/25 11:54
AST 28 U/L (17-59) 10/09/25 11:54
ALT < 10 U/L (0-50) 10/09/25 11:54
Alkaline Phosphatase 98 U/L (38-126) 10/09/25 11:54
Data Reviewed
-
Lab Data: Labs Reviewed by me
Old Records: Reviewed
Impression/Plan
-
IMPRESSION:
PLAN:
# Hypotension likely from recently started carbidopa levodopa in the setting of underlying Parkinson's disease/autonomic dysfunction
# History of hypotensive episodes
- Blood pressure as low as 82/57 improved to 103/68 after IV fluids
- Continue IV fluids
- Check orthostatic vital signs
- Will likely require neurology input to adjust carbidopa-levodopa
- PT OT
# Ambulatory dysfunction/fall likely from hypotension/increased tremor related to recently started carbidopa levodopa
- CT head shows no acute abnormality
# Acute kidney injury likely prerenal
- Monitor with IV fluids
Parkinson's disease
- Continue carbidopa levodopa
Chronic seizure disorder
- Continue eslicarbazepine, Keppra, pregabalin,, Topamax
History of TBI
GERD
Hypothyroidism
- Continue levothyroxine
Depression
- Continue Lexapro
BPH
- Continue tamsulosin
Chronic anemia
-Hemoglobin stable at 1.8
DNR/DNI
DVT prophylaxis�heparin
Regular diet
[2025-10-09] MEDS: LYRICA 300 MG PO (21:38)
[2025-10-09] MEDS: TOPAMAX 300 MG PO (21:38)
[2025-10-09] MEDS: KEPPRA 1000 MG PO (21:38)
[2025-10-09] MEDS: HEPARIN 5000 UNITS SC (21:40)
[2025-10-09] MEDS: SINEMET 25-100 1 TABLET PO (21:40)
[2025-10-09] MEDS: FEOSOL 325 MG PO (21:40)
--- NOTE | 2025-10-09 21:58 | PTCARENOTE ---
Patient arrived via stretcher to unit. AAox2-3. Forgetful. Pleasant and cooperative with care. No signs of distress noted. Bed alarm applied. Oriented to unit. Call valdez within reach.
[2025-10-10] VITALS (8 sets, daily range): BP systolic 106–145; BP diastolic 53–89; PULSE 77–82; O2SAT 94
[2025-10-10] MEDS: SYNTHROID 50 MCG PO (05:15)
[2025-10-10 07:28] LABS: ALT (SGPT) < 10 U/L (0-50); AST (SGOT) 22 U/L (17-59); Albumin 3.0 g/dl (3.5-5.0); Alkaline Phosphatase 91 U/L (38-126); Blood Urea Nitrogen 29 mg/dl (9-20); Calcium 8.2 mg/dl (8.4-10.2); Carbon Dioxide 24 mmol/L (22-30); Chloride 110 mmol/L (98-107); Estimated Creatinine Clearance 68 ml/min; Glucose 78 mg/dl (70-99); Potassium 3.6 mmol/L (3.5-5.1); Sodium 138 mmol/L (135-145); Total Protein 5.6 g/dl (6.3-8.2); eGFR > 60.00
[2025-10-10 07:33] LABS: Hematocrit 32.7 % (39.0-52.0); Hemoglobin 10.5 g/dL (13.0-18.0); Mean Corp Hgb Conc. 32.1 g/dL (33.0-37.0); Mean Corpuscular Volume 90.1 fL (80.0-94.0); Nucleated Red Blood Cells % 0 % (-); Platelet Count 106 10^3/uL (130-400); Red Cell Dist. Width 14.7 % (11.5-14.5)
[2025-10-10] MEDS: NSS 1000 IV ×2 (07:59→18:29)
[2025-10-10] MEDS: LYRICA 300 MG PO ×2 (08:05→21:10)
[2025-10-10] MEDS: TOPAMAX 300 MG PO ×2 (08:06→21:10)
[2025-10-10] MEDS: SODIUM CHLORIDE 1 GRAM PO (08:07)
[2025-10-10] MEDS: FOLVITE 0.5 MG PO (08:07)
[2025-10-10] MEDS: KEPPRA 1000 MG PO ×2 (08:07→21:11)
[2025-10-10] MEDS: VITAMIN B-12 1000 MCG PO (08:08)
[2025-10-10] MEDS: SINEMET 25-100 1 TABLET PO (08:08)
[2025-10-10] MEDS: CLARITIN 10 MG PO (08:08)
[2025-10-10] MEDS: LEXAPRO 20 MG PO (08:09)
[2025-10-10] MEDS: PEPCID 20 MG PO (08:09)
[2025-10-10] MEDS: MOBIC 7.5 MG PO (08:09)
[2025-10-10] MEDS: FEOSOL 325 MG PO ×2 (08:09→21:09)
[2025-10-10] MEDS: HEPARIN 5000 UNITS SC ×2 (08:10→21:11)
--- NOTE | 2025-10-10 09:25 | W.PN.HOSP.TC ---
Addendum entered and electronically signed by Albert Jackson MD 10/10/25 11:10:
Attending�addendum:
I saw and evaluated the patient. I reviewed the resident�s note and agree with findings and plan as documented in the resident�s note.��patient seen and examined at bedside, denies any chest pain or shortness of breath, no abdominal pain, no nausea,
no vomiting, no diarrhea or constipation.
Physical�exam:
GENERAL : Patient is awake, alert, oriented x3
HEENT: Nonicteric sclerae, PERRLA, EOMI. Oropharynx clear. Moist mucous membranes. Conjunctivae appear well perfused.
CHEST: Chest wall is nontender.
HEART: Regular rate and rhythm without murmurs.
LUNGS: Clear to auscultation bilaterally.
ABDOMEN: Soft, positive bowel sounds, nontender, no organomegaly.
RECTAL: Deferred.
MUSCLES/EXTREMITIES: No abnormal range of motion, no swelling.SKIN: No rash, no excessive bruising, petechiae, or purpura.
NEUROLOGIC: Tremors
�
Assessment/plan:
Symptomatic hypotension, medication related.
Parkinsonism.
Neurology consulted.
Sinemet on hold
Recurrent falls/ambulatory dysfunction.
PT/OT consult
Acute renal failure.
Prerenal azotemia.
Improving
CODE STATUS: DNI/DNR
DVT prophylaxis: Heparin
Disposition: Neurology Cx
�
Total time spent on today�s encounter was 51 minutes which included time spent in counseling the patient/family regarding diagnosis and treatment plan as listed above, goals of care, and symptom management. Case was discussed with nursing staff,
specialists, and care coordinators/case management. All labs and imaging personally reviewed by me. Remainder the time spent in detailed review of previous records, lab data, imaging, and other medical provider documentation.
Original Note:
Today's Communication/Plan
-
Continue IV fluids
Neurology consult to adjust carbidopa levodopa dosing/timing
PT/OT
Orthostats
Trend BMP/CBC
Assessment / Plan
Assessment / Plan
Impression:
A 65-year-old male with a recent Parkinson's disease diagnosis, hypotension, chronic seizure disorder, traumatic brain injury, GERD, hypothyroidism, depression and BPH presenting with recurrent falls and dizziness. Patient recently started
carbidopa levodopa last week based on neurology recommendations at [facility]. No fever, chills, nausea, vomiting, abdominal pain, urinary symptoms.
Plan:
# Symptomatic hypotension-likely medication related (carbidopa levodopa)
# Parkinson's disease with underlying autonomic dysfunction
BP initially 82/57, improved to 103/68 after IV fluids
Symptoms correlate with initiation of carbidopa levodopa; falls likely secondary to orthostatic hypotension/worsening tremors
Continue IV fluids for volume support
Orthostats
Neurology consulted to consider adjusting carbidopa levodopa dosing/timing
Fall precautions/avoid rapid position changes
Can consider midodrine after BP stabilizes
PT/OT for gait instability
#Recurrent falls/ambulatory dysfunction
Likely secondary to hypotension and worsening tremor after starting carbidopa levodopa
CT head showed no acute abnormality
Continue fall precautions, PT/OT
#Acute kidney injury
Likely prerenal; due to hypotension/volume depletion
Continue IV fluids
Trend BMP
Expect improvement with IV fluids and BP stabilization
#Chronic anemia
Hgb on arrival 11.8, decreased to 10.5 on 10/10/2025
No acute bleeding noted, likely chronic disease
Trend CBC
#Chronic seizure disorder
Stable. No seizure activity reported.
Monitor for symptoms
Continue home regimen which includes pregabalin, Keppra, eslicarbazepine, Topamax
#History of TBI
No new neurological deficits noted
Additional risk factor for dizziness/falls
Continue monitoring
#GERD
Continue Pepcid
#Hypothyroidism
Continue levothyroxine 50 mcg daily
#BPH
Continue tamsulosin
CODE STATUS: DNR/DNI
DVT prophylaxis: Heparin
Disposition: Pending stabilization of BP, neurology medication review, PT/OT recommendations
Anticipated Discharge: 24 - 48 hours
Subjective/Interval History
-
Date of Service: October 10, 2025
Patient evaluated at bedside this morning. He states he feels the same as yesterday. Patient does not know why he has been following so frequently. No new complaints.
Objective Data
-
Labs:
Laboratory Results
10/10/25
06:26
WBC 3.6 L
Hgb 10.5 L
Hct 32.7 L
Plt Count 106 L D
Sodium 138
Potassium 3.6
Chloride 110 H
Carbon Dioxide 24
BUN 29 H
Creatinine 1.2
Glucose 78
Calcium 8.2 L
Total Bilirubin 0.3
AST 22
ALT < 10
Alkaline Phosphatase 91
Vital Signs:
Vital Signs
Temp Pulse Resp BP Pulse Ox
97.6 F 71 18 113/72 96
10/10/25 07:46 10/10/25 07:46 10/10/25 07:46 10/10/25 07:46 10/10/25 07:46
I&O
10/09/25 10/10/25 10/11/25
06:59 06:59 06:59
Intake Total 1909 / 1910
Output Total 750 / 750
Balance 1160 / 1160
Review of Systems
-
History Source: Patient
Constitutional: Reports No Symptoms
EENT: Reports No Symptoms Reported
Respiratory: Reports No Symptoms
Cardiac: Reports No Symptoms
Abdomen/GI: Reports No Symptoms
Breast: Reports No Symptoms
Genitourinary: Reports No Symptoms
Skin: Reports No Symptoms
Neuro: Reports Dizzy and Tremors
Endocrine: Reports No Symptoms
Hematologic / Lymphatic: Reports No Symptoms
Allergy / Immunology: Reports No Symptoms
Physical Exam
-
General: Well Developed, Well Nourished, No Apparent Distress, Comfortable and Conversant
HEENT: Normocephalic, Atraumatic, Moist Mucous Membranes and Anicteric
Respiratory: Clear to Auscultation
Cardiac: Regular Rhythm and S1/S2
GI: Soft, Nontender, Nondistended, Normal Bowel Sounds and No Hepatosplenomegaly
Musculoskeletal: No Clubbing, No Cyanosis and No Edema
Skin: Warm
Neuro: Awake, AO x 3 and Tremors
Psych: Calm
Data Reviewed
-
CT Scan: Report Reviewed by me and Discussed with Physician
Labs: Labs Reviewed by me, Discussed with Physician, Discussed with Nurse and Discussed with Patient
Old Records: Reviewed
--- NOTE | 2025-10-10 11:05 | CON.NEURO4 ---
Consultation - Neurology 4
-
CONSULTING PHYSICIAN: Dr. Durga Irving
REFERRING PHYSICIAN: Dr. Calvin Meyer
DICTATED BY: Dr. Durga Irving
DATE/TIME OF REQUEST: 10/10/2025
DATE/TIME OF CONSULTATION: 10/10/2025
Reason for Consultation: Parkinson's disease
ASSESSMENT AND PLAN:
The patient likely has orthostatic hypotension in the setting of a recent initiation of Sinemet 25-101 tablet 3 times a day. His initial blood pressure was 82/57 which improved 103/68 after IV fluids. His symptoms are likely secondary to
orthostatic hypotension. The patient has a history of seizure disorder and is on Keppra, however, there is no history of a witnessed seizure-like activity.
Recommend to decrease the dose of Sinemet to 25-100 1/2 tablet 3 times a day from 1 full tablet 3 times a day. Will gradually increase the dose of Sinemet as tolerated.
Plan to check orthostats.
He may need midodrine.
PT/OT for gait instability
History of Present Illness:
The patient is a 65 years old male with a recent diagnosis of Parkinson's disease on Sinemet, hypotension, chronic seizure disorder on Keppra 1000 mg twice a day, traumatic brain injury, hypothyroidism, depression and BPH, who presented for history
of recurrent falls and his dizziness. Patient was recently started on Sinemet last week based upon the recommendation of neurology at [facility]. His initial blood pressure was 82/57 which improved 103/68 after IV fluids.
Past Medical History: Parkinson's disease, hypotension, chronic seizure disorder on Keppra 1000 mg twice a day, traumatic brain injury, hypothyroidism, depression and BPH,
Review of Systems:
The patient denies headache, chest pain, shortness of breath, fever, chills, nausea and vomiting.
Neurologic Examination:
The patient has masked facies, bradykinesia, bilateral resting tremor of the hands and cogwheel rigidity in bilateral upper and lower extremities.
Alert and oriented x 3,
Speech is clear,
Cranial nerves II to XII grossly intact,
The patient has antigravity strength in bilateral upper and lower extremities.
No limb ataxia was seen.
Vital Signs and Labs
-
Vital Signs and Labs:
Vital Signs
Temp Pulse Resp BP Pulse Ox
36.4 C 71 18 113/72 96
10/10/25 07:46 10/10/25 07:46 10/10/25 07:46 10/10/25 07:46 10/10/25 07:46
Lab Results
10/10/25 06:26
10/10/25 06:26
Sodium 138 mmol/L (135-145) 10/10/25 06:26
Potassium 3.6 mmol/L (3.5-5.1) 10/10/25 06:26
BUN 29 mg/dl (9-20) H 10/10/25 06:26
Glucose 78 mg/dl (70-99) 10/10/25 06:26
Calcium 8.2 mg/dl (8.4-10.2) L 10/10/25 06:26
Medications
-
Active Medications
Generic Name Dose Route Start Last Admin
Trade Name Freq PRN Reason Stop Dose Admin
Acetaminophen 650 mg 10/09/25 20:57
Acetaminophen 325 Mg Tablet PO 11/06/25 20:56
Q4HPRN PRN
mild pain/WAYNE/temp> 100.4F
Carbidopa/Levodopa 1 tablet 10/09/25 22:00 10/10/25 08:08
Carbidopa (25 Mg)/Levodopa (100 Mg) Regular Release Tablet PO 11/06/25 21:59 1 tablet
TID JOSE Administration
Cyanocobalamin 1,000 mcg 10/10/25 08:00 10/10/25 08:08
Cyanocobalamin (Vitamin B-12) 500 Mcg Tablet PO 11/07/25 07:59 1,000 mcg
DAILY JOSE Administration
Escitalopram Oxalate 20 mg 10/10/25 08:00 10/10/25 08:09
Escitalopram 20 Mg Tablet PO 11/07/25 07:59 20 mg
DAILY JOSE Administration
Famotidine 20 mg 10/10/25 08:00 10/10/25 08:09
Famotidine 20 Mg Tablet PO 11/07/25 07:59 20 mg
DAILY JSOE Administration
Ferrous Sulfate 325 mg 10/09/25 20:57 10/10/25 08:09
Ferrous Sulfate 325 Mg Tablet PO 11/06/25 20:56 325 mg
BID JOSE Administration
Folic Acid 0.5 mg 10/10/25 08:00 10/10/25 08:07
Folic Acid 0.5 Mg (1/2 Of A 1 Mg Tablet) PO 11/07/25 07:59 0.5 mg
DAILY JOSE Administration
Heparin Sodium 5,000 units 10/09/25 20:57 10/10/25 08:10
Heparin 5,000 Units/Ml 1 Ml Vial SC 11/06/25 20:56 5,000 units
Q12 JOSE Administration
Sodium Chloride 1,000 mls @ 100 mls/hr 10/09/25 20:57 10/10/25 07:59
Nss IV 1,000 mls
.Q10H JOSE Administration
Levetiracetam 1,000 mg 10/09/25 22:00 10/10/25 08:07
Levetiracetam 500 Mg Regular Release Tablet PO 11/06/25 21:59 1,000 mg
BID JOSE Administration
Levothyroxine Sodium 50 mcg 10/10/25 06:00 10/10/25 05:15
Levothyroxine 50 Mcg Tablet PO 11/07/25 05:59 50 mcg
DAILY@0600 JOSE Administration
Loratadine 10 mg 10/10/25 08:00 10/10/25 08:08
Loratadine 10 Mg Tablet PO 11/07/25 07:59 10 mg
DAILY JOSE Administration
Meloxicam 7.5 mg 10/10/25 08:00 10/10/25 08:09
Meloxicam (Mobic) 7.5 Mg Tablet PO 11/07/25 07:59 7.5 mg
DAILY JOSE Administration
Pt's Own ( 1,200 mg 10/10/25 08:00
Eslicarbazepine 400 PO 11/07/25 07:59
Mg Tablet) 1200 Mg DAILY JOSE
Po Daily
Pregabalin 300 mg 10/09/25 21:30 10/10/25 08:05
Pregabalin 100 Mg Capsule PO 11/06/25 21:29 300 mg
BID JOSE Administration
Sodium Chloride 1 gram 10/10/25 08:00 10/10/25 08:07
Sodium Chloride 1 Gram Tablet PO 11/07/25 07:59 1 gram
DAILY JOSE Administration
Sodium Chloride 0 flush 10/09/25 22:00
Sodium Chloride 0.9% (Flush) Syringe IV 11/06/25 21:59
PER PROTOCOL JOSE
Tamsulosin HCl 0.8 mg 10/10/25 18:00
Tamsulosin 0.4 Mg Capsule PO 11/07/25 17:59
QPM JOSE
Topiramate 300 mg 10/09/25 22:00 10/10/25 08:06
Topiramate 100 Mg Tablet PO 11/06/25 21:59 300 mg
BID JOSE Administration
Home Medications
�Medication �Instructions �Recorded
famotidine 20 mg tablet 20 mg PO DAILY Gastrointestinal 09/04/19
issue
folic acid 400 mcg tablet 0.4 mg PO DAILY Supplement 02/10/22
pregabalin 300 mg capsule (Lyrica) 300 mg PO BID Pain 02/10/22
cyanocobalamin (vitamin B-12) 1,000 mcg PO DAILY Supplement ##0 04/05/22
1,000 mcg tablet
escitalopram oxalate 20 mg tablet 20 mg PO DAILY depression 07/12/22
fexofenadine 180 mg tablet 180 mg PO DAILY Allergies 09/11/23
meloxicam 7.5 mg tablet 7.5 mg PO DAILY pain 09/11/23
levothyroxine 50 mcg tablet 50 mcg PO DAILY Thyroid 07/09/24
carbidopa 25 mg-levodopa 100 mg 1 tab PO TID Tremor 06/09/25
tablet
eslicarbazepine 400 mg tablet 1,200 mg PO DAILY Seizures 06/09/25
sodium chloride 1,000 mg soluble 1,000 mg PO DAILY Supplement 06/09/25
tablet
topiramate 200 mg tablet 300 mg PO BID Neurological 06/09/25
Condition
ferrous sulfate 325 mg (65 mg 325 mg PO BID Supplement 10/09/25
iron) tablet
levetiracetam 1,000 mg tablet 1,000 mg PO BID Seizures 10/09/25
tamsulosin 0.4 mg capsule 0.8 mg PO QPM Urinary Issue 10/09/25
--- NOTE | 2025-10-10 11:25 | CM ---
CM reviewed chart, patient seen bedside, initial assessment completed.
65-year-old male past medical history of hypotension, chronic seizure disorder, history of TBI, chronic tremor, GERD, hypothyroidism, depression, BPH, presenting for evaluation after a fall.
Patient resides independently at [facility], followed by [facility] at [place].
Patient uses a cane at home, reports falling multiple times in the past week- patient reports recently starting new medication and reports he was not falling prior to new medication.
Patient sister and brother in law reside in [place] and are supportive to patient, lore Bailey also involved in patients care.
PCP confirmed [facility] Over[facility], Pharmacy [facility]
PT/OT ordered- CM discussed potential for SNF. Patient would prefer to return home with services but agreeable to SNF if absolutely necessary.
CM will continue to follow.
Plan; TBD pending PT/OT evals, may need SNF
[2025-10-10] MEDS: SINEMET 25-100 0.5 TABLET PO ×2 (16:34→21:10)
[2025-10-10] MEDS: FLOMAX 0.8 MG PO (18:28)
[2025-10-11] VITALS (7 sets, daily range): BP systolic 106–134; BP diastolic 69–90; PULSE 64–67
[2025-10-11] MEDS: NSS 1000 IV (04:31)
[2025-10-11] MEDS: SYNTHROID 50 MCG PO (04:36)
[2025-10-11 07:50] LABS: Hematocrit 35.6 % (39.0-52.0); Hemoglobin 11.3 g/dL (13.0-18.0); Mean Corp Hgb Conc. 31.7 g/dL (33.0-37.0); Mean Corpuscular Volume 89.7 fL (80.0-94.0); Nucleated Red Blood Cells % 0 % (-); Platelet Count 104 10^3/uL (130-400); Red Cell Dist. Width 14.6 % (11.5-14.5)
[2025-10-11] MEDS: KEPPRA 1000 MG PO ×2 (08:02→21:13)
[2025-10-11] MEDS: LYRICA 300 MG PO ×2 (08:02→21:12)
[2025-10-11] MEDS: TOPAMAX 300 MG PO ×2 (08:03→21:13)
[2025-10-11] MEDS: SODIUM CHLORIDE 1 GRAM PO (08:03)
[2025-10-11] MEDS: LEXAPRO 20 MG PO (08:04)
[2025-10-11] MEDS: VITAMIN B-12 1000 MCG PO (08:04)
[2025-10-11] MEDS: MOBIC 7.5 MG PO (08:04)
[2025-10-11] MEDS: CLARITIN 10 MG PO (08:05)
[2025-10-11] MEDS: SINEMET 25-100 0.5 TABLET PO ×3 (08:05→21:12)
[2025-10-11] MEDS: FEOSOL 325 MG PO ×2 (08:05→21:13)
[2025-10-11] MEDS: PEPCID 20 MG PO (08:06)
[2025-10-11] MEDS: HEPARIN 5000 UNITS SC ×2 (08:06→21:13)
[2025-10-11] MEDS: FOLVITE 0.5 MG PO (08:06)
[2025-10-11] MEDS: NON-FORMULARY ITEM 1200 MG PO (08:07)
[2025-10-11 08:10] LABS: Albumin 3.2 g/dl (3.5-5.0)
--- NOTE | 2025-10-11 08:15 | W.PN.HOSP.TC ---
Addendum entered and electronically signed by Albert Jackson MD 10/11/25 11:05:
Attending�addendum:
I saw and evaluated the patient. I reviewed the resident�s note and agree with findings and plan as documented in the resident�s note.��patient seen and examined at bedside, denies any chest pain or shortness of breath, no abdominal pain, no nausea,
no vomiting, no diarrhea or constipation.
BP improved after lowering carbidopa/levodopa dose
Physical�exam:
GENERAL : Patient is awake, alert, oriented x3
HEENT: Nonicteric sclerae, PERRLA, EOMI. Oropharynx clear. Moist mucous membranes. Conjunctivae appear well perfused.
CHEST: Chest wall is nontender.
HEART: Regular rate and rhythm without murmurs.
LUNGS: Clear to auscultation bilaterally.
ABDOMEN: Soft, positive bowel sounds, nontender, no organomegaly.
RECTAL: Deferred.
MUSCLES/EXTREMITIES: No abnormal range of motion, no swelling.SKIN: No rash, no excessive bruising, petechiae, or purpura.
NEUROLOGIC: Tremors
�
Assessment/plan:
Symptomatic hypotension, medication related.
Parkinsonism.
Neurology consulted.
BP improved after lowering carbidopa/levodopa dose
Recurrent falls/ambulatory dysfunction.
PT/OT consult
Recommending home PT
Acute renal failure.
Prerenal azotemia.
Improving
CODE STATUS: DNI/DNR
DVT prophylaxis: Heparin
Disposition: Discharge home with home PT
�
Total time spent on today�s encounter was 51 minutes which included time spent in counseling the patient/family regarding diagnosis and treatment plan as listed above, goals of care, and symptom management. Case was discussed with nursing staff,
specialists, and care coordinators/case management. All labs and imaging personally reviewed by me. Remainder the time spent in detailed review of previous records, lab data, imaging, and other medical provider documentation.
Original Note:
Today's Communication/Plan
-
Decrease Sinemet 25-100 to 1/2 tablet 3 times a day from 1 tablet 3 times a day per Neuro recs
Can start planning discharge- CM aware
Assessment / Plan
Assessment / Plan
Impression:
A 65-year-old male with a recent Parkinson's disease diagnosis, hypotension, chronic seizure disorder, traumatic brain injury, GERD, hypothyroidism, depression and BPH presenting with recurrent falls and dizziness. Patient recently started
carbidopa levodopa last week based on neurology recommendations at [facility]. No fever, chills, nausea, vomiting, abdominal pain, urinary symptoms.
Plan:
# Symptomatic hypotension-likely medication related (carbidopa levodopa)
# Parkinson's disease with underlying autonomic dysfunction
BP initially 82/57, improved to 103/68 after IV fluids
Symptoms correlate with initiation of carbidopa levodopa; falls likely secondary to orthostatic hypotension/worsening tremors
Continue IV fluids for volume support
Orthostatic vital signs. Can consider midodrine if patient orthostatic.
Neurology consulted. Decrease dose of Sinemet to 25-100 half tablet 3 times a day from 1 full tablet 3 times a day. Plan to increase dose as tolerated.
Fall precautions/avoid rapid position changes
PT/OT recommends home health. Start planning discharge 10/11/2025.
# Recurrent falls/ambulatory dysfunction
Likely secondary to hypotension and worsening tremor after starting carbidopa levodopa
CT head showed no acute abnormality
Continue fall precautions, PT/OT
# Acute kidney injury
Likely prerenal; due to hypotension/volume depletion
Continue IV fluids
Trend BMP
Expect improvement with IV fluids and BP stabilization
# Chronic anemia
Hgb on arrival 11.8, decreased to 10.5 on 10/10/2025
No acute bleeding noted, likely chronic disease
Trend CBC
# Chronic seizure disorder
Stable. No seizure activity reported.
Monitor for symptoms
Continue home regimen which includes pregabalin, Keppra, eslicarbazepine, Topamax
# History of TBI
No new neurological deficits noted
Additional risk factor for dizziness/falls
Continue monitoring
# GERD
Continue Pepcid
# Hypothyroidism
Continue levothyroxine 50 mcg daily
# BPH
Continue tamsulosin
CODE STATUS: DNR/DNI
DVT prophylaxis: Heparin
Disposition: Pending stabilization of BP, neurology medication review, PT/OT recommendations
Anticipated Discharge: Within 24 hours
Subjective/Interval History
-
Date of Service: October 11, 2025
Patient evaluated at bedside this morning. Patient states he does not feel tired despite not having a good night's sleep. No new complaints.
Objective Data
-
Labs:
Laboratory Results
10/11/25
07:42
WBC 3.5 L
Hgb 11.3 L
Hct 35.6 L
Plt Count 104 L
Sodium Pending
Potassium Pending
Chloride Pending
Carbon Dioxide Pending
BUN Pending
Creatinine Pending
Glucose Pending
Calcium Pending
Total Bilirubin Pending
AST Pending
ALT Pending
Alkaline Phosphatase Pending
Vital Signs:
Vital Signs
Temp Pulse Resp BP Pulse Ox
97.9 F 64 17 132/83 99
10/11/25 07:53 10/11/25 07:53 10/11/25 07:53 10/11/25 07:53 10/11/25 07:53
I&O
10/10/25 10/11/25 10/12/25
06:59 06:59 06:59
Intake Total 1910 / 1910 2280 / 2280
Output Total 750 / 750 1500 / 1500
Balance 1160 / 1160 780 / 780
Review of Systems
-
History Source: Patient
All other systems: Reviewed and negative
Neuro: Reports Tremors
Physical Exam
-
General: Well Developed, Well Nourished, No Apparent Distress, Comfortable and Conversant
HEENT: Normocephalic, Atraumatic, Moist Mucous Membranes and Anicteric
Respiratory: Clear to Auscultation
Cardiac: Regular Rhythm and S1/S2
GI: Soft, Nontender, Nondistended and Normal Bowel Sounds
Musculoskeletal: No Clubbing, No Cyanosis and No Edema
Skin: Warm
Neuro: Tremors
Psych: Calm and Intact Judgement/Insight
Data Reviewed
-
Labs: Labs Reviewed by me, Discussed with Physician and Discussed with Patient
[2025-10-11 08:23] LABS: ALT (SGPT) < 10 U/L (0-50); AST (SGOT) 17 U/L (17-59); Alkaline Phosphatase 100 U/L (38-126); Blood Urea Nitrogen 18 mg/dl (9-20); Calcium 8.6 mg/dl (8.4-10.2); Carbon Dioxide 24 mmol/L (22-30); Chloride 110 mmol/L (98-107); Estimated Creatinine Clearance 81 ml/min; Glucose 78 mg/dl (70-99); Magnesium 1.8 mg/dl (1.6-2.3); Potassium 3.4 mmol/L (3.5-5.1); Sodium 136 mmol/L (135-145); Total Protein 6.2 g/dl (6.3-8.2); eGFR > 60.00
--- NOTE | 2025-10-11 09:26 | CM ---
Addendum entered by Tyesha Kumar 10/11/25 11:19:
CM placed additional calls to PILI Wong at [facility] ([phone]) and [facility] ([phone]) to discuss discharge planning. No response, update to Resident.
Original Note:
CM reviewed chart, therapy recommending home health.
VM left for [facility]'s [phone] to discuss recommendation and preferred home care agency.
CM will continue to follow for all d/c planning needs.
Plan; home with [facility]'s- need to confirm VN agency
--- NOTE | 2025-10-11 13:22 | W.PN.NEURO.1 ---
Today's Communication / Plan
-
His symptoms of falls and orthostatic hypotension are likely made worse by Sinemet.
Recommend to decrease the dose of Sinemet to 25-100 one-half tablet TID.
May need midodrine.
PT/OT to see patient.
To check orthostatic vitals Q8H.
Subjective/Objective
Subjective Data
Date of Service: October 11, 2025
Today, the patient is more alert and feels stronger than yesterday. He is alert and oriented x 3, speech is clear and he has antigravity strength in all 4 extremities.
The patient likely has orthostatic hypotension in the setting of a recent initiation of Sinemet 25-10o tablet 3 times a day. His initial blood pressure was 82/57 which improved 103/68 after IV fluids. His symptoms are likely to be secondary to
orthostatic hypotension. The patient has a history of seizure disorder and is on Keppra, however, there is no history of a witnessed seizure-like activity.
. Recommend to decrease the dose of Sinemet to 25-100 1/2 tablet 3 times a day from 1 full tablet 3 times a day. Will gradually increase the dose of Sinemet as tolerated.
. Plan to check orthostats.
. He may need midodrine.
. PT/OT for gait instability
Objective Data
Vital Signs
Temp Pulse Resp BP Pulse Ox
36.6 C 69 18 112/77 99
10/11/25 11:18 10/11/25 11:18 10/11/25 11:18 10/11/25 11:18 10/11/25 11:18
Lab Results
10/11/25 07:42
10/11/25 07:42
Sodium 136 mmol/L (135-145) 10/11/25 07:42
Potassium 3.4 mmol/L (3.5-5.1) L 10/11/25 07:42
BUN 18 mg/dl (9-20) 10/11/25 07:42
Glucose 78 mg/dl (70-99) 10/11/25 07:42
Calcium 8.6 mg/dl (8.4-10.2) 10/11/25 07:42
Patient Allergies
iodine (Iodine) Allergy (Verified 08/21/24 09:55)
Rash
valproic acid Allergy (Verified 08/21/24 09:55)
Unknown
[2025-10-11] MEDS: FLOMAX 0.8 MG PO (18:33)
[2025-10-12] VITALS (7 sets, daily range): BP systolic 75–125; BP diastolic 47–84; PULSE 118
[2025-10-12] MEDS: SYNTHROID 50 MCG PO (05:43)
--- NOTE | 2025-10-12 07:11 | W.PN.HOSP.TC ---
Addendum entered and electronically signed by Ashlie Arias MD 10/12/25 17:41:
I saw and evaluated the patient independently. I reviewed and discussed the resident�s note and agree with findings and plan as documented by Dr. Storm.
GENERAL: chronically ill appearing male in no apparent distress
HEENT: NC/AT
HEART: regular rate and rhythm, +S1, +S2
LUNGS : clear to auscultation bilaterally
ABDOM: soft, nontender, nondistended, + bowel sounds
EXT: no cyanosis, clubbing, or edema
NEUROLOGIC: significant Parkinson's tremor, flat affect, flat facies
Symptomatic hypotension--likely medication related (carbidopa levodopa)--apprec neuro--did improve with cutting Sinemet in half--BUT still had drop in SBP (unclear IF he was symptomatic)--midodrine started and may need to tolerate a higher resting
BP--PT/OT rec home health
Parkinson's disease with underlying autonomic dysfunction--was initially dizzy and symptomatic--apprec neuro--have a call to pt primary neurologist to discuss--Symptoms correlate with initiation of carbidopa levodopa; falls likely secondary to
orthostatic hypotension/worsening tremors
Recurrent falls/ambulatory dysfunction--multifactorial due to hypotension and worsening Parkinson's --head CT neg
Acute kidney injury--resolved--Likely prerenal; due to hypotension/volume depletion
Chronic anemia--no signs of active bleeding--trend HGB
Chronic seizure disorder--Continue home regimen which includes pregabalin, Keppra, eslicarbazepine, Topamax--could any of these meds be causing his orthostatic hypotension?-- No seizure activity reported.
History of TBI--noted
GERD--Continue Pepcid
Hypothyroidism--Continue levothyroxine 50 mcg daily--check TSH
BPH--Continue tamsulosin--this can cause hypotension
CODE STATUS-- DNR/DNI
DVT proph-- SC Heparin
Original Note:
Today's Communication/Plan
-
Discharge within 24 hours
Check blood pressure
Midodrine 2.5 mg per oral started
Check systolic BP if more than 130 stop midodrine.
Check CMP, CBC
Fall risk precautions
Assessment / Plan
Assessment / Plan
Impression:
A 65-year-old male with a recent Parkinson's disease diagnosis, hypotension, chronic seizure disorder, traumatic brain injury, GERD, hypothyroidism, depression and BPH presenting with recurrent falls and dizziness. Patient recently started
carbidopa levodopa last week based on neurology recommendations at [facility]. No fever, chills, nausea, vomiting, abdominal pain, urinary symptoms.
Vitals stable: 125/81; temp 98.6, MS 77, RR 18. Saturation 92 on room air
Plan:
# Symptomatic hypotension-likely medication related (carbidopa levodopa):
Switch to half tablet. Consult PT/OT. Not on any IV fluids tolerating food.
PT/Ot:
Disposition: home health
# Parkinson's disease with underlying autonomic dysfunction
BP initially 82/57, improved to 103/68 after IV fluids
Symptoms correlate with initiation of carbidopa levodopa; falls likely secondary to orthostatic hypotension/worsening tremors
Continue IV fluids for volume support
Orthostatic vital signs checked today-->orthostatic hypotension. Started midodrine 2.5 mg 4 hourly, with instruction of hold the drug if systolic BP more than 130 mmHg.
Carbidopa, levodopa on hold due to orthostatic hypotension.
Neurology consulted. Decrease dose of Sinemet to 25-100 half tablet 3 times a day from 1 full tablet 3 times a day. Plan to increase the dosage if tolerated.
Fall precautions/avoid rapid position changes
PT/OT recommends home health.
Start planning discharge 10/12/2025 but because of his dropped blood pressure will monitor.
# Recurrent falls/ambulatory dysfunction
Likely secondary to hypotension and worsening tremor after starting carbidopa levodopa
On 10/09 : CT head showed no acute abnormality
Continue fall precautions, PT/OT
# Acute kidney injury
Likely prerenal; due to hypotension/volume depletion
Trend BMP
Expect improvement with IV fluids and BP stabilization
# Chronic anemia
Hgb on arrival 11.8, decreased to 10.5 on 10/10/2025
No acute bleeding noted, likely chronic disease
Trend CBC
# Chronic seizure disorder
Stable. No seizure activity reported.
Monitor for symptoms
Continue home regimen which includes pregabalin, Keppra, eslicarbazepine, Topamax
# History of TBI
No new neurological deficits noted
Additional risk factor for dizziness/falls
Continue monitoring
# GERD
Continue Pepcid
# Hypothyroidism
Continue levothyroxine 50 mcg daily
# BPH
Continue tamsulosin
CODE STATUS: DNR/DNI
DVT prophylaxis: Heparin
Disposition: Pending stabilization of BP, neurology medication review, PT/OT recommendations.
He is not willing to go with SNF.
dispositioon to home with home health,
[facility] neurologist-
home with [facility]- need to confirm VN agency.
Anticipated Discharge: Within 24 hours
Subjective/Interval History
-
Date of Service: October 12, 2025
Overnight he had a bowel movement after prune juice, dark in color and stool occult test negative, doing well, no concern for dizziness, chest pain, palpitation, headache.
He has a fall risk and I was discussing with nurse:shalini, who is in charge of him today.
Objective Data
-
Labs:
Laboratory Results
10/12/25
06:00
WBC Pending
Hgb Pending
Hct Pending
Plt Count Pending
Sodium Pending
Potassium Pending
Chloride Pending
Carbon Dioxide Pending
BUN Pending
Creatinine Pending
Glucose Pending
Calcium Pending
Total Bilirubin Pending
AST Pending
ALT Pending
Alkaline Phosphatase Pending
Vital Signs:
Vital Signs
Temp Pulse Resp BP Pulse Ox
98.1 F 73 16 121/84 97
10/12/25 03:12 10/12/25 03:12 10/12/25 03:12 10/12/25 03:12 10/12/25 03:12
I&O
10/11/25 10/12/25 10/13/25
06:59 06:59 06:59
Intake Total 2280 / 2280 660 / 660
Output Total 1500 / 1500 2500 / 2500
Balance 780 / 780 -1840 / -1840
Review of Systems
-
History Source: Patient
All other systems: Reviewed and negative
Physical Exam
-
General: Well Nourished
Respiratory: Clear to Auscultation
Cardiac: Regular Rhythm and S1/S2
GI: Soft, Nontender and Nondistended
Rectal: Hem Negative
Genito-urinary: No Costovertebral Tender
Musculoskeletal: No Edema
Skin: Warm
Neuro: AO x 3, Tremors (Resting tremor) and Other (Fall risk)
Hematologic / Lymphatic: No Lymphadenopathy
Psych: Calm
--- NOTE | 2025-10-12 08:25 | W.PN.NEURO.1 ---
Today's Communication / Plan
-
Discontinue carbidopa levodopa
Continue antiseizure medications
Follow orthostatic blood pressures
Provide abdominal binder
Neuro Assessment/Plan
Assessment
Patient with longstanding history of traumatic brain injury and epilepsy who presented with numerous episodes of falling. Differential diagnosis includes orthostatic hypotension in part induced by the use of carbidopa levodopa prescribed for
presumed diagnosis of parkinsonism although prior EMILY scan has been negative
Plan
Discontinue carbidopa levodopa
Continue antiseizure medications
Follow orthostatic blood pressures
Provide abdominal binder
Will follow as needed
Subjective/Objective
Subjective Data
Date of Service: October 12, 2025
Objective Data
Vital Signs
Temp Pulse Resp BP Pulse Ox
36.7 C 73 16 121/84 97
10/12/25 03:12 10/12/25 03:12 10/12/25 03:12 10/12/25 03:12 10/12/25 03:12
Sodium 136 mmol/L (135-145) 10/11/25 07:42
Potassium 3.4 mmol/L (3.5-5.1) L 10/11/25 07:42
BUN 18 mg/dl (9-20) 10/11/25 07:42
Glucose 78 mg/dl (70-99) 10/11/25 07:42
Calcium 8.6 mg/dl (8.4-10.2) 10/11/25 07:42
Patient Allergies
iodine (Iodine) Allergy (Verified 08/21/24 09:55)
Rash
valproic acid Allergy (Verified 08/21/24 09:55)
Unknown
Data Reviewed
-
Labs: Report Reviewed
Reviewed with: Physician
Old Records: Summarized
Past History
Past History
ED Past Medical History: Seizures (intractable epilepsy), Psychiatric (Depression), Other (gall stones, traumatic brain injury, migraine) and Other (Hemorrhoids)
ED Past Surgical History: None
Social History
Tobacco: Non-smoker
Alcohol: None
Drug: None
Personal: Single
Living: alone
Employment: Disabled
Family History
Family History: Other (Lost a brother and a sister to Alzheimer's.)
Medications
-
Medications:
Generic Name Dose Route Start Last Admin
Trade Name Freq PRN Reason Stop Dose Admin
Acetaminophen 650 mg 10/09/25 20:57
Acetaminophen 325 Mg Tablet PO 11/06/25 20:56
Q4HPRN PRN
mild pain/WAYNE/temp> 100.4F
Cyanocobalamin 1,000 mcg 10/10/25 08:00 10/12/25 09:04
Cyanocobalamin (Vitamin B-12) 500 Mcg Tablet PO 11/07/25 07:59 1,000 mcg
DAILY JOSE Administration
Docusate Sodium 100 mg 10/12/25 08:26
Docusate Sodium 100 Mg Capsule PO 11/09/25 08:25
BIDPRN PRN
no BM > 24 hours
Escitalopram Oxalate 20 mg 10/10/25 08:00 10/12/25 09:04
Escitalopram 20 Mg Tablet PO 11/07/25 07:59 20 mg
DAILY JOSE Administration
Famotidine 20 mg 10/10/25 08:00 10/12/25 09:05
Famotidine 20 Mg Tablet PO 11/07/25 07:59 20 mg
DAILY JOSE Administration
Ferrous Sulfate 325 mg 10/09/25 20:57 10/12/25 09:05
Ferrous Sulfate 325 Mg Tablet PO 11/06/25 20:56 325 mg
BID JOSE Administration
Folic Acid 0.5 mg 10/10/25 08:00 10/12/25 09:01
Folic Acid 0.5 Mg (1/2 Of A 1 Mg Tablet) PO 11/07/25 07:59 0.5 mg
DAILY JOSE Administration
Heparin Sodium 5,000 units 10/09/25 20:57 10/12/25 09:10
Heparin 5,000 Units/Ml 1 Ml Vial SC 11/06/25 20:56 5,000 units
Q12 JOSE Administration
Levetiracetam 1,000 mg 10/09/25 22:00 10/12/25 09:04
Levetiracetam 500 Mg Regular Release Tablet PO 11/06/25 21:59 1,000 mg
BID JOSE Administration
Levothyroxine Sodium 50 mcg 10/10/25 06:00 10/12/25 05:43
Levothyroxine 50 Mcg Tablet PO 11/07/25 05:59 50 mcg
DAILY@0600 JOSE Administration
Loratadine 10 mg 10/10/25 08:00 10/12/25 09:02
Loratadine 10 Mg Tablet PO 11/07/25 07:59 10 mg
DAILY JOSE Administration
Meloxicam 7.5 mg 10/10/25 08:00 10/12/25 09:04
Meloxicam (Mobic) 7.5 Mg Tablet PO 11/07/25 07:59 7.5 mg
DAILY JOSE Administration
Pt's Own ( 1,200 mg 10/10/25 08:00
Eslicarbazepine 400 PO 11/07/25 07:59
Mg Tablet) 1200 Mg DAILY JOSE
Po Daily
Pregabalin 300 mg 10/09/25 21:30 10/12/25 09:01
Pregabalin 100 Mg Capsule PO 11/06/25 21:29 300 mg
BID JOSE Administration
Sodium Chloride 1 gram 10/10/25 08:00 10/12/25 09:01
Sodium Chloride 1 Gram Tablet PO 11/07/25 07:59 1 gram
DAILY JOSE Administration
Sodium Chloride 0 flush 10/09/25 22:00
Sodium Chloride 0.9% (Flush) Syringe IV 11/06/25 21:59
PER PROTOCOL JOSE
Tamsulosin HCl 0.8 mg 10/10/25 18:00 10/11/25 18:33
Tamsulosin 0.4 Mg Capsule PO 11/07/25 17:59 0.8 mg
QPM JOSE Administration
Topiramate 300 mg 10/09/25 22:00 10/11/25 21:13
Topiramate 100 Mg Tablet PO 11/06/25 21:59 300 mg
BID JOSE Administration
[2025-10-12 08:36] LABS: Hematocrit 37.5 % (39.0-52.0); Hemoglobin 12.2 g/dL (13.0-18.0); Mean Corp Hgb Conc. 32.5 g/dL (33.0-37.0); Mean Corpuscular Volume 88.4 fL (80.0-94.0); Nucleated Red Blood Cells % 0 % (-); Platelet Count 111 10^3/uL (130-400); Red Cell Dist. Width 14.6 % (11.5-14.5)
[2025-10-12] MEDS: FOLVITE 0.5 MG PO (09:01)
[2025-10-12] MEDS: LYRICA 300 MG PO ×2 (09:01→19:52)
[2025-10-12] MEDS: SODIUM CHLORIDE 1 GRAM PO (09:01)
[2025-10-12] MEDS: CLARITIN 10 MG PO (09:02)
[2025-10-12] MEDS: NON-FORMULARY ITEM 1200 MG PO (09:03)
[2025-10-12] MEDS: LEXAPRO 20 MG PO (09:04)
[2025-10-12] MEDS: KEPPRA 1000 MG PO ×2 (09:04→19:52)
[2025-10-12] MEDS: VITAMIN B-12 1000 MCG PO (09:04)
[2025-10-12] MEDS: MOBIC 7.5 MG PO (09:04)
[2025-10-12] MEDS: FEOSOL 325 MG PO ×2 (09:05→19:52)
[2025-10-12] MEDS: PEPCID 20 MG PO (09:05)
[2025-10-12] MEDS: HEPARIN 5000 UNITS SC ×2 (09:10→19:51)
[2025-10-12 09:13] LABS: ALT (SGPT) < 10 U/L (0-50); AST (SGOT) 15 U/L (17-59); Albumin 3.3 g/dl (3.5-5.0); Alkaline Phosphatase 112 U/L (38-126); Blood Urea Nitrogen 16 mg/dl (9-20); Calcium 8.7 mg/dl (8.4-10.2); Carbon Dioxide 24 mmol/L (22-30); Chloride 108 mmol/L (98-107); Estimated Creatinine Clearance 74 ml/min; Glucose 84 mg/dl (70-99); Magnesium 1.7 mg/dl (1.6-2.3); Potassium 3.6 mmol/L (3.5-5.1); Sodium 137 mmol/L (135-145); Total Protein 6.3 g/dl (6.3-8.2); eGFR > 60.00
[2025-10-12] MEDS: TOPAMAX 300 MG PO ×2 (09:35→19:52)
[2025-10-12] MEDS: SINEMET 25-100 PO (11:45)
--- NOTE | 2025-10-12 13:48 | CM ---
Patient seen at bedside with physicians on . Patient for discharge home with sister to transport per patient. Physician to call to Neurology, Carter [phone] and EVIE spoke with Judith [phone] to request VN; She stated that
patient would be followed by [facility] VN and is aware of patient discharge today. Patient reviewed IMM with CM and unable to sign due to shakiness, patient confirmed he understood information verbally. CM will continue to follow for discharge
planning needs.
Plan; home with [facility] to follow with HH.
[2025-10-12] MEDS: FLOMAX 0.8 MG PO (17:55)
[2025-10-12] MEDS: NSS 500 IV (19:52)
[2025-10-12] MEDS: SINEMET 25-100 0.5 TABLET PO (19:53)
[2025-10-13 03:00] VITALS: BP 99/63
[2025-10-13] MEDS: SYNTHROID 50 MCG PO (03:40)
--- NOTE | 2025-10-13 06:38 | W.PN.HOSP.TC ---
Addendum entered and electronically signed by Ashlie Arias MD 10/13/25 15:44:
I saw and evaluated the patient independently. I reviewed and discussed the resident�s note and agree with findings and plan as documented by Dr. Storm.
GENERAL: chronically ill appearing male in no apparent distress
HEENT: NC/AT
HEART: regular rate and rhythm, +S1, +S2
LUNGS : clear to auscultation bilaterally
ABDOM: soft, nontender, nondistended, + bowel sounds
EXT: no cyanosis, clubbing, or edema
NEUROLOGIC: significant Parkinson's tremor, flat affect, flat facies
Symptomatic hypotension--likely medication related (carbidopa levodopa) but cannot rule out autonomic dysfunction from Parkinson's as contibutory factor--apprec neuro--did improve with cutting Sinemet in half--BUT still had drop in SBP (not
symptomatic)--midodrine started and may need to tolerate a higher resting BP--PT/OT rec home health
Parkinson's disease with underlying autonomic dysfunction--was initially dizzy and symptomatic--apprec neuro--have a call to pt primary neurologist to discuss (see update note, no call back and cannot get through)--Symptoms correlate with initiation
of carbidopa levodopa; falls likely secondary to orthostatic hypotension/worsening tremors
Recurrent falls/ambulatory dysfunction--multifactorial due to hypotension and worsening Parkinson's --head CT neg
Acute kidney injury--resolved--Likely prerenal; due to hypotension/volume depletion
Chronic anemia--no signs of active bleeding--trend HGB
Chronic seizure disorder--Continue home regimen which includes pregabalin, Keppra, eslicarbazepine, Topamax--could any of these meds be causing his orthostatic hypotension?-- No seizure activity reported.
History of TBI--noted
GERD--Continue Pepcid
Hypothyroidism--Continue levothyroxine 50 mcg daily
BPH--Continue tamsulosin--this can cause hypotension--re-eval need for med with PCP as outpt
CODE STATUS-- DNR/DNI
DVT proph-- SC Heparin
Original Note:
Today's Communication/Plan
-
Spoke with patient's sister Leonides and explained in detail regards his stable condition at hospital course, and planning to discharge with carbidopa/levodopa medications.
asymptomatic orthostatic hypotension.
neurologist follow up in 1 week after discharge
Assessment / Plan
Assessment / Plan
Impression:
A 65-year-old male with a recent Parkinson's disease diagnosis, hypotension, chronic seizure disorder, traumatic brain injury, GERD, hypothyroidism, depression and BPH presenting with recurrent falls and dizziness. Patient recently started
carbidopa levodopa last week based on neurology recommendations at [facility]. No fever, chills, nausea, vomiting, abdominal pain, urinary symptoms.
Vitals stable: 82/50--> 99/63 asymptomatic, NC 134--70, RR 18--22, temp 98.6, O2 96
Total protein 6.3--5.8 dropped, albumin 3.3--3 downtrending
WBC 5.3--4.3 low, Hb 12.2--11.2,
Tamsulosin might be the reason for hypotension.
Plan:
# Asymptomatic hypotension-likely secondary to Parkinson's disease/SHag dryer syndrome/ medication related (carbidopa levodopa):
Orthostatic vitals for today: Supine 116/54, sitting 89/56, standing 115/51 with heart rate 77, 86,73.
Switched to half tablet. Consult PT/OT. Not on any IV fluids tolerating food.
His orthostatic hypotension probably secondary to Parkinson's disease/shag dryer syndrome/autonomic dysfunction.
# Parkinson's disease with underlying autonomic dysfunction
BP initially 82/57, improved to 103/68 after IV fluids
Symptoms correlate with initiation of carbidopa levodopa; falls likely secondary to orthostatic hypotension/worsening tremors
Not on any IV fluids tolerating food.
Orthostatic vital signs checked yesterday-->orthostatic hypotension. Started midodrine 2.5 mg 3 hourly, with instruction to hold if systolic BP more than 130 mmHg.
Carbidopa, levodopa to continue as half dose due to orthostatic hypotension.
Dr. Arias spoke with his outpatient neurologist in regards his Sinemet and he recommended to continue the medication with half dose each.
Neurology consulted. Decrease dose of Sinemet to 25-100 half tablet 3 times a day from 1 full tablet 3 times a day. Plan to increase the dosage if tolerated.
Fall precautions/avoid rapid position changes
PT/OT recommends home health.
Started planning discharge 10/12/2025 but because of his dropped blood pressure will monitor.
# Recurrent falls/ambulatory dysfunction
Likely secondary to hypotension and worsening tremor after starting carbidopa levodopa
On 10/09 : CT head showed no acute abnormality
Continue fall precautions, PT/OT
# Acute kidney injury
Likely prerenal; due to hypotension/volume depletion
Trend BMP
Expect improvement with IV fluids and BP stabilization
# Chronic anemia
Hgb on arrival 11.8, decreased to 10.5 on 10/10/2025
No acute bleeding noted, likely chronic disease
Trend CBC
# Chronic seizure disorder
Stable. No seizure activity reported.
Monitor for symptoms
Continue home regimen which includes pregabalin, Keppra, eslicarbazepine, Topamax
# History of TBI
No new neurological deficits noted
Additional risk factor for dizziness/falls
Continue monitoring
# GERD
Continue Pepcid
# Hypothyroidism
Continue levothyroxine 50 mcg daily
# BPH
Continue tamsulosin
CODE STATUS: DNR/DNI
DVT prophylaxis: Heparin
Disposition: neurology medication review, PT/OT recommendations, home with home health,
[facility] neurologist discussed.
home with [facility]- need to confirm VN agency.
# Spoke with patient's sister Leonides and explained in detail regards his stable condition at hospital course, and planning to discharge with carbidopa/levodopa medications.
he has his own house keys and he says he does things by himself with a walker at home.
asymptomatic orthostatic hypotension-on discharge summary
#neurologist follow up in 1 week after discharge
Anticipated Discharge: Today
Subjective/Interval History
-
Date of Service: October 13, 2025
Overnight patient has concern for fatigue while getting up from the bed. He has now consented for palpitation, dizziness, chest pain, dyspnea.
Objective Data
-
Labs:
Laboratory Results
10/13/25
06:00
WBC Pending
Hgb Pending
Hct Pending
Plt Count Pending
Sodium Pending
Potassium Pending
Chloride Pending
Carbon Dioxide Pending
BUN Pending
Creatinine Pending
Glucose Pending
Calcium Pending
Total Bilirubin Pending
AST Pending
ALT Pending
Alkaline Phosphatase Pending
Vital Signs:
Vital Signs
Temp Pulse Resp BP Pulse Ox
98.6 F 70 22 99/63 96
10/13/25 03:00 10/13/25 03:00 10/13/25 03:00 10/13/25 03:00 10/13/25 03:00
I&O
10/11/25 10/12/25 10/13/25
06:59 06:59 06:59
Intake Total 2280 / 2280 660 / 660 1020 / 1020
Output Total 1500 / 1500 2500 / 2500 250 / 250
Balance 780 / 780 -1840 / -1840 770 / 770
Review of Systems
-
History Source: Patient
All other systems: Reviewed and negative
Physical Exam
-
General: Well Developed and No Apparent Distress
Respiratory: Clear to Auscultation
Cardiac: Regular Rhythm and S1/S2
GI: Soft, Nontender and Nondistended
Genito-urinary: No Costovertebral Tender
Musculoskeletal: No Clubbing, No Cyanosis and No Edema
Skin: Warm
Neuro: Tremors (Resting tremor)
Hematologic / Lymphatic: No Lymphadenopathy
Psych: Calm
[2025-10-13 07:25] VITALS: BP 107/64
[2025-10-13 08:04] LABS: Hematocrit 34.4 % (39.0-52.0); Hemoglobin 11.2 g/dL (13.0-18.0); Mean Corp Hgb Conc. 32.6 g/dL (33.0-37.0); Mean Corpuscular Volume 86.4 fL (80.0-94.0); Platelet Count 109 10^3/uL (130-400); Red Cell Dist. Width 14.8 % (11.5-14.5)
[2025-10-13 08:23] LABS: ALT (SGPT) < 10 U/L (0-50); AST (SGOT) 11 U/L (17-59); Albumin 3.0 g/dl (3.5-5.0); Alkaline Phosphatase 93 U/L (38-126); Blood Urea Nitrogen 20 mg/dl (9-20); Calcium 8.5 mg/dl (8.4-10.2); Carbon Dioxide 22 mmol/L (22-30); Chloride 109 mmol/L (98-107); Estimated Creatinine Clearance 74 ml/min; Glucose 84 mg/dl (70-99); Potassium 3.6 mmol/L (3.5-5.1); Sodium 136 mmol/L (135-145); Total Protein 5.8 g/dl (6.3-8.2); eGFR > 60.00
[2025-10-13] MEDS: VITAMIN B-12 1000 MCG PO (08:53)
[2025-10-13] MEDS: LYRICA 300 MG PO (08:54)
[2025-10-13] MEDS: FEOSOL 325 MG PO (08:54)
[2025-10-13] MEDS: TOPAMAX 300 MG PO (08:55)
[2025-10-13] MEDS: PEPCID 20 MG PO (08:57)
[2025-10-13] MEDS: KEPPRA 1000 MG PO (08:57)
[2025-10-13] MEDS: SODIUM CHLORIDE 1 GRAM PO (08:57)
[2025-10-13] MEDS: SINEMET 25-100 0.5 TABLET PO ×2 (08:58→17:20)
[2025-10-13] MEDS: FOLVITE 0.5 MG PO (08:59)
[2025-10-13] MEDS: CLARITIN 10 MG PO (08:59)
[2025-10-13] MEDS: LEXAPRO 20 MG PO (08:59)
[2025-10-13] MEDS: HEPARIN 5000 UNITS SC (08:59)
[2025-10-13] MEDS: MOBIC 7.5 MG PO (08:59)
[2025-10-13] MEDS: NON-FORMULARY ITEM 1200 MG PO (09:40)
[2025-10-13 10:48] VITALS: BP 115/51; BP 116/54; BP 89/56; PULSE 73; PULSE 77; PULSE 86
[2025-10-13 10:49] VITALS: BP 116/54
--- NOTE | 2025-10-13 13:15 | PN.CDI ---
Addendum entered and electronically signed by Ashlie Arias MD 10/13/25 14:03:
unable to determine--likely multifactorial
Original Note:
CDI
- -
CDI:
Physician Documentation Request
Admit Date: 10/09/25 18:44
Dear Doctor,
Please review the following and provide your response in the progress notes.
Current documentation includes a diagnosis of hypotension.
Clinical Indicators:
Pt admitted for Hypotension likely from recently started carbidopa levodopa in the setting of underlying Parkinson's disease/autonomic dysfunction and Ambulatory dysfunction/fall likely from hypotension/increased tremor related to recently started
carbidopa levodopa.
10/12 PN: ' Symptomatic hypotension--likely medication related (carbidopa levodopa)--apprec neuro--did improve with cutting Sinemet in half--BUT still had drop in SBP (unclear IF he was symptomatic)--midodrine started and may need to tolerate a
higher resting BP--PT/OT rec home health
Parkinson's disease with underlying autonomic dysfunction--was initially dizzy and symptomatic--apprec neuro--have a call to pt primary neurologist to discuss--Symptoms correlate with initiation of carbidopa levodopa; falls likely secondary to
orthostatic hypotension/worsening tremors
Please clarify which of the following is the most likely etiology of the above symptoms and treatment rendered:
Neurogenic Orthostatic Hypotension due to Parkinson's
Hypotension likely due to medications Only
Other
Unable to determine
Use of terms such as suspected, likely, concern for, or probable (associated with a specific diagnosis that is being evaluated, monitored, or treated as if it exists) are acceptable and can be coded in the inpatient setting, when documented at the
time of discharge.
Thank you,
Ana Rosa Agee RN, BSN
CDI Specialist
[facility]
Please use your independent medical judgment in providing your response.
--- NOTE | 2025-10-13 14:44 | CM ---
Addendum entered by Earlene Dia 10/13/25 16:04:
Patient for transport via ambulance. CM spoke with sister in law, farzaneh and they are aware of the transport via ambulance at 6:30pm and CM also called to [facility] and updated Ana Rosa the nurse and they will be visiting patient and assess
tomorrow what services patient might need. CM will continue to follow for discharge planning needs.
Plan; home with ambulance transportation and [facility] to follow
Original Note:
Patient seen at bedside with physicians on . Patient for discharge today. IMM completed and signed form placed on chart. Patient for follow up with [facility]. EVIE spoke with Judith [phone] to update. She stated that patient would be
followed by [facility] and is aware of patient discharge today. CM updated Judith that patient neurology department did not call back to the physician as requested. CM will continue to follow for discharge planning needs.
Plan; home with family transport; with [facility]
[2025-10-13 14:59] VITALS: BP 84/54
--- NOTE | 2025-10-13 15:10 | W.PN.UPDATE ---
Update Note
Progress Note Update
ON 10/12/25, I called to request a callback from the patient's neurologist at [facility] through [facility]. Laura Taylor was supposed to get back to me and she never did. I then called [facility] again and have been on
hold for 30 minutes without anyone coming to the phone to answer it despite pushing #2 for ' calling from a medical providers office'.
Since, I cannot reach anyone to discuss his Parkinson medications...we will d/c the patient on 11/27 tab of Sinemet TID with midodrine for BP support rather than stopping the Sinemet altogether as recommended by our neurologist here. He should follow
up with his neurologist for an appointment post discharge.
[2025-10-13] MEDS: FLOMAX 0.8 MG PO (17:19)
--- NOTE | 2025-10-13 18:50 | W.DCSUMMARY ---
Addendum entered and electronically signed by Ashlie Arias MD 10/14/25 07:09:
Read, reviewed, and agree. See same day progress note for additional details. Time spent coordinating care, DC planning, review of DC plan of care with resident, transition of care, review of records in EMR, med rec, consults, notes, d/w
consultants, nursing, family, and CM = 45 minutes
Original Note:
Discharge Summary
Discharge Data
Date of Admission: 10/09/25
Date of Discharge: 10/13/25
Total time spent discharging patient (in min): 45 minutes
-
Pending Results: No
Hospital Course
Discharging Physician : Dr. Arias, Ashlie Terrell MD
Sharonda Ha MD
Disposition : Home with [facility] visiting nurse
Primary care physician : Kevin Overton DO
Principal Discharge diagnosis : Asymptomatic hypotension--likely medication related (carbidopa levodopa) but cannot rule out autonomic dysfunction from Parkinson's as contibutory factor
Chronic Discharge diagnosis :
#Parkinson's disease with underlying autonomic dysfunction: Continue with 1/2 tablet of carbidopa/levodopa 0.5 mg TID
#Recurrent falls/ambulatory dysfunction--multifactorial due to hypotension and worsening Parkinson's --head CT neg
#Acute kidney injury--resolved--Likely prerenal; due to hypotension/volume depletion
#Chronic anemia--no signs of active bleeding--trend HGB
#Chronic seizure disorder--Continue home regimen which includes pregabalin, Keppra, eslicarbazepine, Topamax.
#History of TBI--noted
#GERD--Continue Pepcid
#Hypothyroidism--Continue levothyroxine 50 mcg daily
#BPH--Continue tamsulosin--this can cause hypotension--re-evaluation need for med with PCP as outpt.
Hospital Course :
ON 10/09 65-year-old male past medical history of hypotension, chronic seizure disorder, history of TBI, chronic tremor,, GERD, hypothyroidism, depression, BPH, presented for evaluation after a fall. He walked to the door to let his friend and when
he turned around he lost his balance and fell. This was his third fall in the week. Falls were associated dizziness, Denied hitting his head, headache, dizziness.He stated that he was recently diagnosed with Parkinson disease by his neurologist at
[facility]. He recently started carbidopa levodopa this past week and had been having worsening tremor since then. He also started another medication this past week but he didnt member what he took it for.Patient was recently admitted from
09/16-09/18 for fall and right ankle sprain. He was also hypotensive at that time which improved with IV fluids. He was seen by neurology during his prior admission for tremors and thought not to have Parkinson disease.Denied nausea or vomiting or
fevers or chills or cough or urinary symptoms or any other symptoms of infection at the time of the admission. Neurologist consulted and recommended to continue Keppra 1000 mg twice a day, pregabalin, eslicarbazepine, Topamax. Recommended to reduce
the dosage to 1/2 tab of Sinemet tablet 3 times a day due to hypotension. Orthostatic vitals checked, indicated orthostatic hypotension with BP 82/57 mmhg and prescribed midodrine 2.5 mg BID. However pthad asymptomatic orthostatic hypotension and
stable. He was discharged with recommendation of 1/2 tab carbidopa/levodopa, along with midodrine and follow up with [facility] within a week of discharge. Patient agrees with the plan. and updated his status to his sister Mrs Coyle by
phone.
Dr Arias Discharge notes:
ON 10/12/25, I called to request a callback from the patient's neurologist at [facility] through [facility]. Laura Taylor was supposed to get back to me and she never did. I then called [facility] again and have been on
hold for 30 minutes without anyone coming to the phone to answer it despite pushing #2 for ' calling from a medical providers office'.
Since, I cannot reach anyone to discuss his Parkinson medications...we will d/c the patient on 1/2 tab of Sinemet TID with midodrine for BP support rather than stopping the Sinemet altogether as recommended by our neurologist here. He should follow
up with his neurologist for an appointment post discharge.
CODE STATUS-- DNR/DNI
DVT proph-- SC Heparin
Important imaging findings :
On 10/09 CT Head W/o Iv Contrast: No acute intracranial abnormality.
Procedure findings : none
Discharge Plan
-
Patient Disposition: Home with Home Care
Discharge Diagnosis/Procedures: Hypotension likely from new medication (carbidopa levodopa)
Parkinson's disease
History of hypotension
Acute kidney injury
Condition: Good
Diet: As tolerated
Activity: With assistance
Driving Restrictions: As prior to admission
Bathing Restrictions: None
Blood Work: CBC, CMP in 1 week (obtain script from PCP)
Other Services: VN, PT and OT
Instructions: Parkinson disease
Referrals:
[facility] [Other] - in three to four weeks
Kevin Overton, DO [Family Provider, Family Practice] - in less than 1 week
Additional Discharge Medication Instructions: Continue carbidopa-levodopa 25-100 mg tablet 0.5 mg,
follow-up outpatient [facility] neurologist within 3-4 weeks after discharge
Monitor blood pressure at home.
Discharging to home with visitors nurse, (patient does not want to go for SNF)
Prescriptions:
New
carbidopa-levodopa 25-100 mg Tablet
0.5 tab PO TID Qty: 45 0RF
midodrine 2.5 mg tablet
2.5 mg PO BID Qty: 20 0RF
Continued
famotidine 20 MG tablet
20 mg PO DAILY
folic acid 0.4 MG tablet
0.4 mg PO DAILY
pregabalin [Lyrica] 300 MG capsule
300 mg PO BID
cyanocobalamin (vitamin B-12) 1,000 MCG tablet
1,000 mcg PO DAILY Qty: 0 0RF
escitalopram oxalate 20 mg Tablet
20 mg PO DAILY
fexofenadine 180 mg Tablet
180 mg PO DAILY
meloxicam 7.5 mg Tablet
7.5 mg PO DAILY
levothyroxine 50 mcg Tablet
50 mcg PO DAILY
topiramate 200 mg Tablet
300 mg PO BID
sodium chloride 1,000 mg Tablet,Soluble
1,000 mg PO DAILY
eslicarbazepine 400 mg Tablet
1,200 mg PO DAILY
ferrous sulfate 325 mg (65 mg iron) Tablet
325 mg PO BID
tamsulosin 0.4 mg capsule
0.8 mg PO QPM
levetiracetam 1,000 mg tablet
1,000 mg PO BID
Discontinued
carbidopa-levodopa 25-100 mg Tablet
1 tab PO TID
Discharge Orders:
Discharge Patient (As Directed); Ordered 10/13/25
Ordered By: Sharonda Storm
Discharge Date and Time
Discharge Date/Time: 10/13/25 18:33
Print Language: MALAWIAN
== END 2025-10-13 18:33 | disposition home health service (06) | DRG 57 ==
LOC: 4 WEST ACU 18:44
PROVIDERS: Emergency Medicine; ADMITTING PHYSICIAN Hospitalist; ATTENDING PHYSICIAN Internal Medicine; CONSULT PHYSICIAN Psychiatry & Neurology Neurology; EMERGENCY PHYSICIAN Student in an Organized Health Care Education/Training Program; FAMILY PHYSICIAN Family Medicine
DX: G20.A1 Parkinson's disease without dyskinesia, without mention of fluctuations (principal); N17.9 Acute kidney failure, unspecified; I95.2 Hypotension due to drugs; T42.8X5A Adverse effect of antiparkinsonism drugs and other central muscle-tone depressants, initial encounter; D64.9 Anemia, unspecified; K21.9 Gastro-esophageal reflux disease without esophagitis; E03.9 Hypothyroidism, unspecified; N40.0 Benign prostatic hyperplasia without lower urinary tract symptoms; E86.0 Dehydration; F32.A Depression, unspecified; G90.9 Disorder of the autonomic nervous system, unspecified; Z66 Do not resuscitate; Z79.890 Hormone replacement therapy; Z79.899 Other long term (current) drug therapy; Z87.820 Personal history of traumatic brain injury; Z91.81 History of falling
CPT/HCPCS: 70450; 80053; 83735; 85025; 85027; 93005; 96360; 97163; 97167; 97530; 99285

== ENCOUNTER 2025-11-23 19:55 | Inpatient (IN) | payer OTHER, MEDICAID, SELFPAY ==
[2025-11-23] VITALS (24 sets, daily range): BP systolic 69–129; BP diastolic 41–83; BMI 23.8
[2025-11-23] MEDS: TYLENOL 650 MG PO (14:12)
[2025-11-23] MEDS: NSS 1000 IV ×2 (14:13→19:07)
[2025-11-23 14:23] LABS: Urine Character Slightly Cloudy (Clear)
[2025-11-23 14:29] LABS: Hematocrit 34.5 % (39.0-52.0); Hemoglobin 12.0 g/dL (13.0-18.0); Mean Corp Hgb Conc. 34.8 g/dL (33.0-37.0); Mean Corpuscular Volume 84.1 fL (80.0-94.0); Nucleated Red Blood Cells % 0 % (-); Platelet Count 134 10^3/uL (130-400); Red Cell Dist. Width 15.0 % (11.5-14.5)
[2025-11-23 14:32] LABS: ALT (SGPT) < 10 U/L (0-50); AST (SGOT) 17 U/L (17-59); Albumin 3.9 g/dl (3.5-5.0); Alkaline Phosphatase 102 U/L (38-126); Blood Urea Nitrogen 19 mg/dl (9-20); Calcium 8.6 mg/dl (8.4-10.2); Carbon Dioxide 20 mmol/L (22-30); Chloride 100 mmol/L (98-107); Estimated Creatinine Clearance 54 ml/min; Glucose 97 mg/dl (70-99); Potassium 3.6 mmol/L (3.5-5.1); Sodium 131 mmol/L (135-145); Total Protein 6.8 g/dl (6.3-8.2); eGFR 50.71
[2025-11-23 14:53] LABS: COVID-19 Antigen Negative (Negative)
[2025-11-23 14:56] LABS: Urine Squamous Cell 0-2 /LPF (Few); Urine Urothelial Cell 0-2 /LPF (FEW)
[2025-11-23 14:57] LABS: Urine White Cell 70-80 /HPF (0-5)
--- NOTE | 2025-11-23 14:57 | ED.GENMED ---
History of Present Illness
General
Chief Complaint: Change in Mental Status
Source: patient
Exam Limitations: none
Time Seen by Provider: 11/23/25 13:47
Nursing documentation reviewed up to this point in time: agreed with
History of Present Illness
History of Present Illness:
Patient with history of seizure disorder, presents to ED from [facility], where 911 was initially dispatched, as patient had fallen off the bed due to weakness, and was unable to lift himself back up. Upon arrival, patient was
found to be hypotensive and hypoxic, with brief episode of syncope, when he was being assisted onto stretcher. Upon arrival, patient is febrile and hypotensive, with hypoxia, required supplemental oxygen. Patient denies headache. Denies coughing.
Denies vomiting or diarrhea. Patient does report feeling tired with decreased appetite over the past 2 to 3 days. Denies difficulty with urination. Denies recent travel. Denies sick contact. Denies recent change in medications or diet. Of
note, patient was admitted to the hospital recently where he was treated for acute hypotension, and is currently taking midodrine.
Past History
Past History
ED Past Medical History: Seizures (intractable epilepsy), Psychiatric (Depression), Other (gall stones, traumatic brain injury, migraine) and Other (Hemorrhoids)
ED Past Surgical History: None
Social History
Tobacco: Non-smoker
Alcohol: None
Drug: None
Personal: Single
Living: alone
Employment: Disabled
Family History
Family History: Other (Lost a brother and a sister to Alzheimer's.)
Review of Systems
Review of Systems
Allergies reviewed?: Yes
All Other Systems: ROS reviewed and negative except as documented in HPI and ROS
Constitutional: Reports no symptoms
Respiratory: Reports no symptoms; Denies cough or trouble breathing
Cardiac: Reports syncope; Denies chest pain or palpitations
ABD/GI: Reports no symptoms; Denies vomiting or diarrhea
Musculoskeletal: Reports no symptoms
Skin: Reports no symptoms; Denies rash
Neurological: Reports weakness; Denies dizzy or headache
Phy Exam
Physical Exam
Physical Exam:
Physical Exam
General: mild distress, acutely ill. febrile. hypotensive
Head: nc/at. eomi
Neck: supple. normal range of motion
Heart: s1/s2 regular rate and rhythm
Lungs: no acute respiratory distress. clear bilaterally
Abdomen: normal bowel sounds. not tender.
Neuro: alert and oriented x 3. no focal neurological deficits. resting tremor noted
Skin: no rash
Psychiatric: well kept. interactive and cooperative
Extremities: no edema. no calf tenderness.
Sepsis
Sepsis Screening
Sepsis Assessment: Severe Sepsis
Sepsis Screening: Hypotension
Sepsis Screen
Sepsis Screen: Severe Sepsis
Date: 11/24/25
Time: 06:21
Course
Orders/Labs/Results
Orders:
Orders
11/23/25 Breakfast
Regular
At Your Request: Full Participation
11/23/25 13:38
EKG [Electrocardiogram (*1)] Urgent
Reason for Study: Syncope
EKG- Treatment ONCE
11/23/25 13:48
Cardiac Monitoring- Treatment ONCE
IV Insert/Care/Rem.- Treatment PRN
Straight cath- Treatment ONCE
11/23/25 14:00
COVID-19 Antigen Urgent
Source: Nasal Swab
Complete Blood Count/With Diff Urgent
Comprehensive Metabolic Panel Urgent
Lactic Acid Q4H
Comment: ON ICE, CANCEL 2ND ORDER IF FIRST LACTIC ACID LEVEL <2
Osmolality, Random Urine Urgent
Date Specimen was Collected: 11/23/25
Time Specimen was Collected: 13:48
Comment: ADD ON
Serum Osmolality Urgent
Comment: ADD ON
Urinalysis Reflex To Culture Urgent
Date Specimen was Collected: 11/23/25
Time Specimen was Collected: 13:48
Urine Microscopic Reflex Cult Urgent
Urine Sodium Urgent
Date Specimen was Collected: 11/23/25
Time Specimen was Collected: 13:48
Comment: ADD ON
Blood Culture Q20M
ROSANNA Source: Blood/Venous
Specimen Description:
Comment: Urgent from separate sites. If patient screens positive for possible sepsis
Blood Culture Q20M
ROSANNA Source: Blood/Venous
Specimen Description:
Comment: Urgent from separate sites. If patient screens positive for possible sepsis
Influenza A+B Rapid Molecular Urgent
ROSANNA Source: Nasal Swab
Specimen Description:
Urine Culture Urgent
ROSANNA Source: U
Specimen Description:
Date Specimen was Collected: 11/23/25
Time Specimen was Collected: 13:48
11/23/25 14:10
0.9% Sodium Chloride 1000 ml [Nss] 1,000 ml IV BOLUS
Acetaminophen [Tylenol] 650 mg PO NOW STA
11/23/25 15:05
CR Chest Portable - 1 View Urgent
Comment:
Reason For Exam: sob/hypoxia
Reason Study Needs to be Portable: Patient Unstable
11/23/25 15:22
D-Dimer Urgent
11/23/25 16:05
CT Chest PE Study Urgent
Comment:
Reason For Exam: hypoxia/sob with elvated d-dimer
11/23/25 16:06
0.9% Sodium Chloride 500 ml [Nss] 500 ml IV BOLUS
11/23/25 16:12
Dexamethasone Sod Phosphate [Decadron] 10 mg IV NOW STA
Diphenhydramine [Benadryl] 25 mg IV NOW STA
11/23/25 18:11
Azithromycin 500 mg/250 ml [Zithromax Infusion] 500 mg in 250 ml IV NOW
CefTRIAXone [Rocephin] 2,000 mg IV NOW STA
11/23/25 19:00
0.9% Sodium Chloride 1000 ml [Nss] 1,000 ml IV 80 mls/hr
11/23/25 19:09
Admit/Transfer Patient As Directed
Co-Sign Provider:
Level of Care: Inpatient admission
Assign to:: Telemetry
Physician / Group: Chrissy
Diagnosis: Hypoxia, Pneumonia
Reason for Telemetry: Arrhythmia
Date to Stop Telemetry: 11/26/25
Time to Stop Telemetry: 11:00
Reason for Hospitalization: IV abx
Expected length of stay greater than two midnights?: Yes
ELOS- Estimated Length of Stay in days: 3
I certify the patient meets the requirements for IP care: Yes
PRN Pain Medication Management As Directed
May give lesser potent ordered pain med per pt: Yes
preference::
Protocol:: Medication orders for pain may be administered in a
manner that supports deferring to patient preference
when the pt is:
- Requesting an ordered lesser potent pain medication.
Least to most potent pain medications are defined
as: acetaminophen < NSAID < tramadol < opioids
(morphine, oxycodone, hydromorphone).
- Requesting a lesser dose of the same medication IF
ORDERED.
- Requesting a less intrusive route of administration
if both routes are prescribed by the provider (PO <
IV).
11/23/25 19:10
Code Status As Directed
Resuscitation Status: Do not resuscitate
Reached after discussion with pt or family/Healthcare POA: Yes
DNR Bracelet Application ONCE
11/23/25 22:08
Acetaminophen [Tylenol] 650 mg PO Q4HPRN PRN
Carbidopa/Levodopa [Sinemet 25-100] 0.5 tablet PO TID
11/23/25 22:08
Activity As Directed
Activity Level: Out of Bed-Early Mobility
With Assistance
Bladder Scan As Directed
Follow Bladder Retention/Intermittent Cath Algorithm?: Yes
PRN if no void in __ hours: 6
Frequency: Per Retention Algorithm
If Bladder Scan Result >: 400
then:: Straight cath
I&O [Intake/ Output] As Directed
Frequency: q12h
Straight Cath As Directed
Frequency: Per Retention Algorithm
Additional Instructions: straight cath as needed per acute urinary retention algorithm for 24 hrs
Additional Instructions: for bladder scan greater than 400 mL
Vital Signs As Directed
Frequency: Per unit guidelines
Weight As Directed
Frequency: Daily
Ot Eval And Treat Routine
Pt Eval And Treat Routine
Activity Level: Out of Bed-Early Mobility
Speech Therapy Eval & Treat Routine
DX Deep Vein Thrombosis Video Routine
11/23/25 22:30
Pregabalin [Lyrica] 300 mg PO BID
11/23/25 23:00
Levetiracetam [Keppra] 1,000 mg PO BID
Topiramate [Topamax] 300 mg PO BID
11/24/25 00:00
Heparin 5,000 units SC Q8
11/24/25 04:27
Basic Metabolic Panel IN AM
Complete Blood Count/No Diff IN AM
11/24/25 06:00
Levothyroxine [Synthroid] 50 mcg PO DAILY@0600
11/24/25 08:00
Doxycycline [Vibramycin] 100 mg PO Q12
eslicarbazepine 1,200 mg PO DAILY
11/24/25 16:00
CefTRIAXone [Rocephin] 1,000 mg IV Q24H
11/26/25 11:00
DC Protocol for Telemetry ONCE
Abnormal Lab Results
11/23/25 11/23/25
14:00 15:22
RBC 4.10 L 10^6/uL
(4.70-6.10)
Hgb 12.0 L g/dL
(13.0-18.0)
Hct 34.5 L %
(39.0-52.0)
RDW 15.0 H %
(11.5-14.5)
Absolute Lymphs (auto) 0.4 L 10^3/uL
(1.2-3.4)
Neutrophils % 89.6 H %
(42.2-75.2)
Lymphocytes % 5.4 L %
(20.5-51.1)
D-Dimer 6.13 H ug/mlFEU
(0.00-0.50)
Sodium 131 L mmol/L
(135-145)
Carbon Dioxide 20 L mmol/L
(22-30)
Creatinine 1.5 H mg/dL
(0.7-1.3)
Urine Ketones 1+ A
(Negative)
Ur Occult Blood Reflex 3+ A
(Negative)
Leukocyte Esterase Rfl 2+ A
(Negative)
Urine RBC 11-15 A /HPF
(0-2)
Urine WBC (Reflex) 70-80 A /HPF
(0-5)
Urine Bacteria (Reflex) Few A
(Negative)
Urine Sodium 92 H mmol/L
(30-90)
Urine Albumin (Reflex) 2+ A
(Neg - Trace)
11/23/25 14:00
11/23/25 14:00
Vital Signs
Initial and Last Documented VS:
Initial Vital Signs
Temp Pulse Resp BP Pulse Ox
99.2 F 122 22 77/50 86
11/23/25 13:34 11/23/25 13:34 11/23/25 13:34 11/23/25 13:34 11/23/25 13:34
Last Documented Vital Signs
Temp Pulse Resp BP Pulse Ox
97.6 F 65 12 112/80 99
11/23/25 18:13 11/24/25 05:45 11/24/25 05:45 11/24/25 05:00 11/24/25 05:45
MDM/Problems Addressed
MDM/Problems Addressed:
History and exam concerning for sepsis, possibly secondary to pneumonia noted on chest x-ray. IVFs started, which will be continued
Blood culture pending.
D-dimer significant elevated. As such, CT PE study ordered.
Critical care statement: A total of 40 minutes of critical care time was provided for this patient. This includes management of unstable vital signs, evaluation of the patient at bedside, reviewing the patient's pertinent medical records, review of
old EKGs and review of pertinent medical records. This time with separate from time utilized to perform the aforementioned documented procedures
*Pulse Oximetry
SaO2: 100
Oxygen Mode of Delivery: Midflow Nasal Cannula
Patient hypoxic: yes
*Critical Care Note
Total Time (30-74mins, 75-104mins- exclusive of procedures): 40 min
ED Attending Note
-
Portions of this chart may have been created with voice recognition software.� Occasional wrong word or��sound alike� substitutions may have occurred due to the inherent limitations of voice recognition software.
Discharge Plan
Departure
Patient Disposition: Admit
Date of Disposition: 11/23/25
Time of Disposition: 18:15
Admit to: IMU
Presentation/result/management discussed w/ accepting MD/DO: Hospitalist
Condition: Fair
Discharge Problem:
Pneumonia
Interventions
Interventions:
*General Assessment Last Done: 11/23/25 13:34
*Neglect/Abuse Screening Last Done: 11/23/25 13:34
*ED COVID-19 Vaccine History Last Done: 11/23/25 13:34
*ED Influenza Vaccine History Last Done: 11/23/25 13:34
[facility] Risk Assessment Tool Last Done: 11/24/25 04:52
*Risk Screen - Suicide (C-SSRS) Last Done: 11/23/25 13:34
ED- Pulmonary Assessment Last Done: 11/23/25 14:33
ED- Neurological Assessment Last Done: 11/23/25 14:32
ED- Cardiac Assessment Last Done: 11/23/25 14:33
ED Swallowing Screen Last Done: 11/23/25 14:32
[2025-11-23 15:51] LABS: D-Dimer 6.13 ug/mlFEU (0.00-0.50)
[2025-11-23] MEDS: BENADRYL 25 MG IV (16:27)
[2025-11-23] MEDS: NSS 500 IV (16:27)
[2025-11-23] MEDS: DECADRON 10 MG IV (16:28)
--- NOTE | 2025-11-23 18:26 | HPS.HSE ---
Addendum entered and electronically signed by Tk Lowe MD 11/23/25 19:34:
This is an addendum to the H&P written by Wendy Bradley on 11/23/2025. �Patient seen and examined independently with PA.
65-year-old male past medical history of Parkinson disease, autonomic dysfunction, recurrent falls/ambulatory dysfunction, chronic anemia, chronic seizure disorder, TBI, GERD, hypothyroidism, BPH, presenting with falling out of bed and could not get
up. �EMS found him hypotensive and hypoxic. �When he got up he had a syncopal episode.
Temp of 102.8 here. Blood pressure 86/41. �Hypoxemia requiring 3 L oxygen.
Chest x-ray shows mild left basilar opacity. �Flu and COVID-negative. �CT chest shows patchy parenchymal opacity within the posterior aspect of the mid to lower lungs bilaterally suggestive atelectasis.
Patient with community-acquired pneumonia. Syncopal episode secondary to hypotension.
IV fluids, blood cultures, ceftriaxone/doxycycline.
Original Note:
Family Physician
-
Family Physician: QUINTIN John
Chief Complaint
-
Weakness
History of Present Illness
Patient is a 65 y/o male past medical history of Parkinson's Disease, Seizure Disorder, TBI, PTSD, Hypothyroidism and BPH who presents with weakness. EMS was originally dispatched to patient's residence after patient fell out of bed and was unable
to get back up. EMS found patient to be hypoxic and hypotensive. Upon arrival to the ED patient was found to be febrile, hypotensive and hypoxic.
Medical History
Past Medical History
Past Medical History: Reports Other
Additional Past Medical History:
Parkinson's Disease with Autonomic Dysfunction
Epilepsy / Seizure Disorder
History of TBI
PTSD
Hypothyroidism
BPH
Past Surgical History: Reports Other
Additional Past Surgical History:
None Known
Social History
Tobacco: Non-smoker
Alcohol: None
Drug: None
Living: Alone ([facility])
Family History
Family History: Unable to Obtain
Allergies / Home Medications
Allergies reflects when Allergies were last updated in [employer].
Home Medications with original date entered in [employer]
Allergy/Medication List:
Medications on admission are unable to be verified or confirmed at this time.
If medication reconciliation has not been performed, why?: Medication List N/A
Review of Systems
-
History Source: Patient
Constitutional: Reports Fever
Respiratory: Denies Cough
Cardiac: Denies Chest Pain
Abdomen/GI: Denies Nausea, Vomiting or Diarrhea
Physical Exam
Vital Signs
Vital Signs
Temp Pulse Resp BP Pulse Ox
97.6 F 71 12 100/67 100
11/23/25 18:13 11/23/25 18:15 11/23/25 18:15 11/23/25 18:00 11/23/25 18:15
Physical Exam
General: Well Developed and Other (Slightly sedated following Benadryl given for CT scan, but easily arousable)
HEENT: Anicteric and Other (Lips and Tongue are very dry)
Respiratory: Clear and Non Labored Respirations
Cardiac: S1/S2 and Regular Rhythm
GI: Soft and Non Tender
Rectal: Deferred by Provider
Musculoskeletal: No Clubbing, No Cyanosis and No Edema
Skin: Warm and Dry
Neuro: Other (Easily arousable but unable to follow all commands for full neurologic evaluation)
Psych: Calm
Laboratory Results
-
11/23/25 14:00
11/23/25 14:00
Laboratory Results
Lactic Acid Cancelled 11/23/25 18:00
Total Bilirubin 0.9 mg/dl (0.2-1.3) 11/23/25 14:00
AST 17 U/L (17-59) 11/23/25 14:00
ALT < 10 U/L (0-50) 11/23/25 14:00
Alkaline Phosphatase 102 U/L (38-126) 11/23/25 14:00
Chest X-Ray:
Mild left basilar opacity suggesting subsegmental atelectasis and/for pneumonia
Chest CT:
Examination is negative for pulmonary embolism.
Patchy parenchymal opacity within the posterior aspect of the mid to lower lungs bilaterally, morphologic appearance highly suggestive of atelectasis. The degree of atelectasis appears increased comparing to examination of April 03, 2022.
Data Reviewed
-
Diagnostic Radiology: Report Reviewed by me
CT Scan: Report Reviewed by me
Lab Data: Labs Reviewed by me
Impression/Plan
-
Acute Hypoxic Respiratory Insufficiency secondary to Pneumonia
-Continue supplemental oxygen
Pneumonia +/- Urinary Tract Infection
-Continue ceftriaxone and doxycycline
Acute Renal Insufficiency / Hyponatremia, overall patient appears volume depleted
-Continue IVFs
-Recheck labs in AM
Parkinson's Disease with Autonomic Dysfunction
-Patient is unsure of his medications
-Will continue carbidopa/levodopa as per prior admission
Epilepsy / Seizure Disorder
-Unable to confirm medications at this time
-Continue eslicarbazepine, levetiracetam, pregabalin, and topiramate as per prior admission
Hypothyroidism
-Continue levothyroxine as per prior admission
BPH
-Monitor bladder scans
DVT proph: SC Heparin
Code Status: DNR confirmed with patient at time of admission
[2025-11-23] MEDS: ROCEPHIN 2000 MG IV (18:42)
[2025-11-23] MEDS: ZITHROMAX INFUSION 250 IV (18:50)
[2025-11-23] MEDS: SINEMET 25-100 0.5 TABLET PO (22:46)
[2025-11-23] MEDS: LYRICA 300 MG PO (22:47)
[2025-11-23] MEDS: KEPPRA 1000 MG PO (22:48)
[2025-11-23] MEDS: TOPAMAX 300 MG PO (22:57)
[2025-11-24] VITALS (21 sets, daily range): BP systolic 101–139; BP diastolic 61–99; BMI 23.8; BMI 23.7
[2025-11-24 04:47] LABS: Hematocrit 32.3 % (39.0-52.0); Hemoglobin 11.2 g/dL (13.0-18.0); Mean Corp Hgb Conc. 34.7 g/dL (33.0-37.0); Mean Corpuscular Volume 82.4 fL (80.0-94.0); Platelet Count 136 10^3/uL (130-400); Red Cell Dist. Width 15.3 % (11.5-14.5)
[2025-11-24 05:06] LABS: Blood Urea Nitrogen 18 mg/dl (9-20); Calcium 8.3 mg/dl (8.4-10.2); Carbon Dioxide 18 mmol/L (22-30); Chloride 105 mmol/L (98-107); Estimated Creatinine Clearance 81 ml/min; Glucose 94 mg/dl (70-99); Potassium 4.1 mmol/L (3.5-5.1); Sodium 132 mmol/L (135-145); eGFR > 60.00
[2025-11-24] MEDS: NSS 1000 IV ×2 (05:54→13:10)
[2025-11-24] MEDS: HEPARIN SC (07:00)
--- NOTE | 2025-11-24 07:15 | W.PN.HOSP.TC ---
Addendum entered and electronically signed by Reji Martinez MD 11/27/25 11:38:
possible Sepsis due to Pneumonia with organ dysfunction of hypotension, POA
Addendum entered and electronically signed by Reji Martinez MD 11/24/25 15:54:
new onset afib noted on EKG rate controlled, no chest pain palpitations, VSS. Dr Matthews updated regarding new diagnosis
Addendum entered and electronically signed by Reji Martinez MD 11/24/25 15:22:
Caro Bailey called to provide update. No answer received, message left detailing acceptance transfer to [place] planned for today. Call back number for questions left.
Addendum entered and electronically signed by Reji Martinez MD 11/24/25 15:19:
Accepted for transfer to [facility] Dr Matthews accepting, advance seizure/epilepsy care.
Addendum entered and electronically signed by Reji Martinez MD 11/24/25 13:44:
Request for transfer placed with [facility] transfer center. Awaiting call back for physician to physician discussion.
Original Note:
Today's Communication/Plan
-
see a/p
Assessment / Plan
Assessment / Plan
Physical Exam
General: lethargic but arousable, appears comfortable following resolution seizure event
HEENT: Normocephalic Moist mucus membranes
Respiratory: Clear and Non Labored Respirations
Cardiac: S1/S2 and Regular Rhythm
GI: Soft and Non Tender
Musculoskeletal: No Clubbing, No Cyanosis and No Edema
Skin: Warm and Dry
Neuro: Lethargic Arousable conversant coherent, resting tremor hands b/l
Psych: Calm
65M Parkinson's Disease, Seizure Disorder, TBI, PTSD, Hypothyroidism and BPH who presents with weakness. EMS was originally dispatched to patient's residence after patient fell out of bed and was unable to get back up. EMS found patient to be
hypoxic and hypotensive. Upon arrival to the ED patient was found to be febrile, hypotensive and hypoxic. CXR suggestive PNA. Hospital Course further complicated with rapid response seizure event prolonged required total 2mg IV ativan to abort,
subsequently transferred to ICU for closer monitoring with ceribell device.
11/24 Rapid Response Seizure Event
Hx Epilepsy
Full body shaking repetitive movements, initial left sided gaze deviation spontaneously resolved but full body repetitive movements/shaking persisted
required total 2 mg IV ativan for sz event to fully resolve
Lethargic but arousable conversant coherent following event
NPO except meds for now
Transferred to ICU for closer monitoring ceribell device, otherwise hemodynamically stable on Oxygen supplementation 4L stable respiratory status
EEG ordered
Neuro Product Safety Specialist eval requested
Per discussion with neuro, patient poorly controlled Epilepsy, recommended transfer to [place], patient well known to Epilepsy center there.
Continue home eslicarbazepine, levetiracetam, pregabalin, and topiramate
Acute Hypoxic Respiratory Insufficiency secondary to Pneumonia
-Continue supplemental oxygen
Pneumonia +/- Urinary Tract Infection
-Continue ceftriaxone and doxycycline
-UA suggestive UTI but urine cx prelim shows low growth, follow offical report
-Speech eval appreciated, eventual VSE recommended when stable
Acute Renal Insufficiency / Hyponatremia, overall patient appears volume depleted
-Continue IVFs espcially while NPO as above
Parkinson's Disease with Autonomic Dysfunction
-continue carbidopa/levodopa
-ST/PT/OT
Hypothyroidism
-Continue levothyroxine as per prior admission
BPH
-Monitor bladder scans
DVT proph: SC Heparin
Code Status: DNR
Discussed with patient and patient's niece Lynn (in process of becoming patient's POA)
I spent a total of 60 minutes with the patient or on the floor. More than 50% of this time involved counseling and coordination of care.
Anticipated Discharge: > 48 hours
Subjective/Interval History
-
Date of Service: November 24, 2025
Seen earlier in the day no acute distress, sitting up comfortably in bed, resting tremor upper ext's noted. Patient otherwise reported feeling well. On low dose NC supplementation stable respiratory status. Patient was rapid response seizure
event later in day full body shaking repetitive movements with left gaze deviation. Left gaze deviation resolved but full body repetitive movements persisted, eventually aborted with total 2mg IV ativan. Patient lethargic following event but
arousable conversant coherent.
Objective Data
-
Labs:
Laboratory Results
11/24/25
04:27
WBC 10.6
Hgb 11.2 L
Hct 32.3 L
Plt Count 136
Sodium 132 L
Potassium 4.1
Chloride 105
Carbon Dioxide 18 L
BUN 18
Creatinine 1.0
Glucose 94
Calcium 8.3 L
Vital Signs:
Vital Signs
Temp Pulse Resp BP Pulse Ox
97.6 F 65 12 112/80 99
11/23/25 18:13 11/24/25 05:45 11/24/25 05:45 11/24/25 05:00 11/24/25 05:45
I&O
11/23/25 11/24/25 11/25/25
06:59 06:59 06:59
Intake Total 1000 / 1000
Output Total 700 / 700
Balance 300 / 300
--- NOTE | 2025-11-24 07:59 | PTCARENOTE ---
Received pt from ED via stretcher. Pt AAOX3. Forgetful at times. Bed alarm on. NSR on monitor worker. Pox: 100% 2L NC. Call valdez within reach. Plan of care ongoing.
[2025-11-24] MEDS: KEPPRA 1000 MG PO (08:14)
[2025-11-24] MEDS: SINEMET 25-100 0.5 TABLET PO (08:14)
[2025-11-24] MEDS: TOPAMAX 300 MG PO (08:19)
[2025-11-24] MEDS: LYRICA 300 MG PO (08:19)
[2025-11-24] MEDS: HEPARIN 5000 UNITS SC ×2 (08:19→16:31)
[2025-11-24] MEDS: VIBRAMYCIN 100 MG PO (08:20)
--- NOTE | 2025-11-24 08:50 | PTOTSP ---
Speech Language Pathology
Pt seen for clinical bedside swallow evaluation. Seen with breakfast tray of regular solids and thin liquids. Adequate mastication noted with no oral residue. Audible swallow noted x1 with liquids, possibly indicative of incoordination. Slight
wet voice following consecutive straw sips of liquids, which pt was able to clear. No overt coughing. CT showed atelectasis with dx now of PNA. Pt denied previous PNA. Is at risk for aspiration given Parkinson's.
Recommend:
(1) Continue regular solids/thin liquids
(2) If feel strongly that pt currently with PNA, VSE indicated. MD ordered after discussion
(3) General aspiration precautions
(4) Meds as tolerated
(5) ZINC PLATE GRAINER to continue to follow
[2025-11-24] MEDS: SYNTHROID 50 MCG PO (08:52)
--- NOTE | 2025-11-24 10:32 | CM ---
Addendum entered by Maritza Issa 11/24/25 12:09:
CM Consult completed. Advance Directive information packet will be emailed to patient's nieceLynn
email address: [email or web address]
Addendum entered by Maritza Issa 11/24/25 11:51:
Spoke with Deya @ [facility] # [phone]
[place] will arrange transportation home; coordinate Home Health services if needed; and provide Medications
When stable for discharge, need to send discharge summary and medication list including any new medications needed via Fax

Original Note:
Met with patient at bedside and with his permission spoke to his nieceLynn via phone
Left a Voice Mail w/ [facility] #[phone]; requesting to speak with a disease case manager
Need to verify pharmacy; patient reported that he does not use [facility]; [facility]
His niece reported that he is managing his medication and may need help with that
Lives alone; 1st floor apartment; independent living @ [facility]; bath has walk-in shower w/ seat and grab bar
PLOF: reported that he ambulates w/ walker or cane; gets assistance bathing from women's health care nurse practitioner provided by [facility] 2 days/week; takes a bus when he needs to go shopping; eats prepared microwavable meals
Transport provided by family if available; otherwise call ambulance
Discharge plan to be determined; case management will monitor for needs/services and support when stable for discharge
--- NOTE | 2025-11-24 12:00 | PTOTSP ---
Speech Language Pathology
Pt brought to OP radiology by transport for VSE. Pt conversant. Slid to VSE chair and sat upright. Wheeled into room. Explained study. During explanation, pt stopped verbally responding or visually tracking with L gaze preference. Immediately
called rapid response. Also called pt's RN to notify of situation. Moved pt back to stretcher and monitored until rapid response team arrived. Accompanied patient and team back to 1 acute. Notified RN and MD of situation. EXPERIMENTAL DISPLAY BUILDER to hold VSE this
date. New orders received for 11/25 post upgrade to ICU. Will see bedside 11/25 to determine appropriateness of VSE timing.
--- NOTE | 2025-11-24 12:05 | RR ---
A Rapid Response was called on this patient, please see Rapid Response form.
While he was at inpatient Radiology.
[2025-11-24] MEDS: ATIVAN 1 MG IV ×2 (12:29→12:33)
[2025-11-24] MEDS: NSS (PRESERVATIVE FREE) 0.5 ML IV (12:33)
[2025-11-24 12:39] LABS: Glucose - Point of Care 82 mg/dl (70-99)
--- NOTE | 2025-11-24 12:49 | PTCARENOTE ---
Received pt post TRUCK SALES REPRESENTATIVE for suspected seizure. He was upright in a chair about to have a swallow evaluation when the therapist noted a left gaze and pt became non-verbal.TRUCK SALES REPRESENTATIVE called. He was transferred back to [facility] for further evaluation and he was
transferred to the ICU as an IMU overflow, but then shortly upgraded to ICU level per Dr. Martinez d/t Dr. Conti ordering rapid EEG at the bedside. Dr. Jensen is aware. Pt is verbally responsive and able to follow simple commands and give a brief
history. Tremulous due to Parkinson. CHG bath given on arrival due to urinary incontinence. Right fa #18g protective catheter flushed and patent. Good peripheral pulses, no edema. Lungs coarse throughout. 94% pulse ox on 4 liters nasal cannula.
+hypoactive BSX4. Incontinent of urine. Old yellow shadowing of old bruises noted on his left lower extremity below his knee. Cerebell placed as ordered then removed @ [address] Conti for EEG. Safe environment maintained.
--- NOTE | 2025-11-24 13:41 | CON.INTV ---
Consultation
Consultation Request
Date/Time Consultation Requested: 11/24/2025
Date/Time Consultation Performed: 11/24/2025
Medical History
-
Chief Complaint: Falling
History of Present Illness:
65-year-old male with PMH of Parkinson disease with autonomic dysfunction, recurrent falls uses walker in daily life for support, chronic anemia, chronic seizure disorder, history of TBI, GERD, hypothyroidism, BPH being admitted to ICU after having
a seizure-like episode during VSE study. Speech therapist noted the left gaze and patient became nonverbal. CLINCHING MACHINE OPERATOR was called. EEG was ordered. Neurology is on board planning transferring to [place].
He was presented to ED by EMS on 11/24/2025 with a history of falling. He reports feeling dizzy while trying to reach out to his walker from sitting position and falling to the floor. He denies losing consciousness. He denies hitting his head. He
complains about chills and dry coughing for last 2 days. Also he had a little bit of pain with urinating. At the ED he was febrile 102.8 F, hypotensive BP 86/41, hypoxemic requiring 4 L oxygen per EMS. He was tested negative for flu and COVID.
Chest x-ray showed mild left basilar opacity suggesting atelectasis/pneumonia. His D-dimer was elevated CT PE study was negative for pulmonary emboli.
On his vitals 110/70, 99% pulse ox on 4L NC, RR 13, HR 91, temp 97.5 F
On physical exam he is awake, lungs sounds diminished bilaterally, heart sounds irregular, normal s1 and s2, mcleod catheter is placed.
On labs hemoglobin 11.2L, sodium 132L, HCO3 18L, urinalysis positive for UTI, urine culture growing gram-negative bacilli, blood cultures pending
On EKG he has atrial fibrillation.
Past Medical History
Past Medical History: CVA, GERD, Hypothyroidism and Seizures
Social History
Tobacco: Non-smoker
Alcohol: None
Drug: None
Allergies / Home Medications
Allergies
Allergy/AdvReac Type Severity Reaction Status Date / Time
iodine (Iodine) Allergy Rash Verified 08/21/24 09:55
valproic acid Allergy Unknown Verified 08/21/24 09:55
Home Medications
�Medication �Instructions �Recorded �Confirmed �Last Taken �Type
famotidine 20 mg tablet 20 mg PO DAILY Gastrointestinal 09/04/19 10/09/25 10/09/25 History
issue
folic acid 400 mcg tablet 0.4 mg PO DAILY Supplement 02/10/22 10/09/25 10/09/25 History
pregabalin 300 mg capsule (Lyrica) 300 mg PO BID Pain 02/10/22 10/09/25 10/09/25 History
cyanocobalamin (vitamin B-12) 1,000 mcg PO DAILY Supplement ##0 04/05/22 10/09/25 10/09/25 Rx
1,000 mcg tablet
escitalopram oxalate 20 mg tablet 20 mg PO DAILY depression 07/12/22 10/09/25 10/09/25 History
fexofenadine 180 mg tablet 180 mg PO DAILY Allergies 09/11/23 10/09/25 10/09/25 History
meloxicam 7.5 mg tablet 7.5 mg PO DAILY pain 09/11/23 10/09/25 10/09/25 History
levothyroxine 50 mcg tablet 50 mcg PO DAILY Thyroid 07/09/24 10/09/25 10/09/25 History
eslicarbazepine 400 mg tablet 1,200 mg PO DAILY Seizures 06/09/25 10/09/25 10/09/25 History
sodium chloride 1,000 mg soluble 1,000 mg PO DAILY Supplement 06/09/25 10/09/25 10/09/25 History
tablet
topiramate 200 mg tablet 300 mg PO BID Neurological 06/09/25 10/09/25 10/09/25 History
Condition
ferrous sulfate 325 mg (65 mg 325 mg PO BID Supplement 10/09/25 10/09/25 10/09/25 History
iron) tablet
levetiracetam 1,000 mg tablet 1,000 mg PO BID Seizures 10/09/25 10/09/25 10/09/25 History
tamsulosin 0.4 mg capsule 0.8 mg PO QPM Urinary Issue 10/09/25 10/09/25 10/08/25 History
carbidopa 25 mg-levodopa 100 mg 0.5 tab PO TID Neurological 10/11/25 Unknown Rx
tablet Condition #45 tabs
Review of Systems
-
History Source: Patient
Constitutional: Chills
EENT: No Symptoms
Respiratory: Cough and Trouble Breathing
Cardiac: No Symptoms
Abdomen/GI: No Symptoms
: Dysuria
Musculoskeletal: No Symptoms
Skin: No Symptoms
Neuro: No Symptoms
Endocrine: No Symptoms
Hematologic/Lymphatic: No Symptoms
Vitals / Labs / Diagnostic Testing
Vital Signs
Temp Pulse Resp BP Pulse Ox
98.2 F 78 16 105/71 95
11/24/25 12:41 11/24/25 11:53 11/24/25 11:53 11/24/25 11:53 11/24/25 13:00
Lab Data
11/24/25 04:27
11/24/25 04:27
Microbiology
11/23/25 14:00 Urine Urine Culture - Preliminary
Gram negative bacilli
11/23/25 14:00 Nasal Swab Influenza Types A & B (JOHN) - Final
Negative for Influenza A & B, NAAT
Negative results must be combined with clinical observations
and patient history.
Nucleic Acid Amplification test (NAAT)performed on the
AQS platform.
Diagnostic Testing:
Physical Exam
-
HEENT: Normocephalic, Anicteric and Moist Mucous Membranes
Cardiovascular: S1/S2 and Irregular Rhythm
Respiratory: Clear and Other (Diminished lung sounds)
GI: Soft, Non Distended and Non Tender
Neurology: AO x 3, No Motor Deficits and Tremors (Upper extremity bilaterally)
Skin: Warm and Dry
General: Comfortable
Assessment
-
Impression
65-year-old male with PMH of Parkinson disease with autonomic dysfunction, recurrent falls uses walker in daily life for support, chronic anemia, chronic seizure disorder, history of TBI, GERD, hypothyroidism, BPH being admitted to ICU after having
a seizure-like episode during VSE study. Speech therapist noted the left gaze and patient became nonverbal. CLINCHING MACHINE OPERATOR was called. EEG was ordered. Neurology is on board planning transferring to [place].
He was presented to ED by EMS on 11/24/2025 with a history of falling. He reports feeling dizzy while trying to reach out to his walker from sitting position and falling to the floor. He denies losing consciousness. He denies hitting his head. He
complains about chills and dry coughing for last 2 days. Also he had a little bit of pain with urinating. At the ED he was febrile 102.8 F, hypotensive BP 86/41, hypoxemic requiring 4 L oxygen per EMS. He was tested negative for flu and COVID.
Chest x-ray showed mild left basilar opacity suggesting atelectasis/pneumonia. His D-dimer was elevated CT PE study was negative for pulmonary emboli.
Plan
Acute hypoxic respiratory insufficiency secondary to community-acquired pneumonia versus aspiration pneumonia
- On exam lungs had bilaterally diminished clear sounds
- VSE study was not completed due to seizure activity. High likely aspiration pneumonia.
- O2 sat 99% on 4L NC
- COVID and flu negative
- Chest XR- mild left basilar opacity suggesting subsegmental atelectasis and/for pneumonia
- Continue Ceftriaxone and Doxycycline
- Blood cultures pending
- D-dimer 6.13 8 --> chest CT negative for PE
- Lactate normal
Urinary tract infection
- Symptomatic - dysuria
- Urinalysis positive for UTI
- Urine culture gram-negative bacilli
- Continue antibiotics
Parkinson's disease with autonomic dysfunction
Multiple history of falls
- Continue IV fluids for hypotension
- Continue home meds carbidopa/levodopa
Seizure disorder
- Continue home meds eslicarbazepine, levetiracetam, pregabalin and topiramate
Hypothyroidism
- Continue levothyroxine
BPH
DVT prophylaxis: Subcutaneous heparin 5000U
Code Status: DNR
--- NOTE | 2025-11-24 14:43 | EEG.RPT ---
Electroencephalogram Report
Recording
Date of EE11/24/25
Type of EEG: Routine
Length of EEG recordin minutes
Done with Video Recording: Yes
Patient Status: Inpatient
Recording Conditions: Awake and Drowsy
Hyperventilation Performed: No
Photic Stimulation Performed: Yes
Report
LESS THAN 1 HOUR REPORT
LESS THAN 1 HOUR EEG INTERPRETATION:
Moderately abnormal EEG for age due to diffuse loss of normal organization
CLINICAL CORRELATION:
This study was suggestive of diffuse cortical dysfunction without focal abnormality. No seizures were recorded. No clear change from prior testing.
Clinical correlation is advised.
METHODS:
A 21 channel digitized electroencephalogram (EEG) was performed in the ICU. The 10/20 international system of electrode placement was used with ECG and lateral/vertical eye movements recorded. Video was recorded. The [employer] quantitative EEG system
was utilized.
QUALITY OF STUDY:
Good
ELECTROENCEPHALOGRAPHER IMPRESSION(S):
Background
Low amplitude unorganized anterior-posterior voltage gradient of beta activity
There were no significant asymmetries of background activity noted.
Sleep
Not recorded
Photic Stimulation
Failed to activate the record
ECG
Unremarkable
[2025-11-24 14:55] LABS: APTT 27.3 Sec (23.4-35.0); INR 1.17; PT 15.0 Sec (11.4-14.6)
--- NOTE | 2025-11-24 15:05 | W.RAPID.EEG ---
Rapid EEG
-
Procedure Date: 11/24/25
Patient Status: Inpatient
Results:
Impression:
Absence of status epilepticus
Recording Information:
Patient was described as drowsy only
Diagnostic Recording Time: 00:24:12 (24 minutes)
Recording 1: [email or web address]
Start Time: Nov 24, 2025 12:42 PM End Time: Nov 24, 2025 13:06 PM
Recording Technique: This EEG was obtained using a 10 lead, 8 channel system positioned circumferentially without any parasagittal coverage (rapid EEG). Computer selected EEG is reviewed as well as background features and all clinically significant
events. Clarity algorithm utilized and implemented to provide analysis of underlying activity and seizure detection used to facilitate reading. ICD-10 Code DM55J34
Clinical History: LEONIDES TORRES is a 65 year old Prior Seizure patient undergoing EEG to screen for non-convulsive status epilepticus.
--- NOTE | 2025-11-24 15:20 | W.DCSUMMARY ---
Discharge Summary
Discharge Data
Date of Admission: 11/23/25
Date of Discharge: 11/24/25
-
Pending Results: No
Discharge Plan
-
Patient Disposition: Acute [facility]
Condition: Fair
Discharge Orders:
Discharge Patient (As Directed); Ordered 11/24/25
Ordered By: Reji Martinez
Discharge Date and Time
Print Language: UKRAINIAN
--- NOTE | 2025-11-24 15:29 | TRANSFER ---
Attempted to call [facility] [phone] for report, was asked to call back. Pt is agreeable to trasholaer to [facility] for Neurosciences for further treatment. His Nemao Bailey [phone] is also aware of his transfer.
--- NOTE | 2025-11-24 15:30 | PTCARENOTE ---
No changes. He was takinghis gown off to urinate. He was reminded that he had a condom catheter on.
[2025-11-24 15:38] LABS: Magnesium 1.9 mg/dl (1.6-2.3)
--- NOTE | 2025-11-24 15:39 | PTCARENOTE ---
Dr. Martinez notified that ICU EKG read AFIB, new onset. Vital signs remain stable and heart rate controlled. NSR when report called to [facility].
--- NOTE | 2025-11-24 16:01 | TRANSFER ---
Report called to Alicia RESENDIZ for [address] @ [phone] going to [facility]. She is aware he will be sent with a multi blister pack of his medications, a watch, wallet, clothing. His niece Lynn Tamayo @ [phone] is
his emergency contact. She was also made aware of an EKG that showed new afib rate controlled and is currently in NSR 69. Will call when pt is picked up by ground transport.
[2025-11-24] MEDS: SINEMET 25-100 PO ×2 (16:32→16:38)
[2025-11-24] MEDS: STERILE WATER FOR INJECTION 10 ML IV (16:32)
[2025-11-24] MEDS: ROCEPHIN 1000 MG IV (16:32)
--- NOTE | 2025-11-24 16:49 | TRANSFER ---
Notified receiving RN of recent straight cath of 925ml's due to pt verbalizing he felt like he had to urinate. Also pt would not take a sip of water to take his Sinemet PO. He was responding verbally but would not open his eyes or take a sip of the
water, then to tkae his pill. Video swallow was never completed due to FILTER MACHINE OPERATOR being called earlier.
--- NOTE | 2025-11-24 16:55 | PTCARENOTE ---
Lynn Tamayo [phone] aware he was transported to [facility]science room 611.
--- NOTE | 2025-11-25 12:01 | PN.CDI ---
CDI
- -
CDI:
Physician Documentation Request
Admit Date: 11/23/25 19:55
Dear ,
[facility] is using an adapted version of the 2016 Third International Consensus Definitions for Sepsis and Septic Shock (Sepsis-3) where sepsis is defined as life threatening organ dysfunction caused by a deregulated host response to infection.
Please reference the official [facility] Sepsis Recognition Tool for further information, which can be found on the Intranet under Infection Prevention.
Clinical Indicators Include:
Patient admitted with pneumonia.
Labs on admission:
Lactate: 1.4
Creatinine trend:
11/23/25 11/24/25
14:00 04:27
Creatinine 1.5 H 1.0
eGFR 50.71 > 60.00
Vital Signs on admission:
T Max 102.8
HR trend: 90s
BP/MAP trend:
11/23/25
13:34 11/23/25
13:41 11/23/25
14:00
Blood pressure 77/50 69/50 86/41
MAP (cuff-Mary Monitor) 57 56
11/23/25
15:30 11/23/25
16:42
Blood pressure 88/61 83/51
MAP (cuff-Mary Monitor) 61
Treatment: 11/23 NSS bolus 1500 ml
Based on your medical judgment, can you further clarify the diagnosis being monitored/treated this admission?
Sepsis due to Pneumonia with organ dysfunction of hypotension, POA
Sepsis due to Pneumonia with organ dysfunction of hypotension and DHAVAL, POA
Pneumonia only
Other
Clinically unable to determine
Use of terms such as suspected, likely, concern for, or probable (associated with a specific diagnosis that is being evaluated, monitored, or treated as if it exists) are acceptable and can be coded in the inpatient setting when documented at the
time of discharge.
Please use your independent medical judgement in providing your response.
Thank you,
ANATOLY Murdock RN
CDI Specialist
available via tiger text
== END 2025-11-24 16:50 | disposition short-term general hospital (02) | DRG 871 ==
LOC: ICU 19:55
PROVIDERS: Physician Assistant Medical; Psychiatry & Neurology Neurology; ADMITTING PHYSICIAN Hospitalist; ATTENDING PHYSICIAN Internal Medicine; CONSULT PHYSICIAN Internal Medicine; EMERGENCY PHYSICIAN Emergency Medicine; FAMILY PHYSICIAN Nurse Practitioner
PROC: XX20X89 Monitoring of Brain Electrical Activity, Computer-aided Detection and Notification, New Technology Group 9 (ICD-10-PCS; 2025-11-24)
DX: A41.9 Sepsis, unspecified organism (principal); J18.9 Pneumonia, unspecified organism; J69.0 Pneumonitis due to inhalation of food and vomit; E87.1 Hypo-osmolality and hyponatremia; G40.919 Epilepsy, unspecified, intractable, without status epilepticus; N39.0 Urinary tract infection, site not specified; J98.11 Atelectasis; R09.02 Hypoxemia; I95.9 Hypotension, unspecified; F32.A Depression, unspecified; G43.909 Migraine, unspecified, not intractable, without status migrainosus; G20.A1 Parkinson's disease without dyskinesia, without mention of fluctuations; G90.9 Disorder of the autonomic nervous system, unspecified; K21.9 Gastro-esophageal reflux disease without esophagitis; D64.9 Anemia, unspecified; R29.6 Repeated falls; E03.9 Hypothyroidism, unspecified; N40.0 Benign prostatic hyperplasia without lower urinary tract symptoms; F43.10 Post-traumatic stress disorder, unspecified; R06.89 Other abnormalities of breathing; E86.9 Volume depletion, unspecified; R65.20 Severe sepsis without septic shock; N28.9 Disorder of kidney and ureter, unspecified; I48.91 Unspecified atrial fibrillation; W06.XXXA Fall from bed, initial encounter; Y93.89 Activity, other specified; Y92.092 Bedroom in other non-institutional residence as the place of occurrence of the external cause; Z66 Do not resuscitate; Z87.820 Personal history of traumatic brain injury; Z82.0 Family history of epilepsy and other diseases of the nervous system; Z79.890 Hormone replacement therapy; Z91.81 History of falling; Z88.8 Allergy status to other drugs, medicaments and biological substances; Z91.041 Radiographic dye allergy status; Z79.899 Other long term (current) drug therapy; Z11.52 Encounter for screening for COVID-19
CPT/HCPCS: 71045; 71275; 80048; 80053; 81003; 81015; 82962; 83605; 83735; 83930; 83935; 84100; 84300; 85025; 85027; 85379; 85610; 85730; 87040; 87077; 87086; 87186; 87502; 87811; 92610; 93005; 95816; Q9967